=== PATIENT | male | born 1945 | race Caucasian/White ===

== ENCOUNTER 2017-03-08 07:30 | Emergency (ER) | payer BC ==
[~2017-03-08] VITALS: Ht 177.8 cm; Wt 111.1 kg
[~2017-03-08 07:30] MED LIST: ASPIR 8181 MG PO; BALMEX100 GM TOP; CIPRO500 MG PO; CITRUCEL479 GM PO; GLUCOPHAGE500 MG PO; GLYBURIDE2.5 MG PO; HYDROCHLOROTHIA25 MG PO; HYDROCODON-ACE1 EA10 PO; LANTUS100 UNITS/ SUB-Q; NORCO 10-325 T1 EACH PO; NORCO 5-325 TA1 EACH PO; PERCOCET 5-3251 EACH PO; PERCOCET 7.5-31 EACH PO; PYRIDIUM200 MG PO; RECTICARE30 GM TOP; SIMVASTATIN80 MG PO; TERAZOSIN HCL2 MG PO; ZITHROMAX250 MG PO
[2017-03-08] MEDS ORDERED: NORCO 5-325 TA1 EACH PO (08:05)
== END 2017-03-08 08:15 | disposition home or self-care (01) ==
LOC: ED 07:30
PROC: 0W3Q7ZZ Control Bleeding in Respiratory Tract, Via Natural or Artificial Opening (ICD-10-PCS; principal; 2017-03-08)
DX: R04.0 Epistaxis (principal); E11.9 Type 2 diabetes mellitus without complications; Z87.891 Personal history of nicotine dependence; Z79.899 Other long term (current) drug therapy; Z79.84 Long term (current) use of oral hypoglycemic drugs; Z79.82 Long term (current) use of aspirin; Z79.4 Long term (current) use of insulin
CPT/HCPCS: 30903; 99283

== ENCOUNTER 2017-03-09 13:59 | Emergency (ER) | payer BC ==
[~2017-03-09] VITALS: Ht 177.8 cm; Wt 111.1 kg
--- OUTSIDE RECORDS SUMMARY | 2017-03-09 14:28 | XMS | Clinical Summary ---
Demographics + + + | Address | [address] | | | [place] [address] | + + + | Home Phone | | + + + | Preferred Language | Unknown | + + + | Marital Status | | + + + | Latter-Day Affiliation | Unknown | + + + | Race | White | + + + | Ethnic Group | Not or | + + + Author + + + | Author | NON REVENUE LOCATIONS | + + + | Organization | NON REVENUE LOCATIONS | + + + | Address | Unknown | + + + | Phone | Unavailable | + + + Support +------+ +---------+ + | Name | Relationship | Address | Phone | +------+ +---------+ + ECON | Unknown | | +------+ +---------+ + Care Team Providers + +------+ + | Care Clamp Operator Name | Role | Phone | + +------+ + | No Pcp Per Patient | PP | Unavailable | + +------+ + Source Comments [facility] is fully live on both [facility] and [facility] InPatient.[facility] Allergies No Known Allergies Current Medications + + +-------+---------+------+------+-------+ | Prescription | Sig. | Disp. | Refills | Star | End | Statu | | | | | | t | Date | s | | | | | | Date | | | + + +-------+---------+------+------+-------+ | metFORMIN 500 mg | Take 500 mg by mouth | | | | | Activ | | oral tablet | two times daily. | | | | | e | + + +-------+---------+------+------+-------+ | | Take 25 mg by mouth | | | | | Activ | | hydrochlorothiazide | once daily. | | | | | e | | 25 mg oral tablet | | | | | | | + + +-------+---------+------+------+-------+ | simvastatin 40 mg | Take 40 mg by mouth | | | | | Activ | | oral tablet | once daily in the | | | | | e | | | evening. | | | | | | + + +-------+---------+------+------+-------+ Active Problems No known active problems Family History + + +------+ + | Medical History | Relation | Name | Comments | + + +------+ + | Cancer | Father | | skin | + + +------+ + + +------+--------+ + | Relation | Name | Status | Comments | + +------+--------+ + | Father | | | | + +------+--------+ + Social History + +-------+ +--------+ + | Tobacco Use | Types | Packs/Day | Years | Date | | | | | Used | | + +-------+ +--------+ + | Former Smoker | | 0.5 | 20 | Quit: 04/09/1997 | + +-------+ +--------+ + + + +---------+ + | Alcohol Use | Drinks/We | oz/Week | Comments | | | ek | | | + + +---------+ + | No | 0 | 0.0 | | | | Standard | | | | | drinks or | | | | | | | | | | equivalen | | | | | t | | | + + +---------+ + + + + | Sex Assigned at | Date Recorded | | | | + + + | Not on file | | + + + Last Filed Vital Signs + + + + | Vital Sign | Reading | Time Taken | + + + + | Blood Pressure | 144/69 | 12/01/2014 9:33 AM PDT | + + + + | Pulse | 67 | 12/01/2014 9:33 AM PDT | + + + + | Temperature | - | - | + + + + | Respiratory Rate | - | - | + + + + | Oxygen Saturation | - | - | + + + + | Inhaled Oxygen | - | - | | Concentration | | | + + + + | Weight | 114.8 kg (253 lb) | 12/01/2014 9:33 AM PDT | + + + + | Height | 177.8 cm (5' 10") | 12/01/2014 9:33 AM PDT | + + + + | Body Mass Index | 36.3 | 12/01/2014 9:33 AM PDT | + + + + Plan of Treatment + + + + + | Health Maintenance | Due Date | Last Done | Comments | + + + + + | INFLUENZA VACCINE | | | | | (FLU SHOT) | 7 | | | + + + + + Results Not on filefrom Last 3 Months
--- NOTE | 2017-03-09 20:39 | EKG ---
[facility] [address] [place] [address] Signed Sinus tachycardia with occasional premature ventricular complexes Otherwise normal ECG No previous ECGs available Confirmed by MELLY CHAPARRO MD ([id number]) on 03/09/2017 8:38:52 PM Electronically Signed By: MELLY CHAPARRO MD 03/09/17 2039 PATIENT NAME: KATARZYNA GANDHI Electrocardiogram DATE OF : 49 PHYSICIAN: MELLY CHAPARRO MD REPORT #: [id number] REPORT IS CONFIDENTIAL AND NOT TO BE RELEASED WITHOUT AUTHORIZATION
== END 2017-03-09 15:32 | disposition home or self-care (01) ==
LOC: ED 13:59
DX: R53.1 Weakness (principal); Z87.442 Personal history of urinary calculi; Z90.49 Acquired absence of other specified parts of digestive tract; Z98.890 Other specified postprocedural states; Z79.4 Long term (current) use of insulin; Z79.899 Other long term (current) drug therapy; Z79.82 Long term (current) use of aspirin
CPT/HCPCS: 80048; 84484; 85025; 93005; 93010; 96360; 99283; J7030

== ENCOUNTER 2017-08-27 13:50 | Emergency (ER) | payer BC, OTHER ==
[~2017-08-27] VITALS: Ht 177.8 cm; Wt 111.1 kg
[~2017-08-27 13:50] MED LIST changes: +DETROL LA4 MG PO; +LASIX20 MG PO; +METOPROLOL TART25 MG PO; +POTASSIUM CHLO10 MEQ PO; +QUINIDINE GLUC324 MG PO; +WARFARIN SODIUM3 MG PO
[2017-09-04] MEDS ORDERED: METOPROLOL TART50 MG PO (08:58)
== END 2017-08-27 14:10 | disposition home or self-care (01) ==
LOC: ED 13:50
DX: S61.219A Laceration without foreign body of unspecified finger without damage to nail, initial encounter (principal); W26.0XXA Contact with knife, initial encounter

== ENCOUNTER 2017-11-25 12:57 | Emergency (ER) | payer BC, OTHER ==
[~2017-11-25] VITALS: Ht 177.8 cm; Wt 111.1 kg
--- OUTSIDE RECORDS SUMMARY | ~2017-11-25 | XMS | Encounter Summary ---
Demographics + + + | Address | [address] | | | [place] [address] | + + + | Home Phone | | + + + | Preferred Language | Unknown | + + + | Marital Status | | + + + | Muslim Affiliation | 1041 | + + + | Race | Unknown | + + + | Ethnic Group | Unknown | + + + Author + + + | Author | [facility] [employer] | + + + | Organization | [facility] [facility] | + + + | Address | Unknown | + + + | Phone | Unavailable | + + + Support + + +---------+ + | Name | Relationship | Address | Phone | + + +---------+ + | Carina Madison | ECON | Unknown | | + + +---------+ + Care Team Providers + +------+ + | Care Stove Carriage Operator Name | Role | Phone | + +------+ + | Slick Hernandez MD | PCP | | + +------+ + Reason for Visit + + + | Reason | Comments | + + + | Follow-up | 6 mon f/u VV; wearing compression | + + + Encounter Details +--------+---------+ + + + | Date | Type | Department | Care Team | Description | +--------+---------+ + + + | 10/18/ | Office | [facility] | Moise Tang MD | Chronic venous | | 2018 | Visit | Vascular Surgery | [address] | insufficiency | | | | [address] | [place] [address] | (Primary Dx) | | | | [place], [place] | [phone] | | | | | [address] | | | | | | [phone] | | | +--------+---------+ + + + Social History + +-------+ +--------+ + | Tobacco Use | Types | Packs/Day | Years | Date | | | | | Used | | + +-------+ +--------+ + | Former Smoker | | 0.25 | 20 | Quit: 02/06/1997 | + +-------+ +--------+ + + +---+---+--------+ | Smokeless Tobacco: | | | Quit: | | Former User | | | 2001 | + +---+---+--------+ + + | Comments: used chew | + + + + +---------+ + | Alcohol Use | Drinks/We | oz/Week | Comments | | | ek | | | + + +---------+ + | No | 2-3 | 1.2 - | occ | | | Shots of | 1.8 | | | | liquor | | | + + +---------+ + + + + | Sex Assigned at | Date Recorded | | | | + + + | Not on file | | + + + as of this encounter Last Filed Vital Signs + +---------+ + | Vital Sign | Reading | Time Taken | + +---------+ + | Blood Pressure | 126/76 | 10/18/2017 9:17 AM PDT | + +---------+ + | Pulse | 78 | 10/18/2017 9:17 AM PDT | + +---------+ + | Temperature | - | - | + +---------+ + | Respiratory Rate | - | - | + +---------+ + | Oxygen Saturation | 94% | 10/18/2017 9:17 AM PDT | + +---------+ + | Inhaled Oxygen | - | - | | Concentration | | | + +---------+ + | Weight | - | - | + +---------+ + | Height | - | - | + +---------+ + | Body Mass Index | - | - | + +---------+ + in this encounter Progress Notes Moise Tang MD - 10/18/2017 9:00 AM PDTFormatting of this note may be different from the o riginal. Mr. Madison is a pleasant 72 y.o. male with PMH significant for type 2 diabetes, skin cancer, hypertension, hyperlipidemia, BPH, atrial fibrillation, and arthritis, who presents for fol low up of varicose veins. Patient reports he has been wearing his compression but did not w ear them today, as they are difficult to get on and off in the office. Patient states he is not having any symptoms at this time, and he does not have any wounds. The patient had his a ortic valve replacement in April 2017, with Dr. Choi. Past Medical History Diagnosis Date Arthralgia all joints Arthritis Atrial fibrillation (HCC) Bioprosthetic aortic valve replacement during current hospitalization BPH (benign prostatic hyperplasia) Colon polyps Horseshoe kidney Hyperlipidemia Hypertension Kidney stones Pain in both feet PONV (postoperative nausea and vomiting) Severe calcific aortic stenosis Rapidly progressive Skin cancer basal cell Type 2 diabetes mellitus (HCC) 2004 Insulin requiring Varicose vein of leg Visual disturbance Past Surgical History Procedure Laterality Date AORTIC VALVE REPLACEMENT N/A 04/26/2017 Procedure: AORTIC VALVE REPLACEMENT; Surgeon: Lopez Choi MD; Location: [facility] MAIN OR ; Service: Cardiac; Laterality: N/A; Sternotomy, left atrial appendage ligation, pulmonar y vein isolation. CARDIAC CATHETERIZATION 03/2017 Left and Right CHOLECYSTECTOMY COLONOSCOPY CYSTOSCOPY 04/26/2017 Procedure: CYSTOSCOPY; Surgeon: Karan Mercado MD; Location: [facility] MA[facility] OR; Service: Ur ology;; Cysto for difficult juan placement. HARDWARE PRESENT Right knee replacement NASAL SEPTUM SURGERY RECTAL SURGERY tear repaired REPLACEMENT TOTAL KNEE Right 2009 SINUS SURGERY 2004 nasoplasty SKIN CANCER EXCISION basal cell TONSILLECTOMY TRANSURETHRAL RESECTION OF PROSTATE 2013 UNLISTED PROCEDURE ARTHROSCOPY Social History Substance Use Topics Smoking status: Former Smoker Packs/day: 0.25 Years: 20.00 Quit date: 02/06/1997 Smokeless tobacco: Former User Quit date: 2000 Comment: used chew Alcohol use No Comment: occ Family History Problem Relation Age of Onset Heart failure Mother Dementia Mother Stroke Father Coronary art dis Father 72 Hypertension Father Diabetes type II Sister Genna benitez Neg Hx Current Outpatient Prescriptions on File Prior to Visit Medication Sig Dispense Refill ACCU-CHEK PATRICIO PLUS test strip aspirin 81 MG tablet Take 81 mg by mouth daily. docusate sodium (COLACE) 100 MG capsule Take 100 mg by mouth nightly. furosemide (LASIX) 20 MG tablet Take 1 tablet by mouth 4 (four) times a week. 48 tablet 3 Insulin NPH Isophane & Regular (HUMULIN 70/30 KWIKPEN SC) Inject 48 Units into the skin 2 (two) times daily. 48 units in am and 30 in pm tolterodine (DETROL LA) 4 MG 24 hr capsule Take 4 mg by mouth daily. metFORMIN (GLUCOPHAGE) 500 MG tablet Take 1 tablet by mouth 2 (two) times daily with me als for 30 days. 60 tablet 11 metoprolol (LOPRESSOR) 25 MG tablet Take 1 tablet by mouth 2 (two) times daily for 30 d ays. 180 tablet 3 quiNIDine gluconate 324 MG CR tablet Take 1 tablet by mouth daily as needed for up to 3 0 days. 30 tablet 11 simvastatin (ZOCOR) 80 MG tablet Take 0.5 tablets by mouth nightly for 30 days. 15 tabl et 11 warfarin (COUMADIN) 3 MG tablet Take 1 tablet by mouth Once daily-Coumadin for 90 days. INR goal 2.0 - 3.0 for persistent A.fib sp PVI/ LAAL and sp AVR (tissue valve). (Patient sidney capone differently: Take 6 mg by mouth Once daily-Coumadin. Monitored By [facility] for target INR 2-3) 30 tablet 2 [DISCONTINUED] potassium chloride (MICRO-K) 10 MEQ CR capsule Take 2 capsules by mouth daily. 60 capsule 11 No current facility-administered medications on file prior to visit. Allergies Allergen Reactions Hydrocodone Hallucinations Oxycodone Hallucinations Comprehensive ROS performed and pertinent items described in the HPI. Vitals:reviewed CONSTITUTIONAL: Conversant, well developed, NAD EYES: Anicteric sclerae, no lid drag, no proptosis RESP: Normal effort, regular, even, unlabored rate CV: No peripheral edema, rate regular SKIN: [place], warm, dry without rash/lesion MS: ROM not limited, no digital cyanosis, normal gait NEURO: Cranial nerves II-XII grossly intact, A&O times 3 PSYCH: appropriate affect, speech and tone, judgement and insight intact Vascular: Chronic skin changes consistent with chronic venous insufficiency Discussed with the patient that since he is asymptomatic and has no open wounds, he should continue with compression. Surgery is not indicated at this time. Advised the patient to rep lace his compression every 6 months as the stockings will lose their elasticity. All questio ns and concerns addressed. Patient will follow up as needed. Patient understands and is agre eable. Attending Note: Documentation assistance provided by Giovany Acveedo (Regi). Information r ecorded by the scribe has been reviewed and validated by me. I agree with its contents. Signed by: Regi Craven 10/18/17, 9:12 AM Moise Tang MD in this encounter Plan of Treatment +--------+---------+ + + + | Date | Type | Specialty | Care Team | Description | +--------+---------+ + + + | 12/17/ | Office | Cardiology | Elmer Mcdaniel, | | | 2018 | Visit | | MD [address] | | | | | | [place], | | | | | | [place] [address] | | | | | | [phone] | | | | | | | | +--------+---------+ + + + as of this encounter Visit Diagnoses + + | Diagnosis | + + | Chronic venous insufficiency - Primary | + + | Unspecified venous (peripheral) insufficiency | + +"
--- OUTSIDE RECORDS SUMMARY | ~2017-11-25 | XMS | Encounter Summary ---
Demographics + + + | Address | [address] | | | [place] [address] | + + + | Home Phone | | + + + | Preferred Language | Unknown | + + + | Marital Status | | + + + | Gnosticist Affiliation | 1041 | + + + | Race | Unknown | + + + | Ethnic Group | Unknown | + + + Author + + + | Author | [facility] | + + + | Organization | [facility] [facility] | + + + | Address | Unknown | + + + | Phone | Unavailable | + + + Support + + +---------+ + | Name | Relationship | Address | Phone | + + +---------+ + | Carina Madison | ECON | Unknown | | + + +---------+ + Care Team Providers + +------+ + | Care Insurance Service Representative Name | Role | Phone | + +------+ + | Slick Hernandez MD | PCP | | + +------+ + Reason for Visit + + + | Reason | Comments | + + + | Medication Refill | | + + + Encounter Details +--------+--------+ + + + | Date | Type | Department | Care Team | Description | +--------+--------+ + + + | 09/17/ | Refill | [facility] [place] | Mercedes Castellanos, | Medication Refill | | 2018 | | Cardiology [place] | [place] | | | | | [address] | | | | | | [facility] [address] | | | | | | [place] [address] | | | | | | [phone] | | | +--------+--------+ + + + Social History + +-------+ [...] | | Former User | | | 2000 | + +---+---+--------+ + + | Comments: [...] + + + as of this encounter Plan of Treatment +--------+---------+ + + + | Date | Type | Specialty | Care Team | Description | +--------+---------+ + + + | 12/17/ | Office | Cardiology | Elmer Mcdaniel, | | | 2018 | Visit | | MD [address] | | | | | | [place], | | | | | | [place] [address] | | | | | | [phone] | | | | | | | | +--------+---------+ + + + as of this encounter Visit Diagnoses Not on filein this encounter"
--- OUTSIDE RECORDS SUMMARY | ~2017-11-25 | XMS | Encounter Summary ---
Demographics + + + | Address | [address] | | | [place] [address] | + + + | Home Phone | | + + + | Preferred Language | Unknown | + + + | Marital Status | | + + + | Yazidi Affiliation | 1041 | + + + | Race | Unknown | + + + | Ethnic Group | Unknown | + + + Author + + + | Author | [employer] [employer] | + + + | Organization | [facility] | + + + | Address | Unknown | + + + | Phone | Unavailable | + + + Support + + +---------+ + | Name | Relationship | Address | Phone | + + +---------+ + | Carina Madison | ECON | Unknown | | + + +---------+ + Care Team Providers + +------+ + | Care Dental Office Receptionist Name | Role | Phone | + +------+ + | Slick Hernandez MD | PCP | | + +------+ + Reason for Visit +--------+ + | Reason | Comments | +--------+ + | Other | [facility] Report (signed) | +--------+ + Encounter Details +--------+ + + + + | Date | Type | Department | Care Team | Description | +--------+ + + + + | 10/09/ | Documentati | [facility] | CastellanosMercedes Anson, | Other (Rocael Navarro | | 2018 | on Only | [facility] [place] | [place] | Cardiac Rehab | | | | [address] | | Report (signed)) | | | | [address] | | | | | | [place] [address] | | | | | | [phone] | | | +--------+ + + + [...] Cardiology | Elmer Mcdaniel, | | | 2017 | Visit | | MD [address] | | | | | | [place], | | | | | | [place] [address] | | | | | | [phone] | | | | | | | | +--------+---------+ + + + as of this encounter Visit Diagnoses Not on filein this encounter"
--- OUTSIDE RECORDS SUMMARY | ~2017-11-25 | XMS | Clinical Summary ---
Demographics + + + | Address | [address] | | | [place] [address] | + + + | Home Phone | | + + + | Preferred Language | Unknown | + + + | Marital Status | | + + + | Episcopalian Affiliation | 1041 | + + + | Race | Unknown | + + + | Ethnic Group | Unknown | + + + Author + + + | Author | Kylie Renovar | + + + | Organization | [facility] | + + + | Address | Unknown | + + + | Phone | Unavailable | + + + Support + + +---------+ + | Name | Relationship | Address | Phone | + + +---------+ + | Carina Madison | ECON | Unknown | | + + +---------+ + Care Team Providers + +------+ + | Care Metal Tile Setter Name | Role | Phone | + +------+ + | Slick Hernandez MD | PP | | + +------+ + Allergies + + + + + + | Active Allergy | Reactions | Severity | Noted | Comments | | | | | Date | | + + + + + + | Hydrocodone | Hallucinations | Medium | 05/04/19 | | | | | | 18 | | + + + + + + | Oxycodone | Hallucinations | Medium | 05/04/19 | | | | | | 18 | | + + + + + + Current Medications + + +---------+---------+------+------+-------+ | Prescription | Sig. | Disp. | Refills | Star | End | Statu | | | | | | t | Date | s | | | | | | Date | | | + + +---------+---------+------+------+-------+ | docusate sodium | Take 100 mg by mouth | | | | | Activ | | (COLACE) 100 MG | nightly. | | | | | e | | capsule | | | | | | | + + +---------+---------+------+------+-------+ | ACCU-CHEK PATRICIO | | | | 10/3 | | Activ | | PLUS test strip | | | | 0/20 | | e | | | | | | 17 | | | + + +---------+---------+------+------+-------+ | Insulin NPH | Inject 48 Units into | | | | | Activ | | Isophane & Regular | the skin 2 (two) | | | | | e | | (HUMULIN 70/30 | times daily. 48 | | | | | | | KWIKPEN | units in am and 30 | | | | | | | SC)Indications: 48 | in pm | | | | | | | units mornings, 38 | | | | | | | | units at night | | | | | | | + + +---------+---------+------+------+-------+ | warfarin | Take 1 tablet by | 30 | 2 | 01/2 | | Activ | | (COUMADIN) 3 MG | mouth Once | tablet | | 2/20 | | e | | tablet | daily-Coumadin for | | | 18 | | | | | 90 days. INR goal | | | | | | | | 2.0 - 3.0 for | | | | | | | | persistent A.fib sp | | | | | | | | PVI/ LAAL and sp AVR | | | | | | | | (tissue valve). | | | | | | + + +---------+---------+------+------+-------+ | metFORMIN | Take 1 tablet by | 60 | 11 | 01/2 | | Activ | | (GLUCOPHAGE) 500 MG | mouth 2 (two) times | tablet | | 2/20 | | e | | tablet | daily with meals for | | | 18 | | | | | 30 days. | | | | | | + + +---------+---------+------+------+-------+ | quiNIDine | Take 1 tablet by | 30 | 11 | 01/2 | | Activ | | gluconate 324 MG CR | mouth daily as | tablet | | 2/20 | | e | | tablet | needed for up to 30 | | | 18 | | | | | days. | | | | | | + + +---------+---------+------+------+-------+ | simvastatin | Take 0.5 tablets by | 15 | 11 | 01/2 | | Activ | | (ZOCOR) 80 MG tablet | mouth nightly for 30 | tablet | | 2/20 | | e | | | days. | | | 18 | | | + + +---------+---------+------+------+-------+ | aspirin 81 MG | Take 81 mg by mouth | | | | | Activ | | tablet | daily. | | | | | e | + + +---------+---------+------+------+-------+ | tolterodine | Take 4 mg by mouth | | | | | Activ | | (DETROL LA) 4 MG 24 | daily. | | | | | e | | hr capsule | | | | | | | + + +---------+---------+------+------+-------+ | metoprolol | Take 1 tablet by | 180 | 3 | 03/0 | | Activ | | (LOPRESSOR) 25 MG | mouth 2 (two) times | tablet | | 1/20 | | e | | tablet | daily for 30 days. | | | 18 | | | + + +---------+---------+------+------+-------+ | furosemide (LASIX) | Take 1 tablet by | 48 | 3 | 06/1 | | Activ | | 20 MG tablet | mouth 4 (four) times | tablet | | 4/20 | | e | | | a week. | | | 18 | | | + + +---------+---------+------+------+-------+ | potassium chloride | Take 2 capsules by | 60 | 11 | 01/2 | 03/0 | Disco | | (MICRO-K) 10 MEQ CR | mouth daily. | capsule | | 5/20 | 1/20 | ntinu | | capsule | | | | 18 | 18 | ed | + + +---------+---------+------+------+-------+ Active Problems + + + | Problem | Noted Date | + + + | Anticoagulated on Coumadin | 05/04/2017 | + + + | Paroxysmal A-fib (HCC) | 04/28/2017 | + + + | Status post cystoscopy | 04/27/2017 | + + + | Status post aortic valve replacement with bioprosthetic valve | 04/26/2017 | + + + | Severe calcific aortic stenosis | | + + + | Hypertension | | + + + | Hyperlipidemia | | + + + | Horseshoe kidney | | + + + | BPH (benign prostatic hyperplasia) | | + + + | Bioprosthetic aortic valve replacement during current | | | hospitalization | | + + + Encounters +--------+ + + + + | Date | Type | Specialty | Care Team | Description | +--------+ + + + + | 10/18/ | Office | | Moise Tang MD | Chronic venous | | 2018 | Visit | | | insufficiency | | | | | | (Primary Dx) | +--------+ + + + + | 10/09/ | Documentati | | Mercedes Castellanos, | Other (Rocael Navarro | | 2018 | on Only | | [place] | Cardiac Rehab | | | | | | Report (signed)) | +--------+ + + + + | 09/17/ | Refill | | Mercedes Castellanos, | Medication Refill | | 2017 | | | [place] | | +--------+ + + + + | 09/11/ | Refill | | Mercedes Castellanos, | Medication Refill | | 2017 | | | [place] | | +--------+ + + + + | 09/10/ | Refill | | Ariane Gonzalez | Medication Refill | | 2017 | | | CAR[facility] Jerez | | +--------+ + + + + | 09/06/ | Refill | | Ariane Gonzalez | Medication Refill | | 2018 | | | CARMEN Jerez | | +--------+ + + + + | 08/30/ | Documentati | | Mercedes Castellanos, | Other (Rocael Navarro | | 2018 | on Only | | [place] | Cardiac Rehab | | | | | | Report (Signed)) | +--------+ + + + + from Last 3 Months Family History + + +------+ + | Medical History | Relation | Name | Comments | + + +------+ + | Coronary art dis | Father | | | + + +------+ + | Hypertension | Father | | | + + +------+ + | Stroke | Father | | | + + +------+ + | Dementia | Mother | | | + + +------+ + | Heart failure | Mother | | | + + +------+ + | Diabetes type II | Sister | | | + + +------+ + | Malig hypertherm | Neg Hx | | | + + +------+ + + +------+ + + | Relation | Name | Status | Comments | + +------+ + + | Brother | | Alive | | + +------+ + + | Daughter | | Alive | | + +------+ + + | Father | | | CVA | | | | (Age | | | | | 92) | | + +------+ + + | Mother | | Alive | | + +------+ + + | Sister | | Alive | | + +------+ + + | Son | | Alive | | + +------+ + + Social History + +-------+ +--------+ [...] 2000 | + +---+---+--------+ + + | Tobacco Cessation: Counseling Given: No | | Comments: used chew | + + [...] + + + | Blood Pressure | 126/76 | 10/18/2017 9:17 AM PDT | + + + + | Pulse | 78 | 10/18/2017 9:17 AM PDT | + + + + | Temperature | 36.2 C (97.2 F) | 05/09/2017 11:12 AM PST | + + + + | Respiratory Rate | 18 | 06/07/2017 1:42 PM PST | + + + + | Oxygen Saturation | 94% | 10/18/2017 9:17 AM PDT | + + + + | Inhaled Oxygen | - | - | | Concentration | | | + + + + | Weight | 110.8 kg (244 lb 3.2 | 07/26/2017 11:41 AM PDT | | | oz) | | + + + + | Height | 177.8 cm (5' 10") | 07/26/2017 11:41 AM PDT | + + + + | Body Mass Index | 35.04 | 07/26/2017 11:41 AM PDT | + + + + Plan of Treatment +--------+---------+ + + + | Date | Type | Specialty | Care Team | Description | +--------+---------+ + + + | 12/17/ | Office | | Elmer Mcdaniel, | | | 2018 | Visit | | MD [address] | | | | | | [place], | | | | | | [place] [address] | | | | | | [phone] | | | | | | | | +--------+---------+ + + + + + + + + | Health Maintenance | Due Date | Last Done | Comments | + + + + + | Vaccine: | | | | | Dtap/Tdap/Td (1 - | 6 | | | | Tdap) | | | | + + + + + | Colon Cancer | | | | | Screening | 7 | | | | (Colonoscopy) | | | | + + + + + | Vaccine: | | | | | Pneumococcal 65+ | 2 | | | | Low/Medium Risk (1 | | | | | of 2 - PCV13) | | | | + + + + + | Vaccine: Influenza | | | | | (#1) | 8 | | | + + + + + Implants + +------+-------+ +--------+--------+--------+ | Implanted | Type | Area | Manufacture | Device | Expira | Model | | | | | r | | tion | / | | | | | | Identi | Date | Serial | | | | | | fier | | / Lot | + +------+-------+ +--------+--------+--------+ | Valve Aort Pericard Mgnaes 25 | | Heart | ROYAL | | 11/29/ | [id number] | | - [id number]: Qty: 1 | | | LIFESCIENCE | | 2021 | [id number] | | on 04/26/2017 by Jimbo | | | Verenice ARCE - | | | / | | MD Lopez | | | EDLS | | | /[id number] | | | | | | | | 06 | + +------+-------+ +--------+--------+--------+ Results Not on filefrom Last 3 Months Insurance + +--------+ +------+-------+ + | Payer | Benefi | Subscriber | Type | Phone | Address | | | t Plan | ID | | | | | | / | | | | | | | Group | | | | | + +--------+ +------+-------+ + | PREMERA | PREMER | [id number] | | | [address] [address] | | | A BLUE | | | | [place] | | | [place] | | | | [phone] | | | FED | | | | | | | PPO | | | | | + +--------+ +------+-------+ + | MEDICARE | MEDICA | [id number] | | | [address] | | | [place] | | | | [place] [phone] | | | PART A | | | | | | | ONLY | | | | | + +--------+ +------+-------+ + | CARLOS - LITTLE - | TRICMIKE | [id number] | | | [address] [address] | | | E FOR | | | | [place] | | | LIFE | | | | [phone] | + +--------+ +------+-------+ + + +--------+ +--------+ + + | Guarantor Name | Accoun | Relation to | Date | Phone | Billing Address | | | t Type | Patient | of | | | | | | | | | | + +--------+ +--------+ + + | KATARZYNA MADISON | Person | Self [birth year] Home: | [address] | | | al/Fam | | 1945 | [phone] | [place] | | | an[place] | | | [phone] | [phone] | + +--------+ +--------+ + +
--- OUTSIDE RECORDS SUMMARY | ~2017-11-25 | XMS | Encounter Summary ---
Demographics + + + | Address | [address] | | | [place] [address] | + + + | Home Phone | | + + + | Preferred Language | Unknown | + + + | Marital Status | | + + + | Temple Affiliation | 1041 | + + + | Race | Unknown | + + + | Ethnic Group | Unknown | + + + Author + + + | Author | Kylie CareXtend | + + + | Organization | [facility] | + + + | Address | Unknown | + + + | Phone | Unavailable | + + + Support + + +---------+ + | Name | Relationship | Address | Phone | + + +---------+ + | Carina Madison | ECON | Unknown | | + + +---------+ + Care Team Providers + +------+ + | Care Executive Secretary Name | Role | Phone | + [...] Description | +--------+--------+ + + + | 09/06/ | Refill | [facility] | Ariane Gonzalez | Medication Refill | | 2017 | | Cardiology Tara | [address] | | | | | [address] | [address] | | | | | [address] | [place] [address] | | | | | [place] [address] | [phone] | | | | | [phone] | | | +--------+--------+ + + + [...] | | | | | | [place] [address] | | | | | | [phone] | | | | | | | | +--------+---------+ + + + as of this encounter Visit Diagnoses Not on filein this encounter"
--- OUTSIDE RECORDS SUMMARY | ~2017-11-25 | XMS | Clinical Summary ---
Demographics + + + | Address | [address] | | | [place] [address] | + + + | Home Phone | | + + + | Preferred Language | Unknown | + + + | Marital Status | | + + + | Yazidi Affiliation | Unknown | + + + [...] Team Providers + +------+ + | Care Acetylene Cutter Name | Role | Phone | + +------+ + | No Pcp Per Patient | PP | Unavailable | + +------+ + Source Comments LIANG is fully live on both [facility] Ambulatory and [facility] InPatient.[facility] Allergies No Known Allergies Current [...] | | | | (FLU SHOT) | 8 | | | + + [...] | BLUE | [phone] | PPO | [phone] [address] [address] [place] | | | CROSS | | | [phone] | [place] [address] | | | FEDERA | | | [...] | Self | | Home: | [address] | | [place] | shilo/Karthikeyan | | | [phone] | [place] | | | [place] | | | [phone] | + +--------+ +-------+ + +
--- OUTSIDE RECORDS SUMMARY | ~2017-11-25 | XMS | Encounter Summary ---
Demographics + + + | Address | [address] | | | [place] [address] | + + + | Home Phone | | + + + | Preferred Language | Unknown | + + + | Marital Status | | + + + | Zoroastrianism Affiliation | 1041 | + + + | Race | Unknown | + + + | Ethnic Group | Unknown | + + + Author + + + | Author | Kylie Neovasc | + + + | Organization | [facility] | + + + | Address | Unknown | + + + | Phone | Unavailable | + + + Support + + +---------+ + | Name | Relationship | Address | Phone | + + +---------+ + | Carina Madison | ECON | Unknown | | + + +---------+ + Care Team Providers + +------+ + | Care Conference Reservationist Name | Role | Phone | + [...] Description | +--------+--------+ + + + | 09/10/ | Refill | [facility] | Ariane Gonzalez | Medication Refill | | 2018 | | Cardiology Tara | [address] | | | | | [address] | [address] | | | | | [address] | [place] [address] | | | | | [place] [address] | [phone] | | | | | [phone] | | | +--------+--------+ + + + [...] | | | | | | [place] [address] | | | | | | [phone] | | | | | | | | +--------+---------+ + + + as of this encounter Visit Diagnoses Not on filein this encounter"
--- OUTSIDE RECORDS SUMMARY | ~2017-11-25 | XMS | Encounter Summary ---
Demographics + + + | Address | [address] | | | [place] [address] | + + + | Home Phone | | + + + | Preferred Language | Unknown | + + + | Marital Status | | + + + | Denominational Affiliation | 1041 | + + + | Race | Unknown | + + + | Ethnic Group | Unknown | + + + Author + + + | Author | Kylie Innovega | + + + | Organization | [facility] | + + + | Address | Unknown | + + + | Phone | Unavailable | + + + Support + + +---------+ + | Name | Relationship | Address | Phone | + + +---------+ + | Carina Madison | ECON | Unknown | | + + +---------+ + Care Team Providers + +------+ + | Care Defense Attorney Name | Role | Phone | + [...] | | | [address] | [place] [address] | | | | | [place] [address] | [phone] | | | | | [phone] | | | +--------+--------+ + + + [...] | | | | | | [place] [address] | | | | | | [phone] | | | | | | | | +--------+---------+ + + + as of this encounter Visit Diagnoses Not on filein this encounter"
--- OUTSIDE RECORDS SUMMARY | ~2017-11-25 | XMS | Encounter Summary ---
Demographics + + + | Address | [address] | | | [place] [address] | + + + | Home Phone | | + + + | Preferred Language | Unknown | + + + | Marital Status | | + + + | Yazidism Affiliation | 1041 | + + + | Race | Unknown | + + + | Ethnic Group | Unknown | + + + Author + + + | Author | Kylie Halt Medical | + + + | Organization | [facility] [facility] | + + + | Address | Unknown | + + + | Phone | Unavailable | + + + Support + + +---------+ + | Name | Relationship | Address | Phone | + + +---------+ + | Carina Madison | ECON | Unknown | | + + +---------+ + Care Team Providers + +------+ + | Care Barrel Lathe Operator Name | Role | Phone | [...] | | | [address] | [place] [address] | | | | | [place] [address] | [phone] | | | | | [phone] | | | +--------+--------+ + + + [...] | | | | | | [place] [address] | | | | | | [phone] | | | | | | | | +--------+---------+ + + + as of this encounter Visit Diagnoses Not on filein this encounter"
--- OUTSIDE RECORDS SUMMARY | ~2017-11-25 | XMS | Encounter Summary ---
Demographics + + + | Address | [address] | | | [place] [address] | + + + | Home Phone | | + + + | Preferred Language | Unknown | + + + | Marital Status | | + + + | Oriental Orthodox Affiliation | 1041 | + + + | Race | Unknown | + + + | Ethnic Group | Unknown | + + + Author + + + | Author | Kylie Scoutzie | + + + | Organization | [facility] [facility] | + + + | Address | Unknown | + + + | Phone | Unavailable | + + + Support + + +---------+ + | Name | Relationship | Address | Phone | + + +---------+ + | Carina Madison | ECON | Unknown | | + + +---------+ + Care Team Providers + +------+ + | Care Curing Bin Operator Name | Role | Phone | [...] + + | 10/18/ | Office | [facility] | Moise Tang MD | Chronic venous | | 2018 | Visit | Vascular Surgery | [address] | insufficiency | | | | [address] | [place] [address] | (Primary Dx) | | | | E [place], [place] | [phone] | | | | | [address] | | | | | | [phone] | | | +--------+---------+ + + + [...] VALVE REPLACEMENT; Surgeon: Lopez Choi MD; Location: [facility] MAIN OR ; Service: Cardiac; Laterality: N/A; Sternotomy, left atrial appendage ligation, pulmonar y vein isolation. CARDIAC CATHETERIZATION 03/2017 Left and Right CHOLECYSTECTOMY COLONOSCOPY CYSTOSCOPY 04/26/2017 Procedure: CYSTOSCOPY; Surgeon: Karan Mercado MD; Location: [facility] MA[facility] OR; Service: Ur ology;; Cysto for [...] mg by mouth Once daily-Coumadin. Monitored By [facility] for target INR 2-3) 30 tablet 2 [...] CV: No peripheral edema, rate regular SKIN: Lobeco, warm, dry without rash/lesion MS: ROM not [...] Attending Note: Documentation assistance provided by Giovany Acevedo (Regi). Information r ecorded by the scribe [...] | | | | | | [place] [address] | | | | | | [phone] | | | | | | | | +--------+---------+ + + + as of this encounter Visit Diagnoses + + | Diagnosis | + + | Chronic venous insufficiency - Primary | + + | Unspecified venous (peripheral) insufficiency | + +"
--- OUTSIDE RECORDS SUMMARY | ~2017-11-25 | XMS | Encounter Summary ---
Demographics + + + | Address | [address] | | | [place] [address] | + + + | Home Phone | | + + + | Preferred Language | Unknown | + + + | Marital Status | | + + + | Taoism Affiliation | 1041 | + + + | Race | Unknown | + + + | Ethnic Group | Unknown | + + + Author + + + | Author | Kylie The Fab Shoes | + + + | Organization | [facility] | + + + | Address | Unknown | + + + | Phone | Unavailable | + + + Support + + +---------+ + | Name | Relationship | Address | Phone | + + +---------+ + | Carina Madison | ECON | Unknown | | + + +---------+ + Care Team Providers + +------+ + | Care Pepper Picker Name | Role | Phone | + +------+ + | Slick Hernandez MD | PCP | | + +------+ + Reason for Visit +--------+ + | Reason | Comments | +--------+ + | Other | [facility] Cardiac Rehab Report (Signed) | +--------+ + Encounter Details +--------+ + + + + | Date | Type | Department | Care Team | Description | +--------+ + + + + | 08/30/ | Documentati | [facility] | Mercedes Castellanos Anson, | Other (Rocael Navarro | | 2018 | on Only | Cardiology [place] | [place] | Cardiac Rehab | | | | [address] | | Report (Signed)) | | | | [address] | | | | | | [place] [address] | | | | | | [phone] | | | +--------+ + + + [...] | | | | | | [place] [address] | | | | | | [phone] | | | | | | | | +--------+---------+ + + + as of this encounter Visit Diagnoses Not on filein this encounter"
--- OUTSIDE RECORDS SUMMARY | ~2017-11-25 | XMS | Encounter Summary ---
Demographics + + + | Address | [address] | | | [place] [address] | + + + | Home Phone | | + + + | Preferred Language | Unknown | + + + | Marital Status | | + + + | Judaism Affiliation | 1041 | + + + | Race | Unknown | + + + | Ethnic Group | Unknown | + + + Author + + + | Author | Kylie Thomas-Krenn | + + + | Organization | [facility] [employer] | + + + | Address | Unknown | + + + | Phone | Unavailable | + + + Support + + +---------+ + | Name | Relationship | Address | Phone | + + +---------+ + | Carina Madison | ECON | Unknown | | + + +---------+ + Care Team Providers + +------+ + | Care Advertising Teacher Name | Role | Phone | + [...] Description | +--------+--------+ + + + | 09/11/ | Refill | [facility] | Mercedes Castellanos, | Medication Refill | | 2018 | | Cardiology [place] | [place] | | | | | [address] [facility] [facility] [address] | | | | | | [facility] [address] | | | | | | [place] [address] | | | | | | [phone] | | | +--------+--------+ + + + [...] | | | | | | [place] [address] | | | | | | [phone] | | | | | | | | +--------+---------+ + + + as of this encounter Visit Diagnoses Not on filein this encounter"
--- OUTSIDE RECORDS SUMMARY | ~2017-11-25 | XMS | Encounter Summary ---
Demographics + + + | Address | [address] [facility] [address] [facility] | | | [place] [address] | + + + | Home Phone | | + + + | Preferred Language | Unknown | + + + | Marital Status | | + + + | Zoroastrian Affiliation | 1041 | + + + | Race | Unknown | + + + | Ethnic Group | Unknown | + + + Author + + + | Author | Kylie SmartBIM | + + + | Organization | [facility] | + + + | Address | Unknown | + + + | Phone | Unavailable | + + + Support + + +---------+ + | Name | Relationship | Address | Phone | + + +---------+ + | Carina Madison | ECON | Unknown | | + + +---------+ + Care Team Providers + +------+ + | Care Rn Critical Care Name | Role | Phone | + [...] + | 09/11/ | Refill | [facility] | Mercedes Castellanos, | Medication Refill | | 2018 | | Cardiology [place] | [place] | | | | | [address] [facility] [address] | | | | | | [facility] [address] | | | | | | [place] [address] | | | | | | [phone] | | | +--------+--------+ + + + [...] | | | | | | [place] [address] | | | | | | [phone] | | | | | | | | +--------+---------+ + + + as of this encounter Visit Diagnoses Not on filein this encounter"
--- OUTSIDE RECORDS SUMMARY | ~2017-11-25 | XMS | Encounter Summary ---
Demographics + + + | Address | [address] [facility] [address] | | | [place] [address] | + + + | Home Phone | | + + + | Preferred Language | Unknown | + + + | Marital Status | | + + + | Samaritan Affiliation | 1041 | + + + | Race | Unknown | + + + | Ethnic Group | Unknown | + + + Author + + + | Author | Kylie MailPix | + + + | Organization | [facility] | + + + | Address | Unknown | + + + | Phone | Unavailable | + + + Support + + +---------+ + | Name | Relationship | Address | Phone | + + +---------+ + | Carina Madison | ECON | Unknown | | + + +---------+ + Care Team Providers + +------+ + | Care Film Reproducer Name | Role | Phone | + [...] + | 09/17/ | Refill | [facility] Campo | Mercedes Castellanos, | Medication Refill | | 2018 | | Cardiology Tara | [place] | | | | | [address] | | | | | | [facility] [address] | | | | | | [place] [address] | | | | | | [phone] | | | +--------+--------+ + + + [...] [place], | | | | | | [place] [address] | | | | | | [phone] | | | | | | | | +--------+---------+ + + + as of this encounter Visit Diagnoses Not on filein this encounter"
--- OUTSIDE RECORDS SUMMARY | ~2017-11-25 | XMS | Encounter Summary ---
Demographics + + + | Address | [address] [facility] [address] | | | [place] [address] | + + + | Home Phone | | + + + | Preferred Language | Unknown | + + + | Marital Status | | + + + | Presybeterian Affiliation | 1041 | + + + | Race | Unknown | + + + | Ethnic Group | Unknown | + + + Author + + + | Author | [facility]ylie [employer] | + + + | Organization | [facility] [employer] [facility] | + + + | Address | Unknown | + + + | Phone | Unavailable | + + + Support + + +---------+ + | Name | Relationship | Address | Phone | + + +---------+ + | Carina Madison | ECON | Unknown | | + + +---------+ + Care Team Providers + +------+ + | Care Documentation Liaison Name | Role | Phone | + [...] | 2018 | on Only | [facility] [place] | [place] | Cardiac Rehab | | | | [address] [facility] [address] | | Report (signed)) | | | | [address] | | | | | | [place] [address] | | | | | | [phone] | | | +--------+ + + + [...] | | | | | | [place] [address] | | | | | | [phone] | | | | | | | | +--------+---------+ + + + as of this encounter Visit Diagnoses Not on filein this encounter"
--- OUTSIDE RECORDS SUMMARY | ~2017-11-25 | XMS | Clinical Summary ---
Demographics + + + | Address | [address] [facility] [address] | | | [place] [address] | + + + | Home Phone | | + + + | Preferred Language | Unknown | + + + | Marital Status | | + + + | Advent Affiliation | 1041 | + + + | Race | Unknown | + + + | Ethnic Group | Unknown | + + + Author + + + | Author | Kylie MirDeneg | + + + | Organization | [facility] [employer] [facility] | + + + | Address | Unknown | + + + | Phone | Unavailable | + + + Support + + +---------+ + | Name | Relationship | Address | Phone | + + +---------+ + | Carina Madison | ECON | Unknown | | + + +---------+ + Care Team Providers + +------+ + | Care Steam Conditioning Operator Name | Role | Phone | [...] + | 10/18/ | Office | | Mosie Tang MD | Chronic venous | | [...] | | | | | | [place] [address] | | | | | | [phone] | | | | | | | [...] | 11/29/ | [id number] | | - [id number]: Qty: 1 | | | LIFESCIENCE | | 2021 | [id number] | | on 04/26/2017 by Jimbo | | | Verenice ARCE - | | | / | | MD [place] | | | EDLS | | | /[id number] | | | | | | | [...] +------+-------+ + | PREMERA | PREMER | [id number] | | | [address] [address] | | | A BLUE | | | | [place] | | | [place] | | | | [phone] | | | FED | | | | | | | PPO | | | | | + +--------+ +------+-------+ + | MEDICARE | MEDICA | [id number] | | | [address] | | | [place] | | | | [place] [phone] | | | PART A | | | | | | | ONLY | | | | | + +--------+ +------+-------+ + | CARLOS - LITTLE - | TRICMIKE | [id number] | | | [address] [address] | | | [place] | | | | [place] | | | LIFE | | | | [phone] | + +--------+ +------+-------+ + + +--------+ +--------+ + + | Guarantor Name | Accoun | Relation to | Date | Phone | Billing Address | | | t Type | Patient | of | | | | | | | | | | + +--------+ +--------+ + + | KATARZYNA MADISON | Person | Self | [birth year] | Home: | [address] [facility] [address] | | | al/Fam | | 1945 | [phone] | [place] | | | [place] | | | [phone] | [phone] | + +--------+ +--------+ + +
--- OUTSIDE RECORDS SUMMARY | ~2017-11-25 | XMS | Encounter Summary ---
Demographics + + + | Address | [address] [facility] [address] | | | [place] [address] | + + + | Home Phone | | + + + | Preferred Language | Unknown | + + + | Marital Status | | + + + | Latter Day Affiliation | 1041 | + + + | Race | Unknown | + + + | Ethnic Group | Unknown | + + + Author + + + | Author | [facility] | + + + | Organization | [facility] [employer] [facility] | + + + | Address | Unknown | + + + | Phone | Unavailable | + + + Support + + +---------+ + | Name | Relationship | Address | Phone | + + +---------+ + | Carina Madison | ECON | Unknown | | + + +---------+ + Care Team Providers + +------+ + | Care Assistant Store Manager Trainee Name | Role | Phone | + [...] | 2018 | on Only | [facility] [place] | [place] | Cardiac Rehab | | | | [address] | | Report (Signed)) | | | | [address] | | | | | | [place] [address] | | | | | | [phone] | | | +--------+ + + + [...] | | | | | | [place] [address] | | | | | | [phone] | | | | | | | | +--------+---------+ + + + as of this encounter Visit Diagnoses Not on filein this encounter"
--- OUTSIDE RECORDS SUMMARY | ~2017-11-25 | XMS | Clinical Summary ---
Demographics + + + | Address | [address] [facility] [address] | | | [place] [address] | + + + | Home Phone | | + + + | Preferred Language | Unknown | + + + | Marital Status | | + + + | Tenriism Affiliation | Unknown | + + + [...] Team Providers + +------+ + | Care Knockdown Man Name | Role | Phone | + +------+ + | No Pcp Per Patient | PP | Unavailable | + +------+ + Source Comments LIANG is fully live on both [facility] Ambulatory and [facility] InPatient.[facility] Allergies No Known Allergies Current Medications + [...] | PPO | [phone] [address] [address] [place] | | | CROSS | | | [address] | [place] [address] | | | FEDERA | | | [...] | Self | | Home: | [address] | | [place] | shilo/Karthikeyan | | | [phone] | [place] | | | [place] | | | [phone] | + +--------+ +-------+ + +
[~2017-11-25 12:57] MED LIST changes: +METOPROLOL TART50 MG PO
== END 2017-11-25 15:51 | disposition home or self-care (01) ==
LOC: ED 12:57
PROC: 2Y41X5Z Packing of Nasal Region using Packing Material (ICD-10-PCS; principal; 2017-11-25)
DX: R04.0 Epistaxis (principal); Z87.891 Personal history of nicotine dependence; Z88.5 Allergy status to narcotic agent; Z79.84 Long term (current) use of oral hypoglycemic drugs; Z79.899 Other long term (current) drug therapy; Z79.82 Long term (current) use of aspirin
CPT/HCPCS: 30901; 99283

== ENCOUNTER 2018-06-11 10:55 | Inpatient (IN) | payer MEDICARE, BC, OTHER ==
[~2018-06-11] VITALS: Ht 177.8 cm; Wt 111.1 kg
--- OUTSIDE RECORDS SUMMARY | ~2018-06-11 | XMS | Clinical Summary ---
Demographics + + + | Address | [address] [facility] [address] | | | [place] [address] | + + + | Home Phone | | + + + | Preferred Language | Unknown | + + + | Marital Status | | + + + | Scientology Affiliation | 1041 | + + + | Race | Unknown | + + + | Ethnic Group | Unknown | + + + Author + + + | Author | [employer] [employer] | + + + | Organization | [facility] | + + + | Address | Unknown | + + + | Phone | Unavailable | + + + Support + + +---------+ + | Name | Relationship | Address | Phone | + + +---------+ + | Carina Madison | ECON | Unknown | | + + +---------+ + Care Team Providers + +------+ + | Care Excelsior Machine Feeder Name | Role | Phone | + [...] tablet by | 30 | 2 | / | | Activ | | (COUMADIN) 3 [...] tablet by | 60 | 11 | /2 | 03/ | Activ | | (GLUCOPHAGE) 500 MG | mouth 2 (two) times | tablet | | 2/20 | 1/20 | e | | tablet | daily with meals for | | | 18 | 28 | | | | 30 days. | | | | | | + + +---------+---------+------+------+-------+ | quiNIDine | Take 1 tablet by | 30 | 11 | / | 06/07 | Activ | | gluconate 324 MG CR | mouth daily as | tablet | | 2/20 | 20 | e | | tablet | needed for up to 30 | | | 18 | 28 | | | | days. | | | | | | + + +---------+---------+------+------+-------+ | simvastatin | Take 0.5 tablets by | 15 | 11 | / | 06/07 | Activ | | (ZOCOR) 80 MG tablet | mouth nightly for 30 | tablet | | 2/20 | 20 | e | | | days. | | | 18 | 28 | | + + +---------+---------+------+------+-------+ | aspirin [...] | 180 | 3 | 03/0 | 03/1 | Activ | | (LOPRESSOR) 25 MG | mouth 2 (two) times | tablet | | 1/20 | 1/20 | e | | tablet | daily for 30 days. | | | 18 | 28 | | + + +---------+---------+------+------+-------+ | furosemide (LASIX) | Take 1 tablet by | 48 | 3 | 06/1 | | Activ | | 20 MG tablet | mouth 4 (four) times | tablet | | 4/20 | | e | | | a week. | | | 18 | | | + + +---------+---------+------+------+-------+ | UNABLE TO FIND | Take 1 tablet by | | | | | Activ | | | mouth 3 (three) | | | | | e | | | times daily. Med | | | | | | | | Name: aclyclovir | | | | | | + + +---------+---------+------+------+-------+ | potassium chloride | Take 2 capsules by | 60 | 11 | 04/10 | / | Disco | | (MICRO-K) 10 MEQ CR | mouth daily. | capsule | | 08/26 | 04/28 | ntinu | | capsule | | | | 18 | 18 | ed | + + +---------+---------+------+------+-------+ Active Problems + + + | Problem | Noted Date | + + + | Type 2 diabetes mellitus, with long-term current use of insulin | 04/10/2018 | | (HCC) | | + + + | Overactive bladder | 04/10/2018 | + + + | Anticoagulated on [...] hyperplasia) | | + + + | Epistaxis | | + + + Resolved Problems + +--------+ + | Problem | Noted | Resolved | | | Date | Date | + +--------+ + | Bioprosthetic aortic valve replacement during current | | | | hospitalization | | 9 | + +--------+ + Encounters +--------+---------+ + + + | Date | Type | Specialty | Care Team | Description | +--------+---------+ + + + | 06/17/ | Office | | Elmer Mcdaniel, | Essential | | 2019 | Visit | | MD | hypertension | | | | | | (Primary Dx); Status | | | | | | post aortic valve | | | | | | replacement with | | | | | | bioprosthetic valve; | | | | | | Severe calcific | | | | | | aortic stenosis; | | | | | | Paroxysmal A-fib | | | | | | ([facility]); | | | | | | Hyperlipidemia, | | | | | | unspecified | | | | | | hyperlipidemia type; | | | | | | Epistaxis | +--------+---------+ + + + from Last 3 Months [...] + + + | Blood Pressure | 110/62 | 06/17/2018 4:13 PM PDT | + + + + | Pulse | 110 | 06/17/2018 4:13 PM PDT | + + + + | Temperature | 36.2 C (97.2 F) | 05/09/2017 11:12 AM PST | + + + + | Respiratory Rate | 18 | 06/07/2017 1:42 PM PST | + + + + | Oxygen Saturation | 92% | 06/17/2018 4:13 PM PDT | + + + + | Inhaled Oxygen | - | - | | Concentration | | | + + + + | Weight | 114.1 kg (251 lb 9.6 | 06/17/2018 4:13 PM PDT | | | oz) | | + + + + | Height | 177.8 cm (5' 10") | 06/17/2018 4:13 PM PDT | + + + + | Body Mass Index | 36.1 | 06/17/2018 4:13 PM PDT | + + + + Plan of Treatment +--------+---------+ + + + | Date | Type | Specialty | Care Team | Description | +--------+---------+ + + + | 09/16/ | Office | | Elmer Mcdaniel, | | | 2018 | Visit | | MD [address] | | | | | | [place] | | | | | | [place] [address] | | | | | | [phone] | | | | | | | | +--------+---------+ + + + + + + + + | Health Maintenance | Due Date | Last Done | Comments | + + + + + | Diabetic Eye Exam | | | | | | 7 | | | + + + + + | Diabetic Foot Exam | | | | | | 7 | | | + + + + + | Microalbumin | | | | | Screening | 7 | | | + + + + + | Vaccine: | | | | | Dtap/Tdap/Td (1 - | 6 | | | | Tdap) | | | | + + + + + | Colon Cancer | | | | | Screening | 7 | | | | (Colonoscopy) | | | | + + + + + | Vaccine: Zoster (1 | | | | | of 2) | 7 | | | + + + + + | Hemoglobin A1c | | 04/27/2017, 04/23/2012, | | | | 8 | 01/15/2012, Additional history | | | | | exists | | + + + + + | Vaccine: Influenza | | | | | (#1) | 8 | | | + + + + + | Vaccine: | Completed | 01/12/2016, 12/07/2014 | | | Pneumococcal 65+ | | | | | Low/Medium Risk | | | | + + + [...] | 11/29/ | [id number] | | - [id number]: Qty: 1 | | | LIFESCIENCE | | 2021 | [id number] | | on 04/26/2017 by Jimbo | | | Verenice Bland | | | / | | MD [place] | | | EDLS | | | /[id number] | | | | | | | | 06 | + +------+-------+ +--------+--------+--------+ Procedures + +--------+ + + + | Procedure Name | Priori | Date/Time | Associated Diagnosis | Comments | | | ty | | | | + +--------+ + + + | EKG STANDARD 12 LEAD | Routin | 06/16/2018 | Essential | Results for this | | | e | 4:19 PM | hypertension | procedure are in the | | | | PDT | | results section. | + +--------+ + + + from Last 3 Months Results EKG STANDARD 12 LEAD (06/16/2018 4:19 PM) + + + + + | Component | Value | Ref Range | Performed At | + + + + + | Ventricular Rate | 110 | BPM | [facility] | + + + + + | Atrial Rate | 110 | BPM | [facility] | + + + + + | P-R Interval | 198 | ms | [facility] | + + + + + | QRS Duration | 78 | ms | [facility] | + + + + + | Q-T Interval | 324 | ms | [facility] | + + + + + | QTC Calculation | 438 | ms | [facility] | | (Bezet) | | | | + + + + + | Calculated P [place] | 31 | degrees | [facility] | + + + + + | Calculated R [place] | 8 | degrees | [facility] | + + + + + | Calculated T [place] | 54 | degrees | [facility] | + + + + + | Diagnosis | Sinus | | [facility] | | | tachycardiaOtherwise | | | | | normal ECGWhen compared | | | | | with ECG of 07-JUN-2017 | | | | | 13:35,Previous ECG has | | | | | undetermined rhythm, | | | | | needs reviewPlease refer | | | | | to Providers office | | | | | visit note for Providers | | | | | | | | | | Interpretation.Confirmed | | | | | by [facility] Irene Read Only, | | | | | [facility] Darrell ([id number]), | | | | | newspaper or periodical editor Malcolm Escalante | | | | | ([id number]) on 06/17/2018 | | | | | 4:30:30 PM | | | + + + + + + + + + + | Performing | Address | City/State/Zipcode | Phone Number | | Organization | | | | + + + + + | [facility] | [address] | [place] [address] | | + + + + + from Last 3 Months Insurance + +--------+ +------+-------+ + | Payer | Benefi | Subscriber | Type | Phone | Address | | | t Plan | ID | | | | | | / | | | | | | | Group | | | | | + +--------+ +------+-------+ + | PREMERA | PREMER | [id number] | | | [address] [address] | | | A BLUE | | | | [place], [place] | | | [place] | | | | [phone] | | | FED | | | | | | | PPO | | | | | + +--------+ +------+-------+ + | MEDICARE | MEDICA | [id number] | | | [address] | | | [place] | | | | [place] [id number] | | | PART A | | | | | | | ONLY | | | | | + +--------+ +------+-------+ + | CARLOS - WPS - | TRICAR | [id number] | | | [address] [address] | | [place] | [place] | | | | [place] | | | LIFE | | | | [phone] | + +--------+ +------+-------+ + + +--------+ +--------+ + + | Guarantor Name | Accoun | Relation to | Date | Phone | Billing Address | | | t Type | Patient | of | | | | | | | | | | + +--------+ +--------+ + + | KATARZYNA MADISON | Person | Self [birth year] | Home: | [address] [facility] [facility] | | [place] | [address] | | 1945 | [phone] | [place] | | | [place] | | | [phone] | [phone] | + +--------+ +--------+ + + | KATARZYNA MADISON | Person | Self [birth year] | Home: | [address] [facility] | | | al/Fam | | 1945 | [phone] | [place] | | | [place] | | | [phone] | [phone] | + +--------+ +--------+ + +
--- OUTSIDE RECORDS SUMMARY | ~2018-06-11 | XMS | Clinical Summary ---
Demographics + + + | Address | [address] [facility] [address] | | | [place] [address] | + + + | Home Phone | | + + + | Preferred Language | Unknown | + + + | Marital Status | | + + + | Episcopal Affiliation | Unknown | + + + [...] Team Providers + +------+ + | Care Moisture Meter Operator Name | Role | Phone | + +------+ + | No Pcp Per Patient | PP | Unavailable | + +------+ + Source Comments LIANG is fully live on both [facility] Ambulatory and [facility] InPatient.[facility] Allergies [...] | skin | + + +------+ + | Movement Disorder | Neg Hx | | | + + +------+ + | Thyroid | Neg Hx | | | + + +------+ + | Tremor | Neg Hx | | | + + +------+ + + +------+--------+ [...] | + + + + + | Pneumococcal (Adult) | | | | | (1 of 2 - PCV13) | 2 | | | + + + + + | Influenza (Flu) | | | | | vaccination (#1) | 8 | | | + + + + + Results Not on filefrom Last 3 Months Insurance + +--------+ +------+ + + | Payer | Benefi | Subscriber | Type | Phone | Address | | | t Plan | ID | | | | | | / | | | | | | | Group | | | | | + +--------+ +------+ + + | [place] | BLUE | [phone] | PPO | [phone] [address] [address] [place] | | | CROSS | | | [address] | [place] [address] | | | FEDERA | | | | | | | L | | | | | + +--------+ +------+ + + + +--------+ +-------+ + + | Guarantor Name | Accoun | Relation to | Date | Phone | Billing Address | | | t Type | Patient | of | | | | | | | | | | + +--------+ +-------+ + + | DONTRELL MADISON | Person | Self | | Home: | [address] | | [place] | [place]ilo/[place]key[address] | | | [phone] | [place] | | | [place] | | | [phone] | [phone] | + +--------+ +-------+ + +
--- OUTSIDE RECORDS SUMMARY | ~2018-06-11 | XMS | Encounter Summary ---
Demographics + + + | Address | [address] | | | [place] [address] | + + + | Home Phone | | + + + | Preferred Language | Unknown | + + + | Marital Status | | + + + | Moravian Affiliation | 1041 | + + + | Race | Unknown | + + + | Ethnic Group | Unknown | + + + Author + + + | Author | [employer] | + + + | Organization | [facility] | + + + | Address | Unknown | + + + | Phone | Unavailable | + + + Support + + +---------+ + | Name | Relationship | Address | Phone | + + +---------+ + | Carina Madison | ECON | Unknown | | + + +---------+ + Care Team Providers + +------+ + | Care Echocardiograph Tech Name | Role | Phone | + [...] + + | 06/17/ | Office | [facility] | Elmer Mcdaniel, | Essential | | 2019 | Visit | [facility] | [address] | hypertension | | | | [address] | [place], | (Primary Dx); Status | | | | [place], [place] | [place] [address] | post aortic valve | | | | [id number] | [phone] | replacement with | | | | [phone] | | bioprosthetic valve; | | | | | | Severe calcific | | | | | | aortic stenosis; | | | | | | Paroxysmal A-fib | | | | | | (HCC); | | | | | | Hyperlipidemia, | | | | | | unspecified | | | | | | hyperlipidemia type; | | | | | | Epistaxis | +--------+---------+ + + + Social History [...] PM PDT | + + + + in this encounter Progress Notes Elmer Mcdaniel MD - 06/17/2018 3:15 PM PDTFormatting of this note may be different from the original. Subjective: Patient ID: Dontrell Madison is a 73 y.o. male. HPI The following portions of the patient's history were reviewed and updated as appropriate an d is available elsewhere in the record: allergies, current medications, past family history, past medical history, past social history, past surgical history and problem list. Mr. Madison came to the office today for a follow up visit for his history of previous severe calcific . He had a bioprosthetic 25 Magna Ease AVR / Pulmonary vein isolation/ isolatio n of SHIVA for persistent A.fib by Dr. Choi, and an intra-op cystoscopy by Urologist, Dr. Cal spears on 04/26/17. He did well during his hospitalization, but had a single episode of tus sive syncope the first night he was back home. This has not recurred. His epistaxis has fu lly resolved after his second cauterization. He is now back on aspirin. He appears to be q uite stable from a cardiac standpoint. We discussed having him come off his metoprolol, as it no longer appears to be necessary, and he actually ran out this weekend, and [facility]. However, I would not recommend that he stop it now, since he is going to have his left knee replaced next week at [facility] by Dr. Franco. I will th erefore see him back in a few months, once he has recovered from the surgery, to discuss thi s further.he is still on furosemide, but will need it following surgery as well, as even now , he still has mild pedal edema even though he has been taking it. Review of Systems CONSTITUTIONAL: No recent significant weight change, denies [...] glaucom a ENT: Mild hearing loss, tinnitus, recurrent Epistaxis, dysphagia, tongue leukoplakia (ENT evaluation by Dr. Spears, [place]) ENDOCRINE: He has a history of Insulin-Requiring [...] history of CAD. No history of heart failure.He has a history of Atrial Fibrillation, in NSR since his surgical pulmonar y vein isolation. He had Palpitations in 2004, had a Holter and stress test that were normal . He has a history of a heart Murmur, with severe calcific Aortic Stenosis, with rapid prog ression, underwent bioprosthetic 25 Magna Ease valve / Pulmonary vein isolation/ isolation of left atrial appendage on 04/26/17. No h/o rheumatic fever. He has a history of Essential Hypertension, Hyperlipidemia. He has left-sided Pedal Edema with Varicose Veins, no claudic ation symptoms. No h/o an AAA. -- AVR (04/26/17): bioprosthetic # 25 Magna Ease valve / Pulmonary vein isolation/ isolation of left atrial appendage -- Echo (08/08/17 - [facility]): EF 60-65%, normal RV size, function. Mild LAE. Normal #25 Magna Ea se AVR (SEAN 1.8 cm, peak/mean gradient 17.9/10.3 mmHg, peak velocity 2.1 m/s), mild MR, tr jennifer PI -- L/R Cardiac Cath (03/16/17): CVP-8, [...] psychiatric problems. Past Medical History Diagnosis Date Arthralgia all [...] VALVE REPLACEMENT; Surgeon: Lopez Choi MD; Location: [facility] MAIN OR ; Service: Cardiac; Laterality: N/A; Sternotomy, left atrial appendage ligation, pulmonar y vein isolation. CARDIAC CATHETERIZATION 03/2017 Left and Right CHOLECYSTECTOMY COLONOSCOPY CYSTOSCOPY 04/26/2017 Procedure: CYSTOSCOPY; Surgeon: Karan Mercado MD; Location: [facility] MAIN OR; Service: Ur ology;; Cysto for difficult juan placement. HARDWARE PRESENT Right knee replacement NASAL SEPTUM SURGERY RECTAL SURGERY tear repaired REPLACEMENT TOTAL KNEE Right 2009 SINUS SURGERY 2004 nasoplasty SKIN CANCER EXCISION basal cell TONSILLECTOMY TRANSURETHRAL RESECTION OF PROSTATE 2013 UNLISTED PROCEDURE ARTHROSCOPY Family History Problem Relation Age of Onset Heart failure Mother Dementia Mother Stroke Father Coronary art dis Father 72 Hypertension Father Diabetes type II Sister Genna benitez Neg Hx Social History Substance Use Topics Smoking status: Former Smoker Packs/day: 0.25 Years: 20.00 Quit date: 02/06/1997 Smokeless tobacco: Former User Quit date: 2000 Comment: used chew Alcohol use No Comment: occ Allergies Allergen Reactions Hydrocodone Hallucinations Oxycodone Hallucinations Current Outpatient Prescriptions: ACCU-CHEK PATRICIO PLUS test strip, , Disp: , Rfl: aspirin 81 MG tablet, Take 81 mg by mouth daily., Disp: , Rfl: docusate sodium (COLACE) 100 MG capsule, Take 100 mg by mouth nightly., Disp: , Rfl: furosemide (LASIX) 20 MG tablet, Take 1 tablet by mouth 4 (four) times a week., Disp: 48 tablet, Rfl: 3 Insulin NPH Isophane & Regular (HUMULIN 70/30 KWIKPEN SC), Inject 48 Units into the sk in 2 (two) times daily. 48 units in am and 30 in pm, Disp: , Rfl: metFORMIN (GLUCOPHAGE) 500 MG tablet, Take 1 tablet by mouth 2 (two) times daily with meals for 30 days., Disp: 60 tablet, Rfl: 11 metoprolol (LOPRESSOR) 25 MG tablet, Take 1 tablet by mouth 2 (two) times daily for 30 days., Disp: 180 tablet, Rfl: 3 quiNIDine gluconate 324 MG CR tablet, Take 1 tablet by mouth daily as needed for up to 30 days., Disp: 30 tablet, Rfl: 11 simvastatin (ZOCOR) 80 MG tablet, Take 0.5 tablets by mouth nightly for 30 days., Disp : 15 tablet, Rfl: 11 tolterodine (DETROL LA) 4 MG 24 hr capsule, Take 4 mg by mouth daily., Disp: , Rfl: UNABLE TO FIND, Take 1 tablet by mouth 3 (three) times daily. Med Name: aclyclovir, Di sp: , Rfl: warfarin (COUMADIN) 3 MG tablet, Take 1 tablet by mouth Once daily-Coumadin for 90 day s. INR goal 2.0 - 3.0 for persistent A.fib sp PVI/ LAAL and sp AVR (tissue valve). (Patient not taking: Reported on 12/17/2017), Disp: 30 tablet, Rfl: 2 Objective: Physical Exam BP 110/62 (BP Location: Right upper arm, Patient Position: Sitting) | Pulse 110 | Ht 1.77 8 m (5' 10") | Wt 114.1 kg (251 lb 9.6 oz) | SpO2 92% | BMI 36.10 kg/m GENERAL: Well developed well nourished, in no distress. Appears approximately stated age. HEENT: Normocephalic, atraumatic. EYES: PERRL, sclerae anicteric, no xanthelsasmas MOUTH: Oral mucosae moist, dentition adequate, no lesions noted NECK: No JVD, lymphadenopathy, thyromegaly, with bilateral bruits indices could be trans mitted murmurs). Carotid pulses are decreased bilaterally LUNGS: Clear bilaterally, with no rales, rhonchi or wheezing noted, respirations unlabored HEART: Sternotomy incision is well-healed. Nondisplaced PMI, regular rate and rhythm, S1, S2 normal, 1-2/6 systolic crescendo decrescendo murmur at the base without radiation. No rubs or gallops noted. ABDOMEN: Soft, nontender, no organomegaly, masses or bruits. Bowel sounds are normal in a ll 4 quadrants. The abdominal aortic pulsation is not palpable. EXTREMITIES: No edema. Radial pulses 2+ bilaterally. Femoral pulses are 2+ bilaterally wi thout bruits. DP and PT pulses are 2+ bilaterally. SKIN: Warm and dry, capillary refill is normal, no lesions. NEUROLOGIC: Awake, alert and oriented x 3. No focal motor deficits. PSYCHIATRIC: Appropriate, affect appears normal EKG: Sinus tachycardia, rate 110 bpm,Otherwise normal EKG Assessment and Plan: Dontrell was seen today for follow-up. Essential hypertension - Electrocardiogram, 12-lead Status post aortic valve replacement with bioprosthetic valve Severe calcific aortic stenosis Paroxysmal A-fib (HCC) Hyperlipidemia, unspecified hyperlipidemia type Epistaxis in this encounter Plan of Treatment +--------+---------+ + + + | Date | Type | Specialty | Care Team | Description | +--------+---------+ + + + | 09/16/ | Office | Cardiology | Elmer Mcdaniel, | | | 2019 | Visit | | MD [address] | | | | | | [place], | | | | | | [place] [address] | | | | | | [phone] | | | | | | | | +--------+---------+ + + + as of this encounter Procedures + +--------+ [...] section. | + +--------+ + + + in this encounter Results EK STANDARD 12 LEAD (06/16/2018 4:19 PM) + + + + + | Component | Value | Ref Range | Performed At | + + + + + | Ventricular Rate | 110 | BPM | [facility] | + + + + + [...] + + + + | Calculated P [place] | 31 | degrees | [facility] | + + + + + | Calculated R [place] | 8 | degrees | [facility] | + + + + + | Calculated T [place] | 54 | degrees | [facility] | + + + + + | Diagnosis | Sinus | | [facility] | | | tachycardiaOtherwise | | [...] | | | | | by [facility] Read Only, | | | | | [facility] ([id number]), | | | | | editorial writer Malcolm Escalante | | | | | ([phone]) on 06/17/2018 | | | | | 4:30:30 PM | | | + + + + + + + + + + | Performing | Address | City/State/Zipcode | Phone Number | | Organization | | | | + + + + + | [facility] | [address] | [place] [address] | | + + + + + in this encounter Visit Diagnoses + + | Diagnosis | + + | Essential hypertension - Primary | + + | Unspecified essential hypertension | + + | Status post aortic valve replacement with bioprosthetic valve | + + | Heart valve replaced by other means | + + | Severe calcific aortic stenosis | + + | Aortic valve disorders | + + | Paroxysmal A-fib (HCC) | + + | Atrial fibrillation | + + | Hyperlipidemia, unspecified hyperlipidemia type | + + | Epistaxis | + +
[2018-06-12] MEDS ORDERED: HUMULIN 70100 UNIT/1 SUB-Q (08:32)
[2018-06-12] MEDS ORDERED: DETROL LA4 MG PO (08:35)
[2018-06-12] MEDS ORDERED: METOPROLOL TART50 MG PO (08:35)
[2018-06-12] MEDS ORDERED: MULTIVITAMINS1 EAC8 PO (08:37)
--- NOTE | 2018-06-12 09:03 | NUR ---
PATIENT HERE TODAY FOR PREADMISSION APPOINTMENT ALONG WITH HIS [facility]. HE IS SCHEDULED FOR A LEFT TOTAL KNEE REPLACEMENT ON 06/24/18. THEY HAVE 2 STEPS INTO THE HOME WITH NO STEPS ONCE INSIDE THE HOME. THEY HAVE A WALK IN SHOWER WITH HAND HELD SHOWER HEAD AND BUILT IN SEATING IN THE SHOWER. THEY ALSO NOTE THEY HAVE A TALL TOILET. HE HAS BEEN TO THE JOINT [facility] C[facility] AT [facility] AND WILL HAVE PHYSICAL THERAPY SET UP WITH THEM. HIS WILL BE HERE TO TRANSPORT HIM HOME AND TO APPOINTMENTS. 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 THIS INFORAMTION WILL BE SENT TO DR WARD OFFICE AND CASE MANAGEMENT FOR FURTHER FOLLOW UP.
--- NOTE | 2018-06-24 12:09 | NUR ---
PT ALERT, ORIENTED AND SUPPORTED BY HIS PAT. PT FHAS HAD OTHER KNEE REPLACED, AND SEEMS INFORMED WELL PAT. IS RATHER ANXIOUS FOR SURGERY BECAUSE OF RECENT HEART SURGERY.THEY BOTH REQUESTED PRAYER, WILL FOLLOW NEEDED
--- NOTE | 2018-06-24 14:47 | NUR ---
06/24/18 1447 Lina Waterman 1418 PT ARRIVED IN PACU SLEEPY WITH ORAL AIRWAY IN PLACE. 1421 PT REACTIVE. ORAL AIRWAY REMOVED. 1423 BLOOD SUGAR 120. NO C/O'S. CRYO CUFF PLACED ON L KNEE. 1435 OXGYEN REMOVED. SATS 95% ON RA.
--- NOTE | 2018-06-24 14:59 | OR ---
[facility] [address], [place] [address] Signed DATE OF OPERATION: 06/24/2018 SURGEON: Allie Adler MD POSTOPERATIVE DIAGNOSIS: Degenerative joint disease, left knee. POSTOPERATIVE DIAGNOSIS: Degenerative joint disease, left knee. PROCEDURE PERFORMED: Left total knee arthroplasty with computer navigation. WHEEL LACER AND TRUER: MACHO Saenz. Tamiko was present and critical for all portions including exposure, wound closure, retraction, and application of dressing. ANESTHESIA: Spinal. BLOOD LOSS: 150 mL. IMPLANTS: [place] Triathlon, size 7 femur, 6 tibia, 11 mm insert, 38 mm patella. BRIEF HISTORY: Dontrell is a 73-year-old gentleman with progressive worsening of his osteoarthritis. He had undergone successful right total knee and wished to proceed with left. Risks and benefits of operative treatment were discussed with him and he elected to proceed. Once consent was obtained, he was taken to the operating room. After adequate anesthesia, he was placed on operating table and all downside pressure points well padded. The left leg was put on a hip bump and prepped and draped in a standard sterile fashion. The knee was approached through a longitudinal straight incision, carried through skin and subcutaneous tissue. Median parapatellar arthrotomy was performed. The infrapatellar fat pad was excised and the MCL was elevated as a subperiosteal sheath around the posterior medial corner. The bleeders were cauterized as we went. The anterior horns of menisci were transected and the ACL was transected. The knee was then flexed. The navigation guide was pinned to the end of the femur and the femur was registered with the computer. The distal cutting block was then pinned to neutral alignment and distal Electronically Signed By: ALLIE ADLER MD 06/24/18 1459 PATIENT NAME: DONTRELL GANDHI OPERATIVE REPORT DATE OF : 49 REPORT #: [id number] PHYSICIAN: ALLIE ADLER MD PCP: KI NOEL MD REPORT IS CONFIDENTIAL AND NOT TO BE RELEASED WITHOUT AUTHORIZATION [facility] [address], [place] [address] Signed femoral cut was made. The distal femur was sized to 7 and the 7 AP cutting block was pinned in line with epicondylar axis. The anterior, posterior, and chamfer cuts were made and all osteophytes were removed. The attention was turned to proximal tibia. The menisci were removed to allow visualization. The navigation guide was then pinned with proximal tibia and the tibia was registered with the computer. The cutting block was then pinned to neutral alignment and set to take 3 mm off the most involved medial side. The cut was made with care taken to protect the patellar tendon and MCL. The bone was excised, as were any meniscal remnants. Posterior osteophytes removed off the femur and posterior release performed. The flexion and extension gaps were sized, found to be symmetric at 11 mm. The trials were then positioned. Knee was taken through range of motion and found to be stable. The patella was cut sized and drilled for a 38 mm patella. It was quite hard bone. The distal femoral drill hole was made and the tibia was finished using the keel punch. The bone was pulse lavaged and packed with a hydrogen peroxide soaked Ray-Nichole. The cement was mixed and reached proper consistency, was placed on all implants all bone surfaces. Tibia was impacted in position first. All overflow was removed. The polyethylene was snapped into position. The femur was impacted in position. Again, all excess cement was removed. The knee was extended and nicely loaded and the patella was clamped. The remaining overflow was removed. Once the cement had hardened, the knee was flexed and the remaining overflow was removed using osteotomes. The knee was pulse lavaged at intervals with a total of 3 liters antibiotic irrigation under pulse lavage. There was also 0.5 liter of Irrisept. The On-Q pain pump was placed into the adductor canal from the suprapatellar pouch and the arthrotomy was closed using number #2 Stratafix, #0 Stratafix for subcu, and Dermabond mesh for the skin. The wound was dressed with a OZZY wound dressing, wound VAC dressing, and Akshat wrap. He was taken to the recovery room in satisfactory condition. All sponge, needle, and instrument counts were correct. Allie Adler MD BA/MODL /[id number] Copies: Electronically Signed By: ALLIE ADLER MD 06/24/18 1459 PATIENT NAME: DONTRELL GANDHI OPERATIVE REPORT DATE OF : 49 REPORT #: [id number] PHYSICIAN: ALLIE ADLER MD PCP: KI NOEL MD REPORT IS CONFIDENTIAL AND NOT TO BE RELEASED WITHOUT AUTHORIZATION [address] [address] Signed ~ Electronically Signed By: ALLIE ADLER MD 06/24/18 1459 PATIENT NAME: DONTRELL GANDHI OPERATIVE REPORT DATE OF : 49 REPORT #: [id number] PHYSICIAN: ALLIE ADLER MD PCP: KI NOEL MD REPORT IS CONFIDENTIAL AND NOT TO BE RELEASED WITHOUT AUTHORIZATION
--- NOTE | 2018-06-24 16:08 | NUR ---
PT ARRIVED TO THE FLOOR WITH CHAYA AARON. PT REPORTS NUMBNESS FROM THIGHS DOWN, UNABLE TO WIGGLE TOES. SLIGHT TOUCH AT MID-THIGH. PT TOLERATING JELLO AND WATER. DR MCCARTNEY IN TO CONSULT ON PT. WILL ADVANCE DIET TOLERATED. ON Q AT 8ML/HR. OZZY DRESSING C/D/I. NO PAIN, NO NAUSEA, NO ITCHING.
--- NOTE | 2018-06-24 18:07 | NUR ---
PT IS DUE TO VOID. HE IS EATING DINNER AT THIS TIME. REMINDED HIM THAT HE NEEDED TO VOID, HE WILL ATTEMPT AFTER HE FINISHES DINNER. PT HAS FEELING AND MOVEMENT RETURNING TO HIS FEET.
--- NOTE | 2018-06-24 18:36 | NUR ---
PT S/P LEFT TOTAL KNEE REPLACEMENT. PT CMS RETURNED LATER IN AFTERNOON, BUT HAS NOW RETURNED. PT ABLE TO WIGGLE TOES AND HAS SENSATION IN FEET. PT TOLERATING FULL LIQUIDS WELL, WILL ADVANCE TO 60G CARB. PT DID NOT WORK WITH PHYSICAL THERAPY HE HAD NO SENSATION AT THE TIME SHE WAS HERE TO WORK WITH HIM. HE WAS GIVEN BED EXERCISES. NO DRAINAGE NOTED ON OZZY DRESSING. ON-Q, OZZY, CYRO CUFF, KEVIN HOSE, AND SCD IN PLACE. PT REPORTS NO PAIN NO ITCHING, NO NAUSEA. PT DUE TO VOID AFTER HE FINISHES DINNER.
--- NOTE | 2018-06-24 19:03 | NUR ---
RECIEVED BEDSIDE REPORT FROM SURJIT LARKIN. PATIENT RESTING ON AND OFF THROUGHOUT REPORT. FAMILY AT BEDSIDE. NO DRAINAGE NOTED ON OZZY DRESSING. OZZY FLASHING YELLOW LIGHT. ON-Q SET TO 8ML/HR PER ORDER. KEVIN HOSE AND SCDS IN PLACE. CRYOCUFF IN PLACE. CALL LIGHT WITHIN REACH. WHITE BOARD UPDATED. SALLY, WENDIL.
--- NOTE | 2018-06-24 21:00 | NUR ---
ROUNDED ON PATIENT FOR MEDICATION ADMINISTRATION PER MAR ORDER. PATIENT DENIES HAVING NUMBNESS AND TINGLING IN EXTREMITIES. KEVIN HOSE AND SCDs IN PLACE. OZZY DRESSING IS CDI, FLASHING GREEN LIGHT. ON-Q SET TO 8 PER ORDER. STRONG PULSES IN BLE. PATIENT REPORTS PAIN IS A "7/10" IN LEFT KNEE, PATIENT STATES PATIENT PAIN GOAL IS A "7-8/10", AND STATES "I COULD USE A LITTLE BIT OF SOMETHING". THIS RN EDUCATED PATIENT ABOUT PROPER PAIN MANAGMENT, DISCUSSED PAIN MANAGEMENT OPTIONS WITH PATIENT, PATIENT AGREEABLE TO PLAN OF CARE. PATIENT DENIES DEFICITS IN SENSATION IN EXTREMITIES AND AROUND OPERATIVE SITE. CRYOCUFF IN PLACE. CAPILLARY REFILL IS LESS THAN 2 SECONDS IN BLE. FAMILY AT BEDSIDE. PATIENT RESTING ON AND OFF THROUGHOUT ASSESSMENT. PATINET REPORTS HAVING "DOUBLE VISION" WHILE WATCHING TV, GLASSES PROVIDED, PATIENT REPORTS DOUBLE NO LONGER PRESENT. CALL LIGHT WITHIN REACH. NO MORE NEEDS AT THIS TIME.
--- NOTE | 2018-06-24 23:05 | NUR ---
rounded on patient for medication administration per jun order. patient reports "5/10" pain in left knee. patient o2 sats dropped to 88% on room air, 2l via nc applied, o2 sats wnl. call light within reach. no more needs at this time.
--- NOTE | 2018-06-24 23:11 | NUR ---
V/S AND I&O DONE AND RECORDED. CRYO CUFF AND ICE WATER REFILLED.
--- NOTE | 2018-06-24 23:30 | NUR ---
ROUNDED ON PATIENT LAYING IN BED TO EMPTY URINAL. ANDREW HAD X1 SMALL INCONTINECE EPISODE IN BED. NEW BLANKET PROVIDED. CALL LIGHT WITHIN REACH. NO MORE NEEDS AT THIS TIME. THIS RN INFORMED VIDEO GAME REPAIR TECHNICIAN TO BLADDER SCAN PATIENT.
--- NOTE | 2018-06-24 23:55 | NUR ---
PT USED URINAL, VOIDED 175. PLAN TO GET UP ON BSC SEE IF HE CAN VOID MORE. BLADDER SCAN DONE, WITH AT LEAST 505 CC. , BUT PT THOUGHT HE COULD VOID MORE BEFORE CONSIDERING A PEÑA.
--- NOTE | 2018-06-25 00:13 | NUR ---
WITH ASSIST OF UROLOGIC SURGEON, GAIT BELT, FWW AND BSC. PT REQUIRED HELP SITTING UP, ONCE UP HE WAS ABLE TO ADJUST SELF TO SITTING, THEN STAFF ASSISTED PT TO STAND. DENIES DIZZINESS, NAUSEA, DID SAY HE FELT PAIN WHEN HE FIRST STOOD. ONCE STAFF ASSESSES SAFENESS, WITH CUEING, PT WAS ABLE TO TAKE STEPS TO GET ON COMMODE. ONCE ON COMMODE, PT INDENDENTLY ADJUSTED SELF. LEFT ROOM WITH CALL LIGHT WITHIN REACH.
--- NOTE | 2018-06-25 00:54 | NUR ---
ROUNDED ON PATIENT FOR SCHEDULED MEDICATION ADMINISTRATION. PATIENT RESTING IN BED WITH EYES CLOSED, RESPIRATORY RATE IS EVEN AND UNLABORED. PATIENT AWOKE TO VERBAL STIMULI AND DENIES PAIN AT THIS TIME. CPOX, WNL. 1.5 L VIA NC. NO SIGNS OF DISTRESS. CALL LIGHT WITHIN REACH.
--- NOTE | 2018-06-25 02:30 | NUR ---
ASSESSMENT COMPLETE. ROUNDED ON PATIENT LAYING IN BED WITH EYES CLOSED, RESPIRATORY RATE IS EVEN AND UNLABORED. IT WAS NOTED THAT PATIENT HAD X1 INCONTINENCE EPISODE IN BED, PATIENT SOILED TOP AND BOTTOM SHEET AND PART OF COMFORTOR, NEW LINENS PLACED. BLADDER SCANNED PATIENT TO HAVE 354 ML OF URINE IN BLADDER, PATIENT DENIES FEELING OR KNOWING THAT PATIENT HAD AN INCONTIENT EPISODE. PATIENT DENIES DEFICITS IN SENSATION IN EXTREMITIES. STRONG PERIPHERAL PULSES. BLE WARM TO TOUCH. PATIENT REPORTS "3/10" "DULL" PAIN, DENIES WANTING IN PRN PAIN MEDICATION. OZZY DRESSSING IS CDI, NO NEW DRAINAGE NOTED, OZZY FLASHING GREEN LIGHT. ON-Q STILL SET AT 8 PER ORDER. PATIENT DROWSY DURING ASSESSMENT, BUT ALERT TO QUESTIONS. CALL LIGHT WITHIN REACH. NO MORE NEEDS AT THIS TIME. URINAL AT BESIDE.
--- NOTE | 2018-06-25 04:30 | NUR ---
ROUNDED ON PATIENT RESTING IN BED. THIS PATIENT AWOKE TO THIS RN WALKING INTO ROOM. PATIENT REPORTS PAIN IS A "4/10" AND STATES "ITS NOT TOO BAD", REPOSITIONED PATIENT, PATIENT STATES THAT THESE INTERVENTIONS HELPED "A LITTLE BIT". PATIENT DROWSY AND FELL ASLEEP WHILE TALKING TO THIS RN. URINAL PROVIDED TO PATIENT. CALL LIGHT WITHIN REACH. NO MORE NEEDS AT THIS TIME. PATIENT ABLE TO VOID IN URINAL.
--- NOTE | 2018-06-25 06:54 | NUR ---
rounded on patient resting awake in bed. patient reports "5/10" pain in left knee. scheduled medications administered per mar order. family at bedside. call light within reach. no more needs at this time.
--- NOTE | 2018-06-25 07:26 | NUR ---
PT ALERT SPOUSE AT BEDSIDE. PT HAS NO REQUESTS AT THIS TIME. VOIDING PER URINAL. NO COMPLAINTS OR REQUESTS AT THIS TIME.
--- NOTE | 2018-06-25 07:45 | NUR ---
PATIENT SITTING UP IN CHAIR. IN ROOM. PATIENT'S BREAKFAST ORDERED. WARM BLANKET PROVIDED. CALL LIGHT WITHIN REACH. NO OTHER NEEDS AT THIS TIME
[2018-06-25] MEDS ORDERED: HYDROMORPHONE HC4 MG PO (08:03)
[2018-06-25] MEDS ORDERED: CELECOXIB200 MG PO (08:03)
[2018-06-25] MEDS ORDERED: GABAPENTIN300 MG PO (08:03)
[2018-06-25] MEDS ORDERED: TYLENOL EXTRA500 MG PO (08:03)
[2018-06-25] MEDS ORDERED: SENNA LAX8.6 MG PO (08:04)
[2018-06-25] MEDS ORDERED: ASPIRIN EC325 MG PO (08:04)
--- NOTE | 2018-06-25 08:33 | NUR ---
PT SITTING UP IN RECLINER EATING BREAKFAST AT THIS TIME. REPORTS PAIN 4/10 AT THIS TIME. DILAUDID PO 4MG ADMINISTERED AT THIS TIME
--- NOTE | 2018-06-25 09:56 | NUR ---
PATIENT SITTING UP IN CHAIR. VITAL SIGNS AND I&O DONE. CALL LIGHT WITHIN REACH. NO OTHER NEEDS AT THIS TIME
--- NOTE | 2018-06-25 10:17 | NUR ---
PT SITTING UP IN RECLINER REPORTS PAIN 2/10 THAT IS COMFORTABLE FOR HIM. ASKED PT IF HE MIGHT NEED TO VOID, HE REPORTS NO URGE AT THIS TIME, HE HAD 150ML OUT THIS AM. WILL MONITOR PT AGREED TO GET UP AND AMBULATE IN THE NEXT 1-2 HOURS TO ATTEMPT VOID.
--- NOTE | 2018-06-25 10:27 | NUR ---
MED REC COMPLETE
--- NOTE | 2018-06-25 12:24 | NUR ---
PT REPORTS PAIN IN 3/10 AND COMFORTABLE AT THIS TIME. HE WAS ADMINISTERED 4MG PO DILAUDID TO PREPARE FOR PHYSICAL THERAPY THIS AFTERNOON. SPOUSE IN PT ROOM TO VISIT. PT CONSUMED 100% OF LUNCH NO NAUSEA.
--- NOTE | 2018-06-25 13:34 | NUR ---
PATIENT SITTING UP IN CHAIR. VITAL SIGNS AND I&O DONE. CALL LIGHT WITHIN REACH. NO OTHER NEEDS AT THIS TIME
--- NOTE | 2018-06-25 13:59 | NUR ---
PT SITTING UP IN CHAIR, FEELING REALLY GOOD. SLEPT WELL, EXCEPT WHEN HE SAID THE RN'S CAME IN EVERY 2 HRS AND WOKE HIM. PT PLANS ON DC TODAY, P.T. TO BE BACK IN PM BEFORE DC. EXTENDED A BLESSING, WILL FOLLOW NEEDED
--- NOTE | 2018-06-25 14:16 | NUR ---
PT COMPLETED PHYSICAL THERAPY THIS AFTERNOON. THAIS WITH [place].Ben REPORTS HE IS OK TO DISCHARGE. PT VERBALIZES HIS WANT TO DISCHARGE TODAY.
--- NOTE | 2018-06-25 15:09 | NUR ---
PATIENT SITTING UP IN CHAIR. FINAL VITAL SIGNS WERE OBTAIEND BEFORE TO DISCHARGE FROM THE UNIT.
--- NOTE | 2018-06-25 15:50 | NUR ---
PT IS READY TO GO HOME BUT IS HAVING TO WAIT FOR HIS TO GET HERE. PT STATES UNDERSTANDING OF HIS DX AND HOW TO CARE FOR HIMSELF AND HOW AND WHY HE IS TAKING HIS MEDS, INCLUDING THE NEW ONES. PT STATES PREFERENCES WERE TAKEN INTO ACCOUNT.
--- NOTE | 2018-06-25 16:14 | NUR ---
PT ASKED TO NOT HAVE HIS BLOOD SUGAR CHAECKED HE IS DISCHARGING AND PLANS TO EAT DINNER WITH HIS . ALSO DISCUSSED 70/30 INSULIN VIAL WITH JORGE L IN PHARMACY AND HE FELT WE COULD SEND HOME WITH PATIENT. VIAL PLACED IN PLASTIC BAG AND GIVEN TO PT AT THIS TIME.
--- NOTE | 2018-06-25 18:00 | NUR ---
PT EDUCATION PROVIDED ON MEDICATIONS LAST DOSE, NEXT DOSE OF ALL MEDICATIONS. EDUCATION GIVEN ON SIGNS AND SYMPTOMS TO SEEK MEDICAL ATTENTION. RESTRICTIONS AND EXERCISES TO DO AT HOME. DISCUSSED CRYO CUFF USE AT HOME AND TO RETURN TO OFFICE ON SUNDAY FOR DRESSING CHANGE. IV SITE REMOVED WNL TIP INTACT. PT HAD NO OTHER CONCERNS OR QUESTIONS ABLE TO VERBALIZE BACK TEACHING. DRESSING CDI. PAIN WELL MANAGED PT REPORTS 06/16. VOIDING QUANTITY SUFFICIENT.
== END 2018-06-25 17:52 | disposition home or self-care (01) | DRG 470 ==
LOC: DSVR 06-24 10:00 → MS 06-24 10:00
PROVIDERS: ADMIT Specialist
PROC: 8E0YXBZ Computer Assisted Procedure of Lower Extremity (ICD-10-PCS; 2018-06-24)
PROC: 0SRD0J9 Replacement of Left Knee Joint with Synthetic Substitute, Cemented, Open Approach (ICD-10-PCS; principal; 2018-06-24 12:30)
DX: M17.12 Unilateral primary osteoarthritis, left knee (principal); I10 Essential (primary) hypertension; E11.9 Type 2 diabetes mellitus without complications; E78.5 Hyperlipidemia, unspecified; R25.2 Cramp and spasm; E66.01 Morbid (severe) obesity due to excess calories; Z88.5 Allergy status to narcotic agent; Z79.82 Long term (current) use of aspirin; Z79.4 Long term (current) use of insulin; Z79.899 Other long term (current) drug therapy; Z96.651 Presence of right artificial knee joint; Z87.891 Personal history of nicotine dependence; Z68.35 Body mass index [BMI] 35.0-35.9, adult
CPT/HCPCS: 01402; 36415; 64447; 76942; 80048; 85025; 94762; 97110; 97116; 97162; 97530; C1713; C1776; J0131; J0690; J0735; J1100; J1815; J1885; J2250; J2405; J2704; J2765; J2795; J3010; J7120

== ENCOUNTER 2019-11-08 16:59 | Emergency (ER) | payer BC ==
[~2019-11-08] VITALS: Ht 177.8 cm; Wt 111.1 kg
--- OUTSIDE RECORDS SUMMARY | ~2019-11-08 | XMS | Encounter Summary ---
Demographics + + + | Address | [address] | | | [place] [address] | + + + | Home Phone | | + + + | Preferred Language | Unknown | + + + | Marital Status | | + + + | Spiritism Affiliation | 1041 | + + + | Race | Unknown | + + + | Ethnic Group | Unknown | + + + Author + + + | Author | [facility] | | | and [place] | + + + | Organization | [facility] | | | and [place] | + + + | Address | Unknown | + + + | Phone | Unavailable | + + + Support + + +---------+ + | Name | Relationship | Address | Phone | + + +---------+ + | Carinadarrius Madison | ECON | Unknown | | + + +---------+ + Care Team Providers + +------+ + | Care Wash Operator Name | Role | Phone | + +------+ + | Slick Hernandez MD | PCP | | + +------+ + Encounter Details +--------+ + + + + | Date | Type | Department | Care Team | Description | +--------+ + + + + | 04/12/ | Orders Only | [facility] | Conversion | | | 2018 | | CONVERSION [address] | Transaction, | | | | | [address] | Provider Unknown | | | | | [place], [place] | [phone] | | | | | [address] | | | | | | [phone] | | | +--------+ + + + + Social History + +-------+ +--------+------+ | Tobacco Use | Types | Packs/Day | Years | Date | | | | | Used | | + +-------+ +--------+------+ | Never Assessed | | | | | + +-------+ +--------+------+ + + + | Sex Assigned at | Date Recorded | | | | + + + | Not on file | | + + + documented as of this encounter Plan of Treatment Not on filedocumented as of this encounter Visit Diagnoses Not on filedocumented in this encounter"
--- OUTSIDE RECORDS SUMMARY | ~2019-11-08 | XMS | Encounter Summary ---
Demographics + + + | Address | [address] | | | [place] [address] | + + + | Home Phone | | + + + | Preferred Language | Unknown | + + + | Marital Status | | + + + | Taoism Affiliation | 1041 | + + + | Race | Unknown | + + + | Ethnic Group | Unknown | + + + Author + + + | Author | [facility] | | | and [place] | + + + | Organization | [facility] | | | and [place] | + + + | Address | Unknown | + + + | Phone | Unavailable | + + + Support + + +---------+ + | Name | Relationship | Address | Phone | + + +---------+ + | Carina Gricelda | ECON | Unknown | | + + +---------+ + Care Team Providers + +------+ + | Care Temporary Staff Accountant Name | Role | Phone | + +------+ + | Slick Hernandez MD | PCP | | + +------+ + Encounter Details +--------+ + + + + | Date | Type | Department | Care Team | Description | +--------+ + + + + | 02/20/ | Orders Only | [facility] | Elmer Mcdaniel, | | | 2017 | | [address] | [address] | | | | | [place], [place] | [address] [place], | | | | | [address] | [place] [address] | | | | | [phone] | [phone] | | | | | | | | +--------+ + + + [...] Not on filedocumented as of this encounter Procedures + +--------+ + + + | Procedure Name | Priori | Date/Time | Associated Diagnosis | Comments | | | ty | | | | + +--------+ + + + | EXTERNAL LAB: CBC | Routin | 02/20/2017 | | Results for this | | | e | 3:59 PM | | procedure are in the | | | | PST | | results section. | + +--------+ + + + | PROTIME INR | Routin | 02/20/2017 | | Results for this | | | e | 3:59 PM | | procedure are in the | | | | PST | | results section. | + +--------+ + + + | BASIC METABOLIC | Routin | 02/20/2017 | | Results for this | | PANEL | e | 3:59 PM | | procedure are in the | | | | PST | | results section. | + +--------+ + + + documented in this encounter Results Protime INR (02/20/2017 3:59 PM PST) + + + + + + | Component | Value | Ref Range | Performed | Pathologist | | | | | At | Signature | + + + + + + | INR | 1.0Comment: REFERENCE | | EXTERNAL | | | | RANGE: 0.9 - 1.2 | | LAB | | | | NON-ANTICOAGULATED 2.0 - | | | | | | 3.0 ALL OTHER | | | | | | THERAPEUTIC INDICATIONS | | | | | | 2.5 - 3.5 MECHANICAL | | | | | | HEART VALVES, RECURRENT | | | | | | OR SYSTEMIC EMBOLISM | | | | + + + + + + + + | Specimen | + + | | + + + +---------+ + + | Performing | Address | City/State/Zipcode | Phone Number | | Organization | | | | + +---------+ + + | EXTERNAL LAB | | | | + +---------+ + + External Lab: CBC (02/20/2017 3:59 PM PST) + + + + + + | Component | Value | Ref Range | Performed | Pathologist | | | | | At | Signature | + + + + + + | WBC | 6.17 | 3.80 - 11.00 | EXTERNAL | | | | | 10*3/uL | LAB | | + + + + + + | Non- | 4.80 | 4.20 - 5.70 | EXTERNAL | | | Red Blood | | 10*6/uL | LAB | | | Cells | | | | | | Counted | | | | | + + + + + + | Hemoglobin | 14.8 | 13.2 - 17.0 | EXTERNAL | | | | | g/dL | LAB | | + + + + + + | Hematocrit, | 44.0 | 39.0 - 50.0 % | EXTERNAL | | | POC | | | LAB | | + + + + + + | MCV | 91.5 | 80.0 - 100.0 fL | EXTERNAL | | | | | | LAB | | + + + + + + | MCH | 30.8 | 27.0 - 34.0 pg | EXTERNAL | | | | | | LAB | | + + + + + + | MCHC | 33.7 | 32.0 - 35.5 | EXTERNAL | | | | | g/dL | LAB | | + + + + + + | RDW-CV | 46.4 | 37 - 53 fL | EXTERNAL | | | | | | LAB | | + + + + + + | Platelet | 169 | 150 - 400 | EXTERNAL | | | Count | | 10*3/uL | LAB | | | Plasma | | | | | + + + + + + | MPV | 9.6 | fL | EXTERNAL | | | | | | LAB | | + + + + + + | Differentia | AUTOMATED | | EXTERNAL | | | l Type | | | LAB | | + + + + + + | % Segmented | 64.97 | % | EXTERNAL | | | | | | LAB | | | Neutrophils | | | | | + + + + + + | % | 25.89 | % | EXTERNAL | | | Lymphocytes | | | LAB | | + + + + + + | % Monocytes | 6.60 | % | EXTERNAL | | | | | | LAB | | + + + + + + | % | 1.74 | % | EXTERNAL | | | Eosinophils | | | LAB | | + + + + + + | % Basophils | 0.80 | % | EXTERNAL | | | | | | LAB | | + + + + + + | Absolute | 4.01 | 1.90 - 7.40 | EXTERNAL | | | Segmented | | 10*3/uL | LAB | | | Neutrophils | | | | | + + + + + + | Absolute | 1.60 | 1.00 - 3.90 | EXTERNAL | | | Lymphocytes | | 10*3/uL | LAB | | + + + + + + | Absolute | 0.41 | 0.00 - 0.80 | EXTERNAL | | | Monocytes | | 10*3/uL | LAB | | + + + + + + | Absolute | 0.11 | 0.00 - 0.50 | EXTERNAL | | | Eosinophils | | 10*3/uL | LAB | | + + + + + + | Absolute | 0.05 | 0.00 - 0.10 | EXTERNAL | | | Basophils | | 10*3/uL | LAB | | + + + + + + + + | Specimen | + + | | + + + +---------+ + + | Performing | Address | City/State/Zipcode | Phone Number | | Organization | | | | + +---------+ + + | EXTERNAL LAB | | | | + +---------+ + + Basic Metabolic Panel (02/20/2017 3:59 PM PST) + + + + + + | Component | Value | Ref Range | Performed | Pathologist | | | | | At | Signature | + + + + + + | Na | 138 | 135 - 145 | EXTERNAL | | | | | mmol/L | LAB | | + + + + + + | K | 3.9 | 3.5 - 4.9 | EXTERNAL | | | | | mmol/L | LAB | | + + + + + + | Cl | 100 | 99 - 109 mmol/L | EXTERNAL | | | | | | LAB | | + + + + + + | CO2 | 30 | 23 - 32 mmol/L | EXTERNAL | | | | | | LAB | | + + + + + + | Anion Gap | 12 | 5 - 20 mmol/L | EXTERNAL | | | | | | LAB | | + + + + + + | Glucose, | 281 (H) | 65 - 99 mg/dL | EXTERNAL | | | Fasting | | | LAB | | + + + + + + | BUN | 20 | 8 - 25 mg/dL | EXTERNAL | | | | | | LAB | | + + + + + + | Creatinine | 1.2 | 0.70 - 1.30 | EXTERNAL | | | | | mg/dL | LAB | | + + + + + + | BUN/Creatin | 17 | | EXTERNAL | | | ine Ratio | | | LAB | | + + + + + + | Calcium | 9.0 | 8.5 - 10.5 | EXTERNAL | | | | | mg/dL | LAB | | + + + + + + | Estimated | >60Comment: GFR <60: | mL/min/1.73_m2 | EXTERNAL | | | GFR | CHRONIC KIDNEY DISEASE, | | LAB | | | | IF FOUND OVER A 3 MONTH | | | | | | PERIOD. GFR <15: KIDNEY | | | | | | FAILURE. FOR | | | | | | AMERICANS, MULTIPLY THE | | | | | | CALCULATED GFR BY 1.210. | | | | + + + + + + + + | Specimen | + + | | + + + +---------+ + + | Performing | Address | City/State/Zipcode | Phone Number | | Organization | | | | + +---------+ + + | EXTERNAL LAB | | | | + +---------+ + + documented in this encounter Visit Diagnoses Not on filedocumented in this encounter"
--- OUTSIDE RECORDS SUMMARY | ~2019-11-08 | XMS | Encounter Summary ---
Demographics + + + | Address | [address] | | | [place] [address] | + + + | Home Phone | | + + + | Preferred Language | Unknown | + + + | Marital Status | | + + + | Jew Affiliation | 1041 | + + + | Race | Unknown | + + + | Ethnic Group | Unknown | + + + Author + + + | Author | [facility] | | | and [place] | + + + | Organization | [facility] | | | [...] Team Providers + +------+ + | Care Casing Tier Name | Role | Phone | + +------+ + | Slick Hernandez MD | PCP | | + +------+ + Encounter Details +--------+ + + + + | Date | Type | Department | Care Team | Description | +--------+ + + + + | 08/20/ | Orders Only | [facility] | Conversion | | | 2019 | | CONVERSION [address] | Transaction, | | | | | [address] | Provider Unknown | | | | | [place], [place] | [phone] | | | | | [address] | | | | | | [phone] | | | +--------+ + + + [...]
--- OUTSIDE RECORDS SUMMARY | ~2019-11-08 | XMS | Encounter Summary ---
Demographics + + + | Address | [address] | | | [place] [address] | + + + | Home Phone | | + + + | Preferred Language | Unknown | + + + | Marital Status | | + + + | Anabaptist Affiliation | 1041 | + + + | Race | Unknown | + + + | Ethnic Group | Unknown | + + + Author + + + | Author | [facility] | | | and [place] | + + + | Organization | [facility] | | | and [...] Team Providers + +------+ + | Care Data Specialist Name | Role | Phone | + +------+ + | Slick Hernandez MD | PCP | | + +------+ + Encounter Details +--------+ + + + + | Date | Type | Department | Care Team | Description | +--------+ + + + + | 07/26/ | Orders Only | [facility] | Slick Hernandez | | | 2016 | | [address] | MD [address] | | | | | [address] | [address] | | | | | [place], [place] | [place] [address] | | | | | [address] | [phone] | | | | | [phone] | | | +--------+ + + + [...] | + +--------+ + + + | ECHO INTERPRETATION | Routin | 07/27/2015 | | Results for this | | OF OUTSIDE FILMS | e | 10:26 AM | | procedure are in the | | | | PDT | | results section. | + +--------+ + + + documented in this encounter Results ECHO Interpretation of Outside Films (07/27/2015 10:26 AM PDT) + + | Specimen | + + | | + + + + + | Impressions | Performed At | + + + | 1. See Dictation 2. Degenerative Valvular Heart Disease. Moderate | | | calcific /trace AI (calc SEAN 1.0cm2, peak/mean gradients | | | 37/20mmHg). Mitral and Tricuspid valves grossly NML, Pulmonic valve | | | not seen well. Trace MR, trace TR, trace PI. 3. Mild concentirc LVH, | | | systolic function NML, Grade 1 diastolic abnormality, LVEF >70%. | | | Mild RVE with preserved systolic function. LA/RA NML. 4. No | | | Pericardial effusion. 5. IVC appears NML, est systolic PAP 19-24mmHg. | | + + + + + + | Narrative | Performed At | + + + | Patient Name: Dontrell Madison Date of : 1945 | | | Performing Physician: Mayito Olson DO | | | | | | INDICATIONS CONCLUSIONS 1. See | | | Dictation 2. Degenerative Valvular Heart Disease. Moderate calcific | | | /trace AI (calc SEAN 1.0cm2, peak/mean gradients 37/20mmHg). | | | Mitral and Tricuspid valves grossly NML, Pulmonic valve not seen | | | well. Trace MR, trace TR, trace PI. 3. Mild concentirc LVH, | | | systolic function NML, Grade 1 diastolic abnormality, LVEF >70%. | | | Mild RVE with preserved systolic function. LA/RA NML. 4. No | | | Pericardial effusion. 5. IVC appears NML, est systolic PAP 19-24mmHg. | | | FINDINGS -------- ECG rhythm: Sinus rhythm. Study: This was a | | | technically adequate study. Left Ventricle: Left ventricular systolic | | | function is hyperdynamic with an estimated EF of >70%. Left | | | Ventricle: The left ventricle cavity size is normal. Left Ventricle: | | | There is mild concentric left ventricular hypertrophy. Left | | | Ventricle: The diastolic filling pattern indicates impaired relaxation | | | consistent with mild dysfunction (Grade I). Right Ventricle: The | | | right ventricle is mildly enlarged measuring between 3.4 - 3.7 cm. | | | Right Ventricle: The right ventricular systolic function is normal. | | | Left Atrium: The left atrium is normal in size. Right Atrium: The | | | right atrium is normal in size. Aortic Valve: The aortic valve is | | | moderately calcified. Aortic Valve: Trace amount of aortic | | | regurgitation. Aortic Valve: Moderate to severe aortic stenosis with | | | peak/mean pressure gradient of 37/20mmHg, the aortic valve area by | | | continuity equation is 1.0cm2. Mitral Valve: The mitral valve is | | | normal. Mitral Valve: There is trace mitral regurgitation. Tricuspid | | | Valve: The tricuspid valve appears structurally normal. Tricuspid | | | Valve: Trace tricuspid regurgitation present. Pulmonic Valve: The | | | pulmonic valve was not well visualized. Pulmonic Valve: Trace | | | pulmonic regurgitation. Pericardium: There is no pericardial | | | effusion. IVC/Hepatic Veins: The IVC is normal size (1.5-2.5cm) and | | | collapses >50% with sniff, consistent with central venous pressures of | | | 5-10mmHg. MEASUREMENTS Print Designer: MIKE | | | Authenticated by: Mayito Olson DO Report Date/Time: 07-30-2015 | | | 14:19:13 | | + + + + + | Procedure Note | + + | Jameson Pop Conversion - 11/28/2018 8:32 PM PDT Patient Name: Imelda Madison of | | : 1945 Performing Physician: Mayito Olson | | DO INDICATIONS A | | S CONCLUSIONS 1. See Dictation2. Degenerative Valvular Heart Disease. | | Moderate calcific /trace AI (calc SEAN 1.0cm2, peak/mean gradients 37/20mmHg). Mitral | | and Tricuspid valves grossly NML, Pulmonic valve not seen well. Trace MR, trace TR, | | trace PI. 3. Mild concentirc LVH, systolic function NML, Grade 1 diastolic abnormality, | | LVEF >70%. Mild RVE with preserved systolic function. LA/RA NML. 4. No Pericardial | | effusion. 5. IVC appears NML, est systolic PAP 19-24mmHg. FINDINGS--------ECG rhythm: | | Sinus rhythm.Study: This was a technically adequate study.Left Ventricle: Left | | ventricular systolic function is hyperdynamic with an estimated EF of >70%.Left | | Ventricle: The left ventricle cavity size is normal.Left Ventricle: There is mild | | concentric left ventricular hypertrophy.Left Ventricle: The diastolic filling pattern | | indicates impaired relaxation consistent with mild dysfunction (Grade I).Right | | Ventricle: The right ventricle is mildly enlarged measuring between 3.4 - 3.7 cm.Right | | Ventricle: The right ventricular systolic function is normal.Left Atrium: The left | | atrium is normal in size.Right Atrium: The right atrium is normal in size.Aortic Valve: | | The aortic valve is moderately calcified.Aortic Valve: Trace amount of aortic | | regurgitation.Aortic Valve: Moderate to severe aortic stenosis with peak/mean pressure | | gradient of 37/20mmHg, the aortic valve area by continuity equation is 1.0cm2.Mitral | | Valve: The mitral valve is normal.Mitral Valve: There is trace mitral | | regurgitation.Tricuspid Valve: The tricuspid valve appears structurally normal.Tricuspid | | Valve: Trace tricuspid regurgitation present.Pulmonic Valve: The pulmonic valve was not | | well visualized.Pulmonic Valve: Trace pulmonic regurgitation.Pericardium: There is no | | pericardial effusion.IVC/Hepatic Veins: The IVC is normal size (1.5-2.5cm) and collapses | | >50% with sniff, consistent with central venous pressures of 5-10mmHg. | | MEASUREMENTS Print Designer: Sanjuanaticated by: Mayito Burnette | | Date/Time: 07-30-2015 14:19:13 IMPRESSION: 1. See Dictation2. Degenerative Valvular | | Heart Disease. Moderate calcific /trace AI (calc SEAN 1.0cm2, peak/mean gradients | | 37/20mmHg). Mitral and Tricuspid valves grossly NML, Pulmonic valve not seen well. | | Trace MR, trace TR, trace PI. 3. Mild concentirc LVH, systolic function NML, Grade 1 | | diastolic abnormality, LVEF >70%. Mild RVE with preserved systolic function. LA/RA NML. | | 4. No Pericardial effusion. 5. IVC appears NML, est systolic PAP 19-24mmHg. | |Mitral Valve: The mitral valve is normal. | |Mitral Valve: There is trace mitral regurgitation. | |Tricuspid Valve: The tricuspid valve appears structurally normal. | |Tricuspid Valve: Trace tricuspid regurgitation present. | |Pulmonic Valve: The pulmonic valve was not well visualized. | |Pulmonic Valve: Trace pulmonic regurgitation. | |Pericardium: There is no pericardial effusion. | |IVC/Hepatic Veins: The IVC is normal size (1.5-2.5cm) and collapses >50% with sniff, consis tent with central venous pressures of 5-10mmHg. | | | |MEASUREMENTS | | | | | |Print Designer: | |Authenticated by: Mayito Olson DO | |Report Date/Time: 07-30-2015 14:19:13 | | | |IMPRESSION: | |1. See Dictation | |2. Degenerative Valvular Heart Disease. Moderate calcific /trace AI (calc SEAN 1.0cm2, pe ak/mean gradients 37/20mmHg). Mitral and Tricuspid valves grossly NML, Pulmonic valve not s een well. Trace MR, trace TR, trace PI. 3. Mild concentirc LVH, | |systolic function NML, Grade 1 diastolic abnormality, LVEF >70%. Mild RVE with preserved s ystolic function. LA/RA NML. 4. No Pericardial effusion. 5. IVC appears NML, est systolic PA P 19-24mmHg. | + + documented in this encounter Visit Diagnoses Not on filedocumented in this encounter"
--- OUTSIDE RECORDS SUMMARY | ~2019-11-08 | XMS | Encounter Summary ---
Demographics + + + | Address | [address] | | | [place] [address] | + + + | Home Phone | | + + + | Preferred Language | Unknown | + + + | Marital Status | | + + + | Confucianist Affiliation | 1041 | + + + | Race | Unknown | + + + | Ethnic Group | Unknown | + + + Author + + + | Author | [facility] | | | and [place] | + + + | Organization | [facility] | | | [...] Team Providers + +------+ + | Care Respiratory Supervisor Name | Role | Phone | + +------+ + PCP | Unavailable | + +------+ + Encounter Details +--------+ + + + + | Date | Type | Department | Care Team | Description | +--------+ + + + + | 04/18/ | Hospital | [facility] | Conversion | | | 2018 | Encounter | [facility] | Transaction, | | | | | CLIN[facility] [address] | Provider Unknown | | | | | [place], [place] | | | | | | [address] | (Fax) | | | | | [phone] | | | +--------+ + + + [...] + + documented as of this encounter Last Filed Vital Signs + + + + + | Vital Sign | Reading | Time Taken | Comments | + + + + + | Blood Pressure | 115/55 | 04/18/2017 1:52 PM | | | | | PST | | + + + + + | Pulse | - | - | | + + + + + | Temperature | - | - | | + + + + + | Respiratory Rate | - | - | | + + + + + | Oxygen Saturation | - | - | | + + + + + | Inhaled Oxygen | - | - | | | Concentration | | | | + + + + + | Weight | 112 kg (246 lb 14.7 | 04/18/2017 1:52 PM | | | | oz) | PST | | + + + + + | Height | 177.8 cm (5' 10") | 04/18/2017 1:52 PM | | | | | PST | | + + + + + | Body Mass Index | 35.43 | 04/18/2017 1:52 PM | | | | | PST | | + + + + + documented in this encounter Medications at Time of Discharge + + + +---------+ + + | Medication | Sig | Dispensed | Refills | Start | End Date | | | | | | Date | | + + + +---------+ + + | ACCU-CHEK PATRICIO | | | 0 | 02/06/20 | | | PLUS strip | | | | 17 | | + + + +---------+ + + | Insulin NPH | Inject 48 Units into | | 0 | 04/18/19 | | | Isophane & Regular | the skin 2 (two) | | | 18 | | | (HUMULIN 70/30 | times daily. 48 | | | | | | [place]) | units in am and 30 | | | | | | | in pm | | | | | + + + +---------+ + + documented as of this encounter Procedure Notes Conversion Transaction, Provider Unknown - 04/18/2017 2:11 PM PSTFormatting of this note m ight be different from the original. Pre-Procedure Instructions by Bri López RN at 04/18/17 1411 Author: Bri López RN Service: Anesthesiology Author Type: Registered Nurse Filed: 04/18/17 1445 Date of Service: 04/18/171410 Status: Addendum Data [employer] Chief Scientist: Bri López RN (Registered Nurse) Related Notes: Original Note by Bri López RN (Registered Nurse) filed at 04/18/17 14 44 >4 mets. Able to climb flight of stairs without stopping, able to walk city block at slow pace due to knee pain. Denies C/P, occ exertional SOB. See Dr. Mcdaniel for cardiac care last visit 2017. Dr. Choi Epic notes of 04/18/2017. Cartid doppler study done 04/16/2016. Incision care instructions initiated. Recent URI, docume nted in this encounter Plan of Treatment Not on filedocumented as of this encounter Procedures + +--------+ + + + | Procedure Name | Priori | Date/Time | Associated Diagnosis | Comments | | | ty | | | | + +--------+ + + + | XR CHEST 2 VIEWS | Routin | 04/18/2017 | | Results for this | | | e | 2:54 PM | | procedure are in the | | | | PST | | results section. | + +--------+ + + + | EXTERNAL LAB: CBC | Routin | 04/18/2017 | | Results for this | | | e | 2:04 PM | | procedure are in the | | | | PST | | results section. | + +--------+ + + + | MRSA NAAT | Timed | 04/18/2017 | | Results for this | | | | 2:04 PM | | procedure are in the | | | | PST | | results section. | + +--------+ + + + | PROTIME INR | Routin | 04/18/2017 | | Results for this | | | e | 2:04 PM | | procedure are in the | | | | PST | | results section. | + +--------+ + + + | TYPE AND SCREEN | Routin | 04/18/2017 | | Results for this | | | e | 2:04 PM | | procedure are in the | | | | PST | | results section. | + +--------+ + + + | BASIC METABOLIC | Routin | 04/18/2017 | | Results for this | | PANEL | e | 2:04 PM | | procedure are in the | | | | PST | | results section. | + +--------+ + + + documented in this encounter Results XR Chest 2 Vws (04/18/2017 2:54 PM PST) + + | Specimen | + + | | + + + + + | Impressions | Performed At | + + + | 1. No acute cardiopulmonary process noted. Electronically | | | signed by Colt Gaitan MD on 04/18/2017 3:11 PM | | + + + + + + | Narrative | Performed At | + + + | [facility] 1945 72 years XR CHEST 2 VIEW FRONTAL AND | | | LATERAL 04/18/2017 2:54 PM INDICATION: Preoperative assessment. | | | COMPARISON study: None. TECHNIQUE: 2 views FINDINGS: Lungs | | | appear clear. Cardiomediastinal silhouette appears unremarkable. | | | Osseous structures appear unremarkable. No pleural effusion seen. | | + + + + + | Procedure Note | + + | Donn, Rad Conversion - 11/20/2018 3:41 AM PDT [id number] [facility] | | CHEST 2 VIEW FRONTAL AND LATERAL04/18/2017 2:54 PM INDICATION: Preoperative assessment. | | COMPARISON study: None. TECHNIQUE: 2 views FINDINGS: Lungs appear clear. | | Cardiomediastinal silhouette appears unremarkable. Osseous structures appear | | unremarkable. No pleural effusion seen. IMPRESSION: 1. No acute cardiopulmonary process | | noted. | |INDICATION: Preoperative assessment. | | | |COMPARISON study: None. | | | |TECHNIQUE: 2 views | | | |FINDINGS: Lungs appear clear. Cardiomediastinal silhouette appears unremarkable. Osseous s tructures appear unremarkable. No pleural effusion seen. | | | |IMPRESSION: | |1. No acute cardiopulmonary process noted. | | | | | + + Type and Screen (04/18/2017 2:04 PM PST) + + + + + + | Component | Value | Ref Range | Performed | Pathologist | | | | | At | Signature | + + + + + + | ABO Rh | O POSITIVE | | EXTERNAL | | | | | | LAB | | + + + + + + | Antibody | NEGATIVETesting | | EXTERNAL | | | Screen | performed at [facility];[address] | [address] | | | [address];[place], [place] | | | | | | [address] | | | | + + + + + + + + | Specimen | + + | Blood specimen | | (specimen) | + + + +---------+ + + | Performing | Address | City/State/Zipcode | Phone Number | | Organization | | | | + +---------+ + + | EXTERNAL LAB | | | | + +---------+ + + MRSA NAAT (04/18/2017 2:04 PM PST) + + | Specimen | + + | | + + + + + | Narrative | Performed At | + + + | SOURCE NARES(NOSE) MRSA | EXTERNAL LAB | | PCR NEGATIVE Testing | | | performed at [facility];[address];[place] [address] | | + + + + +---------+ + + | Performing | Address | City/State/Zipcode | Phone Number | | Organization | | | | + +---------+ + + | EXTERNAL LAB | | | | + +---------+ + + Noemí MENDIOLA (04/18/2017 2:04 PM PST) + + + + + + | Component | Value | Ref Range | Performed | Pathologist | | | | | At | Signature | + + + + + + | INR | 1.0Comment: REFERENCE | | EXTERNAL | | | | RANGE:0.9 - 1.2 | | LAB | | | | NON-ANTICOAGULATED2.0 | | | | | | - 3.0 ALL OTHER | | | | | | THERAPEUTIC | | | | | | INDICATIONS2.5 - 3.5 | | | | | | MECHANICAL HEART VALVES, | | | | | | RECURRENT OR SYSTEMIC | | | | | | EMBOLISMTesting | | | | | | performed at [facility] | | | | | | [address] [facility];[place], [place] | | | | | | [address] | | | | + + + + + + + + | Specimen | + + | Blood specimen | | (specimen) | + + + +---------+ + + | Performing | Address | City/State/Zipcode | Phone Number | | Organization | | | | + +---------+ + + | EXTERNAL LAB | | | | + +---------+ + + External Lab: CBC (04/18/2017 2:04 PM PST) + + + + + + | Component | Value | Ref Range | Performed | Pathologist | | | | | At | Signature | + + + + + + | WBC | 6.23 | 3.80 - 11.00 | EXTERNAL | | | | | K/uL | LAB | | + + + + + + | Non- | 4.67 | 4.20 - 5.70 | EXTERNAL | | | Red Blood | | M/uL | LAB | | | Cells | | | | | | Counted | | | | | + + + + + + | Hemoglobin | 14.8 | 13.2 - 17.0 | EXTERNAL | | | | | g/dL | LAB | | + + + + + + | Hematocrit, | 41.8 | 39.0 - 50.0 % | EXTERNAL | | | POC | | | LAB | | + + + + + + | MCV | 89.6 | 80.0 - 100.0 fl | EXTERNAL | | | | | | LAB | | + + + + + + | MCH | 31.7 | 27.0 - 34.0 pg | EXTERNAL | | | | | | LAB | | + + + + + + | MCHC | 35.4 | 32.0 - 35.5 | EXTERNAL | | | | | g/dL | LAB | | + + + + + + | RDW-CV | 45.9 | 37 - 53 fl | EXTERNAL | | | | | | LAB | | + + + + + + | Platelet | 173 | 150 - 400 K/uL | EXTERNAL | | | Count | | | LAB | | | Plasma | | | | | + + + + + + | MPV | 9.7 | fl | EXTERNAL | | | | | | LAB | | + + + + + + | Differentia | AUTOMATED | | EXTERNAL | | | l Type | | | LAB | | + + + + + + | % Segmented | 62.56 | % | EXTERNAL | | | | | | LAB | | | Neutrophils | | | | | + + + + + + | % | 27.29 | % | EXTERNAL | | | Lymphocytes | | | LAB | | + + + + + + | % Monocytes | 7.52 | % | EXTERNAL | | | | | | LAB | | + + + + + + | % | 1.68 | % | EXTERNAL | | | Eosinophils | | | LAB | | + + + + + + | % Basophils | 0.95 | % | EXTERNAL | | | | | | LAB | | + + + + + + | Absolute | 3.90 | 1.90 - 7.40 | EXTERNAL | | | Segmented | | K/uL | LAB | | | Neutrophils | | | | | + + + + + + | Absolute | 1.70 | 1.00 - 3.90 | EXTERNAL | | | Lymphocytes | | K/uL | LAB | | + + + + + + | Absolute | 0.47 | 0.00 - 0.80 | EXTERNAL | | | Monocytes | | K/uL | LAB | | + + + + + + | Absolute | 0.10 | 0.00 - 0.50 | EXTERNAL | | | Eosinophils | | K/uL | LAB | | + + + + + + | Absolute | 0.06Comment: Testing | 0.00 - 0.10 | EXTERNAL | | | Basophils | performed at [facility], [address] | LAB | | | | [address], | | | | | | [place] [address] | | | | + + + + + + + + | Specimen | + + | Blood specimen | | (specimen) | + + + +---------+ + + | Performing | Address | City/State/Zipcode | Phone Number | | Organization | | | | + +---------+ + + | EXTERNAL LAB | | | | + +---------+ + + Basic Metabolic Panel (04/18/2017 2:04 PM PST) + + + + + + | Component | Value | Ref Range | Performed | Pathologist | | | | | At | Signature | + + + + + + | Na | 139 | 135 - 145 | EXTERNAL | | | | | mmol/L | LAB | | + + + + + + | K | 3.7 | 3.5 - 4.9 | EXTERNAL | | | | | mmol/L | LAB | | + + + + + + | Cl | 101 | 99 - 109 mmol/L | EXTERNAL | | | | | | LAB | | + + + + + + | CO2 | 29 | 23 - 32 mmol/L | EXTERNAL | | | | | | LAB | | + + + + + + | Anion Gap | 13 | 5 - 20 mmol/L | EXTERNAL | | | | | | LAB | | + + + + + + | Glucose, | 158 (H) | 65 - 99 mg/dL | EXTERNAL | | | Fasting | | | LAB | | + + + + + + | BUN | 18 | 8 - 25 mg/dL | EXTERNAL | | | | | | LAB | | + + + + + + | Creatinine | 1.1 | 0.70 - 1.30 | EXTERNAL | | | | | mg/dL | LAB | | + + + + + + | BUN/Creatin | 16 | | EXTERNAL | | | ine Ratio | | | LAB | | + + + + + + | Calcium | 8.7 | 8.5 - 10.5 | EXTERNAL | | | | | mg/dL | LAB | | + + + + + + | Estimated | >60Comment: GFR <60: | mL/min/1.73m2 | EXTERNAL | | | GFR | CHRONIC KIDNEY DISEASE, | | LAB | | | | IF FOUND OVER A 3 MONTH | | | | | | PERIOD.GFR <15: KIDNEY | | | | | | FAILURE.FOR | | | | | | AMERICANS, MULTIPLY THE | | | | | | CALCULATED GFR BY | | | | | | 1.210.Testing performed | | | | | | at [facility], [address] | | | | | [address], | | | | | | [place] [address] | | | | + + + + + + + + | Specimen | + + | Blood specimen | | (specimen) | + + + +---------+ + + | Performing | Address | City/State/Zipcode | Phone Number | | Organization | | | | + +---------+ + + | EXTERNAL LAB | | | | + +---------+ + + documented in this encounter Visit Diagnoses Not on filedocumented in this encounter
--- OUTSIDE RECORDS SUMMARY | ~2019-11-08 | XMS | Encounter Summary ---
Demographics + + + | Address | [address] | | | [place] [address] | + + + | Home Phone | | + + + | Preferred Language | Unknown | + + + | Marital Status | | + + + | [employer] Affiliation | 1041 | + + + | Race | Unknown | + + + | Ethnic Group | Unknown | + + + Author + + + | Author | [facility] | | | and [place] | + + + | Organization | [facility] | | [...] Team Providers + +------+ + | Care Adult Literacy Instructor Name | Role | Phone | + +------+ + | Slick Hernandez MD | PCP | | + +------+ + Encounter Details +--------+ + + + + | Date | Type | Department | Care Team | Description | +--------+ + + + + | 04/30/ | Orders Only | [facility] | [facility] | | | 2018 | | [facility] | [address] | | | | | [facility] [address] [place], | | | | | [address] | [place] [address] | | | | | [place] | [phone] | | | | | [address] | | | | | | [phone] | | | +--------+ + + + [...]
--- OUTSIDE RECORDS SUMMARY | ~2019-11-08 | XMS | Encounter Summary ---
Demographics + + + | Address | [address] | | | [place] [address] | + + + | Home Phone | | + + + | Preferred Language | Unknown | + + + | Marital Status | | + + + | Orthodoxy Affiliation | 1041 | + + + | Race | Unknown | + + + | Ethnic Group | Unknown | + + + Author + + + | Author | [facility] | | | and [place] | + + + | Organization | [facility] | | | [...] Team Providers + +------+ + | Care Computer Technician Name | Role | Phone | + +------+ + | Slick Hernandez MD | PCP | | + +------+ + Encounter Details +--------+ + + + + | Date | Type | Department | Care Team | Description | +--------+ + + + + | 08/08/ | Orders Only | [facility] | Kelby Mcdaniel, | | | 2018 | | CONVERSION 888 | [address] | | | | | [address] | [address] | | | | | [place] | [place] [address] | | | | | [address] | [phone] | | | | | [phone] | | | +--------+ + + + [...] + | ECHO INTERPRETATION | Routin | 08/08/2017 | | Results for this | | OF OUTSIDE FILMS | e | 5:14 PM | | procedure are in the | | | | PDT | | results section. | + +--------+ + + + documented in this encounter Results ECHO Interpretation of Outside Films (08/08/2017 5:14 PM PDT) + + | Specimen | + + | | + + + + + | Impressions | Performed At | + + + | 1. Overall left ventricular systolic function is normal with, an EF | | | between 60 - 65 %. 2. The right ventricle is normal in size and | | | function. 3. The left atrium is mildly enlarged. 4. Normally | | | functioning biologic (#25 Magna Ease) prosthetic aortic valve. | | + + + + + + | Narrative | Performed At | + + + | Patient Name: Dontrell Madison Date of : 1945 | | | Performing Physician: KELBY MCDANIEL MD | | | | | | INDICATIONS S/P AV REPLACEMENT WITH BIOPROSTHESIS | | | CONCLUSIONS 1. Overall left ventricular systolic | | | function is normal with, an EF between 60 - 65 %. 2. The right | | | ventricle is normal in size and function. 3. The left atrium is | | | mildly enlarged. 4. Normally functioning biologic (#25 Magna Ease) | | | prosthetic aortic valve. FINDINGS -------- ECG rhythm: Sinus | | | rhythm. Study: A 2-dimensional transthoracic echocardiogram with | | | m-mode, spectral and color flow Doppler was perfomed. Study: This was | | | a technically adequate study. Left Ventricle: Overall left | | | ventricular systolic function is normal with, an EF between 60 - 65 %. | | | Left Ventricle: The left ventricle cavity size is normal. Left | | | Ventricle: Left ventricular wall thickness is normal. Left Ventricle: | | | No regional wall motion abnormalities. Evaluation of t Left | | | Ventricle: he diastolic filling pattern is indeterminate. Right | | | Ventricle: The right ventricle is normal in size and function. Left | | | Atrium: The left atrium is mildly enlarged. Right Atrium: The right | | | atrium is normal in size. Aortic Valve: The aortic valve was not well | | | visualized. Aortic Valve: There is no evidence of aortic | | | regurgitation. Aortic Valve: There is no evidence of aortic stenosis. | | | Aortic Valve: The aortic valve area by continuity equation is | | | 1.8cm Aortic Valve: The maximum velocity across the aortic | | | valve is 2.11m/s Aortic Valve: Peak/mean gradient across the valve is | | | 17.88mmHg/10.32mmHg. Aortic Valve: Normally functioning biologic | | | (#25 Magna Ease) prosthetic valve. Mitral Valve: Normal appearing | | | mitral valve. Mitral Valve: Mild mitral regurgitation is present. | | | Mitral Valve: No evidence of MVP. Tricuspid Valve: The tricuspid | | | valve appears structurally normal. Tricuspid Valve: No regurgitation | | | noted. Tricuspid Valve: Pulmonary artery systolic pressure could not | | | be assessed due to the absence of adequate TR jet. Pulmonic Valve: | | | The pulmonic valve was not well visualized. Pulmonic Valve: Trace | | | pulmonic regurgitation. Pericardium: There is no pericardial | | | effusion. IVC/Hepatic Veins: The inferior vena cava is normal in size | | | and collapses > 50 % with sniff, indicating normal central venous | | | pressures. Aorta: The aortic root, ascending aorta and aortic arch | | | are normal. Mass: No mass visualized Thrombus: No clot visualized | | | Thrombus: No vegetation visualized. Septum: No ASD observed. Septum: | | | No VSD observed. MEASUREMENTS Ao sinus: 3.42 | | | cm Ao st junct: 3.12 cm LA Diam: 3.75 cm EDV(Teich): | | | 136.22 ml IVSd: 1.08 cm LVIDd: 5.31 cm LVPWd: 0.80 cm | | | LVOT Area: 3.65 cm2 LVOT Diam: 2.15 cm %FS: 30.86 % | | | EF(Teich): 58.02 % ESV(Teich): 57.17 ml LVIDs: 3.67 cm | | | SV(Teich): 79.04 ml RVIDd: 3.39 cm LVEF MOD A2C: 50.88 % | | | SV MOD A2C: 40.96 ml LVEF MOD A4C: 64.99 % SV MOD A4C: | | | 79.45 ml EF Biplane: 60.01 % LVEDV MOD BP: 102.24 ml LVESV | | | MOD BP: 40.88 ml LVEDV MOD A2C: 80.50 ml LVLd A2C: 8.05 cm | | | LVEDV MOD A4C: 122.25 ml LVLd A4C: 8.62 cm LVESV MOD A2C: | | | 39.53 ml LVLs A2C: 7.16 cm LVESV MOD A4C: 42.79 ml LVLs A4C: | | | 7.03 cm LAESV(A-L): 65.30 ml LAESV Index (A-L): 28.89 ml/m2 | | | LAAs A2C: 15.54 cm2 LAESV A-L A2C: 45.68 ml LALs A2C: | | | 4.48 cm LAAs A4C: 22.21 cm2 LAESV A-L A4C: 82.82 ml LALs A4C: | | | 5.05 cm RAAs: 15.53 cm2 RAESV A-L: 43.22 ml RAESV MOD: | | | 41.13 ml RALs: 4.73 cm TAPSE: 1.47 cm AV maxP.87 | | | mmHg AV meanP.31 mmHg AV Vmax: 2.11 m/s AV Vmean: | | | 1.51 m/s AV VTI: 42.07 cm SEAN Vmax: 1.53 cm2 SEAN (VTI): | | | 1.80 cm2 AVAI (Vmax): 0.00 cm2/m2 AVAI (VTI): 0.00 cm2/m2 | | | LVOT maxP.14 mmHg LVOT meanP.07 mmHg LVSI Dopp: | | | 33.65 ml/m2 LVSV Dopp: 76.05 ml LVOT Vmax: 0.88 m/s LVOT | | | Vmean: 0.69 m/s LVOT VTI: 20.81 cm MV A Tommy: 0.61 m/s MV | | | Dec [place]: 5.41 m/s2 MV DecT: 169.70 ms MV E Tommy: 0.91 m/s | | | MV E/A Ratio: 1.50 MV PHT: 49.21 ms MVA By PHT: 4.47 cm2 | | | Septal e': 0.04 m/s Septal E/e': 19.28 Lateral e': 0.07 m/s | | | Lateral E/e': 12.67 RAP: 5 mmHg Internal Corrosion Specialist: DBS | | | Authenticated by: KELBY MCDANIEL MD Report Date/Time: 08-09-2017 | | | 18:18:23 | | + + + + + | Procedure Note | + + | Donn, Rad Conversion - 11/28/2018 3:06 PM PDT Patient Name: Imelda Madison of | | : 1945 Performing Physician: KELBY MCDANIEL, | | MD INDICATIONS S | | /P AV REPLACEMENT WITH BIOPROSTHESIS CONCLUSIONS 1. Overall left ventricular | | systolic function is normal with, an EF between 60 - 65 %.2. The right ventricle is | | normal in size and function.3. The left atrium is mildly enlarged.4. Normally | | functioning biologic (#25 Magna Ease) prosthetic aortic valve. FINDINGS--------ECG | | rhythm: Sinus rhythm.Study: A 2-dimensional transthoracic echocardiogram with m-mode, | | spectral and color flow Doppler was perfomed.Study: This was a technically adequate | | study.Left Ventricle: Overall left ventricular systolic function is normal with, an EF | | between 60 - 65 %.Left Ventricle: The left ventricle cavity size is normal.Left | | Ventricle: Left ventricular wall thickness is normal.Left Ventricle: No regional wall | | motion abnormalities. Evaluation of tLeft Ventricle: he diastolic filling pattern is | | indeterminate.Right Ventricle: The right ventricle is normal in size and function.Left | | Atrium: The left atrium is mildly enlarged.Right Atrium: The right atrium is normal in | | size.Aortic Valve: The aortic valve was not well visualized.Aortic Valve: There is no | | evidence of aortic regurgitation.Aortic Valve: There is no evidence of aortic | | stenosis.Aortic Valve: The aortic valve area by continuity equation is 1.8cm Aortic | | Valve: The maximum velocity across the aortic valve is 2.11m/sAortic Valve: Peak/mean | | gradient across the valve is 17.88mmHg/10.32mmHg.Aortic Valve: Normally functioning | | biologic (#25 Magna Ease) prosthetic valve.Mitral Valve: Normal appearing mitral | | valve.Mitral Valve: Mild mitral regurgitation is present.Mitral Valve: No evidence of | | MVP.Tricuspid Valve: The tricuspid valve appears structurally normal.Tricuspid Valve: No | | regurgitation noted.Tricuspid Valve: Pulmonary artery systolic pressure could not be | | assessed due to the absence of adequate TR jet.Pulmonic Valve: The pulmonic valve was | | not well visualized.Pulmonic Valve: Trace pulmonic regurgitation.Pericardium: There is | | no pericardial effusion.IVC/Hepatic Veins: The inferior vena cava is normal in size and | | collapses > 50 % with sniff, indicating normal central venous pressures.Aorta: The | | aortic root, ascending aorta and aortic arch are normal.Mass: No mass | | visualizedThrombus: No clot visualizedThrombus: No vegetation visualized.Septum: No ASD | | observed.Septum: No VSD observed. MEASUREMENTS Ao sinus: 3.[address] | | junct: 3.12 cmLA Diam: 3.75 cmEDV(Teich): 136.22 mlIVSd: 1.08 cmLVIDd: 5.31 | | cmLVPWd: 0.80 cmLVOT Area: 3.65 af1AJBI Diam: 2.15 cm%FS: 30.86 %EF(Teich): | | 58.02 %ESV(Teich): 57.17 mlLVIDs: 3.67 cmSV(Teich): 79.04 mlRVIDd: 3.39 cmLVEF | | MOD A2C: 50.88 %SV MOD A2C: 40.96 mlLVEF MOD A4C: 64.99 %SV MOD A4C: 79.45 mlEF | | Biplane: 60.01 %LVEDV MOD BP: 102.24 mlLVESV MOD BP: 40.88 mlLVEDV MOD A2C: | | 80.50 mlLVLd A2C: 8.05 cmLVEDV MOD A4C: 122.25 mlLVLd A4C: 8.62 cmLVESV MOD A2C: | | 39.53 mlLVLs A2C: 7.16 cmLVESV MOD A4C: 42.79 mlLVLs A4C: 7.03 cmLAESV(A-L): | | 65.30 mlLAESV Index (A-L): 28.89 ml/m2LAAs A2C: 15.54 cy6PZPLT A-L A2C: 45.68 | | mlLALs A2C: 4.48 cmLAAs A4C: 22.21 up2FRLJD A-L A4C: 82.82 mlLALs A4C: 5.05 | | cmRAAs: 15.53 gc0GZCRA A-L: 43.22 mlRAESV MOD: 41.13 mlRALs: 4.73 cmTAPSE: | | 1.47 cmAV maxP.87 mmHgAV meanP.31 mmHgAV Vmax: 2.11 m/Malachi Vmean: 1.51 | | m/Malachi VTI: 42.07 cmAVA Vmax: 1.53 cm2AVA (VTI): 1.80 yf9VGEO (Vmax): 0.00 | | cm2/m2AVAI (VTI): 0.00 cm2/m2LVOT maxP.14 mmHgLVOT meanP.07 mmHgLVSI Dopp: | | 33.65 ml/m2LVSV Dopp: 76.05 mlLVOT Vmax: 0.88 m/sLVOT Vmean: 0.69 m/sLVOT VTI: | | 20.81 cmMV A Tommy: 0.61 m/sMV Dec [place]: 5.41 m/s2MV DecT: 169.70 msMV E Tommy: | | 0.91 m/sMV E/A Ratio: 1.50MV PHT: 49.21 msMVA By PHT: 4.47 aq8Ktawkg e': 0.04 | | m/sSeptal E/e': 19.28Lateral e': 0.07 m/sLateral E/e': 12.67RAP: 5 mmHg | | Internal Corrosion Specialist: DBSAuthenticated by: Otis WHIPPLE Date/Time: 08-09-2017 18:18:23 | | IMPRESSION: 1. Overall left ventricular systolic function is normal with, an EF between | | 60 - 65 %.2. The right ventricle is normal in size and function.3. The left atrium is | | mildly enlarged.4. Normally functioning biologic (#25 Magna Ease) prosthetic aortic | | valve. | |Septum: No ASD observed. | |Septum: No VSD observed. | | | |MEASUREMENTS | | | |Ao sinus: 3.42 cm | |Ao st junct: 3.12 cm | |LA Diam: 3.75 cm | |EDV(Teich): 136.22 ml | |IVSd: 1.08 cm | |LVIDd: 5.31 cm | |LVPWd: 0.80 cm | |LVOT Area: 3.65 cm2 | |LVOT Diam: 2.15 cm | |%FS: 30.86 % | |EF(Teich): 58.02 % | |ESV(Teich): 57.17 ml | |LVIDs: 3.67 cm | |SV(Teich): 79.04 ml | |RVIDd: 3.39 cm | |LVEF MOD A2C: 50.88 % | |SV MOD A2C: 40.96 ml | |LVEF MOD A4C: 64.99 % | |SV MOD A4C: 79.45 ml | |EF Biplane: 60.01 % | |LVEDV MOD BP: 102.24 ml | |LVESV MOD BP: 40.88 ml | |LVEDV MOD A2C: 80.50 ml | |LVLd A2C: 8.05 cm | |LVEDV MOD A4C: 122.25 ml | |LVLd A4C: 8.62 cm | |LVESV MOD A2C: 39.53 ml | |LVLs A2C: 7.16 cm | |LVESV MOD A4C: 42.79 ml | |LVLs A4C: 7.03 cm | |LAESV(A-L): 65.30 ml | |LAESV Index (A-L): 28.89 ml/m2 | |LAAs A2C: 15.54 cm2 | |LAESV A-L A2C: 45.68 ml | |LALs A2C: 4.48 cm | |LAAs A4C: 22.21 cm2 | |LAESV A-L A4C: 82.82 ml | |LALs A4C: 5.05 cm | |RAAs: 15.53 cm2 | |RAESV A-L: 43.22 ml | |RAESV MOD: 41.13 ml | |RALs: 4.73 cm | |TAPSE: 1.47 cm | |AV maxP.87 mmHg | |AV meanP.31 mmHg | |AV Vmax: 2.11 m/s | |AV Vmean: 1.51 m/s | |AV VTI: 42.07 cm | |SEAN Vmax: 1.53 cm2 | |SEAN (VTI): 1.80 cm2 | |AVAI (Vmax): 0.00 cm2/m2 | |AVAI (VTI): 0.00 cm2/m2 | |LVOT maxP.14 mmHg | |LVOT meanP.07 mmHg | |LVSI Dopp: 33.65 ml/m2 | |LVSV Dopp: 76.05 ml | |LVOT Vmax: 0.88 m/s | |LVOT Vmean: 0.69 m/s | |LVOT VTI: 20.81 cm | |MV A Tommy: 0.61 m/s | |MV Dec [place]: 5.41 m/s2 | |MV DecT: 169.70 ms | |MV E Tommy: 0.91 m/s | |MV E/A Ratio: 1.50 | |MV PHT: 49.21 ms | |MVA By PHT: 4.47 cm2 | |Septal e': 0.04 m/s | |Septal E/e': 19.28 | |Lateral e': 0.07 m/s | |Lateral E/e': 12.67 | |RAP: 5 mmHg | | | |Internal Corrosion Specialist: DBS | |Authenticated by: KELBY MCDANIEL MD | |Report Date/Time: 08-09-2017 18:18:23 | | | |IMPRESSION: | |1. Overall left ventricular systolic function is normal with, an EF between 60 - 65 %. | |2. The right ventricle is normal in size and function. | |3. The left atrium is mildly enlarged. | |4. Normally functioning biologic (#25 Magna Ease) prosthetic aortic valve. | + + documented in this encounter Visit Diagnoses Not on filedocumented in this encounter"
--- OUTSIDE RECORDS SUMMARY | ~2019-11-08 | XMS | Encounter Summary ---
Demographics + + + | Address | [address] | | | [place] [address] | + + + | Home Phone | | + + + | Preferred Language | Unknown | + + + | Marital Status | | + + + | [employer] Affiliation | Unknown | + + + | Race | White | + + + | Ethnic Group | Not or | + + + Author + + + | Author | [facility] | + + + | Organization | [facility] | + + + | Address | Unknown | + + + | Phone | Unavailable | + + + Support + + +---------+ + | Name | Relationship | Address | Phone | + + +---------+ + | Carina Rucker | ECON | Unknown | | + + +---------+ + Care Team Providers + +------+ + | Care Chief Estimator Name | Role | Phone | + +------+ + | No Pcp Per Patient | PCP | Unavailable | + +------+ + Reason for Referral Diagnostic Testing (Routine) +--------+--------+ + + + + | Status | Reason | Specialty | Diagnoses / | Referred By | Referred To | | | | | Procedures | Contact | Contact | +--------+--------+ + + + + | Closed | | Radiology | Diagnoses | Hemant, | Rad Ct Scan | | | | | Swelling, | Marcel Caldera, | [facility] [address] | | | | | mass, or | MD [address] | [address] | | | | | lump in head | Reece You | [facility] | | | | | and neck | [facility] | Hospital, | | | | | Procedures | [place], [place] | [facility] Floor | | | | | CT NECK | [address] | [place], [place] | | | | | LARYNX FOR | Phone: | [phone] | | | | | TUMOR W | [phone] | Phone: | | | | | CONTRAST AR | Fax: | [phone] | | | | | CT NECK | [phone] | Fax: | | | | | TISSUE | | [phone] | | | | | CONTRAST | | | +--------+--------+ + + + + Reason for Visit Diagnostic Testing (Routine) +--------+--------+ + + + + | Status | Reason | Specialty | Diagnoses / | Referred By | Referred To | | | | | Procedures | Contact | Contact | +--------+--------+ + + + + | Closed | | Radiology | Diagnoses | Hemant, | Rad Ct Scan | | | | | Swelling, | Marcel S, | [facility] [address] | | | | | mass, or | MD [address] | [address] | | | | | lump in head | Reece You | [facility] | | | | | and neck | [facility], | | | | | Procedures | [place], [place] | 10th Floor | | | | | CT NECK | [address] | [place], [place] | | | | | LARYNX FOR | Phone: | [phone] | | | | | TUMOR W | [phone] | Phone: | | | | | CONTRAST AR | Fax: | [phone] | | | | | CT NECK | [phone] | Fax: | | | | | TISSUE | | [phone] | | | | | CONTRAST | | | +--------+--------+ + + + + Encounter Details +--------+ + + + + | Date | Type | Department | Care Team | Description | +--------+ + + + + | 11/30/ | Hospital | Diagnostic Imaging | | | | 2014 | Encounter | Services at [facility] | | | | | | [address] | | | | | | [facility] | | | | | | [address] | | | | | | [place], [place] | | | | | | [address] | | | | | | [phone] | | | +--------+ + + + [...] on file | | + + + + + + + | Job Start Date | Occupation | Industry | + + + + | Not on file | Not on file | Not on file | + + + + + + + + | Travel History | Travel Start | Travel End | + + + + + + | No recent travel history available. | + + documented as of this encounter Plan of Treatment Not on filedocumented as of this encounter Procedures + +--------+ + + + | Procedure Name | Priori | Date/Time | Associated Diagnosis | Comments | | | ty | | | | + +--------+ + + + | PROCEDURE NOTE | Routin | 05/13/2015 | | Results for this | | | e | 12:39 PM | | procedure are in the | | | | PST | | results section. | + +--------+ + + + | CT NECK LARYNX FOR | Routin | 11/30/2014 | Swelling, mass, or | Results for this | | TUMOR W CONTRAST | e | 10:09 AM | lump in head and | procedure are in the | | | | PDT | neck | results section. | + +--------+ + + + | CREATININE, POC | Routin | 11/30/2014 | Swelling, mass, or | Results for this | | | e | 9:52 AM | lump in head and | procedure are in the | | | | PDT | neck | results section. | + +--------+ + + + documented in this encounter Results PROCEDURE NOTE (05/13/2015 12:39 PM PST)CT NECK LARYNX FOR TUMOR W CONTRAST (11/30/2014 10: 09 AM PDT) + + + + + + | Component | Value | Ref Range | Performed | Pathologist | | | | | At | Signature | + + + + + + | CT NECK | EXAM: CT NECK WITH | | | | | LARYNX FOR | CONTRAST HISTORY: | | | | | TUMOR W C | Evaluate for mass. | | | | | | COMPARISON: None | | | | | | TECHNIQUE: CT of the | | | | | | neck using iodine based | | | | | | intravenous contrast, | | | | | | withsagittal and coronal | | | | | | reformations. Thin | | | | | | slice reformatted images | | | | | | through thelarynx were | | | | | | obtained. FINDINGS: Neck | | | | | | soft tissues: No mass | | | | | | or lymphadenopathy. | | | | | | Specific attention is | | | | | | given tothe larynx, | | | | | | which appears normal. | | | | | | Skull/Skull base: No | | | | | | fractures or destructive | | | | | | lesions. Visualized | | | | | | mastoids andmiddle ears | | | | | | are unremarkable. | | | | | | Paranasal sinuses: | | | | | | Visualized portions are | | | | | | unremarkable. Posterior | | | | | | fossa: Visualized | | | | | | portions are | | | | | | unremarkable. Spine: | | | | | | Unremarkable. Lung | | | | | | apices: Unremarkable. | | | | | | IMPRESSION: 1. No | | | | | | evidence of mass or | | | | | | pathologic adenopathy. | | | | | | Attending Radiologists: | | | | | | ROBERTH SIMPSON, | | | | | | MDAuthor: ELIUD CANTU, | | | | | | MD I have personally | | | | | | viewed this | | | | | | procedure/exam, reviewed | | | | | | this report, and | | | | | | madechanges to it where | | | | | | appropriate. | | | | | | Final/Electronically | | | | | | signed / ROBERTH | | | | | | TATIANA 11/30/2014 | | | | | | 14:43 PM Pending final | | | | | | approval / ELIUD | | | | | | ALONDRA 11/30/2014 14:40 | | | | | | PM Result modified / | | | | | | ELIUD CANTU | | | | | | 11/30/2014 14:40 PM | | | | | | Pending final approval | | | | | | / ELIUD CANTU | | | | | | 11/30/2014 14:39 PM | | | | | | Lloyd / ELIUD | | | | | | ALONDRA 11/30/2014 | | | | | | 12:48 PM | | | | + + + + + + + + | Specimen | + + | | + + + +---------+ + + | Performing | Address | City/State/Zipcode | Phone Number | | Organization | | | | + +---------+ + + | [facility] DEPARTMENT OF | | | | | RADIOLOGY | | | | + +---------+ + + ROUTINE CHEMISTRY TESTS (RADIOLOGY), POC (11/30/2014 9:52 AM PDT) + +-------+ + + + | Component | Value | Ref Range | Performed | Pathologist | | | | | At | Signature | + +-------+ + + + | CREATININE, | 1.0 | 0.7 - 1.3 mg/dL | [facility] - | | | POC | | | [place] | | | | | | [facility] | | | | | | [facility] CARE | | | | | | TESTS | | + +-------+ + + + + + | Specimen | + + | | + + + + + + + | Performing | Address | City/State/Zipcode | Phone Number | | Organization | | | | + + + + + | [facility] [place] | [address] | [place], [place] | | | [facility] | [address] | [address] | | | TESTS | | | | + + + + + documented in this encounter Visit Diagnoses + + | Diagnosis | + + | Swelling, mass, or lump in head and neck | + + documented in this encounter"
--- OUTSIDE RECORDS SUMMARY | ~2019-11-08 | XMS | Encounter Summary ---
Demographics + + + | Address | [address] | | | [place] [address] | + + + | Home Phone | | + + + | Preferred Language | Unknown | + + + | Marital Status | | + + + | Religion Affiliation | 1041 | + + + | Race | Unknown | + + + | Ethnic Group | Unknown | + + + Author + + + | Author | [facility] | | | and [place] | + + + | Organization | [facility] | | | and [...] Team Providers + +------+ + | Care Contact Lens Assistant Name | Role | Phone | + +------+ + | Slick Hernandez MD | PCP | | + +------+ + Reason for Visit + + + | Reason | Comments | + + + | Follow-up, Office | Echo done, f/u stopping metoprolol | | Visit | | + + + Encounter Details +--------+---------+ + + + | Date | Type | Department | Care Team | Description | +--------+---------+ + + + | 01/09/ | Office | [facility] | EmmanataliaAriane dos santos | History of atrial | | 2019 | Visit | [facility]IOLOG[facility] [place] | [address] | fibrillation without | | | | [address] | [address] | current medication; | | | | [address] | [place] [address] | Paroxysmal A-fib | | | | [place] | [phone] | ([facility]); Status post | | | | [id number] | | aortic valve | | | | [phone] | | replacement with | | | | | | bioprosthetic valve; | | | | | | Severe calcific | | | | | | aortic stenosis; | | | | | | Beta-blockers | | | | | | contraindicated due | | | | | | to bradycardia; | | | | | | Essential | | | | | | hypertension; Mixed | | | | | | hyperlipidemia; | | | | | | Status post ligation | | | | | | of left atrial | | | | | | appendage; Pedal | | | | | | edema; Type 2 | | | | | | diabetes mellitus | | | | | | with complication, | | | | | | with long-term | | | | | | current use of | | | | | | insulin ([facility]); Risk | | | | | | factors for | | | | | | obstructive sleep | | | | | | apnea; Encounter for | | | | | | monitoring diuretic | | | | | | therapy | +--------+---------+ + + + Social History + +-------+ +--------+------+ | Tobacco Use | Types | Packs/Day | Years | Date | | | | | Used | | + +-------+ +--------+------+ | Former Smoker | | 0.25 | | | + +-------+ +--------+------+ + +---+---+---+ | Smokeless Tobacco: | | | | | Never Used | | | | + +---+---+---+ + + | Comments: used chew | + + + + + | Sex Assigned at | Date Recorded | | | | + + + | Not on file | | + + + documented as of this encounter Last Filed Vital Signs + + + + + | Vital Sign | Reading | Time Taken | Comments | + + + + + | Blood Pressure | 120/62 | 01/09/2019 9:34 AM | | | | | PDT | | + + + + + | Pulse | 72 | 01/09/2019 9:34 AM | | | | | PDT | | + + + + + | Temperature | - | - | | + + + + + | Respiratory Rate | - | - | | + + + + + | Oxygen Saturation | 96% | 01/09/2019 9:34 AM | | | | | PDT | | + + + + + | Inhaled Oxygen | - | - | | | Concentration | | | | + + + + + | Weight | 114.5 kg (252 lb 8 | 01/09/2019 9:34 AM | | | | oz) | PDT | | + + + + + | Height | 177.8 cm (5' 10") | 01/09/2019 9:34 AM | | | | | PDT | | + + + + + | Body Mass Index | 36.23 | 01/09/2019 9:34 AM | | | | | PDT | | + + + + + documented in this encounter Patient Instructions Patient Instructions Ariane Gonzalez FNP - 01/09/2019 9:30 AM PDTI have ordered you non fasting labs to be done at [facility] today Your Echo looked good, and aortic valve replacement working well I made No changes to medications , but take two furosemide pills the next day , 40 mg , if you miss a day of taking it, to help keep leg swelling controlled. See Dr. Mcdaniel in 6 months See me sooner if needed documented in this encounter Progress Notes Ariane Gonzalez FNP - 01/09/2019 9:30 AM PDTFormatting of this note might be differe nt from the original. Date of visit: 01/09/2019 Primary Care Physician: Slick Hernandez MD CHIEF COMPLAINT: Chief Complaint Patient presents with Follow-up, Office Visit Echo done, f/u stopping metoprolol HISTORY OF PRESENT ILLNESS: Mr. Dontrell Rucker is a 73-year-old man who is here today to follow up on his response to daily furosemide, and weaning off metoprolol,and Echo and lab results Today, I revie wed all previous documentation available to me in electronic medical records and from exte rnal sources. He is a patient of Dr. Mcdaniel and last seen by him August 20, 2018 when he ordered him an mike nt monitor for a dizzy spell that he had the week before with diplopia which lasted 5 minut es. He ordered a event monitor to screen him for bradycardia or atrial fib. His and w ondered if he had recurrent depression.. Dr. Mcdaniel had thought he might possibly be able to stop his metoprolol. His warfarin and aspirin had been stopped. He has a history of severe aortic stenosis with bioprosthetic aortic valve replacement on 04/26/2017, with pulmonary vein isolation, and isolation of left atrial appendage by Dr. Choi, paroxysmal atrial fibrillation, hypertension, hyperlipidemia,type II insulin depe ndent diabetes, and horseshoe kidney. His current and previous testing and procedures are detailed below. I saw him last on October 28, 2018 when I followed up with him about his event monitor, ord ered him an echo, weaned off his metoprolol over a course of 1 month for ongoing bradycardia , told him to take his furosemide 20 mg daily for pedal edema. He reports today that since he saw me last, he had only one episode of dizziness or ligh theadedness when he was helping to set up for [employer], and this was after he had been start ed on gabapentin. 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 He has been trying to wear his compression socks on a daily basis. He denies any dyspnea with or without exertion, chest pain, syncope.He denies any sig ns or symptoms of stroke or TIA, or any emergency room visits or hospitalizations since last seen. He reports he has been having increased knee pain where he had his left knee replacement . He had blood work performed which did not demonstrate any infection. He has been started on Celebrex twice daily, as well as gabapentin to help with increased pain. He also reports he followed up with Dr. Hui for sleep apnea evaluation and treatment an d had a sleep study ordered, and is waiting for it to be improved by insurance. He reports his continues to keep them on low sodium heart healthy diet His short t erm memory remains poor. 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 Started on BiPAP urgently and will follow up with Dr. Hui in 1 month Sleep study 03/03/2019: Severe obstructive sleep apnea. AHI 86.4, AHI 73.4 SPO2 urban 82%, 10.9 minutes with SPO2 <88% during diagnostic sleep study. Required to treat severe CONSTANTINE, o ptimal pressure 25/21 BiPAP with medium size ResMed. 6 beat ventricular tachycardia noted w ith apneic event, frequent PVCs and 1 trigeminal spell noted with apnea, improved with Pap t herapy, frequent PACs noted that did not improve with Pap therapy, fragmented sleep with los s of deep weight sleep and frequent awakenings REVIEW OF SYSTEMS: Negative except for pertinent items noted in HPI. Constitutional:reports mild Fatigue since surgery, denies unexplained weight loss. Den ies night sweats fevers or chills HENT: Denies nosebleeds. Denies dysphagia Reports mild hearing loss Eyes: Denies visual disturbance or double vision. Respiratory/Sleep:: reports snoring Denies cough and shortness of breath. Denies hemo ptysis or excessive sputum production. Denies snoring, orthopnea, PND. Cardiovascular:positive for varicose veins, worse on left, LE swelling, Denies chest pain, palpitations.Denies history of rheumatic fever. Denies claudication . Gastrointestinal: Hx GERD. Denies nausea, vomiting, abdominal pain and blood in stool. Genitourinary: Denies hematuria. Hx TURP, urinary incontinence. intraoperative cystoscopy with dilation of his bladder neck contracture and placement of a Al catheter. Musculoskeletal:positive for Osteoarthritis with knee, shoulder arthralgias. Denies myalgia s Skin:reports Denies color change. Denies lesions. skin cancer( basal cell) Neurological: See HPI, reports previous presyncopal episodes w/ coughing, no LOC, no resol filomena, panic attacks? Poor memory . Denies history of stroke/Transient ischemic attack.Denies history of seizures. Denies numbness. Hematological/Oncology Does not bruise/bleed easily. Denies history of cancer except for s kin cancer( basal cell) Endocrine: Type II diabetes, on insulin. Denies thyroid disease. Denies excessive thirst or hunger. Psychiatric/Behavioral: reports anxiety and possible panic attacks, denies any history other psychiatric illness. Vaccines: Current on 2019 flu vaccine. Current on pneumonia vaccine. Habits/Social : history of smoking, quit 1996, 1/ ppd x 20 years, Chewed tobacco Quit 28 04. Denies EtOH use. Drinks servings little caffeine currently . Denies recreational or illicit drug use. Exercises with walking and tolerates. . Lives in [place]. 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 celecoxib (CELEBREX) 200 mg capsule Take 200 mg by mouth 2 (two) times daily. furosemide (LASIX) 20 mg tablet Take 1 tablet by mouth daily. 30 tablet 11 gabapentin (NEURONTIN) 300 mg capsule Take 600 mg by mouth nightly. Insulin NPH Isophane & Regular (HUMULIN 70/30 KWIKPEN SC) Inject 48 Units into the skin 2 (two) times daily. 48 units in am and 30 in pm melatonin 3 mg TABS Take 10 mg by mouth nightly. metFORMIN (GLUCOPHAGE) 500 mg tablet Take 1 tablet by mouth 2 (two) times daily with me als for 30 days. 60 tablet 11 metoprolol tartrate (LOPRESSOR) 25 mg tablet Take 0.5 tablets by mouth 2 (two) times da anusha for 90 days. (Patient not taking: Reported on 01/09/2019) 30 tablet 2 pyridoxine (VITAMIN B-6) 100 mg tablet Take 50 mg by mouth 3 (three) times daily. quiNIDine gluconate 324 mg ER tablet Take 1 tablet by mouth daily as needed for up to 3 0 days. (Patient not taking: Reported on 01/09/2019) 30 tablet 11 simvastatin (ZOCOR) 80 mg tablet Take 0.5 tablets by mouth nightly for 30 days. 15 tabl et 11 tolterodine (DETROL LA) 4 MG 24 hr capsule Take 4 mg by mouth daily. No facility-administered medications prior to visit. PHYSICAL EXAM: Wt Readings from Last 3 Encounters: 01/09/19 114.5 kg (252 lb 8 oz) 04/30/17 111 kg (244 lb 11.4 oz) 04/18/17 112.5 kg (248 lb) Temp Readings from Last 3 Encounters: 04/30/17 36.8 C (98.3 F) 04/18/17 36.6 C (97.8 F) 03/16/17 36.4 C (97.6 F) BP Readings from Last 3 Encounters: 01/09/19 120/62 04/30/17 136/61 04/18/17 125/71 Pulse Readings from Last 3 Encounters: 01/09/19 72 04/30/17 77 04/18/17 78 Vital signs: 10/28/2018. WT: 249 LB. BP: 116/52. HR 70. Vital signs: 08/20/2018. WT: 240. BP: 100/54 HR 85. Vital signs: 06/17/2018 WT: 251. BP 110/62. HR 110 GENERAL: Well developed, well nourished, in no distress. Appears approximately stated age . HEENT: Normocephalic, atraumatic. EYES: PERRL, EOM normal. MOUTH: Oral mucosae moist, dentition adequate, no lesions noted NECK: No JVD, lymphadenopathy, thyromegaly, bruits. Carotid pulses are 2+ bilaterally LUNGS/CHEST: Clear bilaterally, with no rales, rhonchi or wheezing noted, respirations unl abored HEART:sternotomy incision well healed , no crepitus Nondisplaced PMI, regular rate and rh ythm, with regular extra systoles. S1, S2 normal. No murmurs, rubs or gallops noted. ABDOMEN: Soft, nontender, no organomegaly, masses or bruits. Bowel sounds are normal in a ll 4 quadrants. The abdominal aortic pulsation is not palpable. EXTREMITIES: Mild LE edema left leg, varicosities, Radial pulses 2+ bilaterally. Femora l pulses are 2+ bilaterally without bruits. DP and PT pulses are 2+ bilaterally. No clubbi ng. Well healed knee scar bilaterally SKIN: Warm and dry, capillary refill is normal, no lesions. NEUROLOGIC: Awake, alert and oriented x 3. No focal motor or sensory deficits. PSYCHIATRIC: Appropriate, affect appears normal DATA: Blood tests: Lab Results Component Value Date WBC 9.40 04/30/2017 RBC 3.84 (L) 04/30/2017 HGB 12.2 (L) 04/30/2017 HGB 8.8 (L) 04/26/2017 Lab Results Component Value Date NA 137 04/30/2017 K 4.0 04/30/2017 CL 104 04/30/2017 CO2 25 04/30/2017 ANIONGAP 13 04/30/2017 GLUF 114 (H) 04/30/2017 BUN 36 (H) 04/30/2017 BCR 33 04/30/2017 EGFR >60 04/30/2017 Lab Results Component Value Date GLUF 114 (H) 04/30/2017 No results found for: BNP, TSH, CRP No results found for: TOTEPI CARDIAC PROCEDURES/IMAGING Last angiogram : Right and left heart catheter: 2017: Severe aortic stenosis, which i s now symptomatic. No angiographically significant coronary artery disease. Normal left vent ricular systolic function, EF 60-65 percent. With minimal anterolateral LV hypokinesis. Mi tral valve was competent. 25 percent midsegment left main stenosis. 20 percent early mid L AD stenosis. Last open-heart surgery: 2017: (Dr. Choi): Sternotomy, left atrial appendage ligat ion, pulmonary vein isolation, bioprosthetic aortic valve replacement 25 Magna Ease valve Cardiac Cath (05/21/02): Normal coronary arteries, EF 65%, no evidence of aortic stenosis at that time Exercise Cardiolite stress test (03/19/02): Exercised 8:00, 9 METS, no ST changes, SPECT fa lse positive for mild lateral ischemia, EF 66% ECHO: Last echo: 11/12/2018: [facility]: Sinus rhythm with extra systolic beats. Technically difficult study. EF 60-65%. LV normal in size, minimal focal hypertrophy of basal septum, remaining wall thickness normal. No regional wall motion abnormalities. Indeterminate assessment of diastolic function. RV normal in size and function. LA normal in size previously mildly e nlarged. RA WNL. No aortic regurgitation, aortic valve area by continuity equation is 1.8c m The maximum velocity across the aortic valve is 2.16m/s Peak/mean gradient across th e valve is 18.66mmHg/11.06mmHg. Normally functioning bioprosthetic (25 mm Magna Ease) valve . Mitral valve thickened with myxomatous degeneration, trace MR, no MVP. Tricuspid valve n ormal, trace TR. No pulmonary hypertension, RVSP 23.99 mmHg. Pulmonic valve normal, trace PI. No pericardial effusion. IVC WNL, normal CVP 5-10 aortic root, ascending aorta, and ao rtic arch are normal. No mass, no clot, no ASD, no VSD Echo: 08/08/2017: ([facility]): Sinus rhythm. Technically adequate study. EF 60-65%. LV normal in size and wall thickness. No regional wall motion abnormalities. Indeterminate assessment of diastolic function. RV normal in size and function. Mild LAE. RA WNL. Aortic valve no t well visualized, no aortic regurgitation or stenosis, aortic valve area by continuity equa tion is 1.8cm maximum velocity across the aortic valve is 2.11m/s Peak/mean gradient across the valve is 17.88mmHg/10.32mmHg. Normally functioning biologic (#25 Magna Ease) pro sthetic valve. Normal-appearing mitral valve, mild MR, no evidence of MVP. Tricuspid valve normal, no regurgitation. Pulmonary pressures not assessed due to absence of adequate TR j et. IVC WNL, normal CVP. Aortic root, ascending aorta, and aortic arch are normal. No mas s, no clot, no ASD, no VSD Echo (06/07/16): EF 55-60%, but with basal septal and inferior hypokinesis, grade 2 diastolic dysfunction, mild concentric LVH, normal RV size and function, severe calcific , SEAN 0.8 cm, peak/mean gradients of 59.1/40.9 mmHg, SEAN index < 0.25 cm/M, mild TR, trace MR, P I, RVSP 25.1 mmHg Echo (07/27/15): EF >70%, rate 1 diastolic dysfunction, moderately severe , SEAN 1.0 cm , peak/mean gradient 37/20 mmHg, trace AI, MR, TR, PI, RVSP 19-24 mm Hg Echo (03/19/02): EF 65%, posterobasal hypokinesis, normal RV, mild LAE, aortic sclerosis w ithout stenosis, mild MR, TR, trace PI IVASCULAR MAGING/PROCEDURES: Carotid ultrasound: ; Right ICA: Grade 2 (<50%). Left ICA: Grade 2 (<50%). niyah tebral arteries demonstrate normal antegrade flow and velocities bilaterally. EKG/EVENT MONITORS: 30 day Event monitor . 08/29/2018: CONCLUSION: Mildly abnormal 4-week event monitor recor ding, with sinus rhythm, and 2 brief runs of nonsustained VT / AIVR, up to 5 consecutive momo ts, and 12 brief runs of PAT/PSVT.DATA: Predominately sinus rhythm, average heart rate 81 b pm, range 44-128 bpm. Sinus bradycardia present 2.16% of the recording, with heart rates <50 bpm present for <0.1% Sinus tachycardia present approximately 5% the recording. No evidence of AV block or clinically significant pauses. Overall ventricular ectopy burden < 0.1%. 2 runs of NSVT, both 5 consecutive beats in d uration, one corresponding to AIVR at 118 bpm, the other consistent with polymorphic VT with a rate of 149 bpm. Overall atrial ectopic rhythm burden < 0.1%. 12 runs PAT / PSVT durin g the monitored time period, the maximum duration of which was 12 consecutive beats. The max imum recorded heart rate during any of these runs was a 4 beat run at a rate of 150 bpm. T here was no evidence of paroxysmal atrial fibrillation or atrial flutter during the monitore d time period.A single episode of symptoms, which were not specified, was reported during th e monitored time period, corresponding to NSR at a rate of [address] segment abnormalities were noted. Holter (03/18/02): Sinus rhythm, occasional PVCs, with a single 5 beat run of PSVT EK02/06: Normal sinus rhythm, left ventricular hypertrophy. Rate 95 bpm, VA 162 ms, QRS 90 ms, QTC 449 ms, personally reviewed by me EK2017: Normal sinus rhythm. Rate 83 bpm, VA 186 ms, QRS 82 ms, QTC 460 ms, perso keshawn reviewed by me EK05/03 Sinus rhythm with first-degree AV block with PACs. Rate 85 bpm, VA 200 ms, QRS 94 ms, QTC 497 ms, personally reviewed by me and compared to previous EKG, now first-de gree AV block, PACs, and QTC has also increased EK06/07/2017: Normal sinus rhythm, first-degree AV block resolved. Rate 67 bpm, VA 170 ms , QRS 86 ms, QTC 431 ms and increasing personally reviewed by me and compared to EKG done in April 2017, VA interval is now normal EK01/09/2019 (off metoprolol) sinus rhythm with first-degree AV block with PACs in bigemi nal pattern. Rate 69 bpm, VA 222 ms, QRS 90 ms, QTC 407 ms, tracing personally reviewed by me. LABS Labs: 2017: CMP: Sodium 137, potassium 4.2, chloride 103, glucose 129, BUN 31, creati nine 1.1, GFR >60. CBC: WBC 10.71, hemoglobin 11.6, hematocrit 32.9, platelets 117. Magnes ium 2.6 Labs: 2017: CMP: Sodium 141, potassium 4.3, chloride 103, glucose 110, BUN 23, creati nine 1.22, GFR 59. AST 17 ALT 14, alk phos 53, total bilirubin 0.5, albumin 4.1. CBC: WBC 5.4, RBC 4.29, hemoglobin 12.7, hematocrit 39.9, platelets 177. INR 1.5. Labs: 2017: BMP: Sodium 140, potassium 4.2, chloride 103, glucose 109, BUN 26, GFR 68 INR:05/22: 1.6 05/29: 1.8 06/06/2017: 1.6 Labs: 10/18/2018: CK 93. Lipids: (simvastatin 40 mg) cholesterol 113, triglycerides 154, HD L 34.4, LDL 48. CMP: Sodium 140, potassium 4.5, chloride 105, glucose 129, BUN 21, creatini ne 1.06, AST 15, ALT 15, alk phos 45, total bili 0.5, GFR 69, albumin 3.9. Hemoglobin A1c 6 .6 (143). CBC: WBC 4.8, RBC 4.45, hemoglobin 13.8, hematocrit 40.7, platelets 147 Addendum:( 02/10/2019) Labs: 01/09/2019: BMP: Sodium 145, potassium 4.5, chloride 107, gluco se 124, BUN 21, creatinine 1.09, GFR 67 ASSESSMENT & PLAN: He is here today to follow up on his response to daily furosemide, and weaning off met oprolol,and Echo and lab results He has problems as detailed below. His Echo performed in November is detailed above, and reports an EF of 60-65%, LV normal in size with minimal focal hypertrophy of basal septum, no regional wall motion abnormalities, RV normal in size and function, and bioprosthetic valve is well seated and functioning norm ally, trace MR, trace TR, no pulmonary hypertension, and no pericardial or pleural effusion EKG performed in the clinic today is detailed above, and shows sinus rhythm with bigemin al PACs at 69 bpm with stable first-degree AV block. I reviewed the results of his EKG and echo in detail with him, but unfortunately he forgot to get his labs done for today's appointment, so I have reordered them, and asked him to get them done today so that I can assess if potassium and renal function on daily furosemide. He reports he has felt more energy and less fatigue since he weaned off the metoprolol, and his lower extremity edema has also improved with daily furosemide. 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 For his other cardiac medications, I have continued simvastatin 40 mg nightly for hyperl ipidemia as lipids controlled. He did follow-up on my referral for sleep apnea evaluation and treatment, and is awaitin g his sleep study to be approved by insurance. This will help his ongoing fatigue, and his bradycardia and other arrhythmias occurring predominantly at night. He will follow-up with Dr. Mcdaniel in 6 months for primary cardiology visit, and Dr. Lei swanson will direct him until follow-up with me after that. He is aware that he can follow-up wit h me sooner if needed. 1. History of atrial fibrillation without current medication 2. Paroxysmal A-fib (HCC) 3. Status post aortic valve replacement with bioprosthetic valve 4. Severe calcific aortic stenosis 5. Beta-blockers contraindicated due to bradycardia 6. Essential hypertension 7. Mixed hyperlipidemia 8. Status post ligation of left atrial appendage 9. Pedal edema 10. Type 2 diabetes mellitus with complication, with long-term current use of insulin (HCC) 11. Risk factors for obstructive sleep apnea 12. Encounter for monitoring diuretic therapy Orders Placed This Encounter Procedures Basic Metabolic Panel ECG 12 lead The following portions of the patient's history were personally reviewed by me and updated as appropriate: EKG tracings, other specialty provider and PCP notes,any Hospital admission and discharge summaries, any ER records , current and previous cardiac testing and procedure reports and d eulalia, medication bottles brought to visit today personally reviewed by me. Allergies, current medications.labs Family history, past medical history, past social history, past surgical history. Problem list. Brenna MORALES [facility] 01/09/2019 Phoebe brambila in this encounter Plan of Treatment + +------+--------+ + + | Name | Type | Priori | Associated Diagnoses | Order Schedule | | | | ty | | | + +------+--------+ + + | ECG 12 lead | ECG | Routin | History of atrial | Ordered: 01/09/2019 | | | | e | fibrillation without | | | | | | current medication | | | | | | Paroxysmal A-fib | | | | | | ([facility]) Status post | | | | | | aortic valve | | | | | | replacement with | | | | | | bioprosthetic valve | | | | | | Severe calcific | | | | | | aortic stenosis | | | | | | Beta-blockers | | | | | | contraindicated due | | | | | | to bradycardia | | | | | | Essential | | | | | | hypertension Mixed | | | | | | hyperlipidemia | | | | | | Status post ligation | | | | | | of left atrial | | | | | | appendage Pedal | | | | | | edema Type 2 | | | | | | diabetes mellitus | | | | | | with complication, | | | | | | with long-term | | | | | | current use of | | | | | | insulin (HCC) Risk | | | | | | factors for | | | | | | obstructive sleep | | | | | | apnea | | + +------+--------+ + + | Basic Metabolic | Lab | Routin | Type 2 diabetes | Expected: | | Panel | | e | mellitus with | 01/09/2019, Expires: | | | | | complication, with | 01/10/2020 | | | | | long-term current | | | | | | use of insulin ([facility]) | | | | | | Encounter for | | | | | | monitoring diuretic | | | | | | therapy | | + +------+--------+ + + documented as of this encounter Procedures + +--------+ + + + | Procedure Name | Priori | Date/Time | Associated Diagnosis | Comments | | | ty | | | | + +--------+ + + + | DIAGNOSTIC REPORT - | | 04/21/2019 | | Results for this | | EXTERNAL SCAN | | 12:00 AM | | procedure are in the | | | | PST | | results section. | + +--------+ + + + documented in this encounter Results DIAGNOSTIC REPORT - EXTERNAL SCAN (04/21/2019 12:00 AM PST) + + + | Narrative | Performed At | + + + | Ordered by an | | | unspecified provider. | | + + + documented in this encounter Visit Diagnoses + + | Diagnosis | + + | History of atrial fibrillation without current medication Personal history of other | | diseases of circulatory system | + + | Paroxysmal A-fib (HCC) Atrial fibrillation | + + | Status post aortic valve replacement with bioprosthetic valve Heart valve replaced by | | other means | + + | Severe calcific aortic stenosis Aortic valve disorders | + + | Beta-blockers contraindicated due to bradycardia | + + | Essential hypertension Unspecified essential hypertension | + + | Mixed hyperlipidemia | + + | Status post ligation of left atrial appendage | + + | Pedal edema Edema | + + | Type 2 diabetes mellitus with complication, with long-term current use of insulin | | (HCC) | + + | Risk factors for obstructive sleep apnea | + + | Encounter for monitoring diuretic therapy Encounter for therapeutic drug monitoring | + + documented in this encounter
--- OUTSIDE RECORDS SUMMARY | ~2019-11-08 | XMS | Encounter Summary ---
Demographics + + + | Address | [address] | | | [place] [address] | + + + | Home Phone | | + + + | Preferred Language | Unknown | + + + | Marital Status | | + + + | Lutheran Affiliation | [id number] | + + + | Race | Unknown | + + + | Ethnic Group | Unknown | + + + Author + + + | Author | [facility] | | | and [place] | + + + | Organization | [facility] | | [...] Team Providers + +------+ + | Care Supervisor Fishing Name | Role | Phone | + +------+ + | Slick Hernandez MD | PCP | | + +------+ + Encounter Details +--------+ + + + + | Date | Type | Department | Care Team | Description | +--------+ + + + + | 06/07/ | Orders Only | [facility] | Conversion | | | 2018 | | CONVERSION [address] | Transaction, | | | | | [address] | Provider Unknown | | | | | [place], [place] | [phone] | | | | | [address] | | | | | | [phone] | | | +--------+ + + + [...]
--- OUTSIDE RECORDS SUMMARY | ~2019-11-08 | XMS | Encounter Summary ---
Demographics + + + | Address | [address] | | | [place] [address] | + + + | Home Phone | | + + + | Preferred Language | Unknown | + + + | Marital Status | | + + + | Quaker Affiliation | [id number] | + + + | Race | Unknown | + + + | Ethnic Group | Unknown | + + + Author + + + | Author | [facility] | | | and [place] | + + + | Organization | [facility] | | [...] Team Providers + +------+ + | Care Paper Stripper Name | Role | Phone | + +------+ + PCP | Unavailable | + +------+ + Encounter Details +--------+ + + + + | Date | Type | Department | Care Team | Description | +--------+ + + + + | 03/16/ | Hospital | [facility] | Conversion | Pain | | 2017 | Encounter | [facility]ENTER | Transaction, | | | | | CLINICAL DECISION | Provider Unknown | | | | | [address] | | | | | | [place], [place] | (Fax) | | | | | [phone] | Elmer Mcdaniel MD | | | | | [phone] | [address] | | | | | | [place] | | | | | | [address] | | | | | | | [...] + + + | Blood Pressure | 134/65 | 2017 6:49 PM | | | | | PST | | + + + + + | Pulse | 86 | 2017 6:49 PM | | | | | PST | | + + + + + | Temperature | 36.4 C (97.6 F) | 2017 6:49 PM | | | | | PST | | + + + + + | Respiratory Rate | 18 | 2017 6:49 PM | | | | | PST | | + + + + + | Oxygen Saturation | - | - | | + + + + + | Inhaled Oxygen | - | - | | | Concentration | | | | + + + + + | Weight | 111.5 kg (245 lb 13 | 2017 6:49 PM | | | | oz) | PST | | + + + + + | Height | 177.8 cm (5' 10") | 2017 6:49 PM | | | | | PST | | + + + + + | Body Mass Index | 35.27 | 2017 6:49 PM | | | | | PST | | + + + + + documented in this encounter Medications at Time of Discharge + +-----+ +---------+ + + | Medication | Sig | Dispensed | Refills | Start | End Date | | | | | | Date | | + +-----+ +---------+ + + | ACCU-CHEK PATRICIO | | | 0 | 02/06/20 | | | PLUS strip | | | | 17 | | + +-----+ +---------+ + + documented as of this encounter Progress Notes Conversion Transaction, Provider Unknown - 2017 8:42 PM PSTFormatting of this note m ight be different from the original. Nurse Progress Note by Keren Hooper RN at 03/16/172041 Author: Keren Hooper RN Service: (none) Author Type: Registered Nurse Filed: 03/16/172218 Date of Service: 03/16/172041 Status: Signed Studio Potter: Keren Hooper RN (Registered Nurse) Pt stable at time of discharge. Discharge instructions given and reviewed with patient, CRUZ d/c'luis. All pt questions answered. Discharged via private vehicle with . onver sarahi Transaction, Provider Unknown - 2017 6:00 PM PST Nurse Progress Note by Ankit Wright RN at 03/16/17 1800 Author: Ankit Wright RN Service: (none) Author Type: Registered Nurse Filed: 03/16/17 1853 Date of Service: 03/16/17 1800 Status: Signed Studio Potter: Ankit Wright RN (Registered Nurse) Patient up with assistance, observed ambulation to chair in room. Dressing/site unchanged. docume nted in this encounter H&P Notes Elmer Mcdaniel MD - 2017 11:12 AM PSTFormatting of this note might be different fro m the original. H&P by Elmer Mcdaniel MD at 03/16/17 1112 Author: Elmer Mcdaniel MD Service: Cardiology Author Type: Physician Filed: 03/16/17 1116 Date of Service: 03/16/17 1112 Status: Signed Studio Potter: Elmer Mcdaniel MD (Physician) [facility] Service: Cardiology Admission History & Physical Date of Admission: 2017 Requesting Physician: KI NOEL MD [facility] Reason for Admission: Elective diagnostic right and left heart cardiac catheterization History Obtained From: patient CHIEF COMPLAINT: Fatigue HISTORY OF PRESENT ILLNESS The patient is a 72 y.o. male who presents today for an elective diagnostic right and left heart cardiac catheterization. I will have in my office for the first time on 02/06/17. H allison used to see Mayito Olson D.O., approximately 15 years ago, but more recently has seen Dr. Shafer, who recently left [place]. He has severe calcific aortic stenosis, as evidenced by his recent echocardiogram 06/07/16. The aortic valve area is 0.8 cm, with a peak/mean g radient of 59.1/40.9 mmHg. It is considered to be rapidly progressive, as the aortic valve area was 1.0 cm, with a peak/mean gradients of 37/20 mmHg on his prior echocardiogram done 07/27/15. In the last 6 months, he has noted increasing fatigue, and has had to "slow down" , which is consistent with symptoms from severe aortic stenosis. As such, he will require a ortic valve replacement surgery. He will first undergo diagnostic right and left heart cath eterization on 02/23/17. Diagnostic Cardiac Catheterization via femoral or radial artery ap proach: the procedure, with its associated alternatives, benefits, and risks, the latter in cluding but not limited to possible need for more than one vascular access site, , [place], CVA, bleeding (including the need for blood transfusion), vascular damage (including the nee d for emergent surgical repair, including PCI/stent placement or CABG), renal failure (inclu ding the possible need for short or long-term use of hemodialysis), allergic reactions/anaph ylaxis, and the risks of moderate anesthesia/sedation, were discussed in detail. No guarant ees were given. All questions were answered. The patient verbalized understanding and gave informed consent for the procedure. Moderate Sedation Presedation Assessment completed. ASA Classification: ASA 3: Patient with a severe systemic disease Mallampati Classification: II: Visibility of hard and soft palate, upper portion of tonsil s and uvula REVIEW OF SYSTEMS CONSTITUTIONAL: No recent significant weight change, denies recent fever, chills, night sw eats, but has noted increasing fatigue over the last 6 months NEUROLOGIC: No history of CVA, TIA, migraines, seizures, syncope. No numbness, tingling, paresthesias, but has had an episode of dizziness/near syncope 2016 with no recurrence, ligh theadedness. EYES: No amaurosis, diplopia, recent visual changes, has early stage cataracts, no glaucom a ENT: Mild hearing loss, tinnitus, epistaxis, dysphagia, tongue leukoplakia (ENT evaluation pending) ENDOCRINE: He has a history of Insulin-Requiring type II Diabetes mellitus diabetes. No hi story of thyroid disorders or other endocrine problems. No excessive hunger, thirst. PULMONARY/SLEEP: No significant dyspnea, orthopnea, paroxysmal nocturnal dyspnea. No hist ory of asthma, emphysema. He had Pneumonia in the past. He has been told of snoring, denies daytime somnolence. Sleep is refreshing. CARDIOVASCULAR: Denies chest pain, pressure or discomfort. No history of CAD. No history of heart failure. No history of cardiac arrhythmias. He had Palpitations in 2004, had a Burr er and stress test that were normal. He has a history of a heart Murmur, with severe calcif ic Aortic Stenosis, which is progressing rapidly. No h/o rheumatic fever. He has a history of Essential Hypertension, Hyperlipidemia. He has left-sided Pedal Edema with Varicose Vein s, no claudication symptoms. No h/o an AAA. -- Echo (06/07/16): EF 55-60%, but with basal septal and inferior hypokinesis, grade 2 diasto lic dysfunction, mild concentric LVH, normal RV size and function, severe calcific , SEAN 0 .8 cm, peak/mean gradients of 59.1/40.9 mmHg, SEAN index < 0.25 cm/M, mild TR, trace MR , PI, RVSP 25.1 mmHg -- Echo (07/27/15): EF > 70%, rate 1 diastolic dysfunction, moderately severe , SEAN 1.0 cm , peak/mean gradient 37/20 mmHg, trace AI, MR, TR, PI, RVSP 19-24 mm Hg -- Cardiac Cath (05/21/02): Normal coronary arteries, EF 65%, no evidence of aortic stenosis at that time -- Holter (03/18/02): Sinus rhythm, occasional PVCs, with a single 5 beat run of PSVT -- Exercise Cardiolite stress test (03/19/02): Exercised 8:00, 9 METS, no ST changes, SPECT false positive for mild lateral ischemia, EF 66% -- Echo (03/19/02): EF 65%, posterobasal hypokinesis, normal RV, mild LAE, aortic sclerosis without stenosis, mild MR, TR, trace PI GASTROINTESTINAL: Rare GERD symptoms. No recent abdominal pain, nausea, vomiting, or diar mike. Denies PUD, melena, hematochezia, hepatitis. RENAL/: CKD, Nephrolithiasis, Horseshoe Kidney, BPH. No dysuria, hematuria, urinary urg ency, hesitancy. HEMATOLOGY/ONCOLOGY: No h/o bleeding disorders, DVT, PE. He notes easy bruisability, on ASA, without significant bleeding. No history of anemia, transfusions. He has a history of basal cell skin cancer. MUSCULOSKELETAL: No myalgias, has Osteoarthritis with knee, shoulder arthralgias. No hist ory of rheumatologic or autoimmune diseases. CUTANEOUS: No rashes, pruritus, lesions. PSYCHIATRIC: No history of depression, anxiety or other psychiatric problems. Past Medical History Diagnosis Date Coronary artery disease Horseshoe kidney Hyperlipidemia Hypertension Kidney stones Severe calcific aortic stenosis Rapidly progressive Skin cancer Type 2 diabetes mellitus (HCC) 2005 Insulin requiring Visual disturbance Past Surgical History Procedure Laterality Date CARDIAC CATHETERIZATION CHOLECYSTECTOMY HARDWARE PRESENT NASAL SEPTUM SURGERY RECTAL SURGERY tear repaired REPLACEMENT TOTAL KNEE Right SINUS SURGERY SKIN CANCER EXCISION TONSILLECTOMY TRANSURETHRAL RESECTION OF PROSTATE 2012 UNLISTED PROCEDURE ARTHROSCOPY No Known Allergies Prescriptions Prior to Admission Medication Sig Dispense Refill Last Dose hydrochlorothiazide (HYDRODIURIL) 25 MG tablet Take 25 mg by mouth daily. 2017 a t 0715 HYDROcodone-acetaminophen (NORCO) 5-325 MG per tablet Take 1 tablet by mouth every 6 (s ix) hours as needed for Pain. 03/12/2017 insulin NPH-insulin regular (NOVOLIN 70/30) (70-30) 100 UNIT/ML injection Inject 48 Uni ts into the skin 2 (two) times daily before meals. Patient using about 48 units in the morni ng and 35 units at night 2017 at 0715 metFORMIN (GLUCOPHAGE) 500 MG tablet Take 500 mg by mouth 2 (two) times daily with meal s. 03/15/2017 at 0700 simvastatin (ZOCOR) 80 MG tablet Take 40 mg by mouth nightly. 03/15/2017 at 2000 tolterodine (DETROL LA) 4 MG 24 hr capsule Take 4 mg by mouth daily. 03/15/2017 at 200 aspirin 81 MG EC tablet Take 81 mg by mouth daily with breakfast. 03/09/2017 docusate sodium (COLACE) 100 MG capsule Take 100 mg by mouth daily. 02/22/2017 at Unk nown time quiNIDine gluconate 324 MG CR tablet Take 324 mg by mouth daily as needed. 03/02/2017 Family History Problem Relation Age of Onset Heart failure Mother Dementia Mother Stroke Father Coronary art dis Father 72 Hypertension Father Social History Social History Marital status: Spouse name: N/A Number of children: N/A Years of education: N/A Occupational History drives medical transport van Social History Main Topics Smoking status: Former Smoker Packs/day: 0.25 Years: 20.00 Quit date: 02/06/1997 Smokeless tobacco: Former User Alcohol use 1.8 oz/week 3 Shots of liquor per week Drug use: No Sexual activity: Not on file Other Topics Concern Not on file Social History Narrative No narrative on file PHYSICAL EXAM BP 134/72 (BP Location: Right upper arm) | Pulse 90 | Temp 98 F (36.7 C) (Oral) | Re sp 18 | Ht 1.778 m (5' 10") | Wt 111.5 kg (245 lb 13 oz) | SpO2 95% | BMI 35.27 kg/m GENERAL: Well developed well nourished, in no distress. Appears approximately stated age. HEENT: Normocephalic, atraumatic. EYES: PERRL, sclerae anicteric, no xanthelsasmas MOUTH: Oral mucosae moist, dentition adequate, no lesions noted NECK: No JVD, lymphadenopathy, thyromegaly, with bilateral bruits indices could be trans mitted murmurs). Carotid pulses are decreased bilaterally LUNGS: Clear bilaterally, with no rales, rhonchi or wheezing noted, respirations unlabored HEART: Nondisplaced PMI, regular rate and rhythm, S1 normal, S2 audible. Decreased. 3/6 systolic crescendo decrescendo murmur at the base, radiating to the neck bilaterally and low er left sternal border. No rubs or gallops noted. ABDOMEN: Soft, nontender, no organomegaly, masses or bruits. Bowel sounds are normal in a ll 4 quadrants. The abdominal aortic pulsation is not palpable. EXTREMITIES: Trace left ankle edema. Radial pulses 2+ bilaterally. Femoral pulses are 2+ bilaterally without bruits. DP and PT pulses are 2+ bilaterally. SKIN: Warm and dry, capillary refill is normal, no lesions. NEUROLOGIC: Awake, alert and oriented x 3. No focal motor deficits. PSYCHIATRIC: Appropriate, affect appears normal EKG (02/06/17): Normal sinus rhythm, 95, borderline voltage criteria for left ventricular h ypertrophy, but otherwise normal EKG DATA CBC: Lab Results Component Value Date WBC 6.21 2017 RBC 4.54 2017 HGB 14.4 2017 HCT 40.2 2017 MCV 88.7 2017 MCH 31.8 2017 MCHC 35.8 (H) 2017 RDW 44.2 2017 PLT 216 2017 MPV 8.5 2017 DIFFTYPE AUTOMATED 2017 BMP: Lab Results Component Value Date NA 138 02/20/2017 K 3.9 02/20/2017 CL 100 02/20/2017 CO2 30 02/20/2017 ANIONGAP 12 02/20/2017 GLUF 281 (H) 02/20/2017 BUN 20 02/20/2017 CREATININE 1.2 02/20/2017 BCR 17 02/20/2017 CA 9.0 02/20/2017 EGFR >60 02/20/2017 PT/INR: Lab Results Component Value Date INR 1.0 2017 PROBLEM LIST Active Problems: * No active hospital problems. * ASSESSMENT & PLAN 1. Severe, symptomatic calcific aortic stenosis. This will be evaluated invasively for di agnostic right and left heart catheterization. 2. Essential hypertension, controlled with medications. 3. Hyperlipidemia, on simvastatin. 4. Horseshoe kidney, with normal renal function. Disposition: Elective outpatient admission for diagnostic cardiac catheterization. Code Status: Prior Primary Care Physician: KI Mcdaniel MD 2017 documented in this e ncounter Consult Notes Lopez Choi MD - 2017 1:49 PM PSTFormatting of this note might be different fro m the original. Consult* by Lopez Choi MD at 03/16/17 6700 Author: Lopez Choi MD Service: Cardiac, Thoracic, and Vascular Surgery Author Type: Physician Filed: 03/16/17 1415 Date of Service: 03/16/17 1935 Status: Signed Studio Potter: Lopez Choi MD (Physician) [facility] Service: Cardiothoracic Surgery Initial Consult Note Date of Admission: 2017 Reason for Consultation: Consideration for surgical revascularization Requesting Physician: Dr Mcdaniel, Cardiology History Obtained From: patient CHIEF COMPLAINT: SOB HISTORY OF PRESENT ILLNESS The patient is a 72 y.o. male with significant past medical history of DM, arthritis, HTN, hyperlipidemia, who presents with exertional SOB. Work up revealed severe with a calc ulated area of 0.8 cm sq. Coronary angiogram performed today showed normal coronaries with p reserved LV function. REVIEW OF SYSTEMS Review of Systems Constitutional: Negative for activity change, chills, fatigue and fever. HENT: Negative for hearing loss, nosebleeds, sore throat, tinnitus and voice change. Eyes: Negative for pain, discharge, redness and visual disturbance. Respiratory: Positive for shortness of breath. Negative for cough, chest tightness and whee zing. Cardiovascular: Negative for chest pain, palpitations and leg swelling. Gastrointestinal: Negative for abdominal distention, abdominal pain, anal bleeding, blood i n stool, constipation, diarrhea and nausea. Genitourinary: Negative for dysuria, frequency, hematuria and urgency. Musculoskeletal: Negative for arthralgias, back pain and neck stiffness. Skin: Negative for color change, pallor and wound. Neurological: Negative for dizziness, tremors, seizures, syncope, facial asymmetry, speech difficulty, weakness and light-headedness. Hematological: Negative for adenopathy. Does not bruise/bleed easily. Psychiatric/Behavioral: Negative for agitation, behavioral problems, confusion, sleep distu rbance and suicidal ideas. Past Medical History Diagnosis Date Coronary artery disease Horseshoe kidney Hyperlipidemia Hypertension Kidney stones Severe calcific aortic stenosis Rapidly progressive Skin cancer Type 2 diabetes mellitus (HCC) 2004 Insulin requiring Visual disturbance Past Surgical History Procedure Laterality Date CARDIAC CATHETERIZATION CHOLECYSTECTOMY HARDWARE PRESENT NASAL SEPTUM SURGERY RECTAL SURGERY tear repaired REPLACEMENT TOTAL KNEE Right SINUS SURGERY SKIN CANCER EXCISION TONSILLECTOMY TRANSURETHRAL RESECTION OF PROSTATE 2012 UNLISTED PROCEDURE ARTHROSCOPY No Known Allergies Prescriptions Prior to Admission Medication Sig Dispense Refill Last Dose hydrochlorothiazide (HYDRODIURIL) 25 MG tablet Take 25 mg by mouth daily. 2017 a t 0715 HYDROcodone-acetaminophen (NORCO) 5-325 MG per tablet Take 1 tablet by mouth every 6 (s ix) hours as needed for Pain. 03/12/2017 insulin NPH-insulin regular (NOVOLIN 70/30) (70-30) 100 UNIT/ML injection Inject 48 Uni ts into the skin 2 (two) times daily before meals. Patient using about 48 units in the morni ng and 35 units at night 2017 at 0715 metFORMIN (GLUCOPHAGE) 500 MG tablet Take 500 mg by mouth 2 (two) times daily with meal s. 03/15/2017 at 0700 simvastatin (ZOCOR) 80 MG tablet Take 40 mg by mouth nightly. 03/15/2017 at 2000 tolterodine (DETROL LA) 4 MG 24 hr capsule Take 4 mg by mouth daily. 03/15/2017 at 200 aspirin 81 MG EC tablet Take 81 mg by mouth daily with breakfast. 03/09/2017 docusate sodium (COLACE) 100 MG capsule Take 100 mg by mouth daily. 02/22/2017 at Unk nown time quiNIDine gluconate 324 MG CR tablet Take 324 mg by mouth daily as needed. 03/02/2017 Scheduled Medications lidocaine buffered 1% lidocaine buffered 1% 0.5 mL Intradermal Once Continuous Infusions sodium chloride (bolus) sodium chloride (IV) 110 mL/hr at 03/16/17 1320 PRN Medications acetaminophen, atropine sulfate, fentaNYL, hydrALAZINE, nitroGLYCERIN, ondansetron, sodium chloride (bolus) Family History Problem Relation Age of Onset Heart failure Mother Dementia Mother Stroke Father Coronary art dis Father 72 Hypertension Father Social History Social History Marital status: Spouse name: N/A Number of children: N/A Years of education: N/A Occupational History [employer] Social History Main Topics Smoking status: Former Smoker Packs/day: 0.25 Years: 20.00 Quit date: 02/06/1997 Smokeless tobacco: Former User Alcohol use 1.8 oz/week 3 Shots of liquor per week Drug use: No Sexual activity: Not on file Other Topics Concern Not on file Social History Narrative No narrative on file History Smoking Status Former Smoker Packs/day: 0.25 Years: 20.00 Quit date: 02/06/1997 Smokeless Tobacco Former User History Alcohol Use 1.8 oz/week 3 Shots of liquor per week History Drug Use No PHYSICAL EXAM Vital Signs: BP 126/70 | Pulse 85 | Temp 97.6 F (36.4 C) (Oral) | Resp 18 | Ht 1.778 m (5' 10") | Wt 111.5 kg (245 lb 13 oz) | SpO2 96% | BMI 35.27 kg/m Temp: [97.6 F (36.4 C)-98 F (36.7 C)] 97.6 F (36.4 C) (03/16 1332) BP: (125-152)/(69-83) 126/70 (12/08 1332) Heart Rate: [62-90] 85 (03/16 1332) Resp: [16-22] 18 (03/16 1332) SpO2: [92 %-99 %] 96 % (03/16 1332) Height: [177.8 cm (5' 10")] 177.8 cm (5' 10") (03/16 1008) Weight: [111.5 kg (245 lb 13 oz)] 111.5 kg (245 lb 13 oz) (03/16 1008) BMI (Calculated): [35.3] 35.3 (03/16 1008) Physical Exam Constitutional: He is oriented to person, place, and time. Vital signs are normal. He appea rs well-developed and well-nourished. HENT: Head: Normocephalic and atraumatic. Eyes: Conjunctivae and lids are normal. Neck: Trachea normal and normal range of motion. Neck supple. No JVD present. Cardiovascular: Normal rate and regular rhythm. Murmur heard. ESM best heard in the aortic region, radiating to both carotid arteries. Pulmonary/Chest: Effort normal and breath sounds normal. Abdomina/Gl: Soft. Musculoskeletal: He exhibits no edema. Neurological: He is alert and oriented to person, place, and time. No cranial nerve deficit . Skin: Skin is warm. No cyanosis. DATA CBC: Lab Results Component Value Date WBC 6.21 2017 RBC 4.54 2017 HGB 14.4 2017 HCT 40.2 2017 MCV 88.7 2017 MCH 31.8 2017 MCHC 35.8 (H) 2017 RDW 44.2 2017 PLT 216 2017 MPV 8.5 2017 DIFFTYPE AUTOMATED 2017 CMP: Lab Results Component Value Date NA 141 2017 K 3.4 (L) 2017 CL 104 2017 CO2 30 2017 ANIONGAP 10 2017 GLUF 129 (H) 2017 BUN 20 2017 CREATININE 1.1 2017 BCR 18 2017 CA 8.8 2017 PROT 6.7 04/23/2012 ALB 4.3 04/23/2012 GLOB 2.4 04/23/2012 BILITOT 0.9 04/23/2012 ALP 42 04/23/2012 AST 17 04/23/2012 ALT 25 04/23/2012 EGFR >60 2017 PROBLEM LIST Active Problems: * No active hospital problems. * ASSESSMENT & PLAN 72 year old male with severe aortic stenosis. Coronary angiogram performed today did not sh ow occlusive coronary artery disease. Patient will benefit from aortic valve replacement. I had a long chat with the patient and his , explained to them the echo findings and need for AVR. I have discussed with them the procedure, risk involved, benefit, alternatives and complications. Patient would like to defer surgery until the new year. I am making arrangeme nt to see Mr Madison in office in April to schedule a date for surgery. Code Status: Prior Primary Care Physician: KI NOEL Thank you for allowing me to participate in the care of this patient. LOPEZ CHOI MD 2017 documente d in this encounter Plan of Treatment Not on filedocumented as of this encounter Procedures + +--------+ + + + | Procedure Name | Priori | Date/Time | Associated Diagnosis | Comments | | | ty | | | | + +--------+ + + + | VAS CAROTID DUPLEX | Routin | 2017 | | Results for this | | BILATERAL | e | 8:30 PM | | procedure are in the | | | | PST | | results section. | + +--------+ + + + | EXTERNAL LAB: CBC | Routin | 2017 | | Results for this | | | e | 10:26 AM | | procedure are in the | | | | PST | | results section. | + +--------+ + + + | PROTIME INR | Routin | 2017 | | Results for this | | | e | 10:26 AM | | procedure are in the | | | | PST | | results section. | + +--------+ + + + | BASIC METABOLIC | Routin | 2017 | | Results for this | | PANEL | e | 10:26 AM | | procedure are in the | | | | PST | | results section. | + +--------+ + + + | POC GLUCOSE | Routin | 2017 | | Results for this | | | e | 9:59 AM | | procedure are in the | | | | PST | | results section. | + +--------+ + + + documented in this encounter Results VAS Carotid Duplex Bilateral (2017 8:30 PM PST) + + | Specimen | + + | | + + + + + | Impressions | Performed At | + + + | 1. Right ICA: Grade 2 (<50%). 2. Left ICA: Grade 2 (<50%). 3. | | | The vertebral arteries demonstrate normal antegrade flow and | | | velocities bilaterally. | | + + + + + + | Narrative | Performed At | + + + | [facility] US CAROTID DOPPLER, BILATERAL 2017 8:30 PM | | | HISTORY: 72 years. Male. Calcific aortic stenosis. Preop CABG. | | | TECHNIQUE: Imaging was performed with a linear array transducer. | | | A duplex exam was performed including grayscale, color flow and | | | pulsed wave spectral Doppler techniques. COMPARISON: None. | | | FINDINGS: RIGHT SIDE: Subtle mixed atherosclerotic change in the mid | | | to distal right common carotid artery, carotid bulb, and origins of | | | the internal and external carotid arteries, without significant flow | | | limitation. Less than 50% diameter stenosis of the right ICA origin | | | based on flow velocities. CCA-PROX PSV: 93.8 (cm/s) | | | CCA-DIST PSV: 61.2 (cm/s) ICA-PROX PSV: 38.4 (cm/s) | | | ICA-MID PSV: 82.3 (cm/s) ICA-DIST not well seen. ECA-PROX | | | PSV: 82 (cm/s) VERTEBRAL PSV: 27 (cm/s) RATIO ICA/CCA: PSV: | | | 0.6 VERTEBRAL FLOW: antegrade flow LEFT SIDE: Subtle intimal | | | thickening of the distal left common carotid artery, carotid bulb, and | | | origins of the internal and external carotid arteries. No significant | | | flow limitation. Less than 50% diameter stenosis at the origin of the | | | left ICA based on flow velocities. CCA-PROX PSV: 163.4 | | | (cm/s) CCA-DIST PSV: 52.9 (cm/s) ICA-PROX PSV: 58.1 | | | (cm/s) ICA-MID PSV: 63.6 (cm/s) ICA-DIST PSV: 79.6 | | | (cm/s) ECA-PROX PSV: 108 (cm/s) VERTEBRAL PSV: 74 (cm/s) | | | RATIO ICA/CCA: PSV: 1.1 VERTEBRAL FLOW: antegrade flow GRADING | | | SYSTEM USED: Validated velocity measurements with angiographic | | | measurements, velocity criteria are extrapolated from diameter data as | | | defined by the Carotid Artery Stenosis: Gleason-scale and Doppler US | | | Diagnosis--Society of Radiologists in Ultrasound Consensus | | | Conference. Radiology. 2003;229(2):340-346. Grade 1: Normal. 0% | | | stenosis PSV <125 cm/s (No visible plaque or intimal thickening) | | | Grade 2: <50% stenosis PSV <125 cm/s (Visible plaque or intimal | | | thickening) Grade 3: 50-69% stenosis PSV >125 cm/s (Visible plaque) | | | Grade 4: > or =70% stenosis to near occlusion PSV >230 cm/s | | | (Visible plaque) Grade 5: Near Occlusion (Markedly narrowed lumen at | | | color Doppler US) Grade 6: Total Occlusion (No detectable patent | | | lumen at gleason-scale US and no flow at spectral, power, and color | | | Doppler US) ICA/CCA RATIO If < 2 then Grades 1 or 2. If > 2 and | | | <4 then Grade 3. If > 4 then 4 or above. Example: If PSV meets | | | criteria for Grade 3 stenosis (>125 cm/sec) but the ICA/CCA ratio is | | | <2, then this would downgrade it to Grade 2 rather than Grade 3. | | + + + + + | Procedure Note | + + | Donn, Rad Conversion - 11/20/2018 11:18 PM PDT KATARZYNA SMITH CAROTID DOPPLER, | | GKTNLKYGU25/8/2017 8:30 PM HISTORY:72 years. Male. Calcific aortic stenosis. Preop | | CABG. TECHNIQUE:Imaging was performed with a linear array transducer. A duplex exam was | | performed including grayscale, color flow and pulsed wave spectral Doppler techniques. | | COMPARISON:None. FINDINGS:RIGHT SIDE:Subtle mixed atherosclerotic change in the mid to | | distal right common carotid artery, carotid bulb, and origins of the internal and | | external carotid arteries, without significant flow limitation. Less than 50% diameter | | stenosis of the right ICA origin based on flow velocities. CCA-PROX PSV: 93.8 | | (cm/s)CCA-DIST PSV: 61.2 (cm/s)ICA-PROX PSV: 38.4 (cm/s)ICA-MID PSV: 82.3 | | (cm/s)ICA-DIST not well seen.ECA-PROX PSV: 82 (cm/s)VERTEBRAL PSV: 27 (cm/s)RATIO | | ICA/CCA: PSV: 0.6VERTEBRAL FLOW: antegrade flow LEFT SIDE:Subtle intimal thickening of | | the distal left common carotid artery, carotid bulb, and origins of the internal and | | external carotid arteries. No significant flow limitation. Less than 50% diameter | | stenosis at the origin of the left ICA based on flow velocities. CCA-PROX PSV: 163.4 | | (cm/s)CCA-DIST PSV: 52.9 (cm/s)ICA-PROX PSV: 58.1 (cm/s)ICA-MID PSV: 63.6 | | (cm/s)ICA-DIST PSV: 79.6 (cm/s)ECA-PROX PSV: 108 (cm/s)VERTEBRAL PSV: 74 | | (cm/s)RATIO ICA/CCA: PSV: 1.1VERTEBRAL FLOW: antegrade flow GRADING SYSTEM | | USED:Validated velocity measurements with angiographic measurements, velocity criteria | | are extrapolated from diameter data as defined by the Carotid Artery Stenosis: | | Gleason-scale and Doppler US Diagnosis--Society of Radiologists in Ultrasound Consensus | | Conference. Radiology. 2003;229(2):340-346. Grade 1: Normal. 0% stenosis PSV <125 cm/s | | (No visible plaque or intimal thickening)Grade 2: <50% stenosis PSV <125 cm/s (Visible | | plaque or intimal thickening)Grade 3: 50-69% stenosis PSV >125 cm/s (Visible | | plaque)Grade 4: > or =70% stenosis to near occlusion PSV >230 cm/s (Visible | | plaque)Grade 5: Near Occlusion (Markedly narrowed lumen at color Doppler US)Grade 6: | | Total Occlusion (No detectable patent lumen at gleason-scale US and no flow at spectral, | | power, and color Doppler US) ICA/CCA RATIOIf < 2 then Grades 1 or 2.If > 2 and <4 then | | Grade 3.If > 4 then 4 or above.Example: If PSV meets criteria for Grade 3 stenosis (>125 | | cm/sec) but the ICA/CCA ratio is <2, then this would downgrade it to Grade 2 rather | | than Grade 3. IMPRESSION: 1. Right ICA: Grade 2 (<50%).2. Left ICA: Grade 2 (<50%).3. | | The vertebral arteries demonstrate normal antegrade flow and velocities bilaterally. | | | |CCA-PROX PSV: 163.4 (cm/s) | |CCA-DIST PSV: 52.9 (cm/s) | |ICA-PROX PSV: 58.1 (cm/s) | |ICA-MID PSV: 63.6 (cm/s) | |ICA-DIST PSV: 79.6 (cm/s) | |ECA-PROX PSV: 108 (cm/s) | |VERTEBRAL PSV: 74 (cm/s) | |RATIO ICA/CCA: PSV: 1.1 | |VERTEBRAL FLOW: antegrade flow | | | |GRADING SYSTEM USED: | |Validated velocity measurements with angiographic measurements, velocity criteria are extra polated from diameter data as defined by the Carotid Artery Stenosis: Gleason-scale and Doppler US Diagnosis--Society of Radiologists in Ultrasound Consensus | |Conference. Radiology. 2003;229(2):340-346. | | | |Grade 1: Normal. 0% stenosis PSV <125 cm/s (No visible plaque or intimal thickening) | |Grade 2: <50% stenosis PSV <125 cm/s (Visible plaque or intimal thickening) | |Grade 3: 50-69% stenosis PSV >125 cm/s (Visible plaque) | |Grade 4: > or =70% stenosis to near occlusion PSV >230 cm/s (Visible plaque) | |Grade 5: Near Occlusion (Markedly narrowed lumen at color Doppler US) | |Grade 6: Total Occlusion (No detectable patent lumen at gleason-scale US and no flow at spectr al, power, and color Doppler US) | | | |ICA/CCA RATIO | |If < 2 then Grades 1 or 2. | |If > 2 and <4 then Grade 3. | |If > 4 then 4 or above. | |Example: If PSV meets criteria for Grade 3 stenosis (>125 cm/sec) but the ICA/CCA ratio is <2, then this would downgrade it to Grade 2 rather than Grade 3. | | | |IMPRESSION: | |1. Right ICA: Grade 2 (<50%). | |2. Left ICA: Grade 2 (<50%). | |3. The vertebral arteries demonstrate normal antegrade flow and velocities bilaterally. | | | | | + + Protime INR (2017 10:26 AM PST) + + + + + + [...] | | | | | performed at [facility];[address] | | | | | | [facility];[place], [place] | | | | | | [address] | | | | + + + [...] + +---------+ + + External Lab: CBC (2017 10:26 AM PST) + + + + + + | Component | Value | Ref Range | Performed | Pathologist | | | | | At | Signature | + + + + + + | WBC | 6.21 | 3.80 - 11.00 | EXTERNAL | | | | | K/uL | LAB | | + + + + + + | Non- | 4.54 | 4.20 - 5.70 | EXTERNAL | | | Red Blood | | M/uL | LAB | | | Cells | | | | | | Counted | | | | | + + + + + + | Hemoglobin | 14.4 | 13.2 - 17.0 | EXTERNAL | | | | | g/dL | LAB | | + + + + + + | Hematocrit, | 40.2 | 39.0 - 50.0 % | EXTERNAL | | | POC | | | LAB | | + + + + + + | MCV | 88.7 | 80.0 - 100.0 fl | EXTERNAL | | | | | | LAB | | + + + + + + | MCH | 31.8 | 27.0 - 34.0 pg | EXTERNAL | | | | | | LAB | | + + + + + + | MCHC | 35.8 (H) | 32.0 - 35.5 | EXTERNAL | | | | | g/dL | LAB | | + + + + + + | RDW-CV | 44.2 | 37 - 53 fl | EXTERNAL | | | | | | LAB | | + + + + + + | Platelet | 216 | 150 - 400 K/uL | EXTERNAL | | | Count | | | LAB | | | Plasma | | | | | + + + + + + | MPV | 8.5 | fl | EXTERNAL | | | | | | LAB | | + + + + + + | Differentia | AUTOMATED | | EXTERNAL | | | l Type | | | LAB | | + + + + + + | % Segmented | 66.59 | % | EXTERNAL | | | | | | LAB | | | Neutrophils | | | | | + + + + + + | % | 23.79 | % | EXTERNAL | | | Lymphocytes | | | LAB | | + + + + + + | % Monocytes | 7.18 | % | EXTERNAL | | | | | | LAB | | + + + + + + | % | 1.41 | % | EXTERNAL | | | Eosinophils | | | LAB | | + + + + + + | % Basophils | 1.03 | % | EXTERNAL | | | | | | LAB | | + + + + + + | Absolute | 4.14 | 1.90 - 7.40 | EXTERNAL | | | Segmented | | K/uL | LAB | | | Neutrophils | | | | | + + + + + + | Absolute | 1.48 | 1.00 - 3.90 | EXTERNAL | | | Lymphocytes | | K/uL | LAB | | + + + + + + | Absolute | 0.45 | 0.00 - 0.80 | EXTERNAL | | | Monocytes | | K/uL | LAB | | + + + + + + | Absolute | 0.09 | 0.00 - 0.50 | EXTERNAL | | | Eosinophils | | K/uL | LAB | | + + + + + + | Absolute | 0.06Comment: Testing | 0.00 - 0.10 | EXTERNAL | | | Basophils | performed at [facility];[address] | K/uL | LAB | | | | [address];[place], [place] | | | | | | [address] | | | | + + + [...] + +---------+ + + Basic Metabolic Panel (2017 10:26 AM PST) + + + + + + | Component | Value | Ref Range | Performed | Pathologist | | | | | At | Signature | + + + + + + | Na | 141 | 135 - 145 | EXTERNAL | | | | | mmol/L | LAB | | + + + + + + | K | 3.4 (L) | 3.5 - 4.9 | EXTERNAL | | | | | mmol/L | LAB | | + + + + + + | Cl | 104 | 99 - 109 mmol/L | EXTERNAL | | | | | | LAB | | + + + + + + | CO2 | 30 | 23 - 32 mmol/L | EXTERNAL | | | | | | LAB | | + + + + + + | Anion Gap | 10 | 5 - 20 mmol/L | EXTERNAL | | | | | | LAB | | + + + + + + | Glucose, | 129 (H) | 65 - 99 mg/dL | [...] + + + + | BUN/Creatin | 18 | | EXTERNAL | | | ine Ratio | | | LAB | | + + + + + + | Calcium | 8.8 | 8.5 - 10.5 | EXTERNAL | [...] | | | | | | at [facility];[address] [place] [address] | | | | | | [facility];[place] [address] | | | | + + + + + + + + | Specimen | + + | Blood specimen | | (specimen) | + + + +---------+ + + | Performing | Address | City/State/Zipcode | Phone Number | | Organization | | | | + +---------+ + + | EXTERNAL LAB | | | | + +---------+ + + POC Glucose (2017 9:59 AM PST) + + + + + + | Component | Value | Ref Range | Performed | Pathologist | | | | | At | Signature | + + + + + + | Glucose, | 138 (H)Comment: Testing | 65 - 99 mg/dL | EXTERNAL | | | Fingerstick | performed at [facility];[address] | | LAB | | | | [address];[place] | | | | | | [address] | | | | + + + [...] + | Diagnosis | + + | Pain Generalized pain | + + documented in this encounter
--- OUTSIDE RECORDS SUMMARY | ~2019-11-08 | XMS | Encounter Summary ---
Demographics + + + | Address | [address] | | | [place] [address] | + + + | Home Phone | | + + + | Preferred Language | Unknown | + + + | Marital Status | | + + + | Jehovah'S Witness Affiliation | 1041 | + + + | Race | Unknown | + + + | Ethnic Group | Unknown | + + + Author + + + | Author | [facility] | | | and [place] | + + + | Organization | [facility] | | | and [...] Team Providers + +------+ + | Care Nail Sticker Name | Role | Phone | + +------+ + | Slick Hernandez MD | PCP | | + +------+ + Encounter Details +--------+ + + + + | Date | Type | Department | Care Team | Description | +--------+ + + + + | 04/18/ | Orders Only | [facility] | Conversion | | | 2018 | | CONVERSION DEP [address] | Transaction, | | | | | [address] | Provider Unknown | | | | | [place], [place] | [phone] | | | | | [address] | | | | | | [phone] | | | +--------+ + + + [...]
--- OUTSIDE RECORDS SUMMARY | ~2019-11-08 | XMS | Encounter Summary ---
Demographics + + + | Address | [address] | | | [place] [address] | + + + | Home Phone | | + + + | Preferred Language | Unknown | + + + | Marital Status | | + + + | Congregational Affiliation | Unknown | + + + | Race | White | + + + | Ethnic Group | Not or | + + + Author + + + | Author | [facility] | + + + | Organization | [facility] | + + + | Address | Unknown | + + + | Phone | Unavailable | + + + Support + + +---------+ + | Name | Relationship | Address | Phone | + + +---------+ + | Carina Rucker | ECON | Unknown | | + + +---------+ + Care Team Providers + +------+ + | Care Butter Grader Name | Role | Phone | + +------+ + | No Pcp Per Patient | PCP | Unavailable | + +------+ + Reason for Visit + + + | Reason | Comments | + + + | New patient | | | consultation | | + + + Consultation (Routine) +--------+--------+ + + + + | Status | Reason | Specialty | Diagnoses / | Referred By | Referred To | | | | | Procedures | Contact | Contact | +--------+--------+ + + + + | Closed | | Otolaryngolog | | Jam, | Ent | | | | y | | MD John | Laryngology | | | | | | [address] | [facility] [address] | | | | [address] | [address] | | | | | | Tara | [facility] | | | | | | [place] [address] | Health and | | | | | | Phone: | Healing, | | | | | | [phone] | [address] | | | | | | Fax: | [place], [place] | | | | | | [phone] | [address] | | | | | | | Phone: | | | | | | | [phone] | | | | | | | Fax: | | | | | | | [phone] | +--------+--------+ + + + + Encounter Details +--------+---------+ + + + | Date | Type | Department | Care Team | Description | +--------+---------+ + + + | 12/01/ | Office | Otolaryngology | Dash Lafleur MD | Unilateral partial | | 2015 | Visit | Laryngology Services | [address] | paralysis of vocal | | | | at [facility] [address] | [address]eta [address] [place], | cords or larynx | | | | [address] [facility] | [place] [address] | (Primary Dx); | | | | Health and Healing, | [phone] | Laryngeal | | | | [address] | | hyperfunction; | | | | [place], [place] | | Dysphonia | | | | [address] | | | | | | [phone] | | | +--------+---------+ + + + Social History + +-------+ +--------+ + | Tobacco Use | Types | Packs/Day | Years | Date | | | | | Used | | + +-------+ +--------+ + | Former Smoker | | 0.5 | 20 | Quit: 04/09/1997 | + +-------+ +--------+ + + + +---------+ + | Alcohol Use | Drinks/Week | oz/Week | Comments | + + +---------+ + | No | 0 Standard drinks | 0.0 | | | | or equivalent | | | + + +---------+ + [...] Pressure | 144/69 | 12/01/2014 9:33 AM | | | | | PDT | | + + + + + | Pulse | 67 | 12/01/2014 9:33 AM | | | | | PDT [...] kg (253 lb) | 12/01/2014 9:33 AM | | | | | PDT | | + + + + + | Height | 177.8 cm (5' 10") | 12/01/2014 9:33 AM | | | | | PDT | | + + + + + | Body Mass Index | 36.3 | 12/01/2014 9:33 AM | | | | | PDT | | + + + + + documented in this encounter Patient Instructions Patient Instructions Alfreda Garrett MA - 12/01/2014 9:33 AM PDTThank you for choosing [facility] Department of Otolaryngology for your health care needs. If you need to speak to an ENT physician after normal business hours, please call [phone] and ask to have the ENT phys ician air cargo ground operations supervisor paged. documented in this encounter Progress Notes Dash Lafleur MD - 12/19/2014 12:15 PM PDT PATIENT: Dontrell Rucker [facility] MR#: [id number] : 1945 REQUESTING PROVIDER: John Polk MD [address] [place] [address] PRIMARY CARE PROVIDER: No Pcp Per PATIENT CLINIC: [facility] HPI: Dontrell Rucker is a 69 y.o. male referred by Dr. Polk for voice evaluation. T he patient reports gradual change in voice over the last 2 months with no precipitating even t or illness. He complains of vocal weakness and fatigue. He denies difficulty swallowing and has no respiratory complaints. He has no weight loss and his apatite is good. He was seen by Dr. Polk who identified left vocal fold weakness. A CT of the neck (RLN protocol) w as negative. PMHx: Past Medical History Diagnosis Date Type II or unspecified type diabetes mellitus without mention of complication, not stat ed as uncontrolled SURGHx: Past Surgical History Procedure Laterality Date Turp (transurethral resection of prostate) Knee replacement Sinus surgery Tonsillectomy SOCIAL Hx: History Social History Marital Status: Spouse Name: N/A Number of Children: N/A Years of Education: N/A Occupational History Not on file. Social History Main Topics Smoking status: Former Smoker -- 0.50 packs/day for 20 years Quit date: 04/09/1997 Smokeless tobacco: Not on file Alcohol Use: No Drug Use: Not on file Sexual Activity: Not on file Other Topics Concern Not on file Social History Narrative No narrative on file FAMILY HX: Family History Problem Relation Cancer Father skin Thyroid Neg Hx Tremors Neg Hx Movement Disorders Neg Hx ALLERGIES:No Known Allergies MEDICATIONS: Current Outpatient Prescriptions Medication Sig hydrochlorothiazide 25 mg oral tablet Take 25 mg by mouth once daily. metFORMIN 500 mg oral tablet Take 500 mg by mouth two times daily. simvastatin 40 mg oral tablet Take 40 mg by mouth once daily in the evening. No current facility-administered medications for this visit. ROS: Positives listed in PMH. System review was otherwise negative for: fevers, chills, productive cough, hemoptysis, murmur, angina, previous myocardial infarction, arrhythmia, st roke, liver disease, bleeding disorder, bowel problems, renal insufficiency/failure, or obst ructive sleep disorder. Examination: The patient is in no acute distress. His respiratory rate is regular and the re is no stridor with deep rapid respiration. His voice is weak and breathy. His speech is fluent. He is alert and oriented to person, place, and time. There is no facial asymmetry and motor function is intact. There is no evidence of eye, jaw, or neck spasm. The warp hauler al nose is atraumatic, the septum is midline, and the turbinates are unremarkable. The OC/O P are normal. The tongue protrudes midline and there are no fasciculations and no wasting. The palate elevates symmetrically and there is no tremor. The posterior pharyngeal wall is unremarkable and the tonsillar fossa are normal. Examination of the neck is unremarkable. There are no palpable masses and no adenopathy. The thyroid bed is normal to palpation. T he parotid and submandibular glands are normal to palpation. The SCM's are symmetric in ton e and function. Flexible fiberoptic laryngoscopy with videostroboscopy was performed today by Amanda Goddard in our Speech - Language Pathology Division and reviewed at the time of the exam with the zuri jon. The nasopharynx is symmetric. There are no masses. The base of tongue and vallecul a are clear. The AE folds are well defined. Both vocal folds are mobile. There is limitat ion of motion on the left with sulcus. The hypopharynx, piriform sinuses, post cricoid, inte rarytenoid and subglottic regions are normal. With sustained vowel phonation glottic closur e is obtained. Mucosal waves are generated bilaterally. Amplitude is reduced and an interm ittent phase shift is noted. CTM function is intact. During connected speech, there is inc reased supraglottic activity with both AP and lateral compression. CT reviewed. There is no obvious etiology for motion impairment. 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 Given the negative CT scan and partial motion impairment, I would not und ertake additional imaging. He is an excellent candidate for voice therapy and this will be scheduled in the near future. I will see him again in 6 months for follow-up. 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
--- OUTSIDE RECORDS SUMMARY | ~2019-11-08 | XMS | Encounter Summary ---
Demographics + + + | Address | [address] | | | [place] [address] | + + + | Home Phone | | + + + | Preferred Language | Unknown | + + + | Marital Status | | + + + | Sikh Affiliation | 1041 | + + + | Race | Unknown | + + + | Ethnic Group | Unknown | + + + Author + + + | Author | [facility] | | | and [place] | + + + | Organization | [facility] | | | [...] Team Providers + +------+ + | Care Nutrition Professor Name | Role | Phone | + +------+ + | Slick Hernandez MD | PCP | | + +------+ + Reason for Visit Service/Procedure (Routine) +--------+--------+ + + + + | Status | Reason | Specialty | Diagnoses / | Referred By | Referred To | | | | | Procedures | Contact | Contact | +--------+--------+ + + + + | Closed | | Cardiology | Diagnoses | Carlos | Khris | | | | | Ventricular | [place], | Cardiology | | | | | premature | [address] | [place] | | | | | depolarizati | [address] | [address] | | | | | on Atrial | [address] | | | | | premature | [place], [place] | [address] | | | | | depolarizati | [address] | [place], [place] | | | | | on Personal | Phone: | [phone] | | | | | history of | [phone] | Phone: | | | | | other | Fax: | [phone] | | | | | diseases of | [phone] | Fax: | | | | | the | | [phone] | | | | | circulatory | | | | | | | system | | | | | | | Procedures | | | | | | | GA EXT ECG > | | | | | | | 48HR TO 21 | | | | | | | DAY RCRD | | | | | | | W/CONECT | | | | | | | INTL RCRD | | | | | | | GA EXT ECG > | | | | | | | 48HR TO 21 | | | | | | | DAY REVIEW | | | | | | | AND | | | | | | | INTERPRETATN | | | | | | | 1 WEEK | | | | | | | BARDY | | | +--------+--------+ + + + + Encounter Details +--------+ + + + + | Date | Type | Department | Care Team | Description | +--------+ + + + + | 06/17/ | Procedure | [facility] | Ariane Gonzalez | PAC (premature | | 2020 | visit | CARDIOLOGY [place] | [address] | atrial contraction); | | | | [address] | [address] | History of atrial | | | | [address] | [place] [address] | fibrillation without | | | | [place], [place] | [phone] | current medication; | | | | [address] | | Frequent PVCs | | | | [phone] | Shashank Glasgow, | | | | | | MD [address] | | | | | | [address] [place], [place] | | | | | | [address] | | | | | | | [...] documented as of this encounter Progress Notes Heidi Bran Technologist - 06/18/2019 1:30 PM PDTBardy monitor placed for 7 day 0296T Instructions reviewed and patient voiced understanding about how to report symptoms while wearing device. Reviewed instructions on how to return device with patient and all question s answered. [id number] Tracking # [id number] documented in this encounter Plan of Treatment Not on filedocumented as of this encounter Visit Diagnoses + + | Diagnosis | + + | PAC (premature atrial contraction) Supraventricular premature beats | + + | History of atrial fibrillation without current medication Personal history of other | | diseases of circulatory system | + + | Frequent PVCs Other premature beats | + + documented in this encounter"
--- OUTSIDE RECORDS SUMMARY | ~2019-11-08 | XMS | Encounter Summary ---
Demographics + + + | Address | [address] [facility] [facility] | | | [place] [address] | + + + | Home Phone | | + + + | Preferred Language | Unknown | + + + | Marital Status | | + + + | Druze Affiliation | Unknown | + + + | Race | White | + + + | Ethnic Group | Not or | + + + Author + + + | Author | [facility] | + + + | Organization | [facility] | + + + | Address | Unknown | + + + | Phone | Unavailable | + + + Support + + +---------+ + | Name | Relationship | Address | Phone | + + +---------+ + | Carina Rucker | ECON | Unknown | | + + +---------+ + Care Team Providers + +------+ + | Care Patented Hogshead Assembler Name | Role | Phone | + [...] | | | | [address] | [facility] [address] | | | | | [address] | [address] | | | | | | [place] | [facility] | | | | | | [place] [address] | Health and | | | | | | Phone: | Healing, | | | | | | [phone] | [address] | | | | | | Fax: | [place], [place] | | | | | | [phone] | [address] | | | | | | | Phone: | | | | | | | [phone] | | | | | | | Fax: | | | | | | | [phone] | +--------+--------+ + + + + Encounter Details +--------+---------+ + + + | Date | Type | Department | Care Team | Description | +--------+---------+ + + + | 12/01/ | Office | Otolaryngology | Dash Lafleur MD | Unilateral partial | | 2015 | Visit | Laryngology Services | [address] | paralysis of vocal | | | | at [facility] [address] | [address]eta [address] [place], | cords or larynx | | | | Ave [facility] | [place] [address] | (Primary Dx); | | | | Health and Healing, | [phone] | Laryngeal | | | | [address] | | hyperfunction; | | | | [place], [place] | | Dysphonia | | | | [address] | | | | | | [phone] | | | +--------+---------+ + + + [...] this encounter Patient Instructions Patient Instructions Alfreda Garertt MA - 12/01/2014 9:33 AM PDTThank you for choosing [facility] Department of Otolaryngology for your health care needs. If you need to speak to an ENT physician after normal business hours, please call [phone] and ask to have the ENT phys ician space operations officer paged. documented in this encounter Progress Notes Dash Lafleur MD - 12/19/2014 12:15 PM PDT PATIENT: Dontrell Rucker [facility] MR#: [id number] : 1945 REQUESTING PROVIDER: John Polk MD [address] [place] [address] PRIMARY CARE PROVIDER: No Pcp Per PATIENT CLINIC: [facility] HPI: [...] of eye, jaw, or neck spasm. The straw hat machine operator al nose is atraumatic, the septum is [...] Professor and Chair, Otolaryngology-Head & Neck Surgery [facility] & [address] ([facility]) [place], [place] [email or web address] signed by Dash Lafleur MD at 12/19/2014 [...]
--- OUTSIDE RECORDS SUMMARY | ~2019-11-08 | XMS | Encounter Summary ---
Demographics + + + | Address | [address] [facility] [address] | | | [place] [address] | + + + | Home Phone | | + + + | Preferred Language | Unknown | + + + | Marital Status | | + + + | Islam Affiliation | 1041 | + + + | Race | Unknown | + + + | Ethnic Group | Unknown | + + + Author + + + | Author | [facility] | | | and [place] | + + + | Organization | [facility] | | | and [...] Team Providers + +------+ + | Care Apprentice Lineman Third Step Name | Role | Phone | + +------+ + | Slick Hernandez MD | PCP | | + +------+ + Reason for Visit + +--------+ + | Reason | Onset | Comments | | | Date | | + +--------+ + | Medication Question | 07/28/ | | | | 2020 | | + +--------+ + Encounter Details +--------+ + + + + | Date | Type | Department | Care Team | Description | +--------+ + + + + | 07/28/ | Telephone | [facility] | Ariane Gonzalez | Medication Question | | 2019 | | CARDIOLOGY [place] | [address] | | | | | [address] | [address] | | | | | [address] | [place] [address] | | | | | [place] | [phone] | | | | | [address] | | | | | | [phone] | | | +--------+ + + + [...] + + documented as of this encounter Miscellaneous Notes Telephone Encounter - Carina Kirk CMA - 07/29/2019 1:53 PM PDTCalled patient back to let him know that this should go through his primary care doctor. He stated that is good be cause he has an appointment with him on . He stated understanding and had no furthe r questions. Ph ----- Message from Aria Rush sent at 07/28/2019 3:06 PM PDT ----- Regarding: Question on Cpap Pt called and stated that he was having problems with his CPAP, he talked with a provider a t the [facility] who said he should have the pressure lowered. He would need Brenna or Dr Jonas whaley that request in. Please call him back at [phone] documented in this encounter Plan of Treatment Not on filedocumented as of this encounter Visit Diagnoses Not on filedocumented in this encounter"
--- OUTSIDE RECORDS SUMMARY | ~2019-11-08 | XMS | Encounter Summary ---
Demographics + + + | Address | [address] [facility] [address] | | | [place] [address] | + + + | Home Phone | | + + + | Preferred Language | Unknown | + + + | Marital Status | | + + + | Hindu Affiliation | Unknown | + + + | Race | White | + + + | Ethnic Group | Not or | + + + Author + + + | Author | [facility] | + + + | Organization | [facility] | + + + | Address | Unknown | + + + | Phone | Unavailable | + + + Support + + +---------+ + | Name | Relationship | Address | Phone | + + +---------+ + | Carina Rucker | ECON | Unknown | | + + +---------+ + Care Team Providers + +------+ + | Care Director Client Services Name | Role | Phone | + +------+ + | Slick Hernandez MD | PCP | | + +------+ + Reason for Referral [...] | | | | mass, or | [address] | [address] | | | | | lump in head | [address] | [address] Parker [facility] | | | | | and neck | [address] | [facility], | | | | | Procedures | [place], [place] | [facility] Floor | | | | | CT NECK | [address] | [facility] [place] | | | | | LARYNX FOR | Phone: | [phone] | | | | | TUMOR W | [phone] | Phone: | | | | | CONTRAST [place] | Fax: | [phone] | | | | | CT NECK | [phone] | Fax: | | | | | TISSUE | | [phone] | | | | | CONTRAST | | | +--------+--------+ + + + + Encounter Details +--------+ + + + + | Date | Type | Department | Care Team | Description | +--------+ + + + + | 11/16/ | Stake Setter | Otolaryngology | Marcel Marcos | Swelling, mass, or | | 2014 | | Laryngology Services | MD [address] | lump in head and | | | | at [facility] [address] | [address] | neck (Primary Dx) | | | | [facility] for | [place], [place] | | | | | Health and Healing, | [address] | | | | | [facility] 1 | [phone] | | | | | [facility] [place] | | | | | | [address] | | | | | | [phone] | | | +--------+ + + + [...] Not on filedocumented as of this encounter Results CT NECK LARYNX FOR TUMOR W CONTRAST (11/30/2014 10:09 AM PDT) + + + + + [...] Final/Electronically | | | | | | lauren / ROBERTH | | | | | | TATIANA 11/30/2014 | | | | | | 14:43 PM Pending final | | | | | | francine / ELIUD | | | | | [...] PM | | | | | | Preliminary / ELIUD | | | | | [...] | | + +---------+ + + | [place] DEPARTMENT OF | | | | | RADIOLOGY | | | | + +---------+ + + documented in this encounter Visit Diagnoses + + | Diagnosis | + + | Swelling, mass, or lump in head and neck - Primary | + + documented in this encounter"
--- OUTSIDE RECORDS SUMMARY | ~2019-11-08 | XMS | Encounter Summary ---
Demographics + + + | Address | [address] [facility] [address] | | | [place] [address] | + + + | Home Phone | | + + + | Preferred Language | Unknown | + + + | Marital Status | | + + + | Voodoo Affiliation | 1041 | + + + | Race | Unknown | + + + | Ethnic Group | Unknown | + + + Author + + + | Author | [facility] | | | and [place] | + + + | Organization | [facility] | | | [...] Team Providers + +------+ + | Care Fluorescent Lighting Model Maker Name | Role | Phone | + +------+ + | Slick Hernandez MD | PCP | | + +------+ + Encounter Details +--------+ + + + + | Date | Type | Department | Care Team | Description | +--------+ + + + + | 10/28/ | Orders Only | [facility] | Conversion | Encounter for | | 2019 | | CONVERSION DEP [address] | Transaction, | therapeutic drug | | | | [address] | Provider Unknown | level monitoring | | | | [place], [place] | [phone] | | | | | [address] | | | | | | [phone] | | | +--------+ + + + + Social History + +-------+ +--------+------+ | Tobacco Use | Types | Packs/Day | Years | Date | | | | | Used | | + +-------+ +--------+------+ | Former Smoker | | 0.25 | | | + +-------+ +--------+------+ + + | Comments: used chew | + + + + + | Sex Assigned at | Date Recorded | | | | + + + | Not on file | | + + + documented as of this encounter Plan of Treatment Not on filedocumented as of this encounter Visit Diagnoses + + | Diagnosis | + + | Encounter for therapeutic drug level monitoring Encounter for therapeutic drug | | monitoring | + + documented in this encounter"
--- OUTSIDE RECORDS SUMMARY | ~2019-11-08 | XMS | Encounter Summary ---
Demographics + + + | Address | [address] [facility] [address] | | | [place] [address] | + + + | Home Phone | | + + + | Preferred Language | Unknown | + + + | Marital Status | | + + + | Restorationist Affiliation | Unknown | + + + | Race | White | + + + | Ethnic Group | Not or | + + + Author + + + | Author | [facility] | + + + | Organization | [facility] | + + + | Address | Unknown | + + + | Phone | Unavailable | + + + Support + + +---------+ + | Name | Relationship | Address | Phone | + + +---------+ + | Carina Rucker | ECON | Unknown | | + + +---------+ + Care Team Providers + +------+ + | Care Dress Shoe Inspector Name | Role | Phone | + [...] head | [address] | Geeta Parker [facility] | | | | | and neck | [address] | [facility] | | | | | Procedures | [place], [place] | [facility] Floor | | | | | CT NECK | [address] | [facility] [place] | | | | | LARYNX FOR | Phone: | [phone] | | | | | TUMOR W | [phone] | Phone: | | | | | CONTRAST [place] | Fax: | [phone] | | | | | CT NECK | [phone] | Fax: | | | | | TISSUE | | [phone] | | | | | CONTRAST | | | +--------+--------+ + + + + Encounter Details +--------+ + + + + | Date | Type | Department | Care Team | Description | +--------+ + + + + | 11/16/ | Electrical Service Technician | Otolaryngology | Marcel Marcos | Swelling, mass, or | | 2014 | | Laryngology Services | MD [address]renice [address] | lump in head and | | | | at [facility] [address] | [address] | neck (Primary Dx) | | | | [facility] for | [place], [place] | | | | | Health and Healing, | [address] | | | | | [facility] 1 | [phone] | | | | | [facility] [place] | | | | | | [address] | | | | | | [phone] | | | +--------+ + + + [...]
--- OUTSIDE RECORDS SUMMARY | ~2019-11-08 | XMS | Encounter Summary ---
Demographics + + + | Address | [address] [facility] [address] [address] | | | [place] [address] | + + + | Home Phone | | + + + | Preferred Language | Unknown | + + + | Marital Status | | + + + | Zoroastrianism Affiliation | Unknown | + + + | Race | White | + + + | Ethnic Group | Not or | + + + Author + + + | Author | [facility] | + + + | Organization | [facility] | + + + | Address | Unknown | + + + | Phone | Unavailable | + + + Support + + +---------+ + | Name | Relationship | Address | Phone | + + +---------+ + | Carina Rucker | ECON | Unknown | | + + +---------+ + Care Team Providers + +------+ + | Care Bronze Chaser Name | Role | Phone | + +------+ + | No Pcp Per Patient | PCP | Unavailable | + +------+ + Reason for Visit Speech Therapy (Routine) +--------+--------+ + + + + | Status | Reason | Specialty | Diagnoses / | Referred By | Referred To | | | | | Procedures | Contact | Contact | +--------+--------+ + + + + | Closed | | Speech | | Jam, | Ent Speech | | | | Therapy | | MD John | [facility] [address] | | | | | | [address] | [address] | | | | | | [address] | [facility] for | | | | | | Drifting, | [facility] and | | | | | | [place] [address] | [facility], | | | | | | Phone: | Building 1, | | | | | | [phone] | 15th Floor | | | | | | Fax: | [place], [place] | | | | | | [phone] | [address] | | | | | | | Phone: | | | | | | | [phone] | | | | | | | Fax: | | | | | | | [phone] | +--------+--------+ + + + + Encounter Details +--------+ + + + + | Date | Type | Department | Care Team | Description | +--------+ + + + + | 12/01/ | Diagnostic | Otolaryngology NW | Amanda Goddard, DAMEON | | | 2015 | Visit | [facility] and | [address] | | | | | Swallowing at [facility] | [address] | | | | | [address] | [place] [address] | | | | | [facility] | [phone] | | | | | and Karen, | | | | | | | | | | | | [place], [place] | | | | | | [address] | | | | | | [phone] | | | +--------+ + + + [...] + documented as of this encounter Progress Amanda Ivan SLP - 12/01/2014 10:42 AM PDT VOICE EVALUATION CLINIC: [facility] CLINIC DATE: 12/01/14 REFERRING PHYSICIAN: John Polk MD PRIMARY DIAGNOSIS: 1. 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 The patient stated his name and date of to confirm identity prior to the examination and procedure. REASON FOR REFERRAL: Dontrell Rucker was referred to the [facility] for [facility] and Sw[facility]ing by Dr. John Polk for a complete evaluation. The patient has a 2 month hist ory of voice problems. He was evaluated by Dr. Polk who identified limited mobility of the r ight true vocal fold. He was unable to identify any event or illness associated with the ons et of his problems. The patient reported that his voice is hoarse, effortful, and weak, part icularly in the evening. He denied any pain with speaking. Past Medical History Diagnosis Date Type II or unspecified type diabetes mellitus without mention of complication, not stat ed as uncontrolled This evaluation was completed in cooperation with Dr. Dash Lafluer. Please refer to his repo rt for details regarding the medical diagnosis. VOCAL HYGIENE: The patient drinks 32 oz. of water, 16 oz. of caffeinated coffee per day. The patient quit smoking (pipe/cigars) in 1997. The patient's vocal demands include those fo r conversation. The patient is retired. SWALLOWING: The patient denied any difficulty with his swallowing. He denied coughing/chok ing when eating or drinking. He does not avoid any food/liquids because they are difficult t o swallow. The patient denied any recent pneumonia or unexplained weight loss. PERCEPTUAL ASSESSMENT: The patient's voice was mild to moderately dysphonic and characteri zed by a strained, rough and throat focused vocal quality. There were no audible spasms dur ing phonation. There was not a tremor noted during phonation. The patient's pitch was at th e low end of normal for his age and gender. Loudness was within normal limits for 1:1 conv ersation. Articulation was within normal limits. Speech rate was within normal limits. Res onance was throat focused with normal nasality. Breathing pattern was normal. Breath suppo rt for speech was fair. Coordination of breath and voice was poor. He was observed to hold his breath during voice production The patient's speech intelligibility was approximately 10 0%. CAPE-V results revealed overall mild-moderate dysphonia (39/100), mild-moderate roughn ess (39/100), min breathiness (14/100), moderate strain (41/100), mildly abnormal pitch (16/ 100), mildly abnormal loudness (15/100). Voice Handicap Index = 20 (VHI measures the impact of the patient's voice disorder on daily communication with 120 being the maximum score indicating severe handicap). LARYNGEAL EXAMINATION: Laryngovideostroboscopy was completed using the flexible distal chi p telescope. The patient was sprayed with Lidocaine and Phenylephrine to each nostril prior to the examination after verbal consent. The patient tolerated the procedure well. The voc al folds were well visualized. The vocal folds were white a with straight and smooth edge on the right and a slightly irregular edge on the left. Range of motion for vocal fold abduct ion was limited on the right and normal on the left. Range of motion for vocal fold adducti on was within normal limits bilaterally during phonation. There was increased supraglottic a ctivity during phonation and connected speech. Supraglottic activity was characterized by s evere anterior-posterior squeezing and lateral squeezing of the false vocal folds. The william ent was able to achieve more relaxed phonation with trial therapy. Vocal fold elongation d uring glissando was normal. During stroboscopy, vertical level of the vocal folds was equal. Glottic closure was complete. The mucosal wave was decreased on the left due to an apparent sulcus vocalis, normal on the right. Amplitude of vibration was normal bilaterally. Vibra tion was usually periodic. Phase symmetry was usually regular. Vibratory behavior was alway s present. Trial therapy was completed today. The patient benefited from coordination of breath and v oice and forward focused resonant voice production. Humming and chanting nasally loaded syll des and phrases facilitated more relaxed phonation and improved vocal quality. The carolynn green is motivated to improve and is a good candidate for improvement with voice therapy. Patient education was completed with video review and verbal information. The patient and his did appear to understand the information presented today. 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 He was stimulable for more relaxed voice production and improved v ocal quality and is a good candidate for improvement with voice therapy. Contributing factor s include history of smoking and poor vocal hygiene. RECOMMENDATIONS: 1. Voice therapy 1 time per week for 4-8 weeks then reassess. He lives in [facility] [place] and was provided with two potential resources for voice therapy. 2. Follow up with Dr. Lafleur and a session of voice therapy in 6 months. Amanda Goddard M.A., C.C.C. Neuro Urologist Speech-Language Pathologist [facility] Department of Otolaryngology/ Head and Neck Surgery Appointments:[phone] documented in this enc ounter Plan of Treatment Not on filedocumented as of this encounter Procedures + +--------+ + + + | Procedure Name | Priori | Date/Time | Associated Diagnosis | Comments | | | ty | | | | + +--------+ + + + | [facility]IORAL AND | Routin | 12/01/2014 | Laryngeal | | | QUALITATIVE ANALYSIS | e | 10:42 AM | hyperfunction | | | OF VOICE AND | | PDT | Dysphonia | | | RESONANCE | | | Unilateral partial | | | | | | paralysis of vocal | | | | | | cords or larynx | | + +--------+ + + + | HI | Routin | 12/01/2014 | Laryngeal | | | LARYNGOSCOPY,FLEX/RI | e | 10:42 AM | hyperfunction | | | GID+STROBOSCOPY | | PDT | Dysphonia | | | | | | Unilateral partial | | | | | | paralysis of vocal | | | | | | cords or larynx | | + +--------+ + + + documented in this encounter Visit Diagnoses + + | Diagnosis | + + | Dysphonia - Primary | + + | Laryngeal hyperfunction Other diseases of larynx | + + | 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
--- OUTSIDE RECORDS SUMMARY | ~2019-11-08 | XMS | Encounter Summary ---
Demographics + + + | Address | [address] | | | [place] [address] | + + + | Home Phone | | + + + | Preferred Language | Unknown | + + + | Marital Status | | + + + | Quaker Affiliation | 1041 | + + + | Race | Unknown | + + + | Ethnic Group | Unknown | + + + Author + + + | Author | [facility] | | | and [place] | + + + | Organization | [facility] | | [...] Team Providers + +------+ + | Care Space Operations Officer Name | Role | Phone | + +------+ + | Slick Hernandez MD | PCP | | + +------+ + Reason for Visit + +--------+ + | Reason | Onset | Comments | | | Date | | + +--------+ + | Lab Results | 02/10/ | | | | 2019 | | + +--------+ + Encounter Details +--------+ + + + + | Date | Type | Department | Care Team | Description | +--------+ + + + + | 02/10/ | Telephone | [facility] | Ariane Gonzalez | Lab Results | | 2019 | | CARDIOLOGY [place] | [address] | | | | | [address] | [address] | | | | | [address] | [place] [address] | | | | | [place] | [phone] | | | | | [address] | | | | | | [phone] | | | +--------+ + + + [...] Telephone Encounter - Carina Kirk CMA - 02/10/2019 3:48 PM PSTCalled patient to let him know that per [address] Jerez, his kidney function was good. No further questions. Bibiana palacios signed by Carina Kirk CMA at 02/10/2019 3:49 PM PSTdocumented in this encounter Plan of Treatment Not on filedocumented as of this encounter Visit Diagnoses Not on filedocumented in this encounter"
--- OUTSIDE RECORDS SUMMARY | ~2019-11-08 | XMS | Encounter Summary ---
Demographics + + + | Address | [address] | | | [place] [address] | + + + | Home Phone | | + + + | Preferred Language | Unknown | + + + | Marital Status | | + + + | Lutheran Affiliation | [id number] | + + + | Race | Unknown | + + + | Ethnic Group | Unknown | + + + Author + + + | Author | [facility] | | | and [place] | + + + | Organization | [facility] | | | and [place] | + + + | Address | Unknown | + + + | Phone | Unavailable | + + + Support + + +---------+ + | Name | Relationship | Address | Phone | + + +---------+ + | Carina Hagan | ECON | Unknown | | + + +---------+ + Care Team Providers + +------+ + | Care Tuckpointer Cleaner Caulker Name | Role | Phone | + +------+ + | Slick Hernandez MD | PCP | | + +------+ + Reason for Visit + + + | Reason | Comments | + + + | Follow-up | 6 months | + + + Encounter Details +--------+---------+ + + + | Date | Type | Department | Care Team | Description | +--------+---------+ + + + | 07/09/ | Office | [facility] | Jonas Elmer Ty, | PAC (premature | | 2020 | Visit | [facility] | MD [address] | atrial contraction) | | | | [address] | [place], | (Primary Dx); | | | | [place], [place] | [place] [address] | Frequent PVCs; | | | | [id number] | [phone] | History of atrial | | | | [phone] | | fibrillation without | | | | | | current medication; | | | | | | Status post aortic | | | | | | valve replacement | | | | | | with bioprosthetic | | | | | | valve; Severe | | | | | | calcific aortic | | | | | | stenosis; Essential | | | | | | hypertension; Mixed | | | | | | hyperlipidemia; | | | | | | Pedal edema | +--------+---------+ + + + Social History [...] + + + | Blood Pressure | 126/74 | 07/10/2019 11:19 AM | | | | | PDT | | + + + + + | Pulse | 95 | 07/10/2019 11:19 AM | | | | | PDT | | + + + + + | Temperature | - | - | | + + + + + | Respiratory Rate | - | - | | + + + + + | Oxygen Saturation | 96% | 07/10/2019 11:19 AM | | | | | PDT | | + + + + + | Inhaled Oxygen | - | - | | | Concentration | | | | + + + + + | Weight | 113.6 kg (250 lb 6.4 | 07/10/2019 11:19 AM | | | | oz) | PDT | | + + + + + | Height | 177.8 cm (5' 10") | 07/10/2019 11:19 AM | | | | | PDT | | + + + + + | Body Mass Index | 35.93 | 07/10/2019 11:19 AM | | | | | PDT | | + + + + + documented in this encounter Progress Notes Elmer Mcdaniel MD - 07/10/2019 11:20 AM PDTFormatting of this note might be different fro m the original. Subjective: Patient ID: Dontrell Madison is a 74 y.o. male. HPI Patient's medications, allergies, past medical, surgical, social and family histories were obtained and reviewed as appropriate. Mr. Madison came to the office today for a follow up visit for his history of previous severe calcific . He had a bioprosthetic 25 Magna Ease AVR / Pulmonary vein isolation/ isolati on of SHIVA for persistent A.fib, with an intra-op cystoscopy on 04/26/17. His echo in Nov showed normal prosthetic valve function. A 30-day event monitor in Aug, 2018 show ed no evidence of recurrent atrial fibrillation or significant bradycardia that could have c aused the symptoms. He was noted to have frequent PVCs on his sleep study in Aug, 2018, janice t improved with CPAP therapy, and frequent PACs that did not change significantly with treat ment, but had no significant arrhythmias on a 7-day event monitor starting 06/18/2019. He i s having trouble adjusting to CPAP and is now on his third mask. He is on furosemide, but s till has mild pedal edema mostly in the left ankle, even though he has been taking it is wea ring compression stockings. His BP is well controlled. I do not have a lipid panel on him, and this was ordered. He s eems stable, and at this point, can go to annual follow-up visits. He was advised to call f or an earlier appointment if he develops any new symptoms. ROS CONSTITUTIONAL: No recent significant weight change, denies recent fever, chills, night s weats, but has noted increasing fatigue over the last 6 months NEUROLOGIC: No history of CVA, TIA, migraines, seizures, syncope. No numbness, tingling , paresthesias, but has had an episode of dizziness/near syncope 2016 with no recurrence, li ghtheadedness. EYES: No amaurosis, diplopia, recent visual changes, has early stage cataracts, no glauco ma ENT: Mildhearing loss, tinnitus, recurrent Epistaxis, dysphagia, tongue leukoplakia (EN T evaluation by Dr. Spears, [place]) ENDOCRINE: He has ahistory of Insulin-Requiring type II Diabetes mellitus diabetes. No history of thyroid disorders or other endocrine problems. No excessive hunger, thirst. PULMONARY/SLEEP: No significantdyspnea, orthopnea, paroxysmal nocturnal dyspnea. No h istory of asthma, emphysema. He had Pneumonia in the past. He has been told luis mendoza eniesdaytime somnolence. Sleep is refreshing. He was found to have severe CONSTANTINE, is on CP AP, but has trouble tolerating it. -- Sleep Study (08/29/18): severe CONSTANTINE, frequent PVCs that improved with CPAP, frequent PACs that did not improved CARDIOVASCULAR: Denies chest pain, pressure or discomfort. No history of CAD. No histor y of heart failure.He has a history of Atrial Fibrillation, in NSR since his surgical pulmon francesca vein isolation. He had Palpitations in 2004, had a Holter and stress test that were norm al. He has ahistory of a heart Murmur, with severe calcific Aortic Stenosis, with rapid progression, underwent bioprosthetic 25 Magna Ease valve / Pulmonary vein isolation/ isolat ion of left atrial appendage on 04/26/17. No h/orheumatic fever. He has ahistory of Ess ential Hypertension, Hyperlipidemia. He has left-sided Pedal Edema with Varicose Veins, no claudication symptoms. No h/o an AAA. -- AVR (04/26/17): bioprosthetic # 25 Magna Ease valve / Pulmonary vein isolation/ isolation of left atrial appendage -- 7-Day Event Monitor (06/18/19): sinus rhythm, rare PVCs and PACs, and 10 brief runs of PA T. No symptoms were reported. -- Echo (11/12/18): TDS, EF 60-65%, normal RV size and function. Normal bioprosthetic AVR (( SEAN 1.8 cm, peak/mean gradients 18.7 / 11 mm Hg) -- 30 Day Event Monitor (08/29/18): Sinus rhythm, 2 brief runs of nonsustained VT/AI VR, up to 5 consecutive beats, 12 brief runs of PAT, up to 12 consecutive beats -- Echo (08/08/17 - [facility]): EF 60-65%, normal RV size, function. Mild LAE. Normal #25 Magna Ea se AVR (SEAN 1.8 cm, peak/mean gradients 17.9/10.3 mmHg, peak velocity 2.1 m/s), mild MR, t race PI -- L/R Cardiac Cath (03/16/17): CVP-8, PA-32/15, mean 21, SEAN 0.7 - 0.8 cm, EF 60-65%, LM- mid 25%, LAD-mid 20%, small, normal Ramus, large, nondominant normal LCx, large, dominant, n ormal RCA -- Carotid U/S (03/16/17): < 50% stenoses bilaterally -- Echo (06/07/16): EF 55-60%, but with basal septal and inferior hypokinesis, grade 2 diasto lic dysfunction, mild concentric LVH, normal RV size and function, severe calcific , SEAN 0 .8 cm, peak/mean gradients of 59.1/40.9 mmHg, SEAN index < 0.25 cm/M, mild TR, trace MR , PI, RVSP 25.1 mmHg -- Echo (07/27/15): EF >70%, rate 1 diastolic dysfunction, moderately severe , SEAN 1.0 c m, peak/mean gradient 37/20 mmHg, trace AI, MR, [...] without stenosis, mild MR, TR, trace PI -- Lipid Panel (07/25/2019-on simvastatin 80 mg): TC-134, LDL-62, HDL-33, TG-198, normal LFT s GASTROINTESTINAL: Rare GERD symptoms. No recent abdominal pain, nausea, vomiting, or di arrhea. Denies PUD, melena, hematochezia, hepatitis. RENAL/: CKD, Nephrolithiasis, Horseshoe Kidney, BPH. No dysuria, hematuria, urinary u rgency, hesitancy. HEMATOLOGY/ONCOLOGY: No h/o bleeding disorders, DVT, PE. He notes easy bruisability, on ASA, without significantbleeding. No history of anemia, transfusions. He has a hist ory of basal cell skincancer. MUSCULOSKELETAL: No myalgias, has Osteoarthritis with knee, shoulder arthralgias. No hi story of rheumatologic or autoimmune diseases. CUTANEOUS: No rashes, pruritus, lesions. PSYCHIATRIC: He has a history of Depression, denies anxiety or other psychiatric problems . 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 CARDIAC CATHERIZATION 03/2017 Left and Right CHOLECYSTECTOMY COLONOSCOPY CYSTOSCOPY 04/26/2017 Procedure: CYSTOSCOPY; Surgeon: Karan Mercado MD; Location: [facility] MAIN OR; Service: Ur ology;; Cysto for difficult juan placement. NASAL SEPTUM SURGERY OTHER SURGICAL HISTORY UNLISTED PROCEDURE ARTHROSCOPY OTHER SURGICAL HISTORY Right HARDWARE PRESENT - knee replacement RECTAL SURGERY tear repaired SINUS SURGERY 2004 nasoplasty SKIN CANCER EXCISION basal cell TONSILLECTOMY AND ADENOIDECTOMY TOTAL KNEE ARTHROPLASTY Right 2008 TURP 2013 Family History Problem Relation Age of Onset Heart failure Mother Dementia Mother Stroke Father Coronary artery disease Father 72 Hypertension Father Diabetes, NIDDM Sister Mal hypertherm Neg Hx Social History Socioeconomic History Marital status: Spouse name: Not on file Number of children: Not on file Years of education: Not on file Highest education level: Not on file Occupational History Not on file Social Needs Financial resource strain: Not on file Food insecurity: Worry: Not on file Inability: Not on file Transportation needs: Medical: Not on file Non-medical: Not on file Tobacco Use Smoking status: Former Smoker Packs/day: 0.25 Smokeless tobacco: Never Used Tobacco comment: used chew Substance and Sexual Activity Alcohol use: Not on file Comment: Alcoholic Drinks/day: occ Drug use: Not on file Comment: Drug use: No Sexual activity: Not on file Lifestyle Physical activity: Days per week: Not on file Minutes per session: Not on file Stress: Not on file Relationships Social connections: Talks on phone: Not on file Gets together: Not on file Attends gnosticism service: Not on file Active member of club or organization: Not on file Attends meetings of clubs or organizations: Not on file Relationship status: Not on file Intimate partner violence: Fear of current or ex partner: Not on file Emotionally abused: Not on file Physically abused: Not on file Forced sexual activity: Not on file Other Topics Concern Not on file Social History Narrative Not on file Allergies Allergen Reactions Hydrocodone Hallucination Oxycodone Hallucination Intolerance No active intolerances/contraindications Current Outpatient Medications Medication Sig Dispense Refill ACCU-CHEK PATRICIO PLUS strip celecoxib (CELEBREX) 200 mg capsule Take 200 mg by mouth 2 (two) times daily. (Patient taking differently: Take 200 mg by mouth nightly.) furosemide (LASIX) 20 mg tablet Take 1 tablet by mouth daily. 30 tablet 11 Insulin NPH Isophane & Regular (HUMULIN 70/30 KWIKPEN SC) Inject 48 Units into the skin 2 (two) times daily. 48 units in am and 30 in pm (Patient taking differently: Inject 42 Uni ts under the skin 2 times daily.) melatonin 3 mg TABS Take 10 mg by mouth nightly. Multiple Vitamin (MULTI VITAMIN MENS) TABS Take by mouth. pyridoxine (VITAMIN B-6) 100 mg tablet Take 50 mg by mouth 3 (three) times daily. (Anita ent taking differently: Take 50 mg by mouth Daily.) simvastatin (ZOCOR) 80 mg tablet Take 0.5 tablets by mouth nightly for 30 days. 15 tabl et 11 tolterodine (DETROL LA) 4 MG 24 hr capsule Take 4 mg by mouth daily. No current facility-administered medications for this visit. Objective: BP 126/74 | Pulse 95 | Ht 1.778 m (5' 10") | Wt 113.6 kg (250 lb 6.4 oz) | SpO2 96% | BMI 35.93 kg/m PHYSICAL EXAM GENERAL: Well developed well nourished, in no distress. Appears approximately stated ag e. HEENT: Normocephalic, atraumatic. EYES: PERRL, sclerae anicteric, no xanthelsasmas MOUTH: Oral mucosae moist, dentition adequate, no lesions noted NECK: No JVD, lymphadenopathy, thyromegaly, with bilateral bruitsindices could be t ransmitted murmurs). Carotid pulses are decreasedbilaterally LUNGS: Clear bilaterally, with no rales, rhonchi or wheezing noted, respirations unlabore d HEART: Sternotomy incision is well-healed. Nondisplaced PMI, regular rate and rhythm, S1 , S2 normal, 1-2/6 systolic crescendo decrescendo murmur at the base without radiation. No rubs or gallops noted. ABDOMEN: Soft, nontender, no organomegaly, masses or bruits. Bowel sounds are normal in all 4 quadrants. The abdominal aortic pulsation is not palpable. EXTREMITIES: 2+ left ankle edema, trace positive on the right. Radial pulses 2+ bilateral ly. Femoral pulses are 2+ bilaterally without bruits. DP and PT pulses are 2+ bilaterall y. SKIN: Warm and dry, capillary refill is normal, no lesions. NEUROLOGIC: Awake, alert and oriented x 3. No focal motor deficits. PSYCHIATRIC: Appropriate, affect appears normal Assessment: Dontrell was seen today for follow-up. Diagnoses and all orders for this visit: PAC (premature atrial contraction) Frequent PVCs History of atrial fibrillation without current medication Status post aortic valve replacement with bioprosthetic valve Severe calcific aortic stenosis Essential hypertension Mixed hyperlipidemia Pedal edema Plan: No change in medications, follow-up in 1 year documented in this encounter Plan of Treatment Not on filedocumented as of this encounter Visit Diagnoses + + | Diagnosis | + + | PAC (premature atrial contraction) - Primary Supraventricular premature beats | + + | Frequent PVCs Other premature beats | + + | History of atrial fibrillation without current medication Personal history of other | | diseases of circulatory system | + + | Status post aortic valve replacement with bioprosthetic valve Heart valve replaced by | | other means | + + | Severe calcific aortic stenosis Aortic valve disorders | + + | Essential hypertension Unspecified essential hypertension | + + | Mixed hyperlipidemia | + + | Pedal edema Edema | + + documented in this encounter
--- OUTSIDE RECORDS SUMMARY | ~2019-11-08 | XMS | Encounter Summary ---
Demographics + + + | Address | [address] | | | [place] [address] | + + + | Home Phone | | + + + | Preferred Language | Unknown | + + + | Marital Status | | + + + | Holiness Affiliation | 1041 | + + + | Race | Unknown | + + + | Ethnic Group | Unknown | + + + Author + + + | Author | [facility] | | | and [place] | + + + | Organization | [facility] | | | [...] Team Providers + +------+ + | Care Car Wash Attendant Name | Role | Phone | + +------+ + | Slick Hernandez MD | PCP | | + +------+ + Reason for Visit + + + | Reason | Comments | + + + | Follow-up, Office | Sleep study with frequent PAC's | | Visit | | + + + Encounter Details +--------+---------+ + + + | Date | Type | Department | Care Team | Description | +--------+---------+ + + + | 05/08/ | Office | [facility] | EmmastarrAriane | Frequent PVCs | | 2020 | Visit | [facility] [place] | [address] | (Primary Dx); PAC | | | | [address] | [address] | (premature atrial | | | | [address] | [place] [address] | contraction); Status | | | | [place], [place] | [phone] | post aortic valve | | | | [address] | | replacement with | | | | [phone] | | bioprosthetic valve; | | | | | | Severe calcific | | | | | | aortic stenosis; | | | | | | History of atrial | | | | | | fibrillation without | | | | | | current medication; | | | | | | Status post | | | | | | ligation of left | | | | | | atrial appendage; | | | | | | Essential | | | | | | hypertension; Mixed | | | | | | hyperlipidemia; | | | | | | Pedal edema; Severe | | | | | | obstructive sleep | | | | | | apnea | +--------+---------+ + + + Social History [...] + + + | Blood Pressure | 116/62 | 05/08/2019 9:26 AM | | | | | PST | | + + + + + | Pulse | 74 | 05/08/2019 9:26 AM | | | | | PST | | + + + + + | Temperature | - | - | | + + + + + | Respiratory Rate | - | - | | + + + + + | Oxygen Saturation | 97% | 05/08/2019 9:26 AM | | | | | PST | | + + + + + | Inhaled Oxygen | - | - | | | Concentration | | | | + + + + + | Weight | 112.9 kg (249 lb) | 05/08/2019 9:26 AM | | | | | PST | | + + + + + | Height | 177.8 cm (5' 10") | 05/08/2019 9:26 AM | | | | | PST | | + + + + + | Body Mass Index | 35.73 | 05/08/2019 9:26 AM | | | | | PST | | + + + + + documented in this encounter Patient Instructions Patient Instructions Carlos Carolina, FNP - 05/08/2019 9:30 AM PSTI ordered you a on week event monitor , and I will see you back one month after monitor placed Wear you CPAP as we discussed I made no changes to medications documented in this encounter Progress Notes Carlos Carolina, FNP - 05/08/2019 9:30 AM PSTFormatting of this note might be differe nt from the original. Date of visit: 05/08/2019 Primary Care Physician: Slick Hernandez MD CHIEF COMPLAINT: Chief Complaint Patient presents with Follow-up, Office Visit Sleep study with frequent PAC's HISTORY OF PRESENT ILLNESS: Mr. Dontrell Rucker is a 74-year-old man who is here today to follow up on his reported f requent PAC's and PVCs seen on his sleep study. He is accompanied today by his , who contributed to history. Today, I reviewed all previous documentation available to me in electronic medical recor ds and from external sources. He is a patient of Dr. [...] detailed below. I saw him last on January when I followed up with him on his response to daily furosemide, as well as weaning off metoprolol, and his echo and lab results. At that visit, he reported he sometimes missed taking his furosemide and had increased pe rosa edema, and I had instructed him if he missed dosing 1 day, to take 40 mg the next day to keep his lower extremity edema under control. Since I saw him last, I received a report in March from the sleep lab which noted he had very fast heart rates of 110 bpm, 6 beats of wide-complex tachycardia noted at the end o f an apneic event as well as trigeminy, frequent PVCs also noted post apnea and also frequen t PAC's. He was noted to have extremely severe sleep apnea with an AHI of 86.4 and he had a lmost 11 minutes with oxygen levels less than 88%. Split-night sleep study, and his heart r ate, and hypoxemia corrected with BiPAP treatment, did his PVCs, but not PAC's, and he was r ecommended to follow-up again with cardiology I requested he see me back for Sooner follow-up after he had been set up on BiPAP. Today he reports he has been set up with BiPAP, and just received a new mask, as he had onl y been wearing his BiPAP 2 to 3 hours per night because he was struggling with his mask. He reports his new mask seems more comfortable, and I spent some time with him and his w balta today giving them suggestions to help him acclimatized to CPAP, as I previously worked i n a pulmonary sleep practice. I reviewed his sleep study in some detail with him and his . I emphasized with hi m how severe his sleep apnea was and how much it was affecting his heart, especially with at rial arrhythmias, and how important it was that he corrected with nightly use of BiPAP. He reports he has not had any episodes of dizziness or lightheadedness for a couple of rossana hs, but he does not notice any palpitations, and that his pedal edema has remained controlle d with daily furosemide, though always worse on his left leg. He also continues to wear his compression socks on a daily basis. He denies any dyspnea with or without exertion, chest pain, syncope.He denies any s igns or symptoms of stroke or TIA, or any emergency room visits or hospitalizations since mariela st seen. He reports his continues to keep them on low sodium heart healthy diet His shor t term memory remains poor. 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 He brought his medication bottles to the clinic, and personally reviewed by me. REVIEW OF SYSTEMS: Negative except for pertinent items noted in HPI. Constitutional:reports ongoing daily fatigue since surgery, denies unexplained weight los s. Denies night sweats fevers or chills HENT: Denies nosebleeds. Denies dysphagia Reports mild hearing loss Eyes: Denies visual disturbance or double vision. Respiratory/Sleep:: Severe sleep apnea dx 02/2019, see HPI> on BiPAP . Denies cough and madi rtness of breath. Denies hemoptysis or excessive sputum production. Denies orthopnea, PND. Cardiovascular:positive for varicose veins, worse [...] Habits/Social : history of smoking, quit 1996, 1/2 ppd x 20 years, Chewed tobacco Quit 28 04. Denies EtOH use. Drinks servings little caffeine currently . Denies recreational or illicit drug use. Exercises with walking and tolerates. . Lives in [place]. Work for [employer] medical [employer], and transports patients to medical appointments 5 [...] als for 30 days. 60 tablet 11 Multiple Vitamin (MULTI VITAMIN MENS) TABS Take [...] EXAM: Wt Readings from Last 3 Encounters: 05/08/19 112.9 kg (249 lb) 01/09/19 114.5 kg (252 lb 8 oz) 04/18/17 112.5 kg (248 lb) Temp Readings from Last 3 Encounters: 04/18/17 36.6 C (97.8 F) BP Readings from Last 3 Encounters: 05/08/19 116/62 01/09/19 120/62 04/18/17 125/71 Pulse Readings from Last 3 Encounters: 05/08/19 74 01/09/19 72 04/18/17 78 Vital signs: 10/28/2018. WT: 249 [...] abdominal aortic pulsation is not palpable. EXTREMITIES: No edema to right leg. Mild LE edema left leg,wearing compression socks. va ricosities, Radial pulses 2+ bilaterally. Femoral pulses are 2+ bilaterally without bruits . DP and PT pulses are 2+ bilaterally. No clubbing. Well healed knee scar bilaterally SKIN: Warm [...] 114 (H) 04/30/2017 BUN 36 (H) 04/30/2017 EGFR >60 04/30/2017 Lab Results Component [...] ithout stenosis, mild MR, TR, trace PI VASCULAR MAGING/PROCEDURES: Carotid ultrasound: ; Right ICA: Grade 2 (<50%). Left ICA: Grade 2 (<50%). niyah tebral arteries demonstrate normal antegrade flow and velocities bilaterally. NON CARDIAC TESTING: Sleep study 03/03/2019: Severe obstructive sleep apnea. AHI 86.4, AHI 73.4 SPO2 urban 82% , 10.9 minutes with SPO2 <88% during diagnostic sleep study. Required to treat severe CONSTANTINE, optimal pressure 25/21 BiPAP with medium size ResMed. 6 beat ventricular tachycardia noted with apneic event, frequent PVCs and 1 trigeminal spell noted with apnea, improved with Pap therapy, frequent PAC's noted that did not improve with Pap therapy, fragmented sleep with l oss of deep weight sleep and frequent awakenings EKG/EVENT MONITORS: 30 day Event monitor . [...] rhythm, left ventricular hypertrophy. Rate 95 bpm, MS 162 ms, QRS 90 ms, QTC 449 ms, personally reviewed by me EK2017: Normal sinus rhythm. Rate 83 bpm, MS 186 ms, QRS 82 ms, QTC 460 ms, perso keshawn reviewed by me EK05/03 Sinus rhythm with first-degree AV block with PAC's. Rate 85 bpm, MS 200 ms , QRS 94 ms, QTC 497 ms, personally reviewed by me and compared to previous EKG, now first-d egree AV block, PAC's, and QTC has also increased EK06/07/2017: Normal sinus rhythm, first-degree AV block resolved. Rate 67 bpm, MS 170 ms , QRS 86 ms, QTC 431 ms and increasing personally reviewed by me and compared to EKG done in April 2017, MS interval is now normal EK01/09/2019 (off metoprolol) sinus rhythm with first-degree AV block with PAC's in bigem inal pattern. Rate 69 bpm, MS 222 ms, QRS 90 ms, QTC 407 ms, tracing personally reviewed by me. EK05/08/2019: Normal sinus rhythm borderline first-degree AV block. Rate 69 bpm, MS 200 ms, QRS 92 ms, QTC 407 ms, tracing personally reviewed by me, and compared to EKG performed in January, PAC's have resolved and MS interval has shortened LABS Labs: 2017: CMP: Sodium 137, potassium [...] 4.45, hemoglobin 13.8, hematocrit 40.7, platelets 147 Labs: 01/09/2019: BMP: Sodium 145, potassium 4.5, chloride 107, glucose 124, BUN 21, creat inine 1.09, GFR 67 Labs: 04/28/2019: BMP: Sodium 138, potassium 4.2, chloride 101, glucose 181, BUN 21, creati nine 1.15, GFR 63. Hemoglobin A1c 7.3 (163) ASSESSMENT & PLAN: He is here today with his to follow up on his reported frequent PAC's and PVCs see n on his sleep study. He has problems as detailed below. Discussed in HPI, he was diagnosed with extremely severe sleep apnea in February which w as corrected with BiPAP, which she is now starting to wear, though still getting acclimatize d to it. There was a concern from the sleep lab with his frequent PVCs including a 6 beat r un of V. tach and some trigeminy that occurred with apneic and hypoxic spells, and also freq uent PAC's. They were concerned as though his PVCs and ventricular arrhythmias resolved wit h Pap therapy, his PAC's did not, and they strongly suggested he follow-up again with cardio logy. He already had a fairly normal echo performed in November with well-seated bioprosthetic valv e, and normal EF, which is detailed above. His EKG performed in the clinic today shows normal sinus rhythm, and previous PAC's seen on his last EKG have resolved,and MS interval has shortened. His BMP performed on April 28 as detailed above and shows a normal BMP, and hemoglob in A1c was mildly elevated at 7.3 I reviewed the results of his EKG, labs, and sleep study in great detail with him and his , and as discussed in HPI emphasize strongly the need for him to wear his BiPAP on a nig htly basis to correct his severe sleep apnea. I discussed with him that it was likely his P AC's, PVCs, and VT were all secondary to uncorrected severe sleep apnea, but would like to make sure his ventricular and atrial ectopy have resolved with BiPAP therapy I have ordered him a one week event monitor for further evaluation. He actually reports today that he has felt much better since he saw me last, and is asympto matic for any increased palpitations,and his lower extremity edema has also improved with da anusha furosemide. For his cardiac medications, I have continued simvastatin 40 mg nightly for hyperli pidemia as lipids controlled, and furosemide 20 mg daily. Event monitor will be placed on May 29 , and he can follow up with Dr. Mcdaniel on 2019 about the event monitor, and for primary cardiology visit. Dr. Mcdaniel will direct him when to follow-up with me after that. He is aware that he can follow-up with me sooner if needed. 1. Frequent PVCs 2. PAC (premature atrial contraction) 3. Status post aortic valve replacement with bioprosthetic valve 4. Severe calcific aortic stenosis 5. History of atrial fibrillation without current medication 6. Status post ligation of left atrial appendage 7. Essential hypertension 8. Mixed hyperlipidemia 9. Pedal edema 10. Severe obstructive sleep apnea Orders Placed This Encounter Procedures ECG 12 lead Event monitor - 2 week The following portions of the patient's history [...] past surgical history. Problem list. Brenna MORALES [facility] 05/08/2019 docume nted in this encounter Plan of Treatment + +------+--------+ + + | Name | Type | Priori | Associated Diagnoses | Order Schedule | | | | ty | | | + +------+--------+ + + | Event monitor - 2 | ECG | Routin | PAC (premature | Expected: | | week | | e | atrial contraction) | 05/15/2019, Expires: | | | | | History of atrial | 05/08/2020 | | | | | fibrillation without | | | | | | current medication | | | | | | Frequent PVCs | | + +------+--------+ + + documented as of this encounter Procedures + +--------+ + + + | Procedure Name | Priori | Date/Time | Associated Diagnosis | Comments | | | ty | | | | + +--------+ + + + | ECG 12 LEAD | Routin | 05/08/2019 | PAC (premature | Results for this | | | e | 9:36 AM | atrial contraction) | procedure are in the | | | | PST | Status post aortic | results section. | | | | | valve replacement | | | | | | with bioprosthetic | | | | | | valve Severe | | | | | | calcific aortic | | | | | | stenosis History of | | | | | | atrial fibrillation | | | | | | without current | | | | | | medication Status | | | | | | post ligation of | | | | | | left atrial | | | | | | appendage Essential | | | | | | hypertension Mixed | | | | | | hyperlipidemia | | | | | | Pedal edema Severe | | | | | | obstructive sleep | | | | | | apnea | | + +--------+ + + + documented in this encounter Results ECG 12 lead (05/08/2019 9:36 AM PST) + + + + + + | Component | Value | Ref Range | Performed | Pathologist | | | | | At | Signature | + + + + + + | VENTRICULAR | 69 | BPM | [facility] | | | RATE EKG | | | | | + + + + + + | ATRIAL RATE | 69 | BPM | [facility] | | + + + + + + | P-R | 200 | ms | [facility] | | | INTERVAL | | | | | + + + + + + | QRS | 92 | ms | [facility] | | | DURATION | | | | | + + + + + + | Q-T | 380 | ms | [facility] | | | INTERVAL | | | | | + + + + + + | Q-T | 407 | ms | [facility] | | | INTERVAL | | | | | | (CORRECTED) | | | | | + + + + + + | P WAVE AXIS | 51 | degrees | [facility] | | + + + + + + | QRS AXIS | 15 | degrees | [facility] | | + + + + + + | T AXIS | 46 | degrees | [facility] | | + + + + + + | INTERPRETAT | Please refer to | | [facility] | | | ION TEXT | Providers office visit | | | | | | note for Providers | | | | | | Interpretation.Confirmed | | | | | | by [facility] Nedrow Read Only, | | | | | | [facility] Melissa ([id number]), | | | | | | managing editor Malcolm Escalante | | | | | | ([id number]) on 05/08/2019 | | | | | | 3:15:36 PM | | | | + + + + + + + + | Specimen | + + | | + + + + + | Narrative | Performed At | + + + | | | + + + + +---------+ + + | Performing | Address | City/State/Zipcode | Phone Number | | Organization | | | | + +---------+ + + | [facility] | | | | + +---------+ + + documented in this encounter Visit Diagnoses + + | Diagnosis | + + | Frequent PVCs - Primary Other premature beats | + + | PAC (premature atrial contraction) Supraventricular premature beats | + + | Status post aortic valve replacement with bioprosthetic valve Heart valve replaced by | | other means | + + | Severe calcific aortic stenosis Aortic valve disorders | + + | History of atrial fibrillation without current medication Personal history of other | | diseases of circulatory system | + + | Status post ligation of left atrial appendage | + + | Essential hypertension Unspecified essential hypertension | + + | Mixed hyperlipidemia | + + | Pedal edema Edema | + + | Severe obstructive sleep apnea | + + documented in this encounter
--- OUTSIDE RECORDS SUMMARY | ~2019-11-08 | XMS | Encounter Summary ---
Demographics + + + | Address | [address] | | | [place] [address] | + + + | Home Phone | | + + + | Preferred Language | Unknown | + + + | Marital Status | | + + + | Hindu Affiliation | Unknown | + + + | Race | White | + + + | Ethnic Group | Not or | + + + Author + + + | Author | [facility] | + + + | Organization | [facility] | + + + | Address | Unknown | + + + | Phone | Unavailable | + + + Support + + +---------+ + | Name | Relationship | Address | Phone | + + +---------+ + | Carina Rucker | ECON | Unknown | | + + +---------+ + Care Team Providers + +------+ + | Care Keycase Assembler Name | Role | Phone | [...] Therapy | | MD John | [address] | | | | | [address] | | | | | | [address] | [place] [facility] | | | | | | [place], | [facility] and | | | | | | [place] [address] | [facility], | | | | | | Phone: | [address], | | | | | | [phone] | [address] Floor | | | | | | Fax: | [place], [place] | | | | | | [phone] | [address] | | | | | | | Phone: | | | | | | | [phone] | | | | | | | Fax: | | | | | | | [phone] | +--------+--------+ + + + + Encounter Details +--------+ + + + + | Date | Type | Department | Care Team | Description | +--------+ + + + + | 12/01/ | Diagnostic | Otol[facility]ology [facility] | Amanda Goddard, DAMEON | | | 2015 | Visit | [place] [facility] | [address] | | | | | Swallowing at [facility] | [address] | | | | | [address] | [place] [address] | | | | | [facility] | [phone] | | | | | and Karen, | | | | | | | | | | | | [place], [place] | | | | | | [address] | | | | | | [phone] | | | +--------+ + + + [...] 12/01/2014 10:42 AM PDT VOICE EVALUATION CLINIC: [facility] CL[facility]IC DATE: 12/01/14 [...] REFERRAL: Dontrell Rucker was referred to the [facility] by Dr. John [...] was completed in cooperation with Dr. Dash Lafleur. Please refer to his repo rt for [...] 4-8 weeks then reassess. He lives in [facility] and was provided with two potential resources for voice therapy. 2. Follow up with Dr. Lafleur and a session of voice therapy in 6 months. Amanda Goddard M.A., C.C.C. Food And Beverage Checker Speech-Language Pathologist [facility] Department of Otolaryngology/ Head and Neck Surgery Appointments:[phone] documented in this enc ounter Plan of Treatment Not on filedocumented as of this encounter Procedures + +--------+ + + + | Procedure Name | Priori | Date/Time | Associated Diagnosis | Comments | | | ty | | | | + +--------+ + + + | [facility] | Routin | 12/01/2014 | [...] | + +--------+ + + + | [place] | Routin | 12/01/2014 | Laryngeal | [...]
--- OUTSIDE RECORDS SUMMARY | ~2019-11-08 | XMS | Clinical Summary ---
Demographics + + + | Address | [address] | | | [place] [address] | + + + | Home Phone | | + + + | Preferred Language | Unknown | + + + | Marital Status | | + + + | Mormon Affiliation | Unknown | + + + [...] Team Providers + +------+ + | Care Ophthalmic Nurse Name | Role | Phone | + +------+ + | No Pcp Per Patient | PCP | Unavailable | + +------+ + Source Comments [facility] is fully live on both [facility] and [facility] Allergies No Known Allergies Medications + + + +---------+------+------+-------+ | Medication | Sig | Dispensed | Refills | Star | End | Statu | | | | | | t | Date | s | | | | | | Date | | | + + + +---------+------+------+-------+ | metFORMIN 500 mg | Take 500 mg by mouth | | 0 | | | Activ | | oral tablet | two times daily. | | | | | e | + + + +---------+------+------+-------+ | | Take 25 mg by mouth | | 0 | | | Activ | | hydrochlorothiazide | once daily. | | | | | e | | 25 mg oral tablet | | | | | | | + + + +---------+------+------+-------+ | simvastatin 40 mg | Take 40 mg by mouth | | 0 | | | Activ | | oral tablet | once daily in the | | | | | e | | | evening. | | | | | | + + + +---------+------+------+-------+ Active Problems No known active problems Family [...] recent travel history available. | + + Last Filed Vital Signs + [...] | | + + + + + Plan of Treatment + + + + + | Health Maintenance | Due Date | Last Done | Comments | + + + + + | Pneumococcal | | | | | vaccination (1 of 2 | 2 | | | | - PCV13) | | | | + + + + + | Influenza (Flu) | | | | | vaccination (#1) | 9 | | | + + + + + Results Not on filefrom Last 3 Months Insurance + +--------+ +--------+ + +------+ | Payer | Benefi | Subscriber | Effect | Phone | Address | Type | | | t Plan | ID | maira | | | | | | / | | Dates | | | | | | Group | | | | | | + +--------+ +--------+ + +------+ | [employer] | BLUE | [phone] | Effect | [phone] | [address] | PPO | | | CROSS | | maira | [address] | [address] | | | | [place] | | for | | [place], | | | | L | | all | | [place] [address] | | | | | | dates | | | | + +--------+ +--------+ + +------+ + +--------+ +-------+ + + | Guarantor Name | Accoun | Relation to | Date | Phone | Billing Address | | | t Type | Patient | of | | | | | | | | | | + +--------+ +-------+ + + | Dontrell Madison | Person | Self | | | [address] | | [place] | shilo/Karthikeyan | | | [phone] | [place] | | | anusha | | | [address] (Home) | [phone] | + +--------+ +-------+ + +
--- OUTSIDE RECORDS SUMMARY | ~2019-11-08 | XMS | Encounter Summary ---
Demographics + + + | Address | [address] | | | [place] [address] | + + + | Home Phone | | + + + | Preferred Language | Unknown | + + + | Marital Status | | + + + | Protestant Affiliation | 1041 | + + + | Race | Unknown | + + + | Ethnic Group | Unknown | + + + Author + + + | Author | [facility] | | | and [place] | + + + | Organization | [facility] | | [...] Team Providers + +------+ + | Care Imaging Scheduler Name | Role | Phone | + +------+ + PCP | Unavailable | + +------+ + Encounter Details +--------+ + + + + | Date | Type | Department | Care Team | Description | +--------+ + + + + | 04/18/ | Hospital | [facility] | Conversion | | | 2018 | Encounter | [facility] | Transaction, | | | | | [address] | Provider Unknown | | | | | [place], [place] | | | | | | [address] | (Fax) | | | | | [phone] | | | +--------+ + + + [...] + + documented as of this encounter Medications at Time of Discharge + + + +---------+ + + | Medication | Sig | Dispensed | Refills | Start | End Date | | | | | | Date | | + + + +---------+ + + | ACCU-CHEK PATRICIO | | | 0 | // | | | PLUS strip | | | | 17 | | + + + +---------+ + + | Insulin NPH | Inject 48 Units into | | 0 | /01/26 | | | Isophane & Regular | [...]
--- OUTSIDE RECORDS SUMMARY | ~2019-11-08 | XMS | Clinical Summary ---
Demographics + + + | Address | [address] | | | [place] [address] | + + + | Home Phone | | + + + | Preferred Language | Unknown | + + + | Marital Status | | + + + | Orthodox Affiliation | 1041 | + + + | Race | Unknown | + + + | Ethnic Group | Unknown | + + + Author + + + | Author | [facility] | | | and [place] | + + + | Organization | [facility] | | | and [...] Team Providers + +------+ + | Care Core Dropper Name | Role | Phone | + +------+ + | Slick Hernandez MD | PCP | | + +------+ + Allergies + + + + + + | Active Allergy | Reactions | Severity | Noted | Comments | | | | | Date | | + + + + + + | Hydrocodone | Hallucination | Medium | 05/04/19 | | | | | | 18 | | + + + + + + | Oxycodone | Hallucination | Medium | 05/04/19 | | | | | | 18 | | + + + + + + Medications + + + +---------+------+------+-------+ | Medication | Sig | Dispensed | Refills | Star | End | Statu | | | | | | t | Date | s | | | | | | Date | | | + + + +---------+------+------+-------+ | Insulin NPH | Inject 48 Units into | | 0 | / | | Activ | | Isophane & Regular | the skin 2 (two) | | | 0/20 | | e | | (HUMULIN 70/30 | times daily. 48 | | | 18 | | | | KWIKPEN SC) | units in am and 30 | | | | | | | | in pm | | | | | | + + + +---------+------+------+-------+ | ACCU-CHEK PATRICIO | | | 0 | 10/3 | | Activ | | PLUS strip | | | | 0/20 | | e | | | | | | 17 | | | + + + +---------+------+------+-------+ | simvastatin | Take 0.5 tablets by | 15 | 11 | /2 | 03/ | Activ | | (ZOCOR) 80 mg tablet | mouth nightly for 30 | tablet | | / | 20 | e | | | days. | | | 18 | 28 | | + + + +---------+------+------+-------+ | tolterodine | Take 4 mg by mouth | | 0 | 03/0 | | Activ | | (DETROL LA) 4 MG 24 | daily. | | | 1/20 | | e | | hr capsule | | | | 18 | | | + + + +---------+------+------+-------+ | celecoxib | Take 200 mg by mouth | | 0 | 05/1 | | Activ | | (CELEBREX) 200 mg | 2 (two) times | | | /20 | | e | | capsule | daily. | | | 19 | | | + + + +---------+------+------+-------+ | pyridoxine | Take 50 mg by mouth | | 0 | 05/1 | | Activ | | (VITAMIN B-6) 100 mg | 3 (three) times | | | 4/20 | | e | | tablet | daily. | | | 19 | | | + + + +---------+------+------+-------+ | melatonin 3 mg | Take 10 mg by mouth | | 0 | 05/1 | | Activ | | TABS | nightly. | | | 4/20 | | e | | | | | | 19 | | | + + + +---------+------+------+-------+ | furosemide (LASIX) | Take 1 tablet by | 30 | 11 | 07/2 | | Activ | | 20 mg tablet | mouth daily. | tablet | | 2/20 | | e | | | | | | 19 | | | + + + +---------+------+------+-------+ | Multiple Vitamin | Take by mouth. | | 0 | | | Activ | | (MULTI VITAMIN MENS) | | | | | | e | | TABS | | | | | | | + + + +---------+------+------+-------+ Active Problems + + + | Problem | Noted Date | + + + | PAC (premature atrial contraction) | 05/08/2019 | + + + | Encounter for monitoring diuretic therapy | 01/09/2019 | + + + | Asymmetrical sensorineural hearing loss | 01/09/2019 | + + + | Bilateral tinnitus | 01/09/2019 | + + + | Combined form of senile cataract | 01/09/2019 | + + + | Dermatophytosis | 01/09/2019 | + + + | Tear film insufficiency | 01/09/2019 | + + + | Seasonal allergic conjunctivitis | 01/09/2019 | + + + | Severe obstructive sleep apnea | 10/28/2018 | + + + | Fatigue | 10/28/2018 | + + + | Pedal edema | 10/28/2018 | + + + | Status post ligation of left atrial appendage | 10/28/2018 | + + + | Type 2 diabetes mellitus, with long-term current use of insulin | 04/10/2018 | + + + | Overactive bladder | 04/10/2018 | + + + | History of atrial fibrillation without current medication | 04/28/2017 | + + + | [...] | Epistaxis | | + + + Family History + + +------+ + | Medical History | Relation | Name | Comments | + + +------+ + | Coronary artery | Father | | | | disease | | | | + + +------+ + | Hypertension | Father | | | + + +------+ + | Stroke | Father | | | + + +------+ + | Dementia | Mother | | | + + +------+ + | Heart failure | Mother | | | + + +------+ + | Diabetes, NIDDM | Sister | | | + + [...] +------+ + + | Sister | | | | + +------+ + + | Son | | Alive | | + +------+ + + Social History + +-------+ +--------+------+ [...] | 36.2 C (97.2 F) | 05/09/2017 11:15 AM | | | | | PST | | + + + + + | Respiratory Rate | 16 | 10/28/2018 9:36 AM | | | | | PDT [...] Health Maintenance | Due Date | Last | Comments | | | | Done | | + + + + + | Hepatitis C | | | | | Screening | 7 | | | + + + + + | Medication | | | | | Management | 7 | | | + + + + + | Diabetic Eye Exam | | | | | | 5 | | | + + + + + | Diabetic Foot Exam | | | | | | 5 | | | + + + + + | Vaccine: | | | | | Dtap/Tdap/Td (1 - | 6 | | | | Tdap) | | | | + + + + + | Colorectal Cancer | | | | | Screening | 7 | | | | (Colonoscopy) | | | | + + + + + | Vaccine: Zoster (1 | | | | | of 2) | 7 | | | + + + + + | AAA Screening | | | | | | 2 | | | + + + + + | Vaccine: | | | | | Pneumococcal 65+ (1 | 2 | | | | of 1 - PPSV23) | | | | + + + + + | Hemoglobin A1c | | 04/27/19 | | | Screening | 8 | 18 | | + + + + + | Med Mgmt: HBA1C | | 04/27/19 | | | | 9 | 18 | | + + + + + | Med Mgmt: BUN | | 04/30/19 | | | | 9 | 18, | | | | | 04/29/19 | | | | | 18, | | | | | 04/28/19 | | | | | 18, | | | | | Addition | | | | | al | | | | | history | | | | | exists | | + + + + + | Med Mgmt: Cr | | 04/30/19 | | | | 9 | 18, | | | | | 04/29/19 | | | | | 18, | | | | | 04/28/19 | | | | | 18, | | | | | Addition | | | | | al | | | | | history | | | | | exists | | + + + + + | Med Mgmt: K | | 04/30/19 | | | | 9 | 18, | | | | | 04/29/19 | | | | | 18, | | | | | 04/28/19 | | | | | 18, | | | | | Addition | | | | | al | | | | | history | | | | | exists | | + + + + + | Med Mgmt: Na | | 04/30/19 | | | | 9 | 18, | | | | | 04/29/19 | | | | | 18, | | | | | 04/28/19 | | | | | 18, | | | | | Addition | | | | | al | | | | | history | | | | | exists | | + + + + + | Adult Annual | | | | | Wellness Visit | 9 | | | + + + + + | Microalbumin | | | | | Screening | 9 | | | + + + + + | Vaccine: Influenza | | 01/22/20 | | | (#1) | 0 | 18, | | | | | 01/14/20 | | | | | 17, | | | | | 01/23/20 | | | | | 15, | | | | | Addition | | | | | al | | | | | history | | | | | exists | | + + + + + Implants + +------+-------+ +--------+--------+--------+ | Implanted | Type | Area | Manufacture | Device | Shelf | Model | | | | | r | | Expira | / | | | | | | Identi | tion | Serial | | | | | | fier | Date | / Lot | + +------+-------+ +--------+--------+--------+ | Valve Aort Pericard Mgnaes 25 | | Heart | ROYAL | | 11/29/ | [id number] | | - [id number]: Qty: 1 | | | LIFESCIENCE | | 2021 | [id number] | | on 04/26/2017 | | | S LLC - | | | / | | | | | EDLS | | | [id number] | | | | | | | | 06 | + +------+-------+ +--------+--------+--------+ Results Not on filefrom Last 3 Months Insurance +-------+--------+ +--------+-------+---------+------+ | Payer | Benefi | Subscriber | Effect | Phone | Address | Type | | | t Plan | ID | maira | | | | | | / | | Dates | | | | | | Group | | | | | | +-------+--------+ +--------+-------+---------+------+ | BCBS | BCBS | [id number] | 06/13/19 | | | PPO | | | FEDERA | | 05-Pre | | | | | | L FEP | | sent | | | | +-------+--------+ +--------+-------+---------+------+ + +--------+ +--------+ + + | Guarantor Name | Accoun | Relation to | Date | Phone | Billing Address | | | t Type | Patient | of | | | | | | | | | | + +--------+ +--------+ + + | Dontrell Madison | Person | Self [birth year] | [address] | | [place] | shilo/Karthikeyan | | 1945 | [phone] | [place] | | | [place] | | | [address] (Home) | [phone] | + +--------+ +--------+ + + Advance Directives + + + + + | Type | Date Recorded | Patient | Explanation | | | | Vegetable Tester | | + + + + + | Power of | | | | | Labor Relations Specialist | | | | + + + + + | Advance | | | | | Directive | | | | + + + + +
--- OUTSIDE RECORDS SUMMARY | ~2019-11-08 | XMS | Encounter Summary ---
Demographics + + + | Address | [address] | | | [place] [address] | + + + | Home Phone | | + + + | Preferred Language | Unknown | + + + | Marital Status | | + + + | Scientologist Affiliation | [id number] | + + + [...] | + + +---------+ + | Carinadarrius Gandhi | ECON | Unknown | | + + +---------+ + Care Team Providers + +------+ + | Care Promotions Intern Name | Role | Phone | + +------+ + PCP | Unavailable | + +------+ + Encounter Details +--------+ + + + + | Date | Type | Department | Care Team | Description | +--------+ + + + + | 04/26/ | Hospital | [facility] | Lopez Damian, | Bioprosthetic aortic | | 2018 - | Encounter | [facility] | MD [address] | valve replacement | | | | CARE FLOOR [address] | during current | | 04/30/ | | [address] | [place], [place] [address] | hospitalization; | | 2017 | | [place] | [phone] | Paroxysmal a-fib | | | | [address] | | ([facility]) | | | | [phone] | | | +--------+ + + + [...] + + + | Blood Pressure | 136/61 | 04/30/2017 11:52 AM | | | | | PST | | + + + + + | Pulse | 77 | 04/30/2017 11:52 AM | | | | | PST | | + + + + + | Temperature | 36.8 C (98.3 F) | 04/30/2017 11:52 AM | | | | | PST | | + + + + + | Respiratory Rate | 16 | 04/30/2017 11:52 AM | | | | | PST | | + + + + + | Oxygen Saturation | - | - | | + + + + + | Inhaled Oxygen | - | - | | | Concentration | | | | + + + + + | Weight | 111 kg (244 lb 11.4 | 04/30/2017 11:52 AM | | | | oz) | PST | | + + + + + | Height | 177.8 cm (5' 10") | 04/30/2017 11:52 AM | | | | | PST | | + + + + + | Body Mass Index | 35.11 | 04/30/2017 11:52 AM | | | | | PST | | + + + + + documented in this encounter Discharge Summaries Noreen Zarate PA-C - 04/30/2017 7:45 AM PSTFormatting of this note might be dif ferent from the original. Discharge Summaries by Noreen Zarate PA-C at 04/30/17 0745 Author: Noreen Zarate PA-C Service: Cardiac, Thoracic, and Vascular Surgery Lavinia menchaca Type: Physician Bow Maker Machine Tender - Certified Filed: 04/30/17 0935 Date of Service: 04/30/17 0745 Status: Attested Acidizer Water Well: Noreen Zarate PA-C (Physician Bow Maker Machine Tender - Certified) Cosigner: Lopez Damian MD at 05/03/172016 Attestation signed by Lopez Damian MD at 05/03/172016 I have examined Shania Gandhi, reviewed the notes, assessments, and/or procedures perform ed by Noreen Purdy PA-C, I concur with her documentation of Shania Gandhi. Service: Cardiothoracic Surgery Discharge Summary Pt: Shania Gandhi AGE/SEX: 72 y.o. male : 1945 PCP: SLICK HERNANDEZ Date of Admission: 04/26/2017 Admitting Provider: Lopez Damian MD Date of Discharge: 04/30/2017 Length of Stay: LOS: 4 days Discharge Provider: Noreen Zarate PA-C Treatment Team: Consulting Physician: Elmer Mcdaniel MD Admitting Provider: Lopez Damian MD Surgery/Procedure: 04/26/17: 1. Aortic valve replacement (25 Magna Ease valve). 2. Pulmonary vein isolation. 3. Isolation of left atrial appendage. 4 .CYSTOSCOPY Post-Op Day: 4 Days Post-Op Surgeon: Surgeon(s): MD Lopez Barakat MD Discharge Diagnoses: Active Problems: Severe calcific aortic stenosis Hypertension Hyperlipidemia Horseshoe kidney BPH (benign prostatic hyperplasia) Status post aortic valve replacement with bioprosthetic valve Status post cystoscopy Bioprosthetic aortic valve replacement during current hospitalization Paroxysmal a-fib (HCC) Resolved Problems: * No resolved hospital problems. * BRIEF HISTORY OF PRESENTATION: Shania Gandhi is a 72 y.o. male w/ significant past medical history of horseshoe k idney, hyperlipidemia, hypertension, coronary artery disease, kidney stone, diabetes mellitu s type 2, aortic stenosiswho presents with worsening shortness of breath, workup revealed nonocclusive coronary artery disease and severe aortic stenosis with a calculated aortic erika ve area of 0.8 cm. Patient denies any chest pain, orthopnea, palpitation, history of cereb rovascular accident,lower extremityswelling. HOSPITAL COURSE: The patient was taken to the operating room and underwent an Aortic Valve Replacement with a Bioprosthetic 25 Magna Ease valve / Pulmonary vein isolation/ isolation of left atrial ap pendage for persistent A.fib by Cardiothoracic Surgeon, Dr. Damian and an intra-op cystosco py by Urologist, Dr. Mercado on 04/26/17. Operation was uneventful (please refer to operative note for details of the same). The pat ient tolerated the procedure well and was transferred to the ICU intubated and in stable con dition, and was extubated per ICU protocol. Patient had post-op paroxysmal afib (hx of pers istent a.fib) and was started on a amiodarone protocol. At discharge he will be on an amioda payal taper. He spent one night in the ICU. The patient was transferred to the cardiac unit, hemodynami mahesh stable. He received electrolyte replacement per protocol and continued to make good re covery, ambulating, tolerating diabetic/cardiac diet, and passing bowel movements. Chest tub es and pacing wires were removed without complication, and the patient remained stable witho ut supplemental oxygen. The patient was fit for discharge to Home on 04/30/17. Patient remained in NSR post-operatively, but was started on warfarin therapy for clot pre vention x 90 days for the valve. Patient will be discharged on warfarin 3 mg daily, and will follow up with [facility] for INR goal of 2.0 - 3.0. Patient does have a Urologist, Dr. Corbin, in [place] and will follow up with her on 0 05/04/17 at 0930. Patient is still fluid overload, +1 pitting bilateral LE edema and will be discharged on h ome HCTZ. Past Medical History Diagnosis Date Arthralgia all joints Arthritis Bioprosthetic aortic valve replacement during current hospitalization [...] 04/26/2017 Procedure: AORTIC VALVE REPLACEMENT; Surgeon: Lopez Damian MD; Location: [facility] MA[facility] OR ; Service: Cardiac; Laterality: N/A; Sternotomy, left atrial appendage ligation, pulmonar y vein isolation. CARDIAC CATHETERIZATION 03/2017 Left and Right CHOLECYSTECTOMY COLONOSCOPY CYSTOSCOPY 04/26/2017 Procedure: CYSTOSCOPY; Surgeon: Karan Mercado MD; Location: [facility] MA[facility] OR; Service: Ur ology;; Cysto for difficult al placement. HARDWARE PRESENT Right knee replacement NASAL SEPTUM SURGERY RECTAL SURGERY tear repaired REPLACEMENT TOTAL KNEE Right 2009 SINUS SURGERY 2003 nasoplasty SKIN CANCER EXCISION basal cell TONSILLECTOMY TRANSURETHRAL RESECTION OF PROSTATE 2012 UNLISTED PROCEDURE ARTHROSCOPY No Known Allergies Prescriptions Prior to Admission Medication Sig Dispense Refill Last Dose Insulin NPH Isophane & Regular (HUMULIN 70/30 KWIKPEN SC) Inject 448 Units into the ski n 2 (two) times daily. 04/26/2017 at 0520 ACCU-CHEK PATRICIO PLUS test strip Taking aspirin 81 MG EC tablet Take 81 mg by mouth daily with breakfast. t-1 docusate sodium (COLACE) 100 MG capsule Take 100 mg by mouth nightly. t-1 hydrochlorothiazide (HYDRODIURIL) 25 MG tablet Take 25 mg by mouth daily. t-1 metFORMIN (GLUCOPHAGE) 500 MG tablet Take 500 mg by mouth 2 (two) times daily with meal s. t-1 Multiple Vitamins-Minerals (AIRBORNE PO) Take by mouth 3 (three) times daily. t-1 Multiple Vitamins-Minerals (MULTIVITAMIN WITH MINERALS) tablet Take 1 tablet by mouth d aily. t-1 Zuunyipdnjbxa-SNDA-Yjrmpeqnhvz (TYLENOL COLD & HEAD) 5-325-200 MG TABS Take by mouth. Taking at Unknown time quiNIDine gluconate 324 MG CR tablet Take 324 mg by mouth daily as needed. t-1 simvastatin (ZOCOR) 80 MG tablet Take 40 mg by mouth nightly. t-1 tolterodine (DETROL LA) 4 MG 24 hr capsule Take 4 mg by mouth daily. t-1 triamcinolone (KENALOG) 0.1 % cream t-1 DISCHARGE EXAM Vital Signs: BP 136/79 (BP Location: Right forearm) | Pulse 77 | Temp 98 F (36.7 C) (Oral) | Resp 18 | Ht 1.778 m (5' 10") | Wt 111 kg (244 lb 11.4 oz) | SpO2 92% | BMI 35.11 kg/m 24h: Temp: [98 F (36.7 C)-99 F (37.2 C)] 98 F (36.7 C) (04/30 704) BP: (108-145)/(60-79) 136/79 (04/30 704) Heart Rate: [68-83] 77 (04/30 704) Resp: [16-21] 18 (04/30 704) SpO2: [92 %-96 %] 92 % (04/30 704) Weight: [111 kg (244 lb 11.4 oz)] 111 kg (244 lb 11.4 oz) (04/30 326) Current weight: Patient Vitals for the past 96 hrs: Weight 04/30/17 0327 111 kg (244 lb 11.4 oz) 04/28/17 0538 116.5 kg (256 lb 13.4 oz) 04/27/17 0500 116.2 kg (256 lb 2.8 oz) Admission weight: Weight: 112.2 kg (247 lb 5.7 oz) PE: GENERAL: Pt sitting in chair, "Marlen" present, A&O x3, NAD NEURO: PERRLA, EOMI; no facial asymmetry, speech normal and non pressured. Normal ROM. SKIN: Sternal incision is C/D/I. Chest tube removed incision C/D/I. Pacing wires removed. HEART: RRR w/normal S1/S2. No murmur, rub, heave, or gallop noted. LUNGS: Lungs are CTA w/o wheezing, crackles, or rhonchi. Dim bases. ABDOMEN: Soft, rounded, nontender. BS active. No masses or organomegaly noted. EXTREMITIES: + 1 b/l LE edema; B/L radial, dorsalis pedis, and posterior tibialis pulses mo derate. No clubbing or cyanosis noted. DATA Recent Labs Lab 04/30/17 0754 04/29/17 0440 04/28/17 0412 WBC 9.40 10.71 12.10* RBC 3.84* 3.62* 3.76* HGB 12.2* 11.6* 11.9* HCT 35.0* 32.9* 34.2* MCV 91.3 90.9 90.9 MCH 31.8 32.0 31.7 MCHC 34.8 35.2 34.8 RDW 47.3 47.7 49.4 PLT 157 117* 89* MPV 8.7 10.1 9.7 DIFFTYPE AUTOMATED AUTOMATED AUTOMATED Recent Labs Lab 04/30/17 0638 04/29/17 0440 04/28/17 0412 NA 137 137 137 K 4.0 4.2 4.5 CL 104 103 104 CO2 25 23 27 ANIONGAP 13 15 11 GLUF 114* 129* 164* BUN 36* 31* 24 CREATININE 1.1 1.1 1.1 BCR 33 28 22 CA 7.8* 8.5 8.2* EGFR >60 >60 >60 MG 2.7* 2.6* 2.5* PT/INR: Lab Results Component Value Date INR 1.1 04/30/2017 HgBA1c: Lab Results Component Value Date HGBA1C 8.0 (H) 04/27/2017 LABGLYC 183 04/27/2017 PLAN 1. Patient is discharged to Home. 2. Patient was instructed to follow up in clinic with Cardiothoracic Surgery 05/09/17. a. Patient will be discharged on warfarin therapy for clot prevention x 90days sp AVR/ PVI/ LAAL for Persistent A.fib. b. INR goal is 2.0 - 3.0 c. Patient has follow up appointment with [facility]. 3. Patient was instructed to follow up in clinic with [place] Farmer, Dr. Mcdaniel in 2 weeks. 4. Patient was instructed to follow up in clinic with Urologist, Dr. Shirley, in [place], [place] on Sunday05/04/17 at 0930. 5. Patient was instructed to follow up in clinic with Primary Care Physician in 3-4 wks. 6. Education: Valve Replacement/A.fib:The patient is being discharged with instructions on cardiac t, sternal precautions x 12 weeks and surgical incision care are according to the Society of Thoracic Surgeon guidelines. The patient is given instructions to start cardiac rehabilitat ion in accordance with per diem physical therapist assistant recommendations. Patient is advised not to drive for 6 w eeks post discharge, or while taking narcotic medications. Cardiothoracic Surgery will manage prescriptions until patient has seen seen their Cardi ologist and/or Primary Care Physician, who will resume prescription management afterwards. Discharge Checklist: 1. Aspirin (81 mg/day) is being given at discharge: Yes 2. A beta abhijit is being given at discharge: Yes 3. A high-intensity statin (e.g., atorvastatin at 40-80 mg/day) is being given at discharge : Yes 4. A follow-up lipid panel has been ordered to be done in 4-12 weeks to assess adherence to lipid modifying therapy: To be managed by cardiology. 5. An PETER inhibitor or ARB is being given at discharge: No, because there is no recent AL, LV systolic dysfunction (LV EF </=40%), diabetes, or chr onic kidney disease. 6. Clopidogrel (75mg) is being given at discharge: N/A, clopidogrel is not being given at discharge. 7. Warfarin is being given at discharge and will be managed by: The [place], [place] anticoagulation clinic ([facility]) with a goal INR of 2.0-3.0. 8. Tobacco cessation counseling is being given at discharge: N/A, because the patient does not use tobacco. 9. A referral to phase 2 cardiac rehabilitation: To be provided by cardiology. 10. Follow-up with CT surgery has been arranged and is documented in the after visit summar y: Yes 11. Follow-up with Cardiology has been arranged and is documented in the after visit summar y: No. The patient has been instructed to contact their per diem physical therapist assistant to arrange for follow up in 2 weeks. 12. Follow-up with the PCP has been arranged and is documented in the after visit summary: No. The patient has been instructed to contact their PCP to arrange for follow up in [address] [place] [address]. Disposition: Home Condition: Stable Discharge Instructions Ambulatory referral to Anticoagulation Monitoring Referral Priority: Urgent Referral Type: Consultation Referral Reason: Specialty Services Required Requested Specialty: Anticoagulation Number of Visits Requested: 1 Follow up: Elmer Mcdaniel MD [address] [place] [facility] [address] Schedule an appointment as soon as possible for a visit As needed, Post-op, If symptoms worsen Slick Hernandez MD [address] [facility] [address] Schedule an appointment as soon as possible for a visit in 1 week As needed, Post-op, INR checks Lopez Damian MD [address] [facility] [address] Go on 05/09/2017 As needed, Post-op, If symptoms worsen, For suture removal, For wound re-check Linda Shirley MD [address] [place] [address] In 1 day for al catheter removal Medication List START taking these medications * amiodarone 200 MG tablet QTY: 14 tablet Refills: 0 Commonly known as: PACERONE Take 1 tablet by mouth 2 (two) times daily for 7 days. * amiodarone 200 MG tablet QTY: 7 tablet Refills: 0 Commonly known as: PACERONE Take 1 tablet by mouth daily for 7 days. Start taking on: 05/08/2017 metoprolol 25 MG tablet QTY: 60 tablet Refills: 0 Commonly known as: LOPRESSOR Take 1 tablet by mouth 2 (two) times daily for 30 days. oxyCODONE 5 MG immediate release tablet QTY: 30 tablet Refills: 0 Commonly known as: ROXICODONE Take 1 tablet by mouth every 6 (six) hours as needed (for pain 4 to 5). warfarin 3 MG tablet QTY: 30 tablet Refills: 2 Commonly known as: COUMADIN Take 1 tablet by mouth Once daily-Coumadin for 90 days. INR goal 2.0 - 3.0 for persistent A .fib sp PVI/ LAAL and sp AVR (tissue valve). * This list has 2 medication(s) that are the same as other medications prescribed for you. Read the directions carefully, and ask your doctor or other care provider to review them wit h you. CONTINUE taking these medications ACCU-CHEK PATRICIO PLUS test strip Refills: 0 Generic drug: glucose blood aspirin 81 MG EC tablet Refills: 0 docusate sodium 100 MG capsule Refills: 0 Commonly known as: COLACE HUMULIN 70/30 KWIKPEN SC Refills: 0 hydrochlorothiazide 25 MG tablet Refills: 0 Commonly known as: HYDRODIURIL metFORMIN 500 MG tablet Refills: 0 Commonly known as: GLUCOPHAGE * multivitamin with minerals tablet Refills: 0 * AIRBORNE PO Refills: 0 quiNIDine gluconate 324 MG CR tablet Refills: 0 simvastatin 80 MG tablet Refills: 0 Commonly known as: ZOCOR tolterodine 4 MG 24 hr capsule Refills: 0 Commonly known as: DETROL LA triamcinolone 0.1 % cream Refills: 0 Commonly known as: KENALOG TYLENOL COLD & HEAD 5-325-200 MG Tabs Refills: 0 Generic drug: Tacrrlxstosiq-FAAD-Pzqsvfyigqa * This list has 2 medication(s) that are the same as other medications prescribed for you. Read the directions carefully, and ask your doctor or other care provider to review them wit h you. You might also be taking other medications not listed above. If you have questions about an y of your other medications, talk to the person who prescribed them or your Primary Care Pro vider. STOP taking these medications HYDROcodone-acetaminophen 5-325 MG per tablet Commonly known as: NORCO Where to Get Your Medications These medications were sent to [facility] [place], [place] - [address], [address] [place] [address], [address] [address] amiodarone 200 MG tablet amiodarone 200 MG tablet metoprolol 25 MG tablet warfarin 3 MG tablet You can get these medications from any pharmacy Bring a paper prescription for each of these medications oxyCODONE 5 MG immediate release tablet Discharge took 30 minutes, to include final examination, discussion of admission, and prepa ration of prescriptions, instructions for on-going care, follow-up, and documentation of dis charge summary. Noreen Zarate PA-C 04/30/2017 9:35 AM Cardiothoracic Surgery [facility] [address], [place] [address] documented in this encounter Medications at Time [...] + + + +---------+ + + | simvastatin | Take 0.5 tablets by | 15 | 11 | 04/30/19 | | | (ZOCOR) 80 mg tablet | mouth nightly for 30 | tablet | | 18 | 8 | | | days. | | | | | + + + +---------+ + + | metFORMIN | Take 1 tablet by | 60 | 11 | 04/30/19 | | | (GLUCOPHAGE) 500 mg | mouth 2 (two) times | tablet | | 18 | 0 | | tablet | daily with meals for | | | | | | | 30 days. | | | | | + + + +---------+ + + | quiNIDine | Take 1 tablet by | 30 | 11 | 04/30/19 | | | gluconate 324 mg ER | mouth daily as | tablet | | 18 | 9 | | tablet | needed for up to 30 | | | | | | | days. | | | | | + + + +---------+ + + documented as of this encounter Progress Notes Conversion Transaction, Provider Unknown - 04/30/2017 2:35 PM PSTFormatting of this note m ight be different from the original. Nurse Progress Note by Lizz Ledezma RN at 04/30/17 1435 Author: Lizz Ledezma RN Service: (none) Author Type: Registered Nurse Filed: 04/30/17 1439 Date of Service: 04/30/17 143 Status: Signed Acidizer Water Well: Lizz Ledezma RN (Registered Nurse) Discharge instructions reviewed with pt and .All questions answered. Medications delive red by rx pharmacy. VS stable. Ivs removed. Photo taken of ms taken. Pt left with escort ser vices in wheelchair to private vehicle onver sarahi Transaction, Provider Unknown - 04/30/2017 11:20 AM PST Therapy Progress Note by LUCÍA Baird at 04/30/17 1120 Author: LUCÍA Baird Service: (none) Author Type: Occupational Therapist Filed: 04/30/171124 Date of Service: 04/30/171119 Status: Signed Acidizer Water Well: LUCÍA Baird (Occupational Therapist) OCCUPATIONAL THERAPY TREATMENT NOTE OT Received On: 04/30/17 Reason for Treatment: Cardiac Requires OT Follow Up: No Assistance Required: 1 person Home Supervisor Needed: No Family/Caregiver Present: Yes Recommendation: Return to prior living conditions, Home with daytime assist, Home with nig ttime assist Requires OT Follow Up: No Recommendation Comments: Pt completing ADL's with precautions in place with assist from sp whitney at this time. All questions regarding showering, dressing and toileting have been answ ered. Pt and spouse express comfort knowing what he can and cannot do. Plan Treatment Interventions: (Per O TPOC) Progress: Progressing toward goals Requires OT Follow Up: No Focus for next session: Pt discharging this day Follow up OT only? [] Yes [x] No Precautions Cardiac Precautions: Sternal Other Precautions: fall risk Barriers to d/c at this time include: Home environment [] Family support [] Equipment needs [] Cognitive deficits impacting functional independence [] Physical deficits impacting functional independence [] Self-care deficits impacting functional independence [] Other Pain The patient did not demonstrate any signs of symptoms of pain throughout OT session Education Completed Education Topics: ADL's with precautions, ankle pumps, elevating legs, IS Completed with: [x] Patient [x] Spouse [] Significant other [] Family [] Caregive [] Other Completed by [x] Verbal education [x] Demonstration [x] Handout [] Othe r: Response to Education: [x] Stated Understanding [] Reinforcement necessary [x] Retu rned demonstration [] Demonstrated understanding [] No evidence of learning []Refused Summary Pt seen for follow up OT session. Pt requesting with ocmplete showering prior to D/C this day. Educated pt and spouse on showering with precautions, dressing, AE and endurance. ADL/IADL UE Bathing UE Bathing Level of Assistance: Minimum assistance UE Bathing Where Assessed: Shower UE Bathing Comments: Spouse assisted, all questions answered UE Dressing UE Dressing Level of Assistance: Minimum assistance UE Dressing Where Assessed: Other (Comment) (standing) UE Dressing Comments: Spouse assisted, all quesitons naswered LE Dressing LE Dressing: No (Reviewed techniques, waiting new al bag) Toileting Toileting Comments: Reviewed techniques for shakir care with sternla precautions Safety Devices in Place: Yes Type of Devices: Call lite in place onver sarahi Transaction, Provider Unknown - 04/30/2017 9:29 AM PST Case Management by Karlee Lisa RN at 04/30/17928 Author: Karlee Lisa RN Service: (none) Author Type: Registered Nurse Filed: 04/30/17 1142 Date of Service: 04/30/17928 Status: Addendum Acidizer Water Well: Karlee Lisa RN (Registered Nurse) Related Notes: Original Note by Karlee Lisa RN (Registered Nurse) filed at 04/30/17 105 1 Pt to d/c home today on coumadin and a 4WW. Pt lives in [place], his PCP is in [place], but he wants to be followed by [facility] coumadin clinic. Pt scheduled for 05/02 at 2:20,info in AVS [facility] sent to [facility] pharmacy for 10-day fill. Pt will take other scripts to [place], also faxed them to the [facility] Pt states he will obtain his 4WW thru his employer, no script needed. Pt recommending services, referral [facility]. Pt's PCP is in , but they w ill accep pt. Need to have AVS signed by surgeon and then it will be faxed. Family to transport home JORDAN signed Eboni onver sarahi Transaction, Provider Unknown - 04/30/2017 9:15 AM PST Therapy Progress Note by Hayder Hendrix, PT at 04/30/17914 Author: Hayder Hendrix, PT Service: (none) Author Type: Physical Therapist Filed: 04/30/17 1014 Date of Service: 04/30/17914 Status: Signed Acidizer Water Well: Hayder Hendrix PT (Physical Therapist) PHYSICAL THERAPY TREATMENT NOTE PT Received On: 04/30/17 Reason for Treatment: Cardiac Requires PT Follow Up: Yes Follow up PT Only?: No Assistance Required: 1 person Home Supervisor Needed: No Recommendations: Home Assist, PT Equipment Recommended: Walker 4 wheeled PT Ready for Discharge: Yes Plan Treatment/Interventions: Continue per Primary PT POC Progress: Progressing toward goals Summary Comments: Patient in the recliner upon PT arrival; agreeable to participation. Plan is for patient to DC home this PM. Discussed DC concerns with patient/spouse, they indicate concern with the 2 steps to enter the home. Reviewed car positioning/transfers. Pt planning on audie g his lift chair for sleeping when he returns home. MD/YADI present during session. Patient pr acticing STS transfers from various heights this session, able to arise and achieve upright standing with close SBA from the recliner and even from lower surfaces out in the lobby area . Patient's gait is becoming more steady as well, needing brief standing rest breaks. Patien t practicing stair training with the 4" exercise step in the room and no UE support. Pt ruperto cating he can go in through the garage and would have a railing on the R. Reviewed use of ra ils with gentle hand hold support and a step-to stair approach. Ed to patient's spouse on ho w to don a gait belt appropriately and gait belt provided for home usage. All questions answ ered at this time. Discussed HH services to promote function and safety for returning home, pt and spouse in agreement. Vitals at rest in sitting: HR 85, BP 136/79, SpO2 96% RA. Denies pain currently, but notes history of chronic L knee pain. Precautions Cardiac Precautions: Sternal Other Precautions: Fall Risk Cognition Overall Cognitive Status: Within Functional Limits Orientation Level: Oriented FUNCTIONAL MOBILITY Bed Mobility Scooting : Standby assist, Verbal instruction - Transfers Sit to/from Stand: Verbal instruction, Standby assist Ambulation Maximal Ambulation Distance (feet): 100 ft Total Ambulation Distance (feet): 100 ft Ambulation Assistance: Standby assist, Minimal assist Distance limited by?: Therapist/staff discretion Pattern: Decreased cheli, Alternating, Right swing foot doesn't pass stance foot, Left sw ing foot doesn't pass stance foot Assistive Device: Walker 4 wheeled Stairs Number of Stairs: 7 (with 4" step in room) Stairs Assistance: Standby assist, Visual instruction, Verbal instruction Number of stairs limited by?: Therapist/staff discretion Stair Management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 REPLACEMENT (N/A) CYSTOSCOPY Post-Op Day: 1 Day Post-Op PROBLEM LIST Active Problems: Severe calcific aortic stenosis Hypertension Hyperlipidemia Horseshoe kidney BPH (benign prostatic hyperplasia) Status post aortic valve replacement with bioprosthetic valve Resolved Problems: * No resolved hospital problems. * SUBJECTIVE: Patient Summary: Per Dr. Damian H&P 04/18/17 "The patient is a 72 y.o. male with significant past medical hi story of horseshoe kidney, hyperlipidemia, hypertension, coronary artery disease, kidney st one, diabetes mellitus, aortic stenosis who presents with worsening shortness of breath, wor kup revealed nonocclusive coronary artery disease and severe aortic stenosis with a calculat ed aortic valve area of 0.8 cm. Patient denies any chest pain, orthopnea, palpitation, his tory of cerebrovascular accident, lower extremity swelling." Pt presented to OR today (04/26/17) for AVR, L atrial appendage isolation and pulmonary vein isolation. Urology presented to OR for difficult al insertion. ICU Timeline: 04/26- To OR for AVR, PVI, ILAA Events Overnight: - HD stable, off vasopressors; on amio - On nasal canula - UOP 846 overnight OBJECTIVE: Vital Signs: BP 117/66 (BP Location: Right upper arm) | Pulse 79 | Temp 99.9 F (37.7 C) (Bladder) | Resp 22 | Ht 1.778 m (5' 10") | Wt 116.2 kg (256 lb 2.8 oz) | SpO2 96% | BMI 36.76 kg /m EXAM GEN: Awake, alert, and oriented. Sitting up in chair in NAD NEURO: PERRL, EOMI, no facial asymmetry, moves all extremities with equal strength HEENT: sclerae clear, nonicteric, oral mmm, pink NECK: trachea midline CV: RRR, no murmur, rub or gallop, peripheral pulses palpable, cap refill < 3 seconds; paci ng wires intact. LUNGS: clear b/l, no wheezing, rales or rhonchi, symmetric chest expansion, even/unlabored respirations on nasal canula; chest tube intact. ABD: soft, nondistended, nontender to palpation EXTR: no edema, clubbing or cyanosis SKIN: warm, dry, no rash or mottling; Sternal dressing CDI. LINES/TUBES: RIJ introducer, L radial A line, PIV, epicardial wires, CT x1, al DATA Recent Labs Lab 04/27/17 0324 04/26/17 1152 04/26/17 1048 WBC 13.24* 10.61 -- RBC 3.80* 3.85* -- HGB 11.9* 11.8* 8.8* HCT 34.5* 34.7* 26* MCV 90.9 90.0 -- MCH 31.4 30.7 -- MCHC 34.5 34.1 -- RDW 47.3 45.5 -- PLT 108* 109* -- MPV 9.3 8.9 -- BANDSABS 2.38* -- -- NEUTROABS -- 8.15* -- LYMPHSABS -- 1.80 -- MONOSABS -- 0.49 -- BASOSABS -- 0.04 -- EOSABS -- 0.12 -- MORPH RBC AND PLT MORPHOLOGY APPEAR NORMAL -- -- Recent Labs Lab 04/27/17 0324 04/26/17 1934 04/26/17 1514 04/26/17 1152 NA 139 -- -- 140 K 4.5 4.5 4.0 4.3 CL 108 -- -- 108 CO2 22* -- -- 24 ANIONGAP 14 -- -- 12 GLUF 150* -- -- 195* BUN 18 -- -- 19 CREATININE 1.1 -- -- 1.1 BCR 16 -- -- 18 CA 7.8* -- -- 7.6* EGFR >60 -- -- >60 MG 1.8 -- -- 2.4 IMAGING X-ray Chest 1 View Result Date: 04/26/2017 1. Appropriate positioning of support tubes and lines. 2. There is patchy bibasilar atele ctasis. SSMENT & PLAN: - Aortic stenosis. S/P AVR. Off vasopressors. -Atrial Fibrillation. S/P ILAA, PVI. On amio drip. Transition to oral amio per CTS -Difficult Al insertion. Bladder neck contracture dilated and al inserted by Dr. Sofia sierra. Keep al in place until DC. - Mild leukocytosis likely reactionary. Monitor. - Post operative management per CTS (chest tubes, pacer wires, gtt management, anticoagulat ion, transfusion) - Ambulate, PT/OT, IS Disposition: Per cardiothoracic surgery Code Status: Full Code *Please bill 35 minutes of critical care time spent evaluating the patient, reviewing the d eulalia and formulating a plan exclusive of all other procedures. CARMEN Tejeda 04/27/2017 6:39 AM onversion Madi arcos, Provider Unknown - 04/26/2017 3:47 PM PST Progress Notes by Higinio Rich RRT at 04/26/17 6513 Author: Higinio Rich RRT Service: (none) Author Type: Registered Respiratory Therapis t Filed: 04/26/17 3319 Date of Service: 04/26/17 3757 Status: Signed Acidizer Water Well: Higinio Rich RRT (Registered Respiratory Therapist) Patient is able to follow all commands. ABG drawn, results shown to Dr. Weller. Verbal ord er to extubate given. Patient spontaneous RR 21, Vt 467, RSBI 45. Patient extubated to 4 l/m nasal cannula. Patient able to vocalize post extubation, no stridor present. onver sarahi Transaction, Provider Unknown - 04/26/2017 11:54 AM PST Pharmacy Note by Gunjan Britt RPH at 04/26/17 1154 Author: Gunjan Britt RPH Service: Pharmacy Author Type: Pharmacist Filed: 04/26/17 1154 Date of Service: 04/26/17 1154 Status: Signed Acidizer Water Well: Gunjan Birtt RPH (Pharmacist) Clinical Pharmacy Note: Renal Monitoring Shania Gandhi 72 y.o. male Ht Readings from Last 1 Encounters: 04/26/17 1.778 m (5' 10") Wt Readings from Last 1 Encounters: 04/26/17 112.2 kg (247 lb 5.7 oz) Serum creatinine: 1.1 mg/dL 04/18/17 1404 Estimated creatinine clearance: 78.4 mL/min Pharmacy dosing for renal function. Currently, there are no medications needing to be adjusted. Pharmacy will continue to monit or for changes in medication orders and in renal function and adjust accordingly. Gunjan Britt RPh 04/26/2017 11:54 AM Agustin Carver Chaplain - 04/26/2017 10:42 AM PST Progress Notes by Agustin Lopez at 04/26/17 1042 Author: Agustin Lopez Service: (none) Author Type: Filed: 04/26/17 1043 Date of Service: 04/26/17 1042 Status: Signed Acidizer Water Well: Agustin Hamilton) Gave family the off pump report at 10:43am Agustin Chin Chaplain - 04/26/2017 10:14 AM PSTFormatting of this note might be different from the origi nal. Progress Notes by Agustin Lopez at 04/26/17 1014 Author: Agustin Lopez Service: (none) Author Type: Filed: 04/26/17 1015 Date of Service: 04/26/17 1014 Status: Signed Acidizer Water Well: Agustin Lopez () Gave family the on pump report at 9:20am Agustin Chin Chaplain - 04/26/2017 6:19 AM PSTFormatting of this note might be different from the origi nal. Progress Notes by Agustin Lopez at 04/26/17618 Author: Agustin Lopez Service: (none) Author Type: Filed: 04/26/17619 Date of Service: 04/26/17618 Status: Signed Acidizer Water Well: Agustin Lopez () I met with shania and his Marlen before he went into surgery. I explained puja cols and support that is provided. Prayer offered and gladly accepted. documented in t his encounter H&P Notes Jason Rollins PA - 04/26/2017 6:57 AM PSTFormatting of this note might be differ ent from the original. Interval H&P Note by Jason Rollins PA-C at 04/26/17656 Author: Jason Rollins PA-C Service: Cardiac, Thoracic, and Vascular Surgery Author Ty pe: Physician Bow Maker Machine Tender - Certified Filed: 04/26/17656 Date of Service: 04/26/17656 Status: Signed Acidizer Water Well: Jason Rollins PA-C (Physician Bow Maker Machine Tender - Certified) [facility] Service: Cardiothoracic Surgery Pre-Operative History & Physical Interval Update There have been no significant clinical changes since the completion of the above H&P. Tod ays physical assessment showed HP update PE: Normal appearance, alert and oriented X3 and r espiratory effort normal Jason Rollins PA-C 04/26/2017 *CORE MEASURES REMINDER: If the patient has a known or suspected infection prior to surger y, please add diagnosis to the problem list (consider: Infection 136.9). Source Note Author: Lopez Damian MD Service: (none) Author Type: Physician Filed: 04/18/17 1153 Date of Service: 01/10/18 1100 Status: Signed Acidizer Water Well: Lopez Damian MD (Physician) [facility] Service: Cardiothoracic Surgery Pre-Operative History & Physical DIAGNOSIS: Aortic stenosis INDICATION: Symptomatic severe aortic stenosis PROCEDURE: Aortic valve replacement, isolation of left atrial appendage CHIEF COMPLAINT: Exertional shortness of breath History Obtained From: patient, chart review HISTORY OF PRESENT ILLNESS The patient is a 72 y.o. male with significant past medical history of horseshoe kidney, h yperlipidemia, hypertension, coronary artery disease, kidney stone, diabetes mellitus, aorti c stenosis who presents with worsening shortness of breath, workup revealed nonocclusive cor onary artery disease and severe aortic stenosis with a calculated aortic valve area of 0.8 c m. Patient denies any chest pain, orthopnea, palpitation, history of cerebrovascular accid ent, lower extremity swelling. REVIEW OF SYSTEMS Review of Systems Constitutional: [...] 2012 UNLISTED PROCEDURE ARTHROSCOPY No Known Allergies Current Outpatient Prescriptions on File Prior to Visit Medication Sig Dispense Refill ACCU-CHEK PATRICIO PLUS test strip aspirin 81 MG EC tablet Take 81 mg by mouth daily with breakfast. cephALEXin (KEFLEX) 500 MG capsule clotrimazole (MYCELEX) 10 MG cori docusate sodium (COLACE) 100 MG capsule Take 100 mg by mouth daily. hydrochlorothiazide (HYDRODIURIL) 25 MG tablet Take 25 mg by mouth daily. HYDROcodone-acetaminophen (NORCO) 5-325 MG per tablet Take 1 tablet by mouth every 6 (s ix) hours as needed for Pain. insulin NPH-insulin regular (NOVOLIN 70/30) (70-30) 100 UNIT/ML injection Inject 48 Uni ts into the skin 2 (two) times daily before meals. Patient using about 48 units in the morni ng and 35 units at night metFORMIN (GLUCOPHAGE) 500 MG tablet Take 500 mg by mouth 2 (two) times daily with meal s. quiNIDine gluconate 324 MG CR tablet Take 324 mg by mouth daily as needed. simvastatin (ZOCOR) 80 MG tablet Take 40 mg by mouth nightly. tolterodine (DETROL LA) 4 MG 24 hr capsule Take 4 mg by mouth daily. triamcinolone (KENALOG) 0.1 % cream No current facility-administered medications on file prior to visit. Family History Problem Relation Age of Onset Heart failure Mother Dementia Mother Stroke Father Coronary art dis Father 72 Hypertension Father Social History Social History Marital status: Spouse name: N/A Number of children: N/A Years of education: N/A Occupational History drives [employer] Social History Main Topics Smoking status: Former Smoker Packs/day: 0.25 Years: 20.00 Quit date: 02/06/1997 Smokeless tobacco: Former User Alcohol use Yes Comment: occ Drug use: No Sexual activity: Not on file Other Topics Concern Not on file Social History Narrative No narrative on file History Smoking Status Former Smoker Packs/day: 0.25 Years: 20.00 Quit date: 02/06/1997 Smokeless Tobacco Former User History Alcohol Use Yes Comment: occ History Drug Use No PHYSICAL EXAM Vital Signs: BP 125/71 (BP Location: Right upper arm, Patient Position: Sitting) | Pulse 78 | Temp 97. 8 F (36.6 C) (Temporal) | Ht 1.778 m (5' 10") | Wt 112.5 kg (248 lb) | SpO2 93% | BM I 35.58 kg/m Physical Exam Constitutional: He is oriented to person, place, and time. Vital signs are normal. He appea rs well-developed and well-nourished. HENT: Head: Normocephalic and atraumatic. Eyes: Conjunctivae and lids are normal. Neck: Trachea normal and normal range of motion. Neck supple. No JVD present. Cardiovascular: Normal rate and regular rhythm. Murmur heard. Ejection systolic murmur best heard in the aortic region radiating to both the carotid fransisca ilana. Pulmonary/Chest: Effort normal and breath sounds normal. [...] 25 04/23/2012 EGFR >60 2017 PROBLEM LIST Patient Active Problem List Diagnosis Severe calcific aortic stenosis Hypertension Hyperlipidemia Horseshoe kidney ASSESSMENT & PLAN 72-year-old diabetic gentleman with history of aortic stenosis presents with worsening shor tness of breath. Coronary angiogram showed nonocclusive coronary artery disease. Echocardiog clara showed severe aortic stenosis with calculated aortic valve area of 0.8 cm sq and preserv ed LV function. Patient will benefit from aortic valve replacement and ligation of left atri al appendage. I had a long chat with the patient and his , explained to them the echo an d angiogram finding and need for aortic valve replacement with ligation of left atrial appen dage. I have discussed with them the procedure, risk involved, benefit, alternatives, pros a nd cons of tissue versus mechanical valve, complications, and STS risk score. Risk Model and Variables - STS Adult Cardiac Surgery Database Version 2.81 RISK SCORES About the STS Risk Calculator Procedure: AV Replacement Risk of Mortality: 1.549% Morbidity or Mortality: 14.207% Long Length of Stay: 5.195% Short Length of Stay: 42.39% Permanent Stroke: 0.907% Prolonged Ventilation: 7.188% DSW Infection: 0.526% Renal Failure: 4.637% Reoperation: 6.846% 1. Patient is a 72 y.o. male with above specified procedure planned. 2. Procedure options, risks, benefits and alternatives reviewed with patient and spouse w ho express(es) understanding. Any and all questions were answered to their satisfaction. Primary Care Physician: SLICK DAMIAN MD 04/18/2017 *CORE MEASURES REMINDER: If the patient has a known or suspected infection prior to surger y, please add diagnosis to the problem list (consider: Infection 136.9). Mayra Begum MD - 04/18/2017 11:00 AM PST . H&P (View-Only) by Lopez Damian MD at 04/18/17 1100 Author: Lopez Damian MD Service: (none) Author Type: Physician Filed: 04/18/17 5217 Date of Service: 04/18/17 1100 Status: Signed Acidizer Water Well: Lopez Damian MD (Physician) [facility] Service: Cardiothoracic Surgery Pre-Operative History & Physical DIAGNOSIS: Aortic stenosis INDICATION: Symptomatic severe aortic stenosis PROCEDURE: Aortic valve replacement, isolation of left atrial appendage CHIEF COMPLAINT: Exertional shortness of breath History Obtained From: patient, chart review HISTORY OF PRESENT ILLNESS The patient is a 72 y.o. male with significant past medical history of horseshoe kidney, h yperlipidemia, hypertension, coronary artery disease, kidney stone, diabetes mellitus, aorti c stenosis who presents with worsening shortness of breath, workup revealed nonocclusive cor onary artery disease and severe aortic stenosis with a calculated aortic valve area of 0.8 c m. Patient denies any chest pain, orthopnea, palpitation, history of cerebrovascular accid ent, lower extremity swelling. REVIEW OF SYSTEMS Review of Systems Constitutional: [...] CANCER EXCISION TONSILLECTOMY TRANSURETHRAL RESECTION OF PROSTATE 2013 UNLISTED PROCEDURE ARTHROSCOPY No Known Allergies Current Outpatient Prescriptions on File Prior to Visit Medication Sig Dispense Refill ACCU-CHEK PATRICIO PLUS test strip aspirin 81 MG EC tablet Take 81 mg by mouth daily with breakfast. cephALEXin (KEFLEX) 500 MG capsule clotrimazole (MYCELEX) 10 MG cori docusate sodium (COLACE) 100 MG capsule Take 100 mg by mouth daily. hydrochlorothiazide (HYDRODIURIL) 25 MG tablet Take 25 mg by mouth daily. HYDROcodone-acetaminophen (NORCO) 5-325 MG per tablet Take 1 tablet by mouth every 6 (s ix) hours as needed for Pain. insulin NPH-insulin regular (NOVOLIN 70/30) (70-30) 100 UNIT/ML injection Inject 48 Uni ts into the skin 2 (two) times daily before meals. Patient using about 48 units in the morni ng and 35 units at night metFORMIN (GLUCOPHAGE) 500 MG tablet Take 500 mg by mouth 2 (two) times daily with meal s. quiNIDine gluconate 324 MG CR tablet Take 324 mg by mouth daily as needed. simvastatin (ZOCOR) 80 MG tablet Take 40 mg by mouth nightly. tolterodine (DETROL LA) 4 MG 24 hr capsule Take 4 mg by mouth daily. triamcinolone (KENALOG) 0.1 % cream No current facility-administered medications on file prior to visit. 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 8 F (36.6 C) (Temporal) | Ht 1.778 m (5' 10") | Wt 112.5 kg (248 lb) | SpO2 93% | BM I 35.58 kg/m Physical Exam Constitutional: He is oriented to person, place, and time. Vital signs are normal. He appea rs well-developed and well-nourished. HENT: Head: Normocephalic and atraumatic. Eyes: Conjunctivae and lids are normal. Neck: Trachea normal and normal range of motion. Neck supple. No JVD present. Cardiovascular: Normal rate and regular rhythm. Murmur heard. Ejection systolic murmur best heard in the aortic region radiating to both the carotid fransisca ilana. Pulmonary/Chest: Effort normal and breath sounds normal. [...] 25 04/23/2012 EGFR >60 2017 PROBLEM LIST Patient Active Problem List Diagnosis Severe calcific aortic stenosis Hypertension Hyperlipidemia Horseshoe kidney ASSESSMENT & PLAN 72-year-old diabetic gentleman with history of aortic stenosis presents with worsening shor tness of breath. Coronary angiogram showed nonocclusive coronary artery disease. Echocardiog clara showed severe aortic stenosis with calculated aortic valve area of 0.8 cm sq and preserv ed LV function. Patient will benefit from aortic valve replacement and ligation of left atri al appendage. I had a long chat with the patient and his , explained to them the echo an d angiogram finding and need for aortic valve replacement with ligation of left atrial appen dage. I have discussed with them the procedure, risk involved, benefit, alternatives, pros a nd cons of tissue versus mechanical valve, complications, and STS risk score. Risk Model and Variables - STS Adult Cardiac Surgery Database Version 2.81 RISK SCORES About the STS Risk Calculator Procedure: AV Replacement Risk of Mortality: 1.549% Morbidity or Mortality: 14.207% Long Length of Stay: 5.195% Short Length of Stay: 42.39% Permanent Stroke: 0.907% Prolonged Ventilation: 7.188% DSW Infection: 0.526% Renal Failure: 4.637% Reoperation: 6.846% 1. Patient is a 72 y.o. male with above specified procedure planned. 2. Procedure options, risks, benefits and alternatives reviewed with patient and spouse w ho express(es) understanding. Any and all questions were answered to their satisfaction. Primary Care Physician: SLICK DAMIAN MD 04/18/2017 *CORE MEASURES REMINDER: If the patient has a known or suspected infection prior to surger y, please add diagnosis to the problem list (consider: Infection 136.9). documente d in this encounter Consult Notes Conversion Transaction, Provider Unknown - 04/30/2017 11:38 AM PSTFormatting of this note m ight be different from the original. Consults by Cherise Butler RD, CDE at 04/30/17 1134 Author: Cherise Butler RD, CDE Service: (none) Author Type: Animal Killer Filed: 04/30/17 1147 Date of Service: 04/30/17 1138 Status: Signed Acidizer Water Well: Cherise Butler RD, CDE (Animal Killer) Consult Orders: 1. Inpatient consult to staff development educator [[id number]] ordered by LILIAM Sun at 04/27/17 0711 Met with pt and spouse. Reports he's had diabetes for "a long time". Has been on insulin for about 4 or 5 years. At home he takes: 48 units of Humulin 70/30 in the morning and 38 units at night. He has been taking the insulin right after breakfast and right after dinner . He also takes metformin at home. Reports appetite is "starting to come back". Reviewed with pt and spouse the action and ti star of Humulin 70/30 and that per engine maintenance mechanic directions should be taken 30-45 minutes bef ore meals. Also discussed if pt is not eating a "normal" amount of food at meals they shoul d be cutting back on insulin to avoid low blood sugar. Discussed the importance of consiste nt timing in quantity at meals and eating of meals. Reviewed blood sugar goals and when to test. Discussed the extreme importance of good bloo d sugar control - especially in the healing process. They report they have all supplies necessary for diabetes management at home and plan on fo llowing up with pcp. They will discharge home today. Cherise Butler RD, MPH, CDE, Animal Killer 04/30/2017 11:47 AM onas, Elmer Crawford MD - 04/27/2017 4:22 PM PSTFormatting of this note might be different from the o riginal. Consult* by Elmer Mcdaniel MD at 04/27/17 1622 Author: Elmer Mcdaniel MD Service: Cardiology Author Type: Physician Filed: 04/27/17 1651 Date of Service: 04/27/171621 Status: Signed Acidizer Water Well: Elmer Mcdaniel MD (Physician) [facility] Service: Cardiology Initial Consult Note Date of Admission: 04/26/2017 Reason for Consultation: Postoperative cardiovascular management Requesting Physician: Lopez Damian MD History Obtained From: patient CHIEF COMPLAINT: S/p AVR, pulmonary vein and SHIVA isolation with an AtriCure device for sev ere, symptomatic aortic stenosis, causing him to have to "slow down" HISTORY OF PRESENT ILLNESS The patient is a 72 y.o. male who is well known to me. He had severe, rapidly progressive calcific aortic stenosis, as evidenced by his recent echocardiogram 06/07/16. The aortic erika ve area was 0.8 cm, with a peak/mean gradient of 59.1/40.9 mmHg. It is considered to be rapidly progressive, as the aortic valve area was 1.0 cm, with a peak/mean gradients of 37 /20 mmHg on his prior echocardiogram done 07/27/15. In the last 6 months, he has noted incr easing fatigue, and has had to "slow down", which is consistent with symptoms from severe ao rtic stenosis. He underwent aortic valve replacement surgery, with a #25 Magna Ease biopros thetic valve placed, pulmonary vein isolation and isolation of the left atrial appendage on 04/26/17 by Lopez Damian MD. He also underwent intraoperative cystoscopy by Dr. Mercado wi th dilatation of a bladder neck contracture and placement of a Al catheter. His postoper ative course has been unremarkable, rapidly extubated, off pressor support, and he has been transferred to [facility]. He is in sinus rhythm. He was on IV amiodarone, now stopped, and will be on warfarin for 3 months with his artificial valve for stroke prevention for the possibi lity of postoperative atrial fibrillation. He was able to walk only a few feet before he be came very lightheaded, and had to sit down. Currently, he complains of "6 "/10 incisional p ain, denies dyspnea. REVIEW OF SYSTEMS CONSTITUTIONAL: No recent significant weight change, denies recent fever, chills, night s weats, but has noted increasing fatigue over the last 6 months NEUROLOGIC: No history of CVA, TIA, migraines, seizures, syncope. No numbness, tingling , paresthesias, but has had an episode of dizziness/near syncope 2015 with no recurrence, li ghtheadedness. EYES: No amaurosis, diplopia, recent visual changes, has early stage cataracts, no glauco ma ENT: Mildhearing loss, tinnitus, epistaxis, dysphagia, tongue leukoplakia (ENT evaluati on pending) ENDOCRINE: He has ahistory of Insulin-Requiring type II Diabetes mellitus diabetes. No history of thyroid disorders or other endocrine problems. No excessive hunger, thirst. PULMONARY/SLEEP: No significantdyspnea, orthopnea, paroxysmal nocturnal dyspnea. No h istory of asthma, emphysema. He had Pneumonia in the past. He has been told ofsnoring, d eniesdaytime somnolence. Sleep is refreshing. CARDIOVASCULAR: c/o incisional chest pain, as above. No history of CAD. No history of h eart failure. No history of cardiac arrhythmias. He had Palpitations in 2004, had a Holter a nd stress test that were normal. He has ahistory of a heart Murmur, with severe calcific Aortic Stenosis, which is progressing rapidly. No h/orheumatic fever. He has ahistory of Essential Hypertension, Hyperlipidemia. He has left-sided Pedal Edema with Varicose Ve ins, no claudication symptoms. No h/o an AAA. 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 CARDIAC CATHETERIZATION 03/2017 Left and Right CHOLECYSTECTOMY COLONOSCOPY CYSTOSCOPY 04/26/2017 Procedure: CYSTOSCOPY; Surgeon: Karan Mercado MD; Location: [facility] MA[facility] OR; Service: Ur ology;; Cysto for difficult al placement. HARDWARE PRESENT Right knee replacement NASAL SEPTUM SURGERY RECTAL SURGERY tear repaired REPLACEMENT TOTAL KNEE Right 2009 SINUS SURGERY 2004 nasoplasty SKIN CANCER EXCISION basal cell TONSILLECTOMY TRANSURETHRAL RESECTION OF PROSTATE 2012 UNLISTED PROCEDURE ARTHROSCOPY No Known Allergies Prescriptions Prior to Admission Medication Sig Dispense Refill Last Dose Insulin NPH Isophane & Regular (HUMULIN 70/30 KWIKPEN SC) Inject 448 Units into the ski n 2 (two) times daily. 04/26/2017 at 0520 ACCU-CHEK PATRICIO PLUS test strip Taking aspirin 81 MG EC tablet Take 81 mg by mouth daily with breakfast. t-1 docusate sodium (COLACE) 100 MG capsule Take 100 mg by mouth nightly. t-1 hydrochlorothiazide (HYDRODIURIL) 25 MG tablet Take 25 mg by mouth daily. t-1 HYDROcodone-acetaminophen (NORCO) 5-325 MG per tablet Take 1 tablet by mouth every 6 (s ix) hours as needed for Pain. Taking at Unknown time metFORMIN (GLUCOPHAGE) 500 MG tablet Take 500 mg by mouth 2 (two) times daily with meal s. t-1 Multiple Vitamins-Minerals (AIRBORNE PO) Take by mouth 3 (three) times daily. t-1 Multiple Vitamins-Minerals (MULTIVITAMIN WITH MINERALS) tablet Take 1 tablet by mouth d aily. t-1 Sbvwzmdoymcgt-IBKW-Mvsfsoafgtk (TYLENOL COLD & HEAD) 5-325-200 MG TABS Take by mouth. Taking at Unknown time quiNIDine gluconate 324 MG CR tablet Take 324 mg by mouth daily as needed. t-1 simvastatin (ZOCOR) 80 MG tablet Take 40 mg by mouth nightly. t-1 tolterodine (DETROL LA) 4 MG 24 hr capsule Take 4 mg by mouth daily. t-1 triamcinolone (KENALOG) 0.1 % cream t-1 Scheduled Medications amiodarone 200 mg Oral TID aspirin 81 mg Oral Daily with breakfast atorvastatin 40 mg Oral Nightly docusate sodium 100 mg Oral BID famotidine 20 mg Oral BID Or famotidine 20 mg Intravenous BID magnesium hydroxide 30 mL Oral Daily metoprolol 12.5 mg Oral BID tolterodine 4 mg Oral Daily warfarin 2 mg Oral Daily Continuous Infusions amiodarone infusion dextrose 5 % and 0.45 % NaCl insulin regular 1 unit/mL 7.5 Units/hr (04/27/17 4384) PRN Medications acetaminophen OR acetaminophen, albuterol, aluminum-magnesium hydroxide-simethicone, am iodarone IV bolus, amiodarone infusion, dextrose, diphenhydrAMINE, hydrALAZINE, HYDROmorphon e OR HYDROmorphone, insulin regular 1 unit/mL, magnesium sulfate OR magnesium sulfat e OR magnesium sulfate, ondansetron, oxyCODONE OR oxyCODONE, phosphorus OR sodiu m phosphate IVPB 20 mmol OR sodium phosphate IVPB 45 mmol, polyethylene glycol, potassiu m OR potassium OR potassium OR potassium chloride OR potassium chloride OR potassium chloride, saline lock IV - prn tolerating PO fluid AND sodium chloride, sod ium phosphate Family History Problem Relation Age of Onset Heart failure Mother Dementia Mother Stroke Father Coronary art dis Father 72 Hypertension Father Mallatrice hypertherm Neg Hx History Smoking Status Former Smoker Packs/day: 0.25 Years: 20.00 Quit date: 02/06/1997 Smokeless Tobacco Former User Quit date: 2000 Comment: used chew History Alcohol Use Yes Comment: occ History Drug Use No PHYSICAL EXAM Vital Signs: BP 132/59 (BP Location: Left upper arm) | Pulse 69 | Temp 97.5 F (36.4 C) (Axillary) | Resp 18 | Ht 1.778 m (5' 10") | Wt 116.2 kg (256 lb 2.8 oz) | SpO2 97% | BMI 36.76 kg /m Temp: [97.5 F (36.4 C)-99.9 F (37.7 C)] 97.5 F (36.4 C) (04/27 1453) BP: (86-132)/(48-66) 132/59 (04/27 1453) Heart Rate: [63-84] 69 (04/27 145) Resp: [16-24] 18 (04/27 145) SpO2: [92 %-98 %] 97 % (04/27 145) Weight: [116.2 kg (256 lb 2.8 oz)] 116.2 kg (256 lb 2.8 oz) (04/27 0500) TELEMETRY: NSR I/O: 8724 / 3294, CT 290, net [phone] since admission GENERAL: Well developed well nourished, in no distress. Appears approximately stated ag e. HEENT: Normocephalic, atraumatic. EYES: PERRL, sclerae anicteric, no xanthelsasmas MOUTH: Oral mucosae moist, dentition adequate, no lesions noted NECK: No JVD, lymphadenopathy, thyromegaly, with bilateral bruitsindices could be t ransmitted murmurs). Carotid pulses are decreasedbilaterally LUNGS: Clear bilaterally, with no rales, rhonchi or wheezing noted, respirations unlabore d HEART: sternotomy incision is bandaged. Nondisplaced PMI, regular rate and rhythm, S1, S 2normal, no murmurs, rubs or gallops noted. ABDOMEN: Soft, nontender, no organomegaly, masses or bruits. Bowel sounds are normal in all 4 quadrants. The abdominal aortic pulsation is not palpable. EXTREMITIES: bilateral ankleedema, left 1-2+, right 1+. Radial pulses 2+ bilaterally. Femoral pulses are 2+ bilaterally without bruits. DP and PT pulses are 2+ bilaterally. SKIN: Warm and dry, capillary refill is normal, no lesions. NEUROLOGIC: Awake, alert and oriented x 3. No focal motor deficits. PSYCHIATRIC: Appropriate, affect appears normal DATA CBC: Lab Results Component Value Date WBC 13.24 (H) 04/27/2017 RBC 3.80 (L) 04/27/2017 HGB 11.9 (L) 04/27/2017 HCT 34.5 (L) 04/27/2017 MCV 90.9 04/27/2017 MCH 31.4 04/27/2017 MCHC 34.5 04/27/2017 RDW 47.3 04/27/2017 PLT 108 (L) 04/27/2017 MPV 9.3 04/27/2017 DIFFTYPE MANUAL 04/27/2017 BMP: Lab Results Component Value Date NA 139 04/27/2017 K 4.5 04/27/2017 K 4.9 04/26/2017 CL 108 04/27/2017 CO2 22 (L) 04/27/2017 ANIONGAP 14 04/27/2017 GLUF 150 (H) 04/27/2017 BUN 18 04/27/2017 CREATININE 1.1 04/27/2017 BCR 16 04/27/2017 CA 7.8 (L) 04/27/2017 EGFR >60 04/27/2017 Magnesium: Lab Results Component Value Date MG 2.4 04/27/2017 GLUCOSE Monitoring 145, 140, 150, 140, 142 EKG 04/26/2017 NSR, 83, normal EKG X-ray Chest 1 View Result Date: 04/27/2017 1. Removal ET tube and NG tube, with otherwise unchanged tubes and. 2. No pneumothorax. 3 . Bilateral atelectasis, without pneumothorax. Electronically signed by Gallito Samano MD o n 04/27/2017 6:57 AM X-ray Chest 1 View Result Date: 04/26/2017 1. Appropriate positioning of support tubes and lines. 2. There is patchy bibasilar atele ctasis. LEM LIST Active Problems: Severe calcific aortic stenosis Hypertension Hyperlipidemia Horseshoe kidney BPH (benign prostatic hyperplasia) Status post aortic valve replacement with bioprosthetic valve Status post cystoscopy ASSESSMENT & PLAN 1. Severe, symptomatic , now s/p #25 Magna Ease bioprosthetic AVR, doing well, POD #1, of f pressors, out of ICU. 2. Paroxysmal AFib, s/p PVI and SHIVA isolation 3. S/p dilatation of bladder neck contracture, BPH, Al in place 4. Type II Diabetes mellitus, BS controlled 5. Essential HTN, controlled 6. Hyperlipidemia, on atorvastatin 7. Horseshoe kidney, with normal renal function 8. Mild postoperative blood loss anemia Code Status: Full Code Primary Care Physician: SLICK HERNANDEZ Thank you for allowing me to participate in the care of this patient. Elmer Mcdaniel MD 04/27/2017 4:22 PM hloe Santo ARNP - 04/26/2017 11:37 AM PST Consult* by CARMEN De León at 04/26/17 1137 Author: CARMEN De León Service: (none) Author Type: Nurse Practitioner Filed: 04/26/17 1153 Date of Service: 04/26/17 1137 Status: Addendum Acidizer Water Well: CARMEN De León (Nurse Practitioner) Related Notes: Original Note by CARMEN De León (Nurse Practitioner) filed at 04/26/17 1150 [facility] Service: Uniform Cap Operator Cardiothoracic Surgery Consult and Follow Up Date/Time:04/26/2017 11:37 AM Provider: CARMEN De León Hospital Day: LOS: 0 days Surgery/Procedure: Procedure(s) (LRB): AORTIC VALVE REPLACEMENT (N/A) CYSTOSCOPY Post-Op Day: Day of Surgery PROBLEM LIST Active Problems: Severe calcific aortic stenosis Hypertension Hyperlipidemia Horseshoe kidney BPH (benign prostatic hyperplasia) Resolved Problems: * No resolved hospital problems. * SUBJECTIVE: Patient Summary: Per Dr. Damian H&P 04/18/17 "The patient is a 72 y.o. male with significant past medical hi story of horseshoe kidney, hyperlipidemia, hypertension, coronary artery disease, kidney st one, diabetes mellitus, aortic stenosis who presents with worsening shortness of breath, wor kup revealed nonocclusive coronary artery disease and severe aortic stenosis with a calculat ed aortic valve area of 0.8 cm. Patient denies any chest pain, orthopnea, palpitation, his tory of cerebrovascular accident, lower extremity swelling." Pt presented to OR today (04/26/17) for AVR, L atrial appendage isolation and pulmonary vein isolation. Urology presented to OR for difficult al insertion. ICU Timeline: 04/26- To OR for AVR, PVI, ILAA Events Overnight: - HD stable, NSR, on Te and epi drip - intubated on 50% FiO2 - UOP 1L intra-op OBJECTIVE: Vital Signs: BP 135/71 (BP Location: Right upper arm) | Pulse 89 | Temp 97 F (36.1 C) (Temporal) | Resp 17 | Ht 1.778 m (5' 10") | Wt 112.2 kg (247 lb 5.7 oz) | SpO2 96% | BMI 35.49 kg/ m EXAM GEN:intubated, sedated NEURO: PERRLA, EOMI, no facial asymmetry, moves all extremities GCS: 8T HEENT: sclerae clear, nonicteric, oral mmm, pink, no exudates NECK: supple, trachea midline CV: RRR, S1/S2, no murmur, rub or gallop, peripheral pulses palpable, cap refill brisk LUNGS: clear b/l, no wheezing, rales or rhonchi, symmetric chest expansion, even/unlabored respirations on MV ABD: soft, nondistended, nontender to palpation EXTR: 1+ edema to LE, no clubbing or cyanosis SKIN: warm, dry, no rash or mottling; no e/o skin breakdown over the occiput, scapulae, elb ows, sacrum or heels. Dsg to chest CDI. LINES/TUBES: RIJ introducer, L radial A line, PIV, epicardial wires, CT x1. DATA Recent Labs Lab 04/26/17 1048 04/26/17 1000 04/26/17 0931 HGB 8.8* 9.2* 10.5* HCT 26* 27* 31* Recent Labs Lab 04/26/17 1048 04/26/17 1000 04/26/17 0931 K 4.9 6.1* 5.1* IMAGING No results found. ASSESSMENT & PLAN: - Aortic stenosis. S/p AVR. -Atrial Fibrillation. S/P ILAA, PVI. Started on amio drip and will transition to oral ami o tomorrow per CTS. -Difficult Al insertion. Bladder neck contracture dilated and al inserted by Dr. Glenna vallecillo. Keep al in place until DC. - Post operative management per CTS (chest tubes, pacer wires, gtt management, anticoagulat ion, transfusion) - Ambulate, PT/OT, IS Disposition: Per cardiothoracic surgery Code Status: Full Code *Please bill 35 minutes of critical care time spent evaluating the patient, reviewing the d eulalia and formulating a plan exclusive of all other procedures. CARMEN De León 04/26/2017 11:37 AM Karan Cabezas MD - 04/26/2017 8:15 AM PST Consult* by Karan Mercado MD at 04/26/17 0815 Author: Karan Mercado MD Service: Urology Author Type: Physician Filed: 05/02/17 1722 Date of Service: 04/26/1715 Status: Signed Acidizer Water Well: Karan Mercado MD (Physician) Related Notes: Original Note by Karan Mercado MD (Physician) filed at 04/26/17 0821 [facility] Service: Urology Initial Consult Note Reason for Consultation: preop failure to Catheterize Requesting Physician: Cardiothoracic Surgery History Obtained From: spouse, chart review HISTORY OF PRESENT ILLNESS The patient is a 72 y.o. male with significant past medical history of Chronic arthritis, colonic polyps, coronary artery disease, history of horseshoe kidney, hypertension, hyperlip idemia, also has known history of kidney stone disease. The patient has history of aortic st enosis, as well as prior history of skin cancer, and is a type 2 diabetic, with history of v aricose veins. The patient was scheduled for cardiac surgery this morning and several attemp ts at catheterization failed. I obtained history from the patient's and learned that th e patient had TURP approximately 3 to 4 years ago in [place] by Dr. Pickard. He has been no t having significant urinary symptoms at this time. He reported his history of TURP in his c miller at the time of preoperative consultation. This consultation was asked emergently nadege cooper the patient was asleep and I had to johnson down to the OR almost immediately. The patient wa s unable to provide any additional history. The reports no recent episodes of hematuria , UTI, and no episodes of flank pain, ureteral colic, or stone episode. REVIEW OF SYSTEMS Reviewed Past Medical History Diagnosis Date Arthralgia all joints Arthritis BPH (benign prostatic hyperplasia) Colon polyps Coronary artery disease Horseshoe kidney Hyperlipidemia Hypertension Kidney stones Pain in both feet PONV (postoperative nausea and vomiting) Severe calcific aortic stenosis Rapidly progressive Skin cancer basal cell Type 2 diabetes mellitus (HCC) 2004 Insulin requiring Varicose vein of leg Visual disturbance Past Surgical History Procedure Laterality Date CARDIAC CATHETERIZATION 03/2017 Left and Right CHOLECYSTECTOMY COLONOSCOPY HARDWARE PRESENT Right knee replacement NASAL SEPTUM SURGERY RECTAL SURGERY tear repaired REPLACEMENT TOTAL KNEE Right 2009 SINUS SURGERY 2004 nasoplasty SKIN CANCER EXCISION basal cell TONSILLECTOMY TRANSURETHRAL RESECTION OF PROSTATE 2013 UNLISTED PROCEDURE ARTHROSCOPY No Known Allergies Prescriptions Prior to Admission Medication Sig Dispense Refill Last Dose Insulin NPH Isophane & Regular (HUMULIN 70/30 KWIKPEN SC) Inject 448 Units into the ski n 2 (two) times daily. 04/26/2017 at 0520 ACCU-CHEK PATRICIO PLUS test strip Taking aspirin 81 MG EC tablet Take 81 mg by mouth daily with breakfast. t-1 docusate sodium (COLACE) 100 MG capsule Take 100 mg by mouth nightly. t-1 hydrochlorothiazide (HYDRODIURIL) 25 MG tablet Take 25 mg by mouth daily. t-1 HYDROcodone-acetaminophen (NORCO) 5-325 MG per tablet Take 1 tablet by mouth every 6 (s ix) hours as needed for Pain. Taking at Unknown time metFORMIN (GLUCOPHAGE) 500 MG tablet Take 500 mg by mouth 2 (two) times daily with meal s. t-1 Multiple Vitamins-Minerals (AIRBORNE PO) Take by mouth 3 (three) times daily. t-1 Multiple Vitamins-Minerals (MULTIVITAMIN WITH MINERALS) tablet Take 1 tablet by mouth d aily. t-1 Ebhaxuaygdjid-CNIX-Xtzvesqszht (TYLENOL COLD & HEAD) 5-325-200 MG TABS Take by mouth. Taking at Unknown time quiNIDine gluconate 324 MG CR tablet Take 324 mg by mouth daily as needed. t-1 simvastatin (ZOCOR) 80 MG tablet Take 40 mg by mouth nightly. t-1 tolterodine (DETROL LA) 4 MG 24 hr capsule Take 4 mg by mouth daily. t-1 triamcinolone (KENALOG) 0.1 % cream t-1 Scheduled Medications ceFAZolin 2 g Intravenous Once ceFAZolin 2 g Intravenous Once vein preservation solution Irrigation Once Continuous Infusions dexmedetomidine in NS electrolyte-A 100 mL/hr at 04/26/17 0638 EPINEPHrine insulin regular 1 unit/mL phenylephrine PRN Medications dexmedetomidine in NS, mupirocin, nitroGLYCERIN Family History Problem Relation Age of Onset Heart failure Mother Dementia Mother Stroke Father Coronary art dis Father 72 Hypertension Father Malig hypertherm Neg Hx SOCIAL HISTORY: Reviewed PHYSICAL EXAM Vital Signs: BP 135/71 (BP Location: Right upper arm) | Pulse 89 | Temp 97 F (36.1 C) (Temporal) | Resp 17 | Ht 1.778 m (5' 10") | Wt 112.2 kg (247 lb 5.7 oz) | SpO2 96% | BMI 35.49 kg/ m General Appearance: Alert, cooperative, no distress, appears stated age Head: Normocephalic, without obvious abnormality, atraumatic Eyes: PERRL, conjunctiva/corneas clear, EOM's intact, fundi benign, both eyes Back: Symmetric, no curvature, ROM normal, no CVA tenderness Lungs: Clear to auscultation bilaterally, respirations unlabored Chest Wall: No tenderness or deformity Heart: Regular rate and rhythm, S1 and S2 normal, no murmur, rub or gallop Abdomen: Soft, non-tender, bowel sounds active all four quadrants, no masses, no organomegaly, Phallus with a few drops of blood and normal descended testicles Extremities: Extremities normal, atraumatic, no cyanosis or edema Pulses: 2+ and symmetric all extremities Skin: Skin color, texture, turgor normal, no rashes or lesions Neurologic: CNII-XII intact, normal strength, sensation and reflexes Throughout DATA CBC: Lab Results Component Value Date WBC 6.23 04/18/2017 RBC 4.67 04/18/2017 HGB 14.8 04/18/2017 HCT 41.8 04/18/2017 MCV 89.6 04/18/2017 MCH 31.7 04/18/2017 MCHC 35.4 04/18/2017 RDW 45.9 04/18/2017 PLT 173 04/18/2017 MPV 9.7 04/18/2017 DIFFTYPE AUTOMATED 04/18/2017 CMP: Lab Results Component Value Date NA 139 04/18/2017 K 3.7 04/18/2017 CL 101 04/18/2017 CO2 29 04/18/2017 ANIONGAP 13 04/18/2017 GLUF 158 (H) 04/18/2017 BUN 18 04/18/2017 CREATININE 1.1 04/18/2017 BCR 16 04/18/2017 CA 8.7 04/18/2017 PROT 6.7 04/23/2012 ALB 4.3 04/23/2012 GLOB 2.4 04/23/2012 BILITOT 0.9 04/23/2012 ALP 42 04/23/2012 AST 17 04/23/2012 ALT 25 04/23/2012 EGFR >60 04/18/2017 No results found. PROBLEM LIST Patient Active Problem List Diagnosis Severe calcific aortic stenosis Hypertension Hyperlipidemia Horseshoe kidney BPH (benign prostatic hyperplasia) ASSESSMENT & PLAN In summary, this is a 72-year-old gentleman who has known history of severe aortic stenosis , coronary artery disease, hypertension, hyperlipidemia, and diabetes, with horseshoe kidney . The patient has undergone previously a TURP by Dr. Pickard in [place] in 2012. He is here for cardiac surgery and after placing the patient to sleep, catheterization attempts failed . I was called emergently to attend to this patient. I interviewed the patient's and ob tained necessary urological history details. Please refer to my procedure note regarding the patient's procedure of catheterization with dilatation of the bladder neck stricture area a nd placement of catheter. At this time, after successful placement of a catheter, my recomme ndations were to leave the Al catheter in and I would like to follow up on the patient du ring his hospital admission as well as postoperatively in the office. I appreciate Dr. Amita valencia giving me the opportunity to come down and see this gentleman. Code Status: Full Code Primary Care Physician: SLICK HERNANDEZ Thank you for allowing me to participate in the care of this patient. KARAN MERCADO MD 04/26/2017 documented in this e ncounter Miscellaneous Notes Plan of Care - Conversion Transaction, Provider Unknown - 04/30/2017 1:40 AM PST Plan of Care by Rio Smyth RN at 04/30/17139 Author: Rio Smyth RN Service: (none) Author Type: Registered Nurse Filed: 04/30/17139 Date of Service: 04/30/17139 Status: Signed Acidizer Water Well: Rio Smyth RN (Registered Nurse) Problem: Pain Goal: Patient's pain/discomfort is manageable Outcome: Progressing PRN medication available, pt states pain is managed by medication Problem: Safety Goal: Patient will be injury free during hospitalization Outcome: Progressing Pt has remained free of injuries and falls so far this admission Problem: Daily Care Goal: Daily care needs are met Assess and monitor ability to perform self care and identify potential discharge needs. Outcome: Progressing Hourly rounding provided, assistance provided prn lan o f Care - Conversion Transaction, Provider Unknown - 04/29/2017 2:40 AM PSTFormatting of thi s note might be different from the original. Plan of Care by Rio Smyth RN at 04/29/17239 Author: Rio Smyth RN Service: (none) Author Type: Registered Nurse Filed: 04/29/17239 Date of Service: 04/29/17239 Status: Signed Acidizer Water Well: Rio Smyth RN (Registered Nurse) Problem: Pain Goal: Patient's pain/discomfort is manageable Outcome: Progressing PRN medication available, pt states pain is managed by medication Problem: Safety Goal: Patient will be injury free during hospitalization Outcome: Progressing Pt has remained free of injuries and falls so far this admission Problem: Daily Care Goal: Daily care needs are met Assess and monitor ability to perform self care and identify potential discharge needs. Outcome: Progressing Hourly rounding provided, assistance provided prn lan o f Care - Conversion Transaction, Provider Unknown - 04/28/2017 11:18 AM PSTFormatting of thi s note might be different from the original. Plan of Care by Lizz Ledezma RN at 04/28/171117 Author: Lizz Ledezma RN Service: (none) Author Type: Registered Nurse Filed: 04/28/171117 Date of Service: 04/28/171117 Status: Signed Acidizer Water Well: Lizz Ledezma RN (Registered Nurse) Problem: Disturbed energy field Goal: State of well-being Intervention: Spend quiet time listening to patient's concerns Hourly rounding in place, nursing provides therapeutic listening for pt lan o f Care - Conversion Transaction, Provider Unknown - 04/28/2017 4:37 AM PSTFormatting of thi s note might be different from the original. Plan of Care by Ana M Christie RN at 04/28/17436 Author: Ana M Christie RN Service: (none) Author Type: Registered Nurse Filed: 04/28/178 Date of Service: 04/28/17436 Status: Signed Acidizer Water Well: Ana M Christie RN (Registered Nurse) Daily care needs are met Progressing Patient's pain/discomfort is manageable Progressing Pt's pain is being managed at a tolerable level with oral pain medication, 5-10mg of oxycod one and repositioning. lan o f Care - Conversion Transaction, Provider Unknown - 04/27/2017 2:56 PM PSTFormatting of thi s note might be different from the original. Plan of Care by Stefan Osei RN at 04/27/17 1452 Author: Stefan Osei RN Service: (none) Author Type: Registered Nurse Filed: 04/27/17 1456 Date of Service: 04/27/17 145 Status: Signed Acidizer Water Well: Stefan Osei RN (Registered Nurse) Daily Care Daily care needs are met Progressing Pain Patient's pain/discomfort is manageable Progressing STEFAN OSEI isckiki trevino - Conversion Transaction, Provider Unknown - 04/27/2017 2:55 PM PSTFormatting of th is note might be different from the original. Treatment Plan by LUCÍA [place] at 04/27/17 8382 Author: LUCÍA [place] Service: (none) Author Type: Occupational Therapist Filed: 04/27/17 0484 Date of Service: 04/27/17 3006 Status: Signed Acidizer Water Well: LUCÍA [place] (Occupational Therapist) OCCUPATIONAL THERAPY EVALUATION OT Received On: 04/27/17 Reason for Treatment: Cardiac (AVR) Requires OT Follow Up: Yes OT Eval/Reassessment Date: 04/27/17 Assistance Required: 1 person Home Supervisor Needed: No Family/Caregiver Present: No Recommendation: Home with daytime assist, Home with nighttime assist Equipment Recommended: Prover, Sock aid, Shower chair with back, Sponge long handled Requires OT Follow Up: Yes OT Ready for Discharge: Yes Recommendation Comments Pt presents with decreased endurance, safety awareness, balance , UB/LB strength and ROM li mitation due to sternal precautions. These deficits may impair pt performance with ADL/funct ional mobility in home environment. recommend ongoing acute OT tx to address deficits as lis myrna, provide AE/safety education and maximize ADL independence. Anticipate with participatio n with therapies, obtaining recommended DME and spouse assist pt will be safe to d/c home on ce medically stable Plan Treatment Interventions: ADL retraining, IADL retraining, Functional transfer training, Fun ctional dynamic activities, UE strengthening, Therapeutic exercises, Endurance training, Cog nitive reorientation, Patient/Family training, Equipment eval/education, Neuro muscular roxanna ucation, Compensatory technique education, Manual therapy OT Frequency: 3-5 x/wk Care Duration (Days): 10 Days Requires OT Follow Up: Yes Focus for next session: ADL with sternal precautions, AE training Follow up OT only? [] Yes [x] No Precautions Cardiac Precautions: Sternal Other Precautions: Fall risk Barriers to d/c at this time include: [] Home environment [] Family support [x] Equipment needs [] Cognitive deficits impacting functional independence [x] Physical deficits impacting functional independence [x] Self-care deficits impacting functional independence [] Other Pain The patient reported pain rated at a 3/10. RN was notified Other measures provided to relie ve pts pain included: position of comfort Education Completed Education Topics: OT role/POC, ADL modifications, sternal precautions Completed with: [x] Patient [] Spouse [] Significant other [] Family [ ] Caregiver [] Other Completed by [x] Verbal education [x] Demonstration [x] Handout [] Othe r: Response to Education: [] Stated Understanding [x] Reinforcement necessary [] Returned demonstration [] Demonstrated understanding [] No evidence of learning [] Refused Summary Orders received/ verified, chart reviewed, and OT eval completed. Per chart notes: 72 y.o. male with significant past medical history of horseshoe kidney, hyperlipidemia, hypertensio n, coronary artery disease, kidney stone, diabetes mellitus, aortic stenosis who presents wi th worsening shortness of breath, workup revealed nonocclusive coronary artery disease and s evere aortic stenosis. Pt is now s/p from 04/26/17 for AVR, L atrial appendage isolation and pulmonary vein isolation. provided pt with verbal education, demonstration, and handout for sternal precautions, ADL modifications, and AE/DME recommendations. Home Environment Type of Home: Home one story Home Exterior Layout: 1-3 steps (2 NELSON ) Home Interior Layout: Lives on main level with bedroom/bathroom Bathroom Shower/Tub: Walk-in shower Bathroom Toilet: Standard Home Equipment: None Prior Function Level of [place]: Independent with functional mobility, Independent with ADLs, Indepe ndent with IADLs, Driving in community Falls in Past Year: No Lives With: Spouse Receives Help From: Family ADL Assistance: Independent Home ADL's: Independent ADL LE Dressing Assistance: Moderate assist, Visual instruction, Verbal instruction Lower body dressing impacted by: Safety concerns, Precautions, Endurance, Pain, Shortness o f breath (SOB) Toileting Assistance with Device: Moderate assist, Verbal instruction Toileting impacted by: Precautions, Safety concerns, Endurance, Shortness of breath (SOB), Pain Functional Assistance: Minimal assist, Verbal instruction Toileting transfer impacted by: Safety concerns, Endurance, Pain, Precautions Additional Comments: sit<>stand with CARLOZ and 4WW, VC for sternal precautions. MODA and inc reased VC for clothing management and cleansing to maintain sternal precautions. CARLOZ and VC for 4WW management during ambulation to bathroom Vision-Basic Assessment Current Vision: Wears glasses Acuity: Able to read clock/calendar on wall without difficulty, Able to read normal print w ithout difficulty Cognition Overall Cognitive Status: Within Functional Limits Orientation Level: Oriented Sensation Light Touch: No apparent deficits Perception Inattention/Neglect: Appears intact Initiation: Appears intact Motor Planning: Appears intact Perseveration: Not present Hand Function Gross Grasp: Functional Functional Gross Grasp: Able to grasp objects without difficulty Coordination: Functional Assessment Assessment: Decreased ADL status, Decreased UE strength, Decreased Safe judgement during AD L, Decreased endurance, Decreased self-care trans, Decreased high-level ADLs Prognosis: Good Goal Formulation: Patient Activity Tolerance: Patient tolerated treatment well, Patient limited by fatigue Safety Devices in Place: Yes Type of Devices: Call lite in place Occupational Therapy Goals ADL Goals Pt Will Perform Grooming: Standing at sink, With supervision, With adaptive devices, Mainta ining sternal precautions Pt Will Perform UE Dressing: With min assist, In chair, At edge of bed, Maintaining sternal precautions Pt Will Perform LE Dressing: In chair, Standing/seating at edge of bed, With min assist, W ith adaptive equipment, With adaptive devices, Maintaining sternal precautions LE Dressing Adaptive Equipment: Prover, Sock aid Pt Will Perform Toileting: With mod assist, With walker, Maintaining sternal precautions Functional Transfer Goals Pt Will Perform All Functional Transfers: Mod independently, With assistive device, Maintai sailaja sternal precautions Assistive Devices Functional Transfer: Walker front wheeled, Walker four wheeled Low - 52829 Moderate - 34023 High - 19336 History [] Brief history including review of medical record [x] Expanded review of medica l records; additional review of physical, cognitive, or psychosocial skills [] Review of [place] records; extensive additional review of physical, cognitive, or psychosocial skills Examination [] Identification of 1-3 performance deficits [x]Identification of 3-5 perfo rmance deficits [] Identification of 5 or more performance deficits Decision Making [] No comorbidities that affect occupational performance; modification of tasks or assistance is not needed to complete eval [x] May present with comorbidities; mini mal to moderate modification of tasks or assistance is needed to complete eval [] Presents with comorbidities; significant modification of tasks or assistance is needed to complete e erika Clinical Decision Making Complexity: [] Low 89782 [x] Moderate 21387 [] High 54680 isckiki trevino - Conversion Transaction, Provider Unknown - 04/27/2017 9:01 AM PSTFormatting of th is note might be different from the original. Treatment Plan by Charles Ferreira PT at 04/27/17 0901 Author: Charles Ferreira PT Service: (none) Author Type: Physical Therapist Filed: 04/27/17 1023 Date of Service: 04/27/17 0901 Status: Signed Acidizer Water Well: Charles Ferreira PT (Physical Therapist) PHYSICAL THERAPY EVALUATION PT Received On: 04/27/17 Reason for Treatment: Cardiac Requires PT Follow Up: Yes Follow up PT Only?: No PT Eval/Reassessment Date: 04/27/17 Assistance Required: 1 person, 2 person Recommendations: Home Assist, Prior Setting Equipment Recommended: (anticipate none) Plan Treatment/Interventions: Cardiac protocol PT Frequency: Twice a day Care Duration (# of days): 7 # of days Summary Comments: Pt. is s/p AVR. The pt. reports 4/10 pain. He is AOx4 and exhibits excellent st rength. He was educated in PT POC, and sternal precautions. His BP was 120/61 pre activity however during gait training he reported onset of dizziness which did not subside. BP was found to be 88/52. He physically demonstrated good strength however activity was limited by hypotensive response. Pt. demonstrated good awareness of precautions. He was left in the chair. Call light in reach. Precautions Cardiac Precautions: Sternal Cognition Overall Cognitive Status: Within Functional Limits Orientation Level: Oriented Assessment of Patient Status: Decreased functional mobility, Decreased ADL status, Precaut ions Prognosis: Should progress with skilled therapy intervention Home Environment Type of Home: Home one story Home Exterior Layout: 1-3 steps (2) Home Interior Layout: Lives on main level with bedroom/bathroom Home Equipment: None Prior Function Level of [place]: Independent with functional mobility, Independent with ADLs, Indepe ndent with IADLs Falls in Past Year: No Lives With: Spouse ADL Assistance: Independent Home ADL's: Independent RUE Assessment: Within Functional Limits LUE Assessment: Within Functional Limits RLE Assessment: Within Functional Limits Within Functional Limits LLE Assessment: Within Functional Limits Sensation Light Touch: No apparent deficits FUNCTIONAL MOBILITY Bed Mobility Supine to Sit: Mod assist (BLEs OOB or trunk to upright) Scooting : Minimal assist - Transfers Sit to/from Stand: Minimal assist (steadying/contact guard) Ambulation Maximal Ambulation Distance (feet): 25 Total Ambulation Distance (feet): 50 Ambulation Assistance: Minimal assist, X1, X2 (2nd person for lines) Distance limited by?: Patient's ability, Therapist/staff discretion Pattern: Decreased cheli, Right swing foot doesn't pass stance foot, Left swing foot does n't pass stance foot, Left step height adequate, Right step height adequate Assistive Device: (REHABILITATION AIDE/SCHEDULER on w/c) The patient demonstrated no indication of pain during therapy session. The patient reported pain rated at a 4/10. Education Completed: Education Topics: [x] Rationale for PT [] Precautions [] Exercises [] Bed m obility [] Transfer training with hand placement [x] Gait training [] Stair training [x] Use of gait belt [] Other Completed with: [x] Patient [] Spouse [] Significant other [] Family [ ] Caregiver [] Other Completed by :[x] Verbal education [x] Demonstration [] Handout [] Other : Response to Education: [x] Stated Understanding [] Reinforcement necessary [] Returned demonstration [x] Demonstrated understanding [] No evidence of learning [] Refused Physical Therapy Goals PT Goals Goal Formulation: With patient, With patient/family Pt Will Go Supine To Sit: With standby assistance, With minimal assist Pt Will Transfer Sit to Stand: With modified independence, With supervision Pt Will Ambulate: greater than 200 feet, greater than 500 feet Ambulate Level Assist: With modified independence, With supervision Ambulate with Assistive Device: Least restricitve device Pt Will Go Up / Down Stairs: 1-2 stairs Stairs Level of Assist: With modified independence, With supervision Low - 33216 Moderate - 55222 High - 14502 History [] no personal factors &/or comorbidities [x] 1-2 personal factors &/or comorbidit ies [] 3 or more personal factors &/or comorbidities Examination [] 1-2 elements [x] 3 elements [] 4 or more elements Clinical Presentation [] stable [x] evolving [] unstable Clinical Decision Making Complexity: [] Low 28691 [x] Moderate 00747 [] High 9 7151 p Not e - Lopez Damian MD - 04/26/2017 11:12 AM PST Op Note signed by Lopez Damian MD at 04/27/17 6785 Author: Lopez Damian MD Service: Cardiac, Thoracic, and Vascular Surgery Author Type: Physician Filed: 04/27/17 1449 Date of Service: 04/26/17 1112 Status: Signed Acidizer Water Well: Lopez Damian MD (Physician) SHANIA GANDHI Date of : 1945 DATE OF SERVICE April 26, 2017 PREOPERATIVE DIAGNOSES 1. Aortic stenosis. 2. Paroxysmal atrial fibrillation. POSTOPERATIVE DIAGNOSES 1. Aortic stenosis. 2. Paroxysmal atrial fibrillation. PROCEDURES 1. Aortic valve replacement (25 Magna Ease valve). 2. Pulmonary vein isolation. 3. Isolation of left atrial appendage. SURGEON Lopez Damian MD KILN LOADER BILL Carrera ANESTHESIOLOGIST Brynn Gutierrez MD ANESTHESIA General endotracheal anesthesia. ESTIMATED BLOOD LOSS 200 mL. INDICATIONS Mr. Gandhi is a 72-year-old gentleman with severe aortic stenosis and atrial fibrillation. C oronary angiogram did not show any evidence of occlusive coronary artery disease. After due preoperative counseling, he was brought to the operating room today for aortic valve replace ment, pulmonary vein isolation, and isolation of left atrial appendage. FINDINGS 1. Normal sternum. 2. Normal pericardium without any intrapericardial adhesions and minimal intrapericardial f luid. 3. Heavily calcified tricuspid aortic valve with calcification extending onto aortic annulu s. 4. The annulus was sized to a 25 Magna Ease valve. 5. ZEFERINO at the end of the case did not show any evidence of perivalvular leak. 6. A box lesions were created around the right superior inferior pulmonary vein and left pitt perior inferior pulmonary vein using AtriCure device. 7. The patient was in sinus rhythm at the end of the case. DESCRIPTION OF PROCEDURE Mr. Gandhi was identified in the preoperative holding area and brought to the operating room and was placed supine on the operating table. After induction of general endotracheal anest hesia, a Al catheter, a radial arterial line, a [place]-Aguilar catheter, and antibiotics were placed. The patient anterior sternum and both lower extremities were prepped and draped in s tandard surgical fashion. A median sternotomy was performed. The patient was heparinized. The pericardium was opened longitudinally and pericardial well was created. Dissection was performed on the right super ior inferior pulmonary vein. A red rubber catheter was then passed around it which was used to guide the AtriCure device and the lesion set x2 was created were created around the right superior inferior pulmonary vein. Next cardiopulmonary bypass was instituted using ascending aorta and a three stage cannula at the right atrium. The patient was cooled to 34 degrees centigrade. A cross-clamp was appl ied, and the heart was arrested with 1.5 L antegrade and retrograde cold-blood cardioplegia. Cardioplegia was repeated at intervals of 10 minutes all throughout the duration of the croze cutter ss-clamp. Next dissection was performed on the left superior inferior pulmonary vein. A red rubber ca theter was passed which was used to guide the AtriCure device and the lesion set was created around the left superior inferior pulmonary vein using the AtriCure device. Next 4-0 Prolene suture was placed at the base of the left atrial appendage and tied. This was reinforced with #1 silk suture. Attention was then shifted to the aortic valve. A transverse aortotomy was performed a fing erbreadth distal to the sinotubular junction. This was extended in a hockey-stick fashion on to the noncoronary sinus. Three pledgeted 4-0 Prolene sutures were placed on the superior in ferior lip of the aortotomy to assist with the exposure of the aortic valve. The valve was i nspected with the above-mentioned findings. The aortic cusp was excised. Careful decalcifica tion of the aortic annulus was performed. The LV was irrigated with cold saline. The annulus was sized to a 25 Magna Ease valve. Circumferential 3-0 Ethibond sutures were placed in the aortic annulus. A size 25 Magna Ease valve, having been prepared on the back table, was bro ught onto the surgical field. The sutures were then sequentially passed through the sewing r ing. The valve was lowered down onto the annulus. After confirming proper seating, the sutur es were tied. Rewarming was commenced at this stage. The aortotomy was close in 2 layers usi ng running 4-0 Prolene sutures. Careful deaeration was performed and the cross-clamp was released. Two atrial and 1 active ventricular wire were placed. A 28-Occitan chest tube was placed in the mediastinum. When the patient was at temperature, deaeration maneuvers were repeated. The patient was weaned off cardiopulmonary bypass without any inotropic support. Heparin was reversed with protamine. D ecannulation was uneventful. After confirming hemostasis, the chest was closed in layers usi ng stainless steel wires for the sternum, #1 Vicryl for the fascia, 2-0 Vicryl for the subcu taneous tissue, and 4-0 Vicryl for the skin. The patient was transferred to the intensive care unit intubated in stable condition. A/ A//[id number] LOPEZ DAMIAN MD p Note - Lopez Damian MD - 04/26/2017 11:10 AM PSTFormatting of this note might be different fro m the original. Brief Op Note by Lopez Damian MD at 04/26/17 1110 Author: Lopez Damian MD Service: Cardiac, Thoracic, and Vascular Surgery Author Type: Physician Filed: 04/26/17 1111 Date of Service: 04/26/17 1110 Status: Signed Acidizer Water Well: Lopez Damian MD (Physician) [facility] Service: Cardiothoracic Surgery Brief Op Note Pre-operative Diagnosis: PAF Post-operative Diagnosis: Same Procedure(s): AVR (25 Magna Ease) Pulmonary vein isolation ILAA Surgeon: LOPEZ DAMIAN MD Bow Maker Machine Tender(s): Tessy Adams RN FA Anesthesia: General endotrachial anesthesia Estimated Blood Loss: 200 ml Other: Not applicable Indications: See pre-operative history and physical. Findings: See dictated notes Complications: none Condition: Stable See dictated operative report for full details. LOPEZ DAMIAN MD 04/26/2017 p Note - Karan Mercado MD - 04/26/2017 8:21 AM PSTFormatting of this note might be different fro m the original. Op Note by Karan Mercado MD at 04/26/17820 Author: Karan Mercado MD Service: Urology Author Type: Physician Filed: 05/02/17 172 Date of Service: 04/26/17820 Status: Signed Acidizer Water Well: Karan Mercado MD (Physician) Related Notes: Original Note by Karan Mercado MD (Physician) filed at 04/26/17824 [facility] Service: Urology Operative Note Pre-operative Diagnosis: multiple failed attempts to place al caheter Post-operative Diagnosis: Same Procedure(s): Cystoscopy Dilatation of bladder neck contracture Placement of al cahteter Surgeon: KARAN MERCADO MD Bow Maker Machine Tender(s): None Anesthesia: General endotrachial anesthesia Estimated Blood Loss: Minimal Other: Al catheter Indications: See pre-operative history and physical. Findings: See dictated note. Complications: None Description of Procedure: The patient was already under general anesthesia and was in supi ne position. I made sure that the patient received IV antibiotics. A flexible cystoscope was brought in after sterilely prepping and draping his external genitalia and this was introdu clemente through the external urinary meatus without problem. The penile and bulbar urethra were normal. As I reached the prostatic urethra, I noted several false passages, mostly posterior ly located. The bladder neck was quite a bit anterior and there were TURP-related changes in the bladder neck area. 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 I decided to not use a f lexible guidewire and use a Super Stiff guidewire to pass through the strictured area. This was followed by dilatation of the bladder neck and placement of a Al catheter. The Al catheter with temperature Sensor what is required by the cardiac surgery team. I was able to place that by converting it into a [place] tip and making a hole at the tip of the catheter . Once the catheter went in, the balloon was inflated. The catheter started draining light p ink colored urine without any clots. At this time, the case was handed over to the cardiac t eam. Condition: Stable KARAN MERCADO MD 04/26/2017 lan of Care - Jason Rollins PA - 04/26/2017 6:40 AM PSTFormatting of this note might be different fr om the original. Plan of Care by Jason Rollins PA-C at 04/26/17639 Author: Jason Rollins PA-C Service: Cardiac, Thoracic, and Vascular Surgery Author Ty pe: Physician Bow Maker Machine Tender - Certified Filed: 04/26/17644 Date of Service: 04/26/17639 Status: Signed Acidizer Water Well: Jason Rollins PA-C (Physician Bow Maker Machine Tender - Certified) SURGICAL RISK ASSESSMENT Procedure: AV Replacement Hemo Data-EF Done: Yes, LVEF = 55 Heart Failure within 2 weeks: No RF-Renal Fail-Dialysis: No Last Creat Level: 1 Cardiac Symptoms - At Time of This Admission: Other Cardiac Symptoms - At Time of Surgery: Other Prior AL: No Cardiac Arrhythmia: No RF-Chronic Lung Disease: No RF-Cerebrovascular Disease: No RF-Peripheral Arterial Disease: Yes RF-Diabetes: Yes - Control: Insulin RF-Hypertension: Yes RF-Immunocompromise: No RF-Endocarditis: No Coronary Anatomy/Disease Known: No Status: Elective Resuscitation: No Cardiogenic Shock: No IABP: No Meds-Inotropes: No Prev Cardiac Intervent: No VD-Mitral: No VD-Aortic: Yes - ES-Mufdaqep-Mxmiue: Yes ZF-Sfuaov-Ubkeuq: Trivial/Trace NQ-Irdaob-Xqhvxqtrz: Mild EK-Nwfrct-Ydvpus: None Incidence: First cardiovascular surgery Prev CAB: No Prev Valve Replacement/Repair: No documented in this encounter Plan of Treatment Not on filedocumented as of this encounter Procedures + +--------+ + + + | Procedure Name | Priori | Date/Time | Associated Diagnosis | Comments | | | ty | | | | + +--------+ + + + | POC GLUCOSE | Routin | 04/30/2017 | | Results for this | | | e | 11:51 AM | | procedure are in the | | | | PST | | results section. | + +--------+ + + + | EXTERNAL LAB: CBC | Routin | 04/30/2017 | | Results for this | | | e | 7:54 AM | | procedure are in the | | | | PST | | results section. | + +--------+ + + + | PROTIME INR | Routin | 04/30/2017 | | Results for this | | | e | 6:38 AM | | procedure are in the | | | | PST | | results section. | + +--------+ + + + | MAGNESIUM | Routin | 04/30/2017 | | Results for this | | | e | 6:38 AM | | procedure are in the | | | | PST | | results section. | + +--------+ + + + | BASIC METABOLIC | Routin | 04/30/2017 | | Results for this | | PANEL | e | 6:38 AM | | procedure are in the | | | | PST | | results section. | + +--------+ + + + | POC GLUCOSE | Routin | 04/30/2017 | | Results for this | | | e | 5:31 AM | | procedure are in the | | | | PST | | results section. | + +--------+ + + + | POC GLUCOSE | Routin | 04/29/2017 | | Results for this | | | e | 9:49 PM | | procedure are in the | | | | PST | | results section. | + +--------+ + + + | POC GLUCOSE | Routin | 04/29/2017 | | Results for this | | | e | 4:44 PM | | procedure are in the | | | | PST | | results section. | + +--------+ + + + | POC GLUCOSE | Routin | 04/29/2017 | | Results for this | | | e | 12:15 PM | | procedure are in the | | | | PST | | results section. | + +--------+ + + + | XR CHEST 2 VIEWS | Routin | 04/29/2017 | | Results for this | | | e | 7:31 AM | | procedure are in the | | | | PST | | results section. | + +--------+ + + + | POC GLUCOSE | Routin | 04/29/2017 | | Results for this | | | e | 5:59 AM | | procedure are in the | | | | PST | | results section. | + +--------+ + + + | EXTERNAL LAB: CBC | Routin | 04/29/2017 | | Results for this | | | e | 4:40 AM | | procedure are in the | | | | PST | | results section. | + +--------+ + + + | PROTIME INR | Routin | 04/29/2017 | | Results for this | | | e | 4:40 AM | | procedure are in the | | | | PST | | results section. | + +--------+ + + + | MAGNESIUM | Routin | 04/29/2017 | | Results for this | | | e | 4:40 AM | | procedure are in the | | | | PST | | results section. | + +--------+ + + + | BASIC METABOLIC | Routin | 04/29/2017 | | Results for this | | PANEL | e | 4:40 AM | | procedure are in the | | | | PST | | results section. | + +--------+ + + + | POC GLUCOSE | Routin | 04/28/2017 | | Results for this | | | e | 9:52 PM | | procedure are in the | | | | PST | | results section. | + +--------+ + + + | POC GLUCOSE | Routin | 04/28/2017 | | Results for this | | | e | 4:25 PM | | procedure are in the | | | | PST | | results section. | + +--------+ + + + | POC GLUCOSE | Routin | 04/28/2017 | | Results for this | | | e | 11:31 AM | | procedure are in the | | | | PST | | results section. | + +--------+ + + + | PROTIME INR | Routin | 04/28/2017 | | Results for this | | | e | 7:31 AM | | procedure are in the | | | | PST | | results section. | + +--------+ + + + | POC GLUCOSE | Routin | 04/28/2017 | | Results for this | | | e | 5:09 AM | | procedure are in the | | | | PST | | results section. | + +--------+ + + + | EXTERNAL LAB: CBC | Routin | 04/28/2017 | | Results for this | | | e | 4:12 AM | | procedure are in the | | | | PST | | results section. | + +--------+ + + + | MAGNESIUM | Routin | 04/28/2017 | | Results for this | | | e | 4:12 AM | | procedure are in the | | | | PST | | results section. | + +--------+ + + + | BASIC METABOLIC | Routin | 04/28/2017 | | Results for this | | PANEL | e | 4:12 AM | | procedure are in the | | | | PST | | results section. | + +--------+ + + + | POC GLUCOSE | Routin | 04/27/2017 | | Results for this | | | e | 9:04 PM | | procedure are in the | | | | PST | | results section. | + +--------+ + + + | POC GLUCOSE | Routin | 04/27/2017 | | Results for this | | | e | 6:08 PM | | procedure are in the | | | | PST | | results section. | + +--------+ + + + | POC GLUCOSE | Routin | 04/27/2017 | | Results for this | | | e | 4:58 PM | | procedure are in the | | | | PST | | results section. | + +--------+ + + + | POC GLUCOSE | Routin | 04/27/2017 | | Results for this | | | e | 3:42 PM | | procedure are in the | | | | PST | | results section. | + +--------+ + + + | POC GLUCOSE | Routin | 04/27/2017 | | Results for this | | | e | 2:36 PM | | procedure are in the | | | | PST | | results section. | + +--------+ + + + | POC GLUCOSE | Routin | 04/27/2017 | | Results for this | | | e | 1:31 PM | | procedure are in the | | | | PST | | results section. | + +--------+ + + + | POC GLUCOSE | Routin | 04/27/2017 | | Results for this | | | e | 12:29 PM | | procedure are in the | | | | PST | | results section. | + +--------+ + + + | POC GLUCOSE | Routin | 04/27/2017 | | Results for this | | | e | 10:24 AM | | procedure are in the | | | | PST | | results section. | + +--------+ + + + | POTASSIUM | Routin | 04/27/2017 | | Results for this | | | e | 8:46 AM | | procedure are in the | | | | PST | | results section. | + +--------+ + + + | MAGNESIUM | Routin | 04/27/2017 | | Results for this | | | e | 8:46 AM | | procedure are in the | | | | PST | | results section. | + +--------+ + + + | POC GLUCOSE | Routin | 04/27/2017 | | Results for this | | | e | 7:55 AM | | procedure are in the | | | | PST | | results section. | + +--------+ + + + | POC GLUCOSE | Routin | 04/27/2017 | | Results for this | | | e | 6:44 AM | | procedure are in the | | | | PST | | results section. | + +--------+ + + + | XR CHEST 1 VIEW | Routin | 04/27/2017 | | Results for this | | | e | 5:48 AM | | procedure are in the | | | | PST | | results section. | + +--------+ + + + | POC GLUCOSE | Routin | 04/27/2017 | | Results for this | | | e | 5:40 AM | | procedure are in the | | | | PST | | results section. | + +--------+ + + + | POC GLUCOSE | Routin | 04/27/2017 | | Results for this | | | e | 4:34 AM | | procedure are in the | | | | PST | | results section. | + +--------+ + + + | POC GLUCOSE | Routin | 04/27/2017 | | Results for this | | | e | 3:27 AM | | procedure are in the | | | | PST | | results section. | + +--------+ + + + | EXTERNAL LAB: CBC | Routin | 04/27/2017 | | Results for this | | | e | 3:24 AM | | procedure are in the | | | | PST | | results section. | + +--------+ + + + | MAGNESIUM | Routin | 04/27/2017 | | Results for this | | | e | 3:24 AM | | procedure are in the | | | | PST | | results section. | + +--------+ + + + | HEMOGLOBIN A1C | Routin | 04/27/2017 | | Results for this | | | e | 3:24 AM | | procedure are in the | | | | PST | | results section. | + +--------+ + + + | BASIC METABOLIC | Routin | 04/27/2017 | | Results for this | | PANEL | e | 3:24 AM | | procedure are in the | | | | PST | | results section. | + +--------+ + + + | POC GLUCOSE | Routin | 04/27/2017 | | Results for this | | | e | 2:18 AM | | procedure are in the | | | | PST | | results section. | + +--------+ + + + | POC GLUCOSE | Routin | 04/27/2017 | | Results for this | | | e | 1:06 AM | | procedure are in the | | | | PST | | results section. | + +--------+ + + + | TISSUE REQUEST FOR | Routin | 04/27/2017 | | Results for this | | PATHOLOGY (NON-ORD) | e | 12:00 AM | | procedure are in the | | | | PST | | results section. | + +--------+ + + + | POC GLUCOSE | Routin | 04/26/2017 | | Results for this | | | e | 11:59 PM | | procedure are in the | | | | PST | | results section. | + +--------+ + + + | POC GLUCOSE | Routin | 04/26/2017 | | Results for this | | | e | 11:14 PM | | procedure are in the | | | | PST | | results section. | + +--------+ + + + | POC GLUCOSE | Routin | 04/26/2017 | | Results for this | | | e | 10:06 PM | | procedure are in the | | | | PST | | results section. | + +--------+ + + + | POC GLUCOSE | Routin | 04/26/2017 | | Results for this | | | e | 8:41 PM | | procedure are in the | | | | PST | | results section. | + +--------+ + + + | POC GLUCOSE | Routin | 04/26/2017 | | Results for this | | | e | 7:34 PM | | procedure are in the | | | | PST | | results section. | + +--------+ + + + | POTASSIUM | Routin | 04/26/2017 | | Results for this | | | e | 7:34 PM | | procedure are in the | | | | PST | | results section. | + +--------+ + + + | POC GLUCOSE | Routin | 04/26/2017 | | Results for this | | | e | 6:28 PM | | procedure are in the | | | | PST | | results section. | + +--------+ + + + | POC GLUCOSE | Routin | 04/26/2017 | | Results for this | | | e | 5:22 PM | | procedure are in the | | | | PST | | results section. | + +--------+ + + + | POC GLUCOSE | Routin | 04/26/2017 | | Results for this | | | e | 4:17 PM | | procedure are in the | | | | PST | | results section. | + +--------+ + + + | POTASSIUM | Routin | 04/26/2017 | | Results for this | | | e | 3:14 PM | | procedure are in the | | | | PST | | results section. | + +--------+ + + + | POC GLUCOSE | Routin | 04/26/2017 | | Results for this | | | e | 3:13 PM | | procedure are in the | | | | PST | | results section. | + +--------+ + + + | POC GLUCOSE | Routin | 04/26/2017 | | Results for this | | | e | 2:12 PM | | procedure are in the | | | | PST | | results section. | + +--------+ + + + | POC GLUCOSE | Routin | 04/26/2017 | | Results for this | | | e | 1:08 PM | | procedure are in the | | | | PST | | results section. | + +--------+ + + + | EXTERNAL LAB: CBC | Routin | 04/26/2017 | | Results for this | | | e | 11:52 AM | | procedure are in the | | | | PST | | results section. | + +--------+ + + + | PTT | Routin | 04/26/2017 | | Results for this | | | e | 11:52 AM | | procedure are in the | | | | PST | | results section. | + +--------+ + + + | PROTIME INR | Routin | 04/26/2017 | | Results for this | | | e | 11:52 AM | | procedure are in the | | | | PST | | results section. | + +--------+ + + + | FIBRINOGEN | Routin | 04/26/2017 | | Results for this | | | e | 11:52 AM | | procedure are in the | | | | PST | | results section. | + +--------+ + + + | MAGNESIUM | Routin | 04/26/2017 | | Results for this | | | e | 11:52 AM | | procedure are in the | | | | PST | | results section. | + +--------+ + + + | CALCIUM, IONIZED | Routin | 04/26/2017 | | Results for this | | | e | 11:52 AM | | procedure are in the | | | | PST | | results section. | + +--------+ + + + | BASIC METABOLIC | Routin | 04/26/2017 | | Results for this | | PANEL | e | 11:52 AM | | procedure are in the | | | | PST | | results section. | + +--------+ + + + | POC GLUCOSE | Routin | 04/26/2017 | | Results for this | | | e | 11:43 AM | | procedure are in the | | | | PST | | results section. | + +--------+ + + + | XR CHEST 1 VIEW | Routin | 04/26/2017 | | Results for this | | | e | 11:40 AM | | procedure are in the | | | | PST | | results section. | + +--------+ + + + | ECG 12 LEAD | Routin | 04/26/2017 | | Results for this | | | e | 11:36 AM | | procedure are in the | | | | PST | | results section. | + +--------+ + + + | POC CG 4, ISTAT | Routin | 04/26/2017 | | Results for this | | ARTERIAL | e | 10:52 AM | | procedure are in the | | | | PST | | results section. | + +--------+ + + + | IVONE GARCIA, | Routin | 04/26/2017 | | Results for this | | ARTERIAL | e | 10:48 AM | | procedure are in the | | | | PST | | results section. | + +--------+ + + + | IVONE GARCIA, | Routin | 04/26/2017 | | Results for this | | ARTERIAL | e | 10:00 AM | | procedure are in the | | | | PST | | results section. | + +--------+ + + + | POC HERNAN 4, ISKASSIDYT | Routin | 04/26/2017 | | Results for this | | ARTERIAL | e | 9:34 AM | | procedure are in the | | | | PST | | results section. | + +--------+ + + + | POC IVONE SULLIVAN, | Routin | 04/26/2017 | | Results for this | | ARTERIAL | e | 9:31 AM | | procedure are in the | | | | PST | | results section. | + +--------+ + + + | POC MILEIVONE SAAB, | Routin | 04/26/2017 | | Results for this | | ARTERIAL | e | 9:13 AM | | procedure are in the | | | | PST | | results section. | + +--------+ + + + | POC HERNAN DinhMILEKAISER | Routin | 04/26/2017 | | Results for this | | ARTERIAL | e | 7:27 AM | | procedure are in the | | | | PST | | results section. | + +--------+ + + + | POC MILEKASSIDYDulce IVONE, | Routin | 04/26/2017 | | Results for this | | ARTERIAL | e | 7:23 AM | | procedure are in the | | | | PST | | results section. | + +--------+ + + + | POC GLUCOSE | Routin | 04/26/2017 | | Results for this | | | e | 6:21 AM | | procedure are in the | | | | PST | | results section. | + +--------+ + + + | POTASSIUM | Routin | 04/26/2017 | | Results for this | | | e | 12:00 AM | | procedure are in the | | | | PST | | results section. | + +--------+ + + + documented in this encounter Results POC Glucose (04/30/2017 11:51 AM PST) + + + + + + | Component | Value | Ref Range | Performed | Pathologist | | | | | At | Signature | + + + + + + | Glucose, | 147 (H)Comment: Testing | 65 - 99 mg/dL | EXTERNAL | | | Fingerstick | performed at [facility];[address] | | LAB | | | | [address];[place], [place] | | | | | | [address] | | | | + + + + + + + + | Specimen | + + | | + + + +---------+ + + | Performing | Address | City/State/Zipcode | Phone Number | | Organization | | | | + +---------+ + + | EXTERNAL LAB | | | | + +---------+ + + External Lab: CBC (04/30/2017 7:54 AM PST) + + + + + + | Component | Value | Ref Range | Performed | Pathologist | | | | | At | Signature | + + + + + + | WBC | 9.40 | 3.80 - 11.00 | EXTERNAL | | | | | K/uL | LAB | | + + + + + + | Non- | 3.84 (L) | 4.20 - 5.70 | EXTERNAL | | | Red Blood | | M/uL | LAB | | | Cells | | | | | | Counted | | | | | + + + + + + | Hemoglobin | 12.2 (L) | 13.2 - 17.0 | EXTERNAL | | | | | g/dL | LAB | | + + + + + + | Hematocrit, | 35.0 (L) | 39.0 - 50.0 % | EXTERNAL | | | POC | | | LAB | | + + + + + + | MCV | 91.3 | 80.0 - 100.0 fl | EXTERNAL | | | | | | LAB | | + + + + + + | MCH | 31.8 | 27.0 - 34.0 pg | EXTERNAL | | | | | | LAB | | + + + + + + | MCHC | 34.8 | 32.0 - 35.5 | EXTERNAL | | | | | g/dL | LAB | | + + + + + + | RDW-CV | 47.3 | 37 - 53 fl | EXTERNAL | | | | | | LAB | | + + + + + + | Platelet | 157 | 150 - 400 K/uL | EXTERNAL | | | Count | | | LAB | | | Plasma | | | | | + + + + + + | MPV | 8.7 | fl | EXTERNAL | | | | | | LAB | | + + + + + + | Differentia | AUTOMATED | | EXTERNAL | | | l Type | | | LAB | | + + + + + + | % Segmented | 73.92 | % | EXTERNAL | | | | | | LAB | | | Neutrophils | | | | | + + + + + + | % | 13.30 | % | EXTERNAL | | | Lymphocytes | | | LAB | | + + + + + + | % Monocytes | 9.42 | % | EXTERNAL | | | | | | LAB | | + + + + + + | % | 3.04 | % | EXTERNAL | | | Eosinophils | | | LAB | | + + + + + + | % Basophils | 0.32 | % | EXTERNAL | | | | | | LAB | | + + + + + + | Absolute | 6.95 | 1.90 - 7.40 | EXTERNAL | | | Segmented | | K/uL | LAB | | | Neutrophils | | | | | + + + + + + | Absolute | 1.25 | 1.00 - 3.90 | EXTERNAL | | | Lymphocytes | | K/uL | LAB | | + + + + + + | Absolute | 0.89 () | 0.00 - 0.80 | EXTERNAL | | | Monocytes | | K/uL | LAB | | + + + + + + | Absolute | 0.29 | 0.00 - 0.50 | EXTERNAL | | | Eosinophils | | K/uL | LAB | | + + + + + + | Absolute | 0.03Comment: Testing | 0.00 - 0.10 | EXTERNAL | | | Basophils | performed at [facility];[address] | [address] | LAB | | | | [address];[place] | | | | | | [address] | | | | + + + + + + + + | Specimen | + + | | + + + +---------+ + + | Performing | Address | City/State/Zipcode | Phone Number | | Organization | | | | + +---------+ + + | EXTERNAL LAB | | | | + +---------+ + + Noemí MENDIOLA (04/30/2017 6:38 AM PST) + + + + + + | Component | Value | Ref Range | Performed | Pathologist | | | | | At | Signature | + + + + + + | INR | 1.1Comment: REFERENCE | | EXTERNAL | | | [...] | | | | | performed at [facility] | | | | | | [facility];[place], [place] | | | | | | [address] | | | | + + + + + + + + | Specimen | + + | Blood specimen | | (specimen) | + + + +---------+ + + | Performing | Address | City/State/Zipcode | Phone Number | | Organization | | | | + +---------+ + + | EXTERNAL LAB | | | | + +---------+ + + Magnesium (04/30/2017 6:38 AM PST) + + + + + + | Component | Value | Ref Range | Performed | Pathologist | | | | | At | Signature | + + + + + + | Magnesium | 2.7 (H)Comment: SLT | 1.7 - 2.4 mg/dL | EXTERNAL | | | | HEMOLYSISTesting | | LAB | | | | performed at [facility];[address] | | | | | | [address];[place], [place] | | | | | | [address] | | | | + + + [...] + +---------+ + + Basic Metabolic Panel (04/30/2017 6:38 AM PST) + + + + + + | Component | Value | Ref Range | Performed | Pathologist | | | | | At | Signature | + + + + + + | Na | 137 | 135 - 145 | EXTERNAL | | | | | mmol/L | LAB | | + + + + + + | K | 4.0Comment: SLT | 3.5 - 4.9 | EXTERNAL | | | | HEMOLYSIS | mmol/L | LAB | | + + + + + + | Cl | 104 | 99 - 109 mmol/L | EXTERNAL | | | | | | LAB | | + + + + + + | CO2 | 25 | 23 - 32 mmol/L | EXTERNAL | | | | | | LAB | | + + + + + + | Anion Gap | 13 | 5 - 20 mmol/L | EXTERNAL | | | | | | LAB | | + + + + + + | Glucose, | 114 (H) | 65 - 99 mg/dL | EXTERNAL | | | Fasting | | | LAB | | + + + + + + | BUN | 36 (H) | 8 - 25 mg/dL | EXTERNAL | | | | | | LAB | | + + + + + + | Creatinine | 1.1 | 0.70 - 1.30 | EXTERNAL | | | | | mg/dL | LAB | | + + + + + + | BUN/Creatin | 33 | | EXTERNAL | | | ine Ratio | | | LAB | | + + + + + + | Calcium | 7.8 (L) | 8.5 - 10.5 | EXTERNAL | [...] | | | | | | at [facility];[address] [place] [address] | | | | | | [facility];[place] [address] | | | | + + + + + + + + | Specimen | + + | Blood specimen | | (specimen) | + + + +---------+ + + | Performing | Address | City/State/Zipcode | Phone Number | | Organization | | | | + +---------+ + + | EXTERNAL LAB | | | | + +---------+ + + POC Glucose (04/30/2017 5:31 AM PST) + + + + + + | Component | Value | Ref Range | Performed | Pathologist | | | | | At | Signature | + + + + + + | Glucose, | 110 (H)Comment: Testing | 65 - 99 mg/dL | EXTERNAL | | | Fingerstick | performed at [facility];[address] | | LAB | | | | [address];[place], [place] | | | | | | [address] | | | | + + + + + + + + | Specimen | + + | | + + + +---------+ + + | Performing | Address | City/State/Zipcode | Phone Number | | Organization | | | | + +---------+ + + | EXTERNAL LAB | | | | + +---------+ + + POC Glucose (04/29/2017 9:49 PM PST) + + + + + + | Component | Value | Ref Range | Performed | Pathologist | | | | | At | Signature | + + + + + + | Glucose, | 129 (H)Comment: Testing | 65 - 99 mg/dL | EXTERNAL | | | Fingerstick | performed at [facility];[address] | | LAB | | | | [address];[place], [place] | | | | | | [address] | | | | + + + + + + + + | Specimen | + + | | + + + +---------+ + + | Performing | Address | City/State/Zipcode | Phone Number | | Organization | | | | + +---------+ + + | EXTERNAL LAB | | | | + +---------+ + + POC Glucose (04/29/2017 4:44 PM PST) + + + + + + | Component | Value | Ref Range | Performed | Pathologist | | | | | At | Signature | + + + + + + | Glucose, | 97Comment: Testing | 65 - 99 mg/dL | EXTERNAL | | | Fingerstick | performed at [facility];[address] | | LAB | | | | [address];[place], [place] | | | | | | [address] | | | | + + + + + + + + | Specimen | + + | | + + + +---------+ + + | Performing | Address | City/State/Zipcode | Phone Number | | Organization | | | | + +---------+ + + | EXTERNAL LAB | | | | + +---------+ + + POC Glucose (04/29/2017 12:15 PM PST) + + + + + + | Component | Value | Ref Range | Performed | Pathologist | | | | | At | Signature | + + + + + + | Glucose, | 157 (H)Comment: Testing | 65 - 99 mg/dL | EXTERNAL | | | Fingerstick | performed at [facility];[address] | | LAB | | | | [address];[place] | | | | | | [address] | | | | + + + + + + + + | Specimen | + + | | + + + +---------+ + + | Performing | Address | City/State/Zipcode | Phone Number | | Organization | | | | + +---------+ + + | EXTERNAL LAB | | | | + +---------+ + + XR Chest 2 Vws (04/29/2017 7:31 AM PST) + + | Specimen | + + | | + + + + + | Impressions | Performed At | + + + | 1. Low lung volumes with bibasilar subsegmental atelectasis. 2. | | | Small bilateral pleural effusions. | | + + + + + + | Narrative | Performed At | + + + | SHANIA GANDHI 1945 72 years Male XR CHEST 2 VIEW FRONTAL | | | AND LATERAL 04/29/2017 7:31 AM INDICATION: Tube/line position, | | | status post cardiac surgery COMPARISON: 04/27/2017 TECHNIQUE: | | | Two view chest, PA and lateral views FINDINGS: Stable | | | cardiomegaly. Patient is post aortic valve replacement and median | | | sternotomy. The lung volumes bilaterally with bibasilar subsegmental | | | atelectasis.. Right internal jugular central venous catheter sheath | | | and mediastinal drainage catheter have been removed. Small bilateral | | | pleural effusions, unchanged. | | + + + + + | Procedure Note | + + | Donn, Jameson Conversion - 11/20/2018 3:41 AM PDT SHANIA [id number] years MaleXR | | CHEST 2 VIEW FRONTAL AND LATERAL04/29/2017 7:31 AM INDICATION: Tube/line position, | | status post cardiac surgery COMPARISON: 04/27/2017 TECHNIQUE: Two view chest, PA and | | lateral views FINDINGS: Stable cardiomegaly. Patient is post aortic valve replacement | | and median sternotomy. The lung volumes bilaterally with bibasilar subsegmental | | atelectasis.. Right internal jugular central venous catheter sheath and mediastinal | | drainage catheter have been removed. Small bilateral pleural effusions, unchanged. | | IMPRESSION: 1. Low lung volumes with bibasilar subsegmental atelectasis.2. Small | | bilateral pleural effusions. | | | |TECHNIQUE: Two view chest, PA and lateral views | | | |FINDINGS: Stable cardiomegaly. Patient is post aortic valve replacement and median sternoto my. The lung volumes bilaterally with bibasilar subsegmental atelectasis.. Right internal ju gular central venous catheter | |sheath and mediastinal drainage catheter | |have been removed. Small bilateral pleural effusions, unchanged. | | | |IMPRESSION: | |1. Low lung volumes with bibasilar subsegmental atelectasis. | |2. Small bilateral pleural effusions. | | | | | + + POC Glucose (04/29/2017 5:59 AM PST) + + + + + + | Component | Value | Ref Range | Performed | Pathologist | | | | | At | Signature | + + + + + + | Glucose, | 147 (H)Comment: Testing | 65 - 99 mg/dL | EXTERNAL | | | Fingerstick | performed at [facility];[address] | | LAB | | | [address];[place] | | | | | | [address] | | | | + + + + + + + + | Specimen | + + | | + + + +---------+ + + | Performing | Address | City/State/Zipcode | Phone Number | | Organization | | | | + +---------+ + + | EXTERNAL LAB | | | | + +---------+ + + Protime INR (04/29/2017 4:40 AM PST) + + + + + + | Component | Value | Ref Range | Performed | Pathologist | | | | | At | Signature | + + + + + + | INR | 1.1Comment: REFERENCE | | EXTERNAL | | | [...] | | | | | performed at [facility];[address] | | | | | | [address];[place], [place] | | | | | | [address] | | | | + + + [...] + +---------+ + + External Lab: CBC (04/29/2017 4:40 AM PST) + + + + + + | Component | Value | Ref Range | Performed | Pathologist | | | | | At | Signature | + + + + + + | WBC | 10.71 | 3.80 - 11.00 | EXTERNAL | | | | | K/uL | LAB | | + + + + + + | Non- | 3.62 (L) | 4.20 - 5.70 | EXTERNAL | | | Red Blood | | M/uL | LAB | | | Cells | | | | | | Counted | | | | | + + + + + + | Hemoglobin | 11.6 (L) | 13.2 - 17.0 | EXTERNAL | | | | | g/dL | LAB | | + + + + + + | Hematocrit, | 32.9 (L) | 39.0 - 50.0 % | EXTERNAL | | | POC | | | LAB | | + + + + + + | MCV | 90.9 | 80.0 - 100.0 fl | EXTERNAL | | | | | | LAB | | + + + + + + | MCH | 32.0 | 27.0 - 34.0 pg | EXTERNAL | | | | | | LAB | | + + + + + + | MCHC | 35.2 | 32.0 - 35.5 | EXTERNAL | | | | | g/dL | LAB | | + + + + + + | RDW-CV | 47.7 | 37 - 53 fl | EXTERNAL | | | | | | LAB | | + + + + + + | Platelet | 117 (L) | 150 - 400 K/uL | EXTERNAL | | | Count | | | LAB | | | Plasma | | | | | + + + + + + | MPV | 10.1 | fl | EXTERNAL | | | | | | LAB | | + + + + + + | Differentia | AUTOMATED | | EXTERNAL | | | l Type | | | LAB | | + + + + + + | % Segmented | 79.56 | % | EXTERNAL | | | | | | LAB | | | Neutrophils | | | | | + + + + + + | % | 10.69 | % | EXTERNAL | | | Lymphocytes | | | LAB | | + + + + + + | % Monocytes | 8.29 | % | EXTERNAL | | | | | | LAB | | + + + + + + | % | 1.26 | % | EXTERNAL | | | Eosinophils | | | LAB | | + + + + + + | % Basophils | 0.20 | % | EXTERNAL | | | | | | LAB | | + + + + + + | Absolute | 8.52 (H) | 1.90 - 7.40 | EXTERNAL | | | Segmented | | K/uL | LAB | | | Neutrophils | | | | | + + + + + + | Absolute | 1.15 | 1.00 - 3.90 | EXTERNAL | | | Lymphocytes | | K/uL | LAB | | + + + + + + | Absolute | 0.89 (H) | 0.00 - 0.80 | EXTERNAL | | | Monocytes | | K/uL | LAB | | + + + + + + | Absolute | 0.14 | 0.00 - 0.50 | EXTERNAL | | | Eosinophils | | K/uL | LAB | | + + + + + + | Absolute | 0.02Comment: Testing | 0.00 - 0.10 | EXTERNAL | | | Basophils | performed at [facility], [address] | [address] | LAB | | | | [address], | | | | | | [place] [address] | | | | + + + + + + + + | Specimen | + + | Blood specimen | | (specimen) | + + + +---------+ + + | Performing | Address | City/State/Zipcode | Phone Number | | Organization | | | | + +---------+ + + | EXTERNAL LAB | | | | + +---------+ + + Magnesium (04/29/2017 4:40 AM PST) + + + + + + | Component | Value | Ref Range | Performed | Pathologist | | | | | At | Signature | + + + + + + | Magnesium | 2.6 (H)Comment: Testing | 1.7 - 2.4 mg/dL | EXTERNAL | | | | performed at [facility], [address] | | LAB | | | | [address], | | | | | | [place] [address] | | | | + + + [...] + +---------+ + + Basic Metabolic Panel (04/29/2017 4:40 AM PST) + + + + + + | Component | Value | Ref Range | Performed | Pathologist | | | | | At | Signature | + + + + + + | Na | 137 | 135 - 145 | EXTERNAL | | | | | mmol/L | LAB | | + + + + + + | K | 4.2 | 3.5 - 4.9 | EXTERNAL | | | | | mmol/L | LAB | | + + + + + + | Cl | 103 | 99 - 109 mmol/L | EXTERNAL | | | | | | LAB | | + + + + + + | CO2 | 23 | 23 - 32 mmol/L | EXTERNAL | | | | | | LAB | | + + + + + + | Anion Gap | 15 | 5 - 20 mmol/L | EXTERNAL | | | | | | LAB | | + + + + + + | Glucose, | 129 (H) | 65 - 99 mg/dL | EXTERNAL | | | Fasting | | | LAB | | + + + + + + | BUN | 31 (H) | 8 - 25 mg/dL | EXTERNAL | | | | | | LAB | | + + + + + + | Creatinine | 1.1 | 0.70 - 1.30 | EXTERNAL | | | | | mg/dL | LAB | | + + + + + + | BUN/Creatin | 28 | | EXTERNAL | | | ine Ratio | | | LAB | | + + + + + + | Calcium | 8.5 | 8.5 - 10.5 | EXTERNAL | [...] | | | | | | at [facility], [address] | | | | | [facility], | | | | | | [place] [address] | | | | + + + + + + + + | Specimen | + + | Blood specimen | | (specimen) | + + + +---------+ + + | Performing | Address | City/State/Zipcode | Phone Number | | Organization | | | | + +---------+ + + | EXTERNAL LAB | | | | + +---------+ + + POC Glucose (04/28/2017 9:52 PM PST) + + + + + + | Component | Value | Ref Range | Performed | Pathologist | | | | | At | Signature | + + + + + + | Glucose, | 178 (H)Comment: Testing | 65 - 99 mg/dL | EXTERNAL | | | Fingerstick | performed at [facility] [place];[address] | | LAB | | | | [address];[place] | | | | | | [address] | | | | + + + + + + + + | Specimen | + + | | + + + +---------+ + + | Performing | Address | City/State/Zipcode | Phone Number | | Organization | | | | + +---------+ + + | EXTERNAL LAB | | | | + +---------+ + + POC Glucose (04/28/2017 4:25 PM PST) + + + + + + | Component | Value | Ref Range | Performed | Pathologist | | | | | At | Signature | + + + + + + | Glucose, | 157 (H)Comment: Testing | 65 - 99 mg/dL | EXTERNAL | | | Fingerstick | performed at [facility] [place];[address] | | LAB | | | | [address];[place] | | | | | | [id number] | | | | + + + + + + + + | Specimen | + + | | + + + +---------+ + + | Performing | Address | City/State/Zipcode | Phone Number | | Organization | | | | + +---------+ + + | EXTERNAL LAB | | | | + +---------+ + + POC Glucose (04/28/2017 11:31 AM PST) + + + + + + | Component | Value | Ref Range | Performed | Pathologist | | | | | At | Signature | + + + + + + | Glucose, | 181 (H)Comment: Testing | 65 - 99 mg/dL | EXTERNAL | | | Fingerstick | performed at [facility];[address] | | LAB | | | [address];[place], [place] | | | | | | [address] | | | | + + + + + + + + | Specimen | + + | | + + + +---------+ + + | Performing | Address | City/State/Zipcode | Phone Number | | Organization | | | | + +---------+ + + | EXTERNAL LAB | | | | + +---------+ + + Noemí MENDIOLA (04/28/2017 7:31 AM PST) + + + + + + | Component | Value | Ref Range | Performed | Pathologist | | | | | At | Signature | + + + + + + | INR | 1.1Comment: REFERENCE | | EXTERNAL | | | [...] | | | | | performed at [facility] | | | | | | [address];[place], [place] | | | | | | [address] | | | | + + + + + + + + | Specimen | + + | Blood specimen | | (specimen) | + + + +---------+ + + | Performing | Address | City/State/Zipcode | Phone Number | | Organization | | | | + +---------+ + + | EXTERNAL LAB | | | | + +---------+ + + POC Glucose (04/28/2017 5:09 AM PST) + + + + + + | Component | Value | Ref Range | Performed | Pathologist | | | | | At | Signature | + + + + + + | Glucose, | 177 (H)Comment: Testing | 65 - 99 mg/dL | EXTERNAL | | | Fingerstick | performed at [facility];[address] | | LAB | | | | [address];[place] | | | | | | [address] | | | | + + + + + + + + | Specimen | + + | | + + + +---------+ + + | Performing | Address | City/State/Zipcode | Phone Number | | Organization | | | | + +---------+ + + | EXTERNAL LAB | | | | + +---------+ + + External Lab: CBC (04/28/2017 4:12 AM PST) + + + + + + | Component | Value | Ref Range | Performed | Pathologist | | | | | At | Signature | + + + + + + | WBC | 12.10 (H) | 3.80 - 11.00 | EXTERNAL | | | | | K/uL | LAB | | + + + + + + | Non- | 3.76 (L) | 4.20 - 5.70 | EXTERNAL | | | Red Blood | | M/uL | LAB | | | Cells | | | | | | Counted | | | | | + + + + + + | Hemoglobin | 11.9 (L) | 13.2 - 17.0 | EXTERNAL | | | | | g/dL | LAB | | + + + + + + | Hematocrit, | 34.2 (L) | 39.0 - 50.0 % | EXTERNAL | | | POC | | | LAB | | + + + + + + | MCV | 90.9 | 80.0 - 100.0 fl | EXTERNAL | | | | | | LAB | | + + + + + + | MCH | 31.7 | 27.0 - 34.0 pg | EXTERNAL | | | | | | LAB | | + + + + + + | MCHC | 34.8 | 32.0 - 35.5 | EXTERNAL | | | | | g/dL | LAB | | + + + + + + | RDW-CV | 49.4 | 37 - 53 fl | EXTERNAL | | | | | | LAB | | + + + + + + | Platelet | 89 (L) | 150 - 400 K/uL | EXTERNAL [...] + + + | % Segmented | 83.29 | % | EXTERNAL | | | | | | LAB | | | Neutrophils | | | | | + + + + + + | % | 6.62 | % | EXTERNAL | | | Lymphocytes | | | LAB | | + + + + + + | % Monocytes | 9.43 | % | EXTERNAL | | | | | | LAB | | + + + + + + | % | 0.55 | % | EXTERNAL | | | Eosinophils | | | LAB | | + + + + + + | % Basophils | 0.11 | % | EXTERNAL | | | | | | LAB | | + + + + + + | Absolute | 10.07 (H) | 1.90 - 7.40 | EXTERNAL | | | Segmented | | K/uL | LAB | | | Neutrophils | | | | | + + + + + + | Absolute | 0.80 (L) | 1.00 - 3.90 | EXTERNAL | | | Lymphocytes | | K/uL | LAB | | + + + + + + | Absolute | 1.14 (H) | 0.00 - 0.80 | EXTERNAL | | | Monocytes | | K/uL | LAB | | + + + + + + | Absolute | 0.07 | 0.00 - 0.50 | EXTERNAL | | | Eosinophils | | K/uL | LAB | | + + + + + + | Absolute | 0.01Comment: Testing | 0.00 - 0.10 | EXTERNAL | | | Basophils | performed at [facility], [address] | K/uL | LAB | | | | [address], | | | | | | [place] [address] | | | | + + + + + + + + | Specimen | + + | Blood specimen | | (specimen) | + + + +---------+ + + | Performing | Address | City/State/Zipcode | Phone Number | | Organization | | | | + +---------+ + + | EXTERNAL LAB | | | | + +---------+ + + Magnesium (04/28/2017 4:12 AM PST) + + + + + + | Component | Value | Ref Range | Performed | Pathologist | | | | | At | Signature | + + + + + + | Magnesium | 2.5 (H)Comment: Testing | 1.7 - 2.4 mg/dL | EXTERNAL | | | | performed at [facility], [address] | | LAB | | | | [address], | | | | | | [place] [address] | | | | + + + [...] + +---------+ + + Basic Metabolic Panel (04/28/2017 4:12 AM PST) + + + + + + | Component | Value | Ref Range | Performed | Pathologist | | | | | At | Signature | + + + + + + | Na | 137 | 135 - 145 | EXTERNAL | | | | | mmol/L | LAB | | + + + + + + | K | 4.5 | 3.5 - 4.9 | EXTERNAL | | | | | mmol/L | LAB | | + + + + + + | Cl | 104 | 99 - 109 mmol/L | EXTERNAL | | | | | | LAB | | + + + + + + | CO2 | 27 | 23 - 32 mmol/L | EXTERNAL | | | | | | LAB | | + + + + + + | Anion Gap | 11 | 5 - 20 mmol/L | EXTERNAL | | | | | | LAB | | + + + + + + | Glucose, | 164 (H) | 65 - 99 mg/dL | EXTERNAL | | | Fasting | | | LAB | | + + + + + + | BUN | 24 | 8 - 25 mg/dL | EXTERNAL | | | | | | LAB | | + + + + + + | Creatinine | 1.1 | 0.70 - 1.30 | EXTERNAL | | | | | mg/dL | LAB | | + + + + + + | BUN/Creatin | 22 | | EXTERNAL | | | ine Ratio | | | LAB | | + + + + + + | Calcium | 8.2 (L) | 8.5 - 10.5 | EXTERNAL | [...] | | | | | | at [facility], [address] | | | | | | [address], | | | | | | [place] [address] | | | | + + + + + + + + | Specimen | + + | Blood specimen | | (specimen) | + + + +---------+ + + | Performing | Address | City/State/Zipcode | Phone Number | | Organization | | | | + +---------+ + + | EXTERNAL LAB | | | | + +---------+ + + POC Glucose (04/27/2017 9:04 PM PST) + + + + + + | Component | Value | Ref Range | Performed | Pathologist | | | | | At | Signature | + + + + + + | Glucose, | 196 (H)Comment: Testing | 65 - 99 mg/dL | EXTERNAL | | | Fingerstick | performed at [facility];[address] | | LAB | | | | [address];[place], [place] | | | | | | [address] | | | | + + + + + + + + | Specimen | + + | | + + + +---------+ + + | Performing | Address | City/State/Zipcode | Phone Number | | Organization | | | | + +---------+ + + | EXTERNAL LAB | | | | + +---------+ + + POC Glucose (04/27/2017 6:08 PM PST) + + + + + + | Component | Value | Ref Range | Performed | Pathologist | | | | | At | Signature | + + + + + + | Glucose, | 174 (H)Comment: Testing | 65 - 99 mg/dL | EXTERNAL | | | Fingerstick | performed at [facility];[address] | | LAB | | | | [address];[place] | | | | | | [address] | | | | + + + + + + + + | Specimen | + + | | + + + +---------+ + + | Performing | Address | City/State/Zipcode | Phone Number | | Organization | | | | + +---------+ + + | EXTERNAL LAB | | | | + +---------+ + + POC Glucose (04/27/2017 4:58 PM PST) + + + + + + | Component | Value | Ref Range | Performed | Pathologist | | | | | At | Signature | + + + + + + | Glucose, | 120 (H)Comment: Testing | 65 - 99 mg/dL | EXTERNAL | | | Fingerstick | performed at [facility];[address] | | LAB | | | | [address];[place] | | | | | | [address] | | | | + + + + + + + + | Specimen | + + | | + + + +---------+ + + | Performing | Address | City/State/Zipcode | Phone Number | | Organization | | | | + +---------+ + + | EXTERNAL LAB | | | | + +---------+ + + POC Glucose (04/27/2017 3:42 PM PST) + + + + + + | Component | Value | Ref Range | Performed | Pathologist | | | | | At | Signature | + + + + + + | Glucose, | 139 (H)Comment: Testing | 65 - 99 mg/dL | EXTERNAL | | | Fingerstick | performed at [facility];[address] | | LAB | | | | [address];[place] | | | | | | [address] | | | | + + + + + + + + | Specimen | + + | | + + + +---------+ + + | Performing | Address | City/State/Zipcode | Phone Number | | Organization | | | | + +---------+ + + | EXTERNAL LAB | | | | + +---------+ + + POC Glucose (04/27/2017 2:36 PM PST) + + + + + + | Component | Value | Ref Range | Performed | Pathologist | | | | | At | Signature | + + + + + + | Glucose, | 145 (H)Comment: Testing | 65 - 99 mg/dL | EXTERNAL | | | Fingerstick | performed at [facility];[address] | | LAB | | | | [address];[place], [place] | | | | | | [address] | | | | + + + + + + + + | Specimen | + + | | + + + +---------+ + + | Performing | Address | City/State/Zipcode | Phone Number | | Organization | | | | + +---------+ + + | EXTERNAL LAB | | | | + +---------+ + + POC Glucose (04/27/2017 1:31 PM PST) + + + + + + | Component | Value | Ref Range | Performed | Pathologist | | | | | At | Signature | + + + + + + | Glucose, | 179 (H)Comment: Testing | 65 - 99 mg/dL | EXTERNAL | | | Fingerstick | performed at [facility];[address] | | LAB | | | | [address];[place] | | | | | | [address] | | | | + + + + + + + + | Specimen | + + | | + + + +---------+ + + | Performing | Address | City/State/Zipcode | Phone Number | | Organization | | | | + +---------+ + + | EXTERNAL LAB | | | | + +---------+ + + POC Glucose (04/27/2017 12:29 PM PST) + + + + + + | Component | Value | Ref Range | Performed | Pathologist | | | | | At | Signature | + + + + + + | Glucose, | 153 (H)Comment: Testing | 65 - 99 mg/dL | EXTERNAL | | | Fingerstick | performed at [facility];[address] | | LAB | | | | [address];[place], [place] | | | | | | [address] | | | | + + + + + + + + | Specimen | + + | | + + + +---------+ + + | Performing | Address | City/State/Zipcode | Phone Number | | Organization | | | | + +---------+ + + | EXTERNAL LAB | | | | + +---------+ + + POC Glucose (04/27/2017 10:24 AM PST) + + + + + + | Component | Value | Ref Range | Performed | Pathologist | | | | | At | Signature | + + + + + + | Glucose, | 117 (H)Comment: Testing | 65 - 99 mg/dL | EXTERNAL | | | Fingerstick | performed at [facility];[address] | | LAB | | | | [address];[place] | | | | | | [address] | | | | + + + + + + + + | Specimen | + + | | + + + +---------+ + + | Performing | Address | City/State/Zipcode | Phone Number | | Organization | | | | + +---------+ + + | EXTERNAL LAB | | | | + +---------+ + + Potassium (04/27/2017 8:46 AM PST) + + + + + + | Component | Value | Ref Range | Performed | Pathologist | | | | | At | Signature | + + + + + + | K | 4.5Comment: Testing | 3.5 - 4.9 | EXTERNAL | | | | performed at [facility];[address] | mmol/L | LAB | | | | [address];[place] | | | | | | [address] | | | | + + + + + + + + | Specimen | + + | Blood specimen | | (specimen) | + + + +---------+ + + | Performing | Address | City/State/Zipcode | Phone Number | | Organization | | | | + +---------+ + + | EXTERNAL LAB | | | | + +---------+ + + Magnesium (04/27/2017 8:46 AM PST) + + + + + + | Component | Value | Ref Range | Performed | Pathologist | | | | | At | Signature | + + + + + + | Magnesium | 2.4Comment: Testing | 1.7 - 2.4 mg/dL | EXTERNAL | | | | performed at [facility];[address] | | LAB | | | | [address] [facility];[place], [place] | | | | | | [address] | | | | + + + + + + + + | Specimen | + + | Blood specimen | | (specimen) | + + + +---------+ + + | Performing | Address | City/State/Zipcode | Phone Number | | Organization | | | | + +---------+ + + | EXTERNAL LAB | | | | + +---------+ + + POC Glucose (04/27/2017 7:55 AM PST) + + + + + + | Component | Value | Ref Range | Performed | Pathologist | | | | | At | Signature | + + + + + + | Glucose, | 133 (H)Comment: Testing | 65 - 99 mg/dL | EXTERNAL | | | Fingerstick | performed at [facility];[address] | | LAB | | | | [address];[place] | | | | | | [address] | | | | + + + + + + + + | Specimen | + + | | + + + +---------+ + + | Performing | Address | City/State/Zipcode | Phone Number | | Organization | | | | + +---------+ + + | EXTERNAL LAB | | | | + +---------+ + + POC Glucose (04/27/2017 6:44 AM PST) + + + + + + | Component | Value | Ref Range | Performed | Pathologist | | | | | At | Signature | + + + + + + | Glucose, | 140 (H)Comment: Testing | 65 - 99 mg/dL | EXTERNAL | | | Fingerstick | performed at [facility];[address] | | LAB | | | | [address];[place], [place] | | | | | | [address] | | | | + + + + + + + + | Specimen | + + | | + + + +---------+ + + | Performing | Address | City/State/Zipcode | Phone Number | | Organization | | | | + +---------+ + + | EXTERNAL LAB | | | | + +---------+ + + XR Chest 1 Vw (04/27/2017 5:48 AM PST) + + | Specimen | + + | | + + + + + | Impressions | Performed At | + + + | 1. Removal ET tube and NG tube, with otherwise unchanged tubes | | | and. 2. No pneumothorax. 3. Bilateral atelectasis, without | | | pneumothorax. Electronically signed by Gallito Samano MD on | | | 04/27/2017 6:57 AM | | + + + + + + | Narrative | Performed At | + + + | HISTORY: Evaluate tubes and lines. COMPARISON: 04/26/17. | | | TECHNIQUE: AP portable film of the chest at 0506 hours FINDINGS: | | | Heart size upper normal post median sternotomy with aortic valve | | | replacement. Removal ET tube and NG tube with unchanged right IJ | | | sheath and midline mediastinal drain. No pneumothorax. Mild bilateral | | | perihilar and left basilar atelectasis. | | + + + + + | Procedure Note | + + | Jamseon Pop - 11/20/2018 3:41 AM PDT HISTORY:Evaluate tubes and lines. | | COMPARISON:04/26/17. TECHNIQUE:AP portable film of the chest at 0506 hours | | FINDINGS:Heart size upper normal post median sternotomy with aortic valve replacement. | | Removal ET tube and NG tube with unchanged right IJ sheath and midline mediastinal | | drain. No pneumothorax. Mild bilateral perihilar and left basilar atelectasis. | | IMPRESSION: 1. Removal ET tube and NG tube, with otherwise unchanged tubes and.2. No | | pneumothorax.3. Bilateral atelectasis, without pneumothorax. | | | |FINDINGS: | |Heart size upper normal post median sternotomy with aortic valve replacement. Removal ET tu be and NG tube with unchanged right IJ sheath and midline mediastinal drain. No pneumothorax . Mild bilateral perihilar and left basilar atelectasis. | | | |IMPRESSION: | |1. Removal ET tube and NG tube, with otherwise unchanged tubes and. | |2. No pneumothorax. | |3. Bilateral atelectasis, without pneumothorax. | | | | | + + POC Glucose (04/27/2017 5:40 AM PST) + + + + + + | Component | Value | Ref Range | Performed | Pathologist | | | | | At | Signature | + + + + + + | Glucose, | 136 (H)Comment: Testing | 65 - 99 mg/dL | EXTERNAL | | | Fingerstick | performed at [facility];[address] | | LAB | | | | [address];[place] | | | | | | [address] | | | | + + + + + + + + | Specimen | + + | | + + + +---------+ + + | Performing | Address | City/State/Zipcode | Phone Number | | Organization | | | | + +---------+ + + | EXTERNAL LAB | | | | + +---------+ + + POC Glucose (04/27/2017 4:34 AM PST) + + + + + + | Component | Value | Ref Range | Performed | Pathologist | | | | | At | Signature | + + + + + + | Glucose, | 141 (H)Comment: Testing | 65 - 99 mg/dL | EXTERNAL | | | Fingerstick | performed at [facility];[address] | | LAB | | | | [address];[place], [place] | | | | | | [address] | | | | + + + + + + + + | Specimen | + + | | + + + +---------+ + + | Performing | Address | City/State/Zipcode | Phone Number | | Organization | | | | + +---------+ + + | EXTERNAL LAB | | | | + +---------+ + + POC Glucose (04/27/2017 3:27 AM PST) + + + + + + | Component | Value | Ref Range | Performed | Pathologist | | | | | At | Signature | + + + + + + | Glucose, | 153 (H)Comment: Testing | 65 - 99 mg/dL | EXTERNAL | | | Fingerstick | performed at [facility];[address] | | LAB | | | | [address];[place], [place] | | | | | | [address] | | | | + + + + + + + + | Specimen | + + | | + + + +---------+ + + | Performing | Address | City/State/Zipcode | Phone Number | | Organization | | | | + +---------+ + + | EXTERNAL LAB | | | | + +---------+ + + External Lab: CBC (04/27/2017 3:24 AM PST) + + + + + + | Component | Value | Ref Range | Performed | Pathologist | | | | | At | Signature | + + + + + + | WBC | 13.24 (H) | 3.80 - 11.00 | EXTERNAL | | | | | K/uL | LAB | | + + + + + + | Non- | 3.80 (L) | 4.20 - 5.70 | EXTERNAL | | | Red Blood | | M/uL | LAB | | | Cells | | | | | | Counted | | | | | + + + + + + | Hemoglobin | 11.9 (L) | 13.2 - 17.0 | EXTERNAL | | | | | g/dL | LAB | | + + + + + + | Hematocrit, | 34.5 (L) | 39.0 - 50.0 % | EXTERNAL | | | POC | | | LAB | | + + + + + + | MCV | 90.9 | 80.0 - 100.0 fl | EXTERNAL | | | | | | LAB | | + + + + + + | MCH | 31.4 | 27.0 - 34.0 pg | EXTERNAL | | | | | | LAB | | + + + + + + | MCHC | 34.5 | 32.0 - 35.5 | EXTERNAL | | | | | g/dL | LAB | | + + + + + + | RDW-CV | 47.3 | 37 - 53 fl | EXTERNAL | | | | | | LAB | | + + + + + + | Platelet | 108 (L) | 150 - 400 K/uL | EXTERNAL | | | Count | | | LAB | | | Plasma | | | | | + + + + + + | MPV | 9.3 | fl | EXTERNAL | | | | | | LAB | | + + + + + + | Differentia | MANUAL | | EXTERNAL | | | l Type | | | LAB | | + + + + + + | Segmented | 69 | % | EXTERNAL | | | Neutrophils | | | LAB | | | Manual | | | | | + + + + + + | % Bands | 18 | % | EXTERNAL | | | | | | LAB | | + + + + + + | Lymphocytes | 8 | % | EXTERNAL | | | Manual | | | LAB | | + + + + + + | Monocytes | 5 | % | EXTERNAL | | | Manual | | | LAB | | + + + + + + | Absolute | 9.14 (H) | 1.90 - 7.40 | EXTERNAL | | | Neutrophils | | K/uL | LAB | | + + + + + + | Bands | 2.38 (H) | 0.00 - 0.20 | EXTERNAL | | | Manual | | K/uL | LAB | | + + + + + + | Absolute | 1.06 | 1.00 - 3.90 | EXTERNAL | | | Lymphocytes | | K/uL | LAB | | + + + + + + | Absolute | 0.66 | 0.00 - 0.80 | EXTERNAL | | | Monocytes | | K/uL | LAB | | + + + + + + | RBC | RBC AND PLT MORPHOLOGY | | EXTERNAL | | | Morphology | APPEAR NORMALComment: | | LAB | | | | Testing performed at | | | | | | [facility], [address] [facility] | | | | | | [place] | | | | | | [address] | | | | + + + + + + + + | Specimen | + + | Blood specimen | | (specimen) | + + + +---------+ + + | Performing | Address | City/State/Zipcode | Phone Number | | Organization | | | | + +---------+ + + | EXTERNAL LAB | | | | + +---------+ + + Magnesium (04/27/2017 3:24 AM PST) + + + + + + | Component | Value | Ref Range | Performed | Pathologist | | | | | At | Signature | + + + + + + | Magnesium | 1.8Comment: Testing | 1.7 - 2.4 mg/dL | EXTERNAL | | | | performed at [facility], [address] | | LAB | | | | [address], | | | | | | [place] [address] | | | | + + + + + + + + | Specimen | + + | Blood specimen | | (specimen) | + + + +---------+ + + | Performing | Address | City/State/Zipcode | Phone Number | | Organization | | | | + +---------+ + + | EXTERNAL LAB | | | | + +---------+ + + Hemoglobin A1C (04/27/2017 3:24 AM PST) + + + + + + | Component | Value | Ref Range | Performed | Pathologist | | | | | At | Signature | + + + + + + | Hemoglobin | 8.0 (H)Comment: The | 4.0 - 6.0 % | EXTERNAL | | | A1c | [employer] | | LAB | | | | Association considers a | | | | | | hemoglobin A1c result of | | | | | | <7.0% to be the goal of | | | | | | diabetic therapy. | | | | | | When results are | | | | | | consistently >8.0%, the | | | | | | ADA suggests | | | | | | reevaluation of the | | | | | | treatment regimen. The | | | | | | testing method used is | | | | | | certified traceable to | | | | | | the Diabetes Control and | | | | | | Complications Trial | | | | | | reference method. | | | | + + + + + + | Glycohemogl | 183Comment: The ADA | mg/dL | EXTERNAL | | | obin | considers an eAG result | | LAB | | | (GHb),Total | of LT 154 mg/dL to be | | | | | | the goal of diabetic | | | | | | therapy. Estimated | | | | | | Average Glucose | | | | | | calculated from | | | | | | hemoglobin A1c by use of | | | | | | the ADA recommended | | | | | | formula.Testing | | | | | | performed at [facility], [address] | | | | | | [facility], | | | | | | [place] [address] | | | | + + + [...] + +---------+ + + Basic Metabolic Panel (04/27/2017 3:24 AM PST) + + + + + + | Component | Value | Ref Range | Performed | Pathologist | | | | | At | Signature | + + + + + + | Na | 139 | 135 - 145 | EXTERNAL | | | | | mmol/L | LAB | | + + + + + + | K | 4.5 | 3.5 - 4.9 | EXTERNAL | | | | | mmol/L | LAB | | + + + + + + | Cl | 108 | 99 - 109 mmol/L | EXTERNAL | | | | | | LAB | | + + + + + + | CO2 | 22 (L) | 23 - 32 mmol/L | EXTERNAL | | | | | | LAB | | + + + + + + | Anion Gap | 14 | 5 - 20 mmol/L | EXTERNAL | | | | | | LAB | | + + + + + + | Glucose, | 150 (H) | 65 - 99 mg/dL | [...] + + + + | Calcium | 7.8 (L) | 8.5 - 10.5 | EXTERNAL | [...] | | | | | | at [facility], [address] | | | | | | [facility], | | | | | | [place] [address] | | | | + + + + + + + + | Specimen | + + | Blood specimen | | (specimen) | + + + +---------+ + + | Performing | Address | City/State/Zipcode | Phone Number | | Organization | | | | + +---------+ + + | EXTERNAL LAB | | | | + +---------+ + + POC Glucose (04/27/2017 2:18 AM PST) + + + + + + | Component | Value | Ref Range | Performed | Pathologist | | | | | At | Signature | + + + + + + | Glucose, | 157 (H)Comment: Testing | 65 - 99 mg/dL | EXTERNAL | | | Fingerstick | performed at [facility];[address] | | LAB | | | | [address];[place], [place] | | | | | | [address] | | | | + + + + + + + + | Specimen | + + | | + + + +---------+ + + | Performing | Address | City/State/Zipcode | Phone Number | | Organization | | | | + +---------+ + + | EXTERNAL LAB | | | | + +---------+ + + POC Glucose (04/27/2017 1:06 AM PST) + + + + + + | Component | Value | Ref Range | Performed | Pathologist | | | | | At | Signature | + + + + + + | Glucose, | 152 (H)Comment: Testing | 65 - 99 mg/dL | EXTERNAL | | | Fingerstick | performed at [facility];[address] | | LAB | | | [address];[place], [place] | | | | | | [address] | | | | + + + + + + + + | Specimen | + + | | + + + +---------+ + + | Performing | Address | City/State/Zipcode | Phone Number | | Organization | | | | + +---------+ + + | EXTERNAL LAB | | | | + +---------+ + + Tissue Request For Pathology (04/27/2017 12:00 AM PST) + + | Specimen | + + | Soft tissue sample | | (specimen) | + + + + + | Narrative | Performed At | + + + | SPECIMEN(S): A AORTIC VALVE SPECIMEN SOURCE: A. AORTIC VALVE | EXTERNAL LAB | | CLINICAL HISTORY: 04/26/2017 at 0933 H. Aortic valve stenosis. FINAL | | | PATHOLOGIC DIAGNOSIS: Aortic valve tissue: - Benign valvular | | | tissue with dystrophic calcification, consistent with provided | | | clinical history of aortic valve stenosis. AMB:emb:C2NR GROSS | | | DESCRIPTION: One specimen is received in one container, labeled with | | | the patient's name: A. Received in formalin designated "aortic | | | valve tissue", consists three valve leaflets that have a free edge | | | length of 2.3 cm, 2.7 cm, 2.2 cm, and a free edge to resection margin | | | distance of 1.0 cm, 1.5 cm, and 1.4 cm respectively. These cusps | | | are yellow-maldonado and rubbery with areas of calcification. No vegetations | | | are grossly identified. Separate within the container is 2.6 x 1.1 x | | | 0.7 cm aggregate of yellow-maldonado rubbery and focally calcified tissue | | | fragments. Health Care Attorney sections are submitted in cassette A1. | | | (Cassette A1 is placed into decal prior to processing.) FM The | | | gross description section of this report has been prepared using a | | | voice recognition system. The report was reviewed for accuracy, | | | however, sound-alike word errors, addition and/or deletions may | | | occur. If there is any question about this report please contact the | | | originating pathologist. MICROSCOPIC EXAMINATION: Histologic | | | sections of all submitted blocks are examined by light microscopy. | | | These findings, together with the gross examination, support the | | | pathologic diagnosis. PERFORMING LABORATORY: Professional | | | interpretation and technical preparation was performed by [facility] | | | [facility], [address], | | | [place] [id number] (Membership Secretary: Phil Tena M.D.; CLIA#: | | | [id number]). Diagnostician: Cherise Arce MD Pathologist | | | Electronically Signed 04/30/2017 | | + + + + +---------+ + + | Performing | Address | City/State/Zipcode | Phone Number | | Organization | | | | + +---------+ + + | EXTERNAL LAB | | | | + +---------+ + + POC Glucose (04/26/2017 11:59 PM PST) + + + + + + | Component | Value | Ref Range | Performed | Pathologist | | | | | At | Signature | + + + + + + | Glucose, | 147 (H)Comment: Testing | 65 - 99 mg/dL | EXTERNAL | | | Fingerstick | performed at [facility];[address] | | LAB | | | [address];[place], [place] | | | | | | [address] | | | | + + + + + + + + | Specimen | + + | | + + + +---------+ + + | Performing | Address | City/State/Zipcode | Phone Number | | Organization | | | | + +---------+ + + | EXTERNAL LAB | | | | + +---------+ + + POC Glucose (04/26/2017 11:14 PM PST) + + + + + + | Component | Value | Ref Range | Performed | Pathologist | | | | | At | Signature | + + + + + + | Glucose, | 150 (H)Comment: Testing | 65 - 99 mg/dL | EXTERNAL | | | Fingerstick | performed at [facility];[address] | | LAB | | | | [address];[place] | | | | | | [address] | | | | + + + + + + + + | Specimen | + + | | + + + +---------+ + + | Performing | Address | City/State/Zipcode | Phone Number | | Organization | | | | + +---------+ + + | EXTERNAL LAB | | | | + +---------+ + + POC Glucose (04/26/2017 10:06 PM PST) + + + + + + | Component | Value | Ref Range | Performed | Pathologist | | | | | At | Signature | + + + + + + | Glucose, | 150 (H)Comment: Testing | 65 - 99 mg/dL | EXTERNAL | | | Fingerstick | performed at [facility];[address] | | LAB | | | | [address];[place] | | | | | | [address] | | | | + + + + + + + + | Specimen | + + | | + + + +---------+ + + | Performing | Address | City/State/Zipcode | Phone Number | | Organization | | | | + +---------+ + + | EXTERNAL LAB | | | | + +---------+ + + POC Glucose (04/26/2017 8:41 PM PST) + + + + + + | Component | Value | Ref Range | Performed | Pathologist | | | | | At | Signature | + + + + + + | Glucose, | 161 (H)Comment: Testing | 65 - 99 mg/dL | EXTERNAL | | | Fingerstick | performed at [facility];[address] | | LAB | | | [address];[place], [place] | | | | | | [address] | | | | + + + + + + + + | Specimen | + + | | + + + +---------+ + + | Performing | Address | City/State/Zipcode | Phone Number | | Organization | | | | + +---------+ + + | EXTERNAL LAB | | | | + +---------+ + + POC Glucose (04/26/2017 7:34 PM PST) + + + + + + | Component | Value | Ref Range | Performed | Pathologist | | | | | At | Signature | + + + + + + | Glucose, | 158 (H)Comment: Testing | 65 - 99 mg/dL | EXTERNAL | | | Fingerstick | performed at [facility];[address] | | LAB | | | | [address];[place] | | | | | | [address] | | | | + + + + + + + + | Specimen | + + | | + + + +---------+ + + | Performing | Address | City/State/Zipcode | Phone Number | | Organization | | | | + +---------+ + + | EXTERNAL LAB | | | | + +---------+ + + Potassium (04/26/2017 7:34 PM PST) + + + + + + | Component | Value | Ref Range | Performed | Pathologist | | | | | At | Signature | + + + + + + | K | 4.5Comment: Testing | 3.5 - 4.9 | EXTERNAL | | | | performed at [facility];[address] | mmol/L | LAB | | | | [address];[place], [place] | | | | | | [address] | | | | + + + + + + + + | Specimen | + + | Blood specimen | | (specimen) | + + + +---------+ + + | Performing | Address | City/State/Zipcode | Phone Number | | Organization | | | | + +---------+ + + | EXTERNAL LAB | | | | + +---------+ + + POC Glucose (04/26/2017 6:28 PM PST) + + + + + + | Component | Value | Ref Range | Performed | Pathologist | | | | | At | Signature | + + + + + + | Glucose, | 153 (H)Comment: Testing | 65 - 99 mg/dL | EXTERNAL | | | Fingerstick | performed at [facility];[address] | | LAB | | | | [address];[place] | | | | | | [address] | | | | + + + + + + + + | Specimen | + + | | + + + +---------+ + + | Performing | Address | City/State/Zipcode | Phone Number | | Organization | | | | + +---------+ + + | EXTERNAL LAB | | | | + +---------+ + + POC Glucose (04/26/2017 5:22 PM PST) + + + + + + | Component | Value | Ref Range | Performed | Pathologist | | | | | At | Signature | + + + + + + | Glucose, | 141 (H)Comment: Testing | 65 - 99 mg/dL | EXTERNAL | | | Fingerstick | performed at [facility];[address] | | LAB | | | [address];[place], [place] | | | | | | [address] | | | | + + + + + + + + | Specimen | + + | | + + + +---------+ + + | Performing | Address | City/State/Zipcode | Phone Number | | Organization | | | | + +---------+ + + | EXTERNAL LAB | | | | + +---------+ + + POC Glucose (04/26/2017 4:17 PM PST) + + + + + + | Component | Value | Ref Range | Performed | Pathologist | | | | | At | Signature | + + + + + + | Glucose, | 158 (H)Comment: Testing | 65 - 99 mg/dL | EXTERNAL | | | Fingerstick | performed at [facility];[address] | | LAB | | | | [address];[place] | | | | | | [address] | | | | + + + + + + + + | Specimen | + + | | + + + +---------+ + + | Performing | Address | City/State/Zipcode | Phone Number | | Organization | | | | + +---------+ + + | EXTERNAL LAB | | | | + +---------+ + + Potassium (04/26/2017 3:14 PM PST) + + + + + + | Component | Value | Ref Range | Performed | Pathologist | | | | | At | Signature | + + + + + + | K | 4.0Comment: Testing | 3.5 - 4.9 | EXTERNAL | | | | performed at [facility];[address] | mmol/L | LAB | | | | [address];[place], [place] | | | | | | [address] | | | | + + + + + + + + | Specimen | + + | Blood specimen | | (specimen) | + + + +---------+ + + | Performing | Address | City/State/Zipcode | Phone Number | | Organization | | | | + +---------+ + + | EXTERNAL LAB | | | | + +---------+ + + POC Glucose (04/26/2017 3:13 PM PST) + + + + + + | Component | Value | Ref Range | Performed | Pathologist | | | | | At | Signature | + + + + + + | Glucose, | 140 (H)Comment: Testing | 65 - 99 mg/dL | EXTERNAL | | | Fingerstick | performed at [facility] | | LAB | | | | [address];[place] | | | | | | [address] | | | | + + + + + + + + | Specimen | + + | | + + + +---------+ + + | Performing | Address | City/State/Zipcode | Phone Number | | Organization | | | | + +---------+ + + | EXTERNAL LAB | | | | + +---------+ + + POC Glucose (04/26/2017 2:12 PM PST) + + + + + + | Component | Value | Ref Range | Performed | Pathologist | | | | | At | Signature | + + + + + + | Glucose, | 140 (H)Comment: Testing | 65 - 99 mg/dL | EXTERNAL | | | Fingerstick | performed at [facility];[address] | | LAB | | | | [address];[place], [place] | | | | | | [address] | | | | + + + + + + + + | Specimen | + + | | + + + +---------+ + + | Performing | Address | City/State/Zipcode | Phone Number | | Organization | | | | + +---------+ + + | EXTERNAL LAB | | | | + +---------+ + + POC Glucose (04/26/2017 1:08 PM PST) + + + + + + | Component | Value | Ref Range | Performed | Pathologist | | | | | At | Signature | + + + + + + | Glucose, | 170 (H)Comment: Testing | 65 - 99 mg/dL | EXTERNAL | | | Fingerstick | performed at [facility];[address] | | LAB | | | | [address];[place] | | | | | | [address] | | | | + + + + + + + + | Specimen | + + | | + + + +---------+ + + | Performing | Address | City/State/Zipcode | Phone Number | | Organization | | | | + +---------+ + + | EXTERNAL LAB | | | | + +---------+ + + PTT (04/26/2017 11:52 AM PST) + + + + + + | Component | Value | Ref Range | Performed | Pathologist | | | | | At | Signature | + + + + + + | aPTT, | 27Comment: Testing | 23 - 32 seconds | EXTERNAL | | | Patient | performed at [facility];[address] | | LAB | | | | [address];[place] | | | | | | [address] | | | | + + + + + + + + | Specimen | + + | Blood specimen | | (specimen) | + + + +---------+ + + | Performing | Address | City/State/Zipcode | Phone Number | | Organization | | | | + +---------+ + + | EXTERNAL LAB | | | | + +---------+ + + Protime INR (04/26/2017 11:52 AM PST) + + + + + + | Component | Value | Ref Range | Performed | Pathologist | | | | | At | Signature | + + + + + + | INR | 1.2Comment: REFERENCE | | EXTERNAL | | | [...] | | | | | performed at [facility] | | | | | | [facility];[place] | | | | | | [address] | | | | + + + + + + + + | Specimen | + + | Blood specimen | | (specimen) | + + + +---------+ + + | Performing | Address | City/State/Zipcode | Phone Number | | Organization | | | | + +---------+ + + | EXTERNAL LAB | | | | + +---------+ + + Fibrinogen (04/26/2017 11:52 AM PST) + + + + + + | Component | Value | Ref Range | Performed | Pathologist | | | | | At | Signature | + + + + + + | Fibrinogen | 213Comment: Testing | 200 - 450 mg/dL | EXTERNAL | | | | performed at [facility];[address] | | LAB | | | [address];[place], [place] | | | | | | [address] | | | | + + + [...] + +---------+ + + External Lab: CBC (04/26/2017 11:52 AM PST) + + + + + + | Component | Value | Ref Range | Performed | Pathologist | | | | | At | Signature | + + + + + + | WBC | 10.61 | 3.80 - 11.00 | EXTERNAL | | | | | K/uL | LAB | | + + + + + + | Non- | 3.85 (L) | 4.20 - 5.70 | EXTERNAL | | | Red Blood | | M/uL | LAB | | | Cells | | | | | | Counted | | | | | + + + + + + | Hemoglobin | 11.8 (L) | 13.2 - 17.0 | EXTERNAL | | | | | g/dL | LAB | | + + + + + + | Hematocrit, | 34.7 (L) | 39.0 - 50.0 % | EXTERNAL | | | POC | | | LAB | | + + + + + + | MCV | 90.0 | 80.0 - 100.0 fl | EXTERNAL | | | | | | LAB | | + + + + + + | MCH | 30.7 | 27.0 - 34.0 pg | EXTERNAL | | | | | | LAB | | + + + + + + | MCHC | 34.1 | 32.0 - 35.5 | EXTERNAL | | | | | g/dL | LAB | | + + + + + + | RDW-CV | 45.5 | 37 - 53 fl | EXTERNAL | | | | | | LAB | | + + + + + + | Platelet | 109 (L) | 150 - 400 K/uL | EXTERNAL | | | Count | | | LAB | | | Plasma | | | | | + + + + + + | MPV | 8.9 | fl | EXTERNAL | | | | | | LAB | | + + + + + + | Differentia | AUTOMATED | | EXTERNAL | | | l Type | | | LAB | | + + + + + + | % Segmented | 76.89 | % | EXTERNAL | | | | | | LAB | | | Neutrophils | | | | | + + + + + + | % | 16.97 | % | EXTERNAL | | | Lymphocytes | | | LAB | | + + + + + + | % Monocytes | 4.61 | % | EXTERNAL | | | | | | LAB | | + + + + + + | % | 1.15 | % | EXTERNAL | | | Eosinophils | | | LAB | | + + + + + + | % Basophils | 0.38 | % | EXTERNAL | | | | | | LAB | | + + + + + + | Absolute | 8.15 (H) | 1.90 - 7.40 | EXTERNAL | | | Segmented | | K/uL | LAB | | | Neutrophils | | | | | + + + + + + | Absolute | 1.80 | 1.00 - 3.90 | EXTERNAL | | | Lymphocytes | | K/uL | LAB | | + + + + + + | Absolute | 0.49 | 0.00 - 0.80 | EXTERNAL | | | Monocytes | | K/uL | LAB | | + + + + + + | Absolute | 0.12 | 0.00 - 0.50 | EXTERNAL | | | Eosinophils | | K/uL | LAB | | + + + + + + | Absolute | 0.04Comment: Testing | 0.00 - 0.10 | EXTERNAL | | | Basophils | performed at [facility];[address] | K/uL | LAB | | | | [address];[place], [place] | | | | | | [address] | | | | + + + + + + + + | Specimen | + + | Blood specimen | | (specimen) | + + + +---------+ + + | Performing | Address | City/State/Zipcode | Phone Number | | Organization | | | | + +---------+ + + | EXTERNAL LAB | | | | + +---------+ + + Magnesium (04/26/2017 11:52 AM PST) + + + + + + | Component | Value | Ref Range | Performed | Pathologist | | | | | At | Signature | + + + + + + | Magnesium | 2.4Comment: SLT | 1.7 - 2.4 mg/dL | EXTERNAL | | | | HEMOLYSISTesting | | LAB | | | | performed at [facility] | | | | | | [address];[place] | | | | | | [address] | | | | + + + + + + + + | Specimen | + + | Blood specimen | | (specimen) | + + + +---------+ + + | Performing | Address | City/State/Zipcode | Phone Number | | Organization | | | | + +---------+ + + | EXTERNAL LAB | | | | + +---------+ + + Calcium, Ionized (04/26/2017 11:52 AM PST) + + + + + + | Component | Value | Ref Range | Performed | Pathologist | | | | | At | Signature | + + + + + + | Calcium | 1.08 | 1.08 - 1.25 | EXTERNAL | | | (Calc) | | mmol/L | LAB | | + + + + + + | pH, Bld | 7.372Comment: Testing | 7.300 - 7.450 | EXTERNAL | | | | performed at [facility];[address] | | LAB | | | | [address];[place] | | | | | | [address] | | | | + + + [...] + +---------+ + + Basic Metabolic Panel (04/26/2017 11:52 AM PST) + + + + + + | Component | Value | Ref Range | Performed | Pathologist | | | | | At | Signature | + + + + + + | Na | 140 | 135 - 145 | EXTERNAL | | | | | mmol/L | LAB | | + + + + + + | K | 4.3Comment: SLT | 3.5 - 4.9 | EXTERNAL | | | | HEMOLYSIS | mmol/L | LAB | | + + + + + + | Cl | 108 | 99 - 109 mmol/L | EXTERNAL | | | | | | LAB | | + + + + + + | CO2 | 24 | 23 - 32 mmol/L | EXTERNAL | | | | | | LAB | | + + + + + + | Anion Gap | 12 | 5 - 20 mmol/L | EXTERNAL | | | | | | LAB | | + + + + + + | Glucose, | 195 (H) | 65 - 99 mg/dL | EXTERNAL | | | Fasting | | | LAB | | + + + + + + | BUN | 19 | 8 - 25 mg/dL | EXTERNAL [...] + + + + | Calcium | 7.6 (L) | 8.5 - 10.5 | EXTERNAL | [...] | | | | | | at [facility];[address] [place] [address] | | | | | | [facility];[place] [address] | | | | + + + + + + + + | Specimen | + + | Blood specimen | | (specimen) | + + + +---------+ + + | Performing | Address | City/State/Zipcode | Phone Number | | Organization | | | | + +---------+ + + | EXTERNAL LAB | | | | + +---------+ + + POC Glucose (04/26/2017 11:43 AM PST) + + + + + + | Component | Value | Ref Range | Performed | Pathologist | | | | | At | Signature | + + + + + + | Glucose, | 209 (H)Comment: Testing | 65 - 99 mg/dL | EXTERNAL | | | Fingerstick | performed at [facility];[address] | | LAB | | | | [address];[place], [place] | | | | | | [address] | | | | + + + + + + + + | Specimen | + + | | + + + +---------+ + + | Performing | Address | City/State/Zipcode | Phone Number | | Organization | | | | + +---------+ + + | EXTERNAL LAB | | | | + +---------+ + + XR Chest 1 Blaze (04/26/2017 11:40 AM PST) + + | Specimen | + + | | + + + + + | Impressions | Performed At | + + + | 1. Appropriate positioning of support tubes and lines. 2. There | | | is patchy bibasilar atelectasis. | | + + + + + + | Narrative | Performed At | + + + | SHANIA GANDHI 1945 72 years XR CHEST 1 VIEW 04/26/2017 | | | 11:40 AM INDICATION: Tube and line placement COMPARISON: | | | 04/18/2017 TECHNIQUE: Chest 1 view, AP view of the chest | | | FINDINGS: Median sternotomy wires are present. The patient is | | | intubated with endotracheal tube terminating 4.2 cm from the jeanette. | | | Right IJ introducer is in place. There is a nasogastric tube | | | terminating in the stomach. Mediastinal drain is present. There is | | | moderate cardiomegaly. Patchy atelectasis of the lower lung is noted. | | | | | + + + + + | Procedure Note | + + | Donn, Rad Conversion - 11/20/2018 3:41 AM PDT SHANIA Mccall [id number] yearsXR | | CHEST 1 VIEW04/26/2017 11:40 AM INDICATION: Tube and line placement COMPARISON: 04/18/2017 | | TECHNIQUE: Chest 1 view, AP view of the chest FINDINGS: Median sternotomy wires are | | present. The patient is intubated with endotracheal tube terminating 4.2 cm from the | | jeanette. Right IJ introducer is in place. There is a nasogastric tube terminating in the | | stomach. Mediastinal drain is present. There is moderate cardiomegaly. Patchy | | atelectasis of the lower lung is noted. IMPRESSION: 1. Appropriate positioning of | | support tubes and lines.2. There is patchy bibasilar atelectasis. | | | |TECHNIQUE: Chest 1 view, AP view of the chest | | | |FINDINGS: Median sternotomy wires are present. The patient is intubated with endotracheal tube terminating 4.2 cm from the jeanette. Right IJ introducer is in place. There is a nasogas tric tube terminating in the stomach. Mediastinal drain is present. | |There is moderate cardiomegaly. Patchy atelectasis of the lower lung is noted. | | | |IMPRESSION: | |1. Appropriate positioning of support tubes and lines. | |2. There is patchy bibasilar atelectasis. | | | | | + + ECG 12 lead (04/26/2017 11:36 AM PST) + + + + + + | Component | Value | Ref Range | Performed | Pathologist | | | | | At | Signature | + + + + + + | DIAGNOSIS: | Normal sinus | | EXTERNAL | | | | rhythmNormal ECGWhen | | LAB | | | | compared with ECG of | | | | | | 06-FEB-2017 11:20,No | | | | | | significant change was | | | | | | foundConfirmed by LENORE | | | | | | MEGHA ROGEL ([id number]) on | | | | | | 04/26/2017 6:24:36 PM | | | | + + + + + + + + | Specimen | + + | | + + + + + | Narrative | Performed At | + + + | [facility] | EXTERNAL LAB | + + + + +---------+ + + | Performing | Address | City/State/Zipcode | Phone Number | | Organization | | | | + +---------+ + + | EXTERNAL LAB | | | | + +---------+ + + POC CG 4, ISTAT Arterial (04/26/2017 10:52 AM PST) + + + + + + | Component | Value | Ref Range | Performed | Pathologist | | | | | At | Signature | + + + + + + | PH ART | 7.383 | 7.350 - 7.450 | EXTERNAL | | | | | | LAB | | + + + + + + | PCO2 ART | 43 | 35 - 45 mmHg | EXTERNAL | | | | | | LAB | | + + + + + + | PO2 ART | 311 (H) | 80 - 105 mmHg | EXTERNAL | | | | | | LAB | | + + + + + + | Lactate, | 2.43 (H) | 0.36 - 1.25 | EXTERNAL | | | Arterial | | mmol/L | LAB | | + + + + + + | HCO3 ART | 26 | 22 - 26 mmol/L | EXTERNAL | | | | | | LAB | | + + + + + + | POC | 27 | 23 - 27 mEq/L | EXTERNAL | | | APPEARANCE | | | LAB | | | UA | | | | | + + + + + + | Base | 1 | 0 - 3 mEq/L | EXTERNAL | | | Excess, | | | LAB | | | Arterial | | | | | + + + + + + | O2 SAT ART | 100 (H)Comment: Testing | 95 - 98 % | EXTERNAL | | | | performed at [facility];[address] | | LAB | | | | [address];[place] | | | | | | [address] | | | | + + + + + + + + | Specimen | + + | | + + + +---------+ + + | Performing | Address | City/State/Zipcode | Phone Number | | Organization | | | | + +---------+ + + | EXTERNAL LAB | | | | + +---------+ + + POC ISTAT, CG8, Arterial (04/26/2017 10:48 AM PST) + + + + + + | Component | Value | Ref Range | Performed | Pathologist | | | | | At | Signature | + + + + + + | PH ART | 7.369 | 7.350 - 7.450 | EXTERNAL | | | | | | LAB | | + + + + + + | PCO2 ART | 45 | 35 - 45 mmHg | EXTERNAL | | | | | | LAB | | + + + + + + | PO2 ART | 303 (H) | 80 - 105 mmHg | EXTERNAL | | | | | | LAB | | + + + + + + | HCO3 ART | 26 | 22 - 26 mmol/L | EXTERNAL | | | | | | LAB | | + + + + + + | POC | 27 | 23 - 27 mEq/L | EXTERNAL | | | APPEARANCE | | | LAB | | | UA | | | | | + + + + + + | Base | 1 | 0 - 3 mEq/L | EXTERNAL | | | Excess, | | | LAB | | | Arterial | | | | | + + + + + + | O2 SAT ART | 100 (H) | 95 - 98 % | EXTERNAL | | | | | | LAB | | + + + + + + | Sodium, POC | 137 | 135 - 145 mEq/L | EXTERNAL | | | | | | LAB | | + + + + + + | Potassium, | 4.9 | 3.5 - 5.0 mEq/L | EXTERNAL | | | POC | | | LAB | | + + + + + + | Ionized | 1.04 (L) | 1.12 - 1.32 | EXTERNAL | | | Calcium, | | mmol/L | LAB | | | POC | | | | | + + + + + + | Glucose, | 251 (H) | 65 - 99 mg/dL | EXTERNAL | | | POC | | | LAB | | + + + + + + | Hematocrit, | 26 (L) | 40.0 - 50.0 % | EXTERNAL | | | POC | | | LAB | | + + + + + + | Hemoglobin, | 8.8 (L)Comment: Testing | 13.7 - 16.7 | EXTERNAL | | | POC | performed at [facility];[address] | g/dL | LAB | | | | [address];[place], [place] | | | | | | [address] | | | | + + + + + + + + | Specimen | + + | | + + + +---------+ + + | Performing | Address | City/State/Zipcode | Phone Number | | Organization | | | | + +---------+ + + | EXTERNAL LAB | | | | + +---------+ + + POC ISTAT, CG8, Arterial (04/26/2017 10:00 AM PST) + + + + + + | Component | Value | Ref Range | Performed | Pathologist | | | | | At | Signature | + + + + + + | PH ART | 7.410 | 7.350 - 7.450 | EXTERNAL | | | | | | LAB | | + + + + + + | PCO2 ART | 45 | 35 - 45 mmHg | EXTERNAL | | | | | | LAB | | + + + + + + | PO2 ART | 235 (H) | 80 - 105 mmHg | EXTERNAL | | | | | | LAB | | + + + + + + | HCO3 ART | 29 (H) | 22 - 26 mmol/L | EXTERNAL | | | | | | LAB | | + + + + + + | POC | 30 (H) | 23 - 27 mEq/L | EXTERNAL | | | APPEARANCE | | | LAB | | | UA | | | | | + + + + + + | Base | 4 (H) | 0 - 3 mEq/L | EXTERNAL | | | Excess, | | | LAB | | | Arterial | | | | | + + + + + + | O2 SAT ART | 100 (H) | 95 - 98 % | EXTERNAL | | | | | | LAB | | + + + + + + | Sodium, POC | 135 | 135 - 145 mEq/L | EXTERNAL | | | | | | LAB | | + + + + + + | Potassium, | 6.1 (H) | 3.5 - 5.0 mEq/L | EXTERNAL | | | POC | | | LAB | | + + + + + + | Ionized | 1.01 (L) | 1.12 - 1.32 | EXTERNAL | | | Calcium, | | mmol/L | LAB | | | POC | | | | | + + + + + + | Glucose, | 159 (H) | 65 - 99 mg/dL | EXTERNAL | | | POC | | | LAB | | + + + + + + | Hematocrit, | 27 (L) | 40.0 - 50.0 % | EXTERNAL | | | POC | | | LAB | | + + + + + + | Hemoglobin, | 9.2 (L)Comment: Testing | 13.7 - 16.7 | EXTERNAL | | | POC | performed at [facility];[address] | g/dL | LAB | | | | [address];[place], [place] | | | | | | [address] | | | | + + + + + + + + | Specimen | + + | | + + + +---------+ + + | Performing | Address | City/State/Zipcode | Phone Number | | Organization | | | | + +---------+ + + | EXTERNAL LAB | | | | + +---------+ + + POC CG 4, ISTAT Arterial (04/26/2017 9:34 AM PST) + + + + + + | Component | Value | Ref Range | Performed | Pathologist | | | | | At | Signature | + + + + + + | PH ART | 7.422 | 7.350 - 7.450 | EXTERNAL | | | | | | LAB | | + + + + + + | PCO2 ART | 44 | 35 - 45 mmHg | EXTERNAL | | | | | | LAB | | + + + + + + | PO2 ART | 264 (H) | 80 - 105 mmHg | EXTERNAL | | | | | | LAB | | + + + + + + | Lactate, | 1.87 (H) | 0.36 - 1.25 | EXTERNAL | | | Arterial | | mmol/L | LAB | | + + + + + + | HCO3 ART | 28 (H) | 22 - 26 mmol/L | EXTERNAL | | | | | | LAB | | + + + + + + | POC | 30 (H) | 23 - 27 mEq/L | EXTERNAL | | | APPEARANCE | | | LAB | | | UA | | | | | + + + + + + | Base | 4 (H) | 0 - 3 mEq/L | EXTERNAL | | | Excess, | | | LAB | | | Arterial | | | | | + + + + + + | O2 SAT ART | 100 (H)Comment: Testing | 95 - 98 % | EXTERNAL | | | | performed at [facility] [place];[facility] | | LAB | | | | [address];[place] | | | | | | [id number] | | | | + + + + + + + + | Specimen | + + | | + + + +---------+ + + | Performing | Address | City/State/Zipcode | Phone Number | | Organization | | | | + +---------+ + + | EXTERNAL LAB | | | | + +---------+ + + POC NATE, CG8, Arterial (04/26/2017 9:31 AM PST) + + + + + + | Component | Value | Ref Range | Performed | Pathologist | | | | | At | Signature | + + + + + + | PH ART | 7.406 | 7.350 - 7.450 | EXTERNAL | | | | | | LAB | | + + + + + + | PCO2 ART | 45 | 35 - 45 mmHg | EXTERNAL | | | | | | LAB | | + + + + + + | PO2 ART | 267 (H) | 80 - 105 mmHg | EXTERNAL | | | | | | LAB | | + + + + + + | HCO3 ART | 28 (H) | 22 - 26 mmol/L | EXTERNAL | | | | | | LAB | | + + + + + + | POC | 30 (H) | 23 - 27 mEq/L | EXTERNAL | | | APPEARANCE | | | LAB | | | UA | | | | | + + + + + + | Base | 4 (H) | 0 - 3 mEq/L | EXTERNAL | | | Excess, | | | LAB | | | Arterial | | | | | + + + + + + | O2 SAT ART | 100 (H) | 95 - 98 % | EXTERNAL | | | | | | LAB | | + + + + + + | Sodium, POC | 137 | 135 - 145 mEq/L | EXTERNAL | | | | | | LAB | | + + + + + + | Potassium, | 5.1 (H) | 3.5 - 5.0 mEq/L | EXTERNAL | | | POC | | | LAB | | + + + + + + | Ionized | 1.03 (L) | 1.12 - 1.32 | EXTERNAL | | | Calcium, | | mmol/L | LAB | | | POC | | | | | + + + + + + | Glucose, | 132 (H) | 65 - 99 mg/dL | EXTERNAL | | | POC | | | LAB | | + + + + + + | Hematocrit, | 31 (L) | 40.0 - 50.0 % | EXTERNAL | | | POC | | | LAB | | + + + + + + | Hemoglobin, | 10.5 (L)Comment: Testing | 13.7 - 16.7 | EXTERNAL | | | POC | performed at [facility];888 | g/dL | LAB | | | | [address];[place], [place] | | | | | | [address] | | | | + + + + + + + + | Specimen | + + | | + + + +---------+ + + | Performing | Address | City/State/Zipcode | Phone Number | | Organization | | | | + +---------+ + + | EXTERNAL LAB | | | | + +---------+ + + POC ISTAT, CG8, Arterial (04/26/2017 9:13 AM PST) + + + + + + | Component | Value | Ref Range | Performed | Pathologist | | | | | At | Signature | + + + + + + | PH ART | 7.375 | 7.350 - 7.450 | EXTERNAL | | | | | | LAB | | + + + + + + | PCO2 ART | 51 (H) | 35 - 45 mmHg | EXTERNAL | | | | | | LAB | | + + + + + + | PO2 ART | 383 (H) | 80 - 105 mmHg | EXTERNAL | | | | | | LAB | | + + + + + + | HCO3 ART | 30 (H) | 22 - 26 mmol/L | EXTERNAL | | | | | | LAB | | + + + + + + | POC | 31 (H) | 23 - 27 mEq/L | EXTERNAL | | | APPEARANCE | | | LAB | | | UA | | | | | + + + + + + | Base | 4 (H) | 0 - 3 mEq/L | EXTERNAL | | | Excess, | | | LAB | | | Arterial | | | | | + + + + + + | O2 SAT ART | 100 (H) | 95 - 98 % | EXTERNAL | | | | | | LAB | | + + + + + + | Sodium, POC | 135 | 135 - 145 mEq/L | EXTERNAL | | | | | | LAB | | + + + + + + | Potassium, | 4.9 | 3.5 - 5.0 mEq/L | EXTERNAL | | | POC | | | LAB | | + + + + + + | Ionized | 1.00 (L) | 1.12 - 1.32 | EXTERNAL | | | Calcium, | | mmol/L | LAB | | | POC | | | | | + + + + + + | Glucose, | 131 (H) | 65 - 99 mg/dL | EXTERNAL | | | POC | | | LAB | | + + + + + + | Hematocrit, | 29 (L) | 40.0 - 50.0 % | EXTERNAL | | | POC | | | LAB | | + + + + + + | Hemoglobin, | 9.9 (L)Comment: Testing | 13.7 - 16.7 | EXTERNAL | | | POC | performed at [facility];888 | g/dL | LAB | | | | [address];[place] | | | | | | [address] | | | | + + + + + + + + | Specimen | + + | | + + + +---------+ + + | Performing | Address | City/State/Zipcode | Phone Number | | Organization | | | | + +---------+ + + | EXTERNAL LAB | | | | + +---------+ + + POC CG 4, ISTAT Arterial (04/26/2017 7:27 AM PST) + + + + + + | Component | Value | Ref Range | Performed | Pathologist | | | | | At | Signature | + + + + + + | PH ART | 7.393 | 7.350 - 7.450 | EXTERNAL | | | | | | LAB | | + + + + + + | PCO2 ART | 45 | 35 - 45 mmHg | EXTERNAL | | | | | | LAB | | + + + + + + | PO2 ART | 244 (H) | 80 - 105 mmHg | EXTERNAL | | | | | | LAB | | + + + + + + | Lactate, | 1.95 (H) | 0.36 - 1.25 | EXTERNAL | | | Arterial | | mmol/L | LAB | | + + + + + + | HCO3 ART | 28 (H) | 22 - 26 mmol/L | EXTERNAL | | | | | | LAB | | + + + + + + | POC | 29 (H) | 23 - 27 mEq/L | EXTERNAL | | | APPEARANCE | | | LAB | | | UA | | | | | + + + + + + | Base | 3 | 0 - 3 mEq/L | EXTERNAL | | | Excess, | | | LAB | | | Arterial | | | | | + + + + + + | O2 SAT ART | 100 (H)Comment: Testing | 95 - 98 % | EXTERNAL | | | | performed at [facility] | | LAB | | | | [address];[place] | | | | | | [address] | | | | + + + + + + + + | Specimen | + + | | + + + +---------+ + + | Performing | Address | City/State/Zipcode | Phone Number | | Organization | | | | + +---------+ + + | EXTERNAL LAB | | | | + +---------+ + + POC ISTAT, CG8, Arterial (04/26/2017 7:23 AM PST) + + + + + + | Component | Value | Ref Range | Performed | Pathologist | | | | | At | Signature | + + + + + + | PH ART | 7.374 | 7.350 - 7.450 | EXTERNAL | | | | | | LAB | | + + + + + + | PCO2 ART | 49 (H) | 35 - 45 mmHg | EXTERNAL | | | | | | LAB | | + + + + + + | PO2 ART | 256 (H) | 80 - 105 mmHg | EXTERNAL | | | | | | LAB | | + + + + + + | HCO3 ART | 28 (H) | 22 - 26 mmol/L | EXTERNAL | | | | | | LAB | | + + + + + + | POC | 30 (H) | 23 - 27 mEq/L | EXTERNAL | | | APPEARANCE | | | LAB | | | UA | | | | | + + + + + + | Base | 3 | 0 - 3 mEq/L | EXTERNAL | | | Excess, | | | LAB | | | Arterial | | | | | + + + + + + | O2 SAT ART | 100 (H) | 95 - 98 % | EXTERNAL | | | | | | LAB | | + + + + + + | Sodium, POC | 141 | 135 - 145 mEq/L | EXTERNAL | | | | | | LAB | | + + + + + + | Potassium, | 3.5 | 3.5 - 5.0 mEq/L | EXTERNAL | | | POC | | | LAB | | + + + + + + | Ionized | 1.23 | 1.12 - 1.32 | EXTERNAL | | | Calcium, | | mmol/L | LAB | | | POC | | | | | + + + + + + | Glucose, | 122 (H) | 65 - 99 mg/dL | EXTERNAL | | | POC | | | LAB | | + + + + + + | Hematocrit, | 40 | 40.0 - 50.0 % | EXTERNAL | | | POC | | | LAB | | + + + + + + | Hemoglobin, | 13.6 (L)Comment: Testing | 13.7 - 16.7 | EXTERNAL | | | POC | performed at [facility];888 | g/dL | LAB | | | | [address];[place], [place] | | | | | | [address] | | | | + + + + + + + + | Specimen | + + | | + + + +---------+ + + | Performing | Address | City/State/Zipcode | Phone Number | | Organization | | | | + +---------+ + + | EXTERNAL LAB | | | | + +---------+ + + POC Glucose (04/26/2017 6:21 AM PST) + + + + + + | Component | Value | Ref Range | Performed | Pathologist | | | | | At | Signature | + + + + + + | Glucose, | 142 (H)Comment: Testing | 65 - 99 mg/dL | EXTERNAL | | | Fingerstick | performed at [facility];888 | | LAB | | | | [address];[place] | | | | | | [address] | | | | + + + + + + + + | Specimen | + + | | + + + +---------+ + + | Performing | Address | City/State/Zipcode | Phone Number | | Organization | | | | + +---------+ + + | EXTERNAL LAB | | | | + +---------+ + + Potassium (04/26/2017 12:00 AM PST) + + + + + + | Component | Value | Ref Range | Performed | Pathologist | | | | | At | Signature | + + + + + + | K | 4.4Comment: Testing | 3.5 - 4.9 | EXTERNAL | | | | performed at [facility];888 | mmol/L | LAB | | | | [address];[place], [place] | | | | | | [address] | | | | + + + [...] + | Diagnosis | + + | Bioprosthetic aortic valve replacement during current hospitalization Heart valve | | replaced by other means | + + | Paroxysmal A-fib (HCC) Atrial fibrillation | + + documented in this encounter
--- OUTSIDE RECORDS SUMMARY | ~2019-11-08 | XMS | Encounter Summary ---
Demographics + + + | Address | [address] | | | [place] [address] | + + + | Home Phone | | + + + | Preferred Language | Unknown | + + + | Marital Status | | + + + | Jehovah'S Witness Affiliation | 1041 | + + + | Race | Unknown | + + + | Ethnic Group | Unknown | + + + Author + + + | Author | [facility] | | | and [place] | + + + | Organization | [facility] | | | [...] Team Providers + +------+ + | Care Pharmacy Retail Support Specialist Name | Role | Phone | + +------+ + | Slick Hernandez MD | PCP | | + +------+ + Encounter Details +--------+ + + + + | Date | Type | Department | Care Team | Description | +--------+ + + + + | 02/10/ | Orders Only | [facility] | Malcolm Escalante, | Status post aortic | | 2019 | | CARDIOLOGY [facility] | Millinery Department Manager | valve replacement | | | | [address] | | with bioprosthetic | | | | [place] [facility] | | valve (Primary Dx); | | | | [id number] | | Severe calcific | | | | [phone] | | aortic stenosis; | | | | | | History of atrial | | | | | | fibrillation without | | | | | | current medication | +--------+ + + + + Social [...] | ECG 12 LEAD | Routin | 02/10/2019 | Status post aortic | Results for this | | | e | 8:15 AM | valve replacement | procedure are in the | | | | PST | with bioprosthetic | results section. | | | | | valve Severe | | | | | | calcific aortic | | | | | | stenosis History of | | | | | | atrial fibrillation | | | | | | without current | | | | | | medication | | + +--------+ + + + documented in this encounter Results ECG 12 lead (02/10/2019 8:15 AM PST) + + + + + [...] + + + + | P-R | 222 | ms | [facility] | | | INTERVAL | | | | | + + + + + + | QRS | 90 | ms | [facility] | | [...] + + | P WAVE AXIS | 49 | degrees | [facility] | | + + + + + + | QRS AXIS | 21 | degrees | [facility] | | + + + + + + | T AXIS | 52 | degrees | [facility] | | + + + + + + | INTERPRETAT | Please refer to | | [facility] | | | ION TEXT | Providers office visit | | | | | | note for Providers | | | | | | Interpretation.Confirmed | | | | | | by [facility] Read Only, | | | | | | [facility] ([id number]), | | | | | | video editor Malcolm Escalante | | | | | | ([id number]) on 02/10/2019 | | | | | | 8:15:05 AM | | | | + + + [...] + | Diagnosis | + + | Status post aortic valve replacement with bioprosthetic valve - Primary Heart valve | | replaced by other means | + + | Severe calcific aortic stenosis Aortic valve disorders | + + | History of atrial fibrillation without current medication Personal history of other | | diseases of circulatory system | + + documented in this encounter"
--- OUTSIDE RECORDS SUMMARY | ~2019-11-08 | XMS | Encounter Summary ---
Demographics + + + | Address | [address] | | | [place] [address] | + + + | Home Phone | | + + + | Preferred Language | Unknown | + + + | Marital Status | | + + + | Uatsdin Affiliation | 1041 | + + + [...] Team Providers + +------+ + | Care Pumper Gager Name | Role | Phone | + +------+ + | Slick Hernandez MD | PCP | | + +------+ + Encounter Details +--------+ + + + + | Date | Type | Department | Care Team | Description | +--------+ + + + + | 04/12/ | Orders Only | [facility] | Moise Tang MD | | | 2018 | | VASCULAR SURGERY | [address] | | | | | ULTRASOUND [address] | [place], [place] | | | | | [address] | [address] | | | | | [place] | [phone] | | | | | [address] | | | | | | [phone] | | | +--------+ + + + [...] + +--------+ + + + | VAS VENOUS REFLUX | Routin | 04/12/2017 | | Results for this | | BILATERAL | e | 11:43 AM | | procedure are in the | | | | PST | | results section. | + +--------+ + + + documented in this encounter Results VAS Venous Reflux Bilateral (04/12/2017 11:43 AM PST) + + | Specimen | + + | | + + + + + | Impressions | Performed At | + + + | 1. No deep venous thrombosis bilaterally. 2. Venous reflux as | | | described. | | | 1:00 PM | | + + + + + + | Narrative | Performed At | + + + | [facility] L[facility] EXTREMITY REFLUX/INSUFFICIENCY BILAT | | | 04/12/2017 11:43 AM History: 72 years Male. Venous stasis. | | | Left greater than right. Technique: A high-resolution grayscale | | | duplex transducer with color and pulsed Doppler capability was | | | utilized for imaging. RIGHT GREATER SAPHENOUS VEIN Diameter (mm) | | | / Reflux SFJ: 10.5 / greater than one second Thigh-Mid: 4.5 | | | / greater than one second Knee: 4.2 / greater than one | | | second Calf-Mid: 3.1 / greater than one second Calf-Low: 3.1 | | | / greater than one second RIGHT DEEP VENOUS SYSTEM | | | Thrombosis / Reflux Common Femoral : None/ greater than one | | | second Superficial Femoral: None/ greater than one second | | | Popliteal: None/ None LEFT GREATER SAPHENOUS VEIN | | | Diameter (mm) / Reflux SFJ: 9.1 / greater than one second | | | Thigh-Mid: 8 / greater than one second Knee: 8.2 / | | | greater than one second Calf-Mid: 5.8 / greater than one | | | second Calf-Low: 4.3 / greater than one second LEFT DEEP | | | VENOUS SYSTEM Thrombosis / Reflux Common Femoral : None/ | | | greater than one second Superficial Femoral: None/ greater than | | | one second Popliteal: None/ greater than one second | | + + + + + | Procedure Note | + + | Donn, Rad Conversion - 11/28/2018:06 PM PDT [facility]TREMITY | | REFLUX/INSUFFICIENCY BIL04/12/2017 11:43 AM History: 72 years Male. Venous stasis. | | Left greater than right. Technique: A high-resolution grayscale duplex transducer with | | color and pulsed Doppler capability was utilized for imaging. RIGHT GREATER SAPHENOUS | | VEIN Diameter (mm) / RefluxSFJ: 10.5 / greater than one secondThigh-Mid: 4.5 / | | greater than one secondKnee: 4.2 / greater than one secondCalf-Mid: 3.1 / greater | | than one secondCalf-Low: 3.1 / greater than one second RIGHT DEEP VENOUS SYSTEM | | Thrombosis / RefluxCommon Femoral : None/ greater than one secondSuperficial Femoral: | | None/ greater than one secondPopliteal: None/ None LEFT GREATER SAPHENOUS VEIN | | Diameter (mm) / RefluxSFJ: 9.1 / greater than one secondThigh-Mid: 8 / greater | | than one secondKnee: 8.2 / greater than one secondCalf-Mid: 5.8 / greater than one | | secondCalf-Low: 4.3 / greater than one second LEFT DEEP VENOUS SYSTEM Thrombosis | | / RefluxCommon Femoral : None/ greater than one secondSuperficial Femoral: None/ | | greater than one secondPopliteal: None/ greater than one second IMPRESSION: 1. No | | deep venous thrombosis bilaterally.2. Venous reflux as described. | |Common Femoral : None/ greater than one second | |Superficial Femoral: None/ greater than one second | |Popliteal: None/ None | | | | | |LEFT GREATER SAPHENOUS VEIN Diameter (mm) / Reflux | |SFJ: 9.1 / greater than one second | |Thigh-Mid: 8 / greater than one second | |Knee: 8.2 / greater than one second | |Calf-Mid: 5.8 / greater than one second | |Calf-Low: 4.3 / greater than one second | | | |LEFT DEEP VENOUS SYSTEM Thrombosis / Reflux | |Common Femoral : None/ greater than one second | |Superficial Femoral: None/ greater than one second | |Popliteal: None/ greater than one second | | | |IMPRESSION: | | | |1. No deep venous thrombosis bilaterally. | |2. Venous reflux as described. | | | | | + + documented in this encounter Visit Diagnoses Not on filedocumented in this encounter"
--- OUTSIDE RECORDS SUMMARY | ~2019-11-08 | XMS | Encounter Summary ---
Demographics + + + | Address | [address] | | | [place] [address] | + + + | Home Phone | | + + + | Preferred Language | Unknown | + + + | Marital Status | | + + + | Episcopal Affiliation | Unknown | + + + | Race | White | + + + | Ethnic Group | Not or | + + + Author + + + | Author | [facility] | + + + | Organization | [facility] | + + + | Address | Unknown | + + + | Phone | Unavailable | + + + Support + + +---------+ + | Name | Relationship | Address | Phone | + + +---------+ + | Carina Rukcer | ECON | Unknown | | + + +---------+ + Care Team Providers + +------+ + | Care Art Education Professor Name | Role | Phone | [...] head | Reece You | [facility] | | | | | and neck | [facility] | Hospital, | | | | | Procedures | [place], [place] | [facility] Floor | | | | | CT NECK | [address] | [place], [place] | | | | | [place] FOR | Phone: | [phone] | | | | | TUMOR W | [phone] | Phone: | | | | | CONTRAST [place] | Fax: | [phone] | | | | | CT NECK | [phone] | Fax: | | | | | TISSUE | | [phone] | | | | | CONTRAST | [...] head | Reece You | [facility] | | | | | and neck | [facility], | | | | | Procedures | [place], [place] | [address] Floor | | | | | CT NECK | [address] | [place], [place] | | | | | [place]ARY[place] FOR | Phone: | [phone] | | | | | TUMOR W | [phone] | Phone: | | | | | CONTRAST [place] | Fax: | [phone] | | | | | CT NECK | [phone] | Fax: | | | | | TISSUE | | [phone] | | | | | CONTRAST | | | +--------+--------+ + + + + Encounter Details +--------+ + + + + | Date | Type | Department | Care Team | Description | +--------+ + + + + | 11/30/ | Hospital | Diagnostic Imaging | | | | 2014 | Encounter | [facility] | | | | | | [address] | | | | | | [facility] | | | | | | [address] | | | | | | [place], [place] | | | | | | [address] | | | | | | [phone] | | | +--------+ + + + [...] | | + +---------+ + + | [facility] DEPARTMENT OF | | | | [...] [place] | [address] | [place], [place] | | | [facility]ARE | [address] | [address] | | | TESTS | | | | + + + + + documented in this encounter Visit Diagnoses + + | Diagnosis | + + | Swelling, mass, or lump in head and neck | + + documented in this encounter"
--- OUTSIDE RECORDS SUMMARY | ~2019-11-08 | XMS | Encounter Summary ---
Demographics + + + | Address | [address] | | | [place] [address] | + + + | Home Phone | | + + + | Preferred Language | Unknown | + + + | Marital Status | | + + + | Jewish Affiliation | 1041 | + + + | Race | Unknown | + + + | Ethnic Group | Unknown | + + + Author + + + | Author | [facility] | | | and [place] | + + + | Organization | [facility] | | | [...] Team Providers + +------+ + | Care Histopathology Technician Name | Role | Phone | + +------+ + | Slick Hernandez MD | PCP | | + +------+ + Encounter Details +--------+ + + + + | Date | Type | Department | Care Team | Description | +--------+ + + + + | 11/12/ | Orders Only | [facility] | Ariane Gonzalez | | | 2019 | | CONVERSION [address] | [address] | | | | | [address] | [address] | | | | | [place], [place] | [place] [address] | | | | | [address] | [phone] | | | | | [phone] | | | +--------+ + + + [...] + | ECHO INTERPRETATION | Routin | 11/12/2018 | | Results for this | | OF OUTSIDE FILMS | e | 5:10 PM | | procedure are in the | | | | PDT | | results section. | + +--------+ + + + documented in this encounter Results ECHO Interpretation of Outside Films (11/12/2018 5:10 PM PDT) + + | Specimen | + + | | + + + + + | Impressions | Performed At | + + + | 1. This was a technically difficult study with suboptimal views. 2. | | | Overall left ventricular systolic function is normal with an EF | | | between 60 - 65%. 3. The right ventricle is normal in size and | | | function. 4. Normally functioning bioprosthetic (25 mm Magna Ease) | | | aortic valve. 5. In comparison to the previous echocardiographic | | | study, done 08/08/17, no significant changes are noted. | | + + + + + + | Narrative | Performed At | + + + | Patient Name: Dontrell Madison Date of : 1945 | | | Performing Physician: KELBY APONTE MD | | | | | | INDICATIONS HTN, FATIGUE, HX AVR CONCLUSIONS | | | 1. This was a technically difficult study with suboptimal | | | views. 2. Overall left ventricular systolic function is normal with | | | an EF between 60 - 65%. 3. The right ventricle is normal in size and | | | function. 4. Normally functioning bioprosthetic (25 mm Magna Ease) | | | aortic valve. 5. In comparison to the previous echocardiographic | | | study, done 08/08/17, no significant changes are noted. FINDINGS | | | -------- ECG rhythm: Sinus rhythm with extra systolic beats. Study: | | | A 2-dimensional transthoracic echocardiogram with m-mode, spectral and | | | color flow Doppler was perfomed at [facility]. Study: This was a | | | technically difficult study with suboptimal views. Left Ventricle: | | | Overall left ventricular systolic function is normal with, an EF | | | between 60 - 65 %. Left Ventricle: The left ventricle cavity size is | | | normal. Left Ventricle: No regional wall motion abnormalities. Left | | | Ventricle: There is minimal focal hypertrophy of the basal septum. The | | | remaining wall thickness is normal. Left Ventricle: Assessment of | | | diastolic function is indeterminate. Right Ventricle: The right | | | ventricle is normal in size and function. Left Atrium: The left | | | atrium is normal in size. It was reported to be mildly enlarged on | | | the previous study. Right Atrium: The right atrium is normal in size. | | | Aortic Valve: There is no evidence of aortic regurgitation. Aortic | | | Valve: The aortic valve area by continuity equation is 1.8cm | | | Aortic Valve: The maximum velocity across the aortic valve is 2.16m/s | | | Aortic Valve: Peak/mean gradient across the valve is | | | 18.66mmHg/11.06mmHg. Aortic Valve: Normally functioning bioprosthetic | | | (25 mm Magna Ease) valve. 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 Mitral Valve: There is trace mitral | | | regurgitation. Mitral Valve: No evidence of MVP Tricuspid Valve: The | | | tricuspid valve appears structurally normal. Tricuspid Valve: Trace | | | tricuspid regurgitation is present. Tricuspid Valve: There is no | | | evidence of pulmonary hypertension. Tricuspid Valve: The right | | | ventricular systolic pressure (pulmonary artery systolic pressure), as | | | measured by Doppler, is 23.99mmHg. Pulmonic Valve: Pulmonic valve | | | appears structurally normal. Pulmonic Valve: Trace pulmonic | | | regurgitation. Pericardium: There is no pericardial effusion. | | | IVC/Hepatic Veins: The IVC is normal size (1.5-2.5cm) and collapses | | | >50% with sniff, consistent with central venous pressures of 5-10mmHg. | | | Aorta: The aortic root, ascending aorta and aortic arch are normal. | | | Mass: No mass visualized Thrombus: No clot visualized Thrombus: No | | | vegetation visualized. Septum: No ASD observed. Septum: No VSD | | | observed. MEASUREMENTS Ao asc: 2.72 cm IVC: | | | 2.10 cm EDV(Teich): 59.05 ml IVSd: 1.23 cm LVIDd: 3.72 cm | | | LVPWd: 0.88 cm LVOT Diam: 2.04 cm %FS: 31.42 % | | | EF(Teich): 60.13 % ESV(Teich): 23.54 ml LVIDs: 2.55 cm | | | SV(Teich): 35.51 ml RV Major: 6.82 cm RVIDd: 2.73 cm LVEF | | | MOD A2C: 58.38 % SV MOD A2C: 41.12 ml LVEF MOD A4C: 57.44 % | | | SV MOD A4C: 33.82 ml EF Biplane: 55.62 % LVEDV MOD BP: | | | 64.17 ml LVESV MOD BP: 28.47 ml LVEDV MOD A2C: 70.43 ml LVLd | | | A2C: 7.21 cm LVEDV MOD A4C: 58.87 ml LVLd A4C: 7.23 cm | | | LVESV MOD A2C: 29.31 ml LVLs A2C: 6.11 cm LVESV MOD A4C: | | | 25.05 ml LVLs A4C: 5.50 cm LAESV(A-L): 45.22 ml LAESV Index | | | (A-L): 20.01 ml/m2 LAAs A2C: 16.83 cm2 LAESV A-L A2C: 49.95 | | | ml LAESV MOD A2C: 47.79 ml LALs A2C: 4.81 cm LAAs A4C: | | | 15.24 cm2 LAESV A-L A4C: 39.96 ml LAESV MOD A4C: 37.92 ml | | | LALs A4C: 4.93 cm RAAs: 15.66 cm2 RAESV A-L: 39.19 ml | | | RAESV MOD: 36.19 ml RALs: 5.31 cm Ao Diam: 3.89 cm LA | | | Diam: 4.01 cm LA/Ao: 1.03 TAPSE: 1.14 cm AV Env.Ti: | | | 288.28 ms AV maxP.66 mmHg AV meanP.06 mmHg AV Vmax: | | | 2.15 m/s AV Vmean: 1.56 m/s AV VTI: 45.07 cm SEAN Vmax: | | | 1.79 cm2 SEAN (VTI): 1.79 cm2 AVAI Vmax: 0.00 cm2/m2 AVAI | | | (VTI): 0.00 cm2/m2 LVOT Env.Ti: 293.90 ms LVOT maxP.52 | | | mmHg LVOT meanP.24 mmHg LVSI Dopp: 35.80 ml/m2 LVSV Dopp: | | | 80.91 ml LVOT Vmax: 1.17 m/s LVOT Vmean: 0.83 m/s LVOT | | | VTI: 24.53 cm MV E Tommy: 0.84 m/s MV A Tommy: 0.38 m/s MV Dec | | | [place]: 3.77 m/s2 MV DecT: 171.25 ms MV E Tommy: 0.64 m/s MV | | | E/A Ratio: 1.66 E/E' Sept: 18.63 E' Lat: 0.06 m/s E' | | | Sept: 0.04 m/s PV maxP.14 mmHg PV Vmax: 0.53 m/s RAP: | | | 10 mmHg RV S': 0.09 m/s RVSP: 23.98 mmHg TR maxPG: | | | 13.98 mmHg TR Vmax: 1.86 m/s Resource Agent: Authenticated by: | | | KELBY APONTE MD Report Date/Time: 11-14-2018 18:0:10 | | + + + + + | Procedure Note | + + | Donn, Rad Conversion - 12/13/2018 9:03 AM PDT Patient Name: Imelda Madison of | | : 1945 Performing Physician: KELBY APONTE, | | INDICATIONS | | HTN, FATIGUE, HX AVR CONCLUSIONS 1. This was a technically difficult study | | with suboptimal views.2. Overall left ventricular systolic function is normal with an EF | | between 60 - 65%.3. The right ventricle is normal in size and function.4. Normally | | functioning bioprosthetic (25 mm Magna Ease) aortic valve. 5. In comparison to the | | previous echocardiographic study, done 08/08/17, no significant changes are noted. | | FINDINGS--------ECG rhythm: Sinus rhythm with extra systolic beats.Study: A | | 2-dimensional transthoracic echocardiogram with m-mode, spectral and color flow Doppler | | was perfomed at [facility].Study: This was a technically difficult study with suboptimal | | views.Left Ventricle: Overall left ventricular systolic function is normal with, an EF | | between 60 - 65 %.Left Ventricle: The left ventricle cavity size is normal.Left | | Ventricle: No regional wall motion abnormalities.Left Ventricle: There is minimal focal | | hypertrophy of the basal septum. The remaining wall thickness is normal.Left Ventricle: | | Assessment of diastolic function is indeterminate.Right Ventricle: The right ventricle | | is normal in size and function.Left Atrium: The left atrium is normal in size. It was | | reported to be mildly enlarged on the previous study.Right Atrium: The right atrium is | | normal in size.Aortic Valve: There is no evidence of aortic regurgitation.Aortic Valve: | | The aortic valve area by continuity equation is 1.8cm Aortic Valve: The maximum | | velocity across the aortic valve is 2.16m/sAortic Valve: Peak/mean gradient across the | | valve is 18.66mmHg/11.06mmHg.Aortic Valve: Normally functioning bioprosthetic (25 mm | | Magna Ease) valve.Mitral Valve: Mitral valve is thickened with myxomatous | | degeneration.Mitral Valve: There is trace mitral regurgitation.Mitral Valve: No evidence | | of MVPTricuspid Valve: The tricuspid valve appears structurally normal.Tricuspid Valve: | | Trace tricuspid regurgitation is present.Tricuspid Valve: There is no evidence of | | pulmonary hypertension.Tricuspid Valve: The right ventricular systolic pressure | | (pulmonary artery systolic pressure), as measured by Doppler, is 23.99mmHg.Pulmonic | | Valve: Pulmonic valve appears structurally normal.Pulmonic Valve: Trace pulmonic | | regurgitation.Pericardium: There is no pericardial effusion.IVC/Hepatic Veins: The IVC | | is normal size (1.5-2.5cm) and collapses >50% with sniff, consistent with central venous | | pressures of 5-10mmHg.Aorta: The aortic root, ascending aorta and aortic arch are | | normal.Mass: No mass visualizedThrombus: No clot visualizedThrombus: No vegetation | | visualized.Septum: No ASD observed.Septum: No VSD observed. MEASUREMENTS Ao | | asc: 2.72 cmIVC: 2.10 cmEDV(Teich): 59.05 mlIVSd: 1.23 cmLVIDd: 3.72 cmLVPWd: | | 0.88 cmLVOT Diam: 2.04 cm%FS: 31.42 %EF(Teich): 60.13 %ESV(Teich): 23.54 | | mlLVIDs: 2.55 cmSV(Teich): 35.51 mlRV Major: 6.82 cmRVIDd: 2.73 cmLVEF MOD A2C: | | 58.38 %SV MOD A2C: 41.12 mlLVEF MOD A4C: 57.44 %SV MOD A4C: 33.82 mlEF Biplane: | | 55.62 %LVEDV MOD BP: 64.17 mlLVESV MOD BP: 28.47 mlLVEDV MOD A2C: 70.43 mlLVLd | | A2C: 7.21 cmLVEDV MOD A4C: 58.87 mlLVLd A4C: 7.23 cmLVESV MOD A2C: 29.31 mlLVLs | | A2C: 6.11 cmLVESV MOD A4C: 25.05 mlLVLs A4C: 5.50 cmLAESV(A-L): 45.22 mlLAESV | | Index (A-L): 20.01 ml/m2LAAs A2C: 16.83 fo2PUZPP A-L A2C: 49.95 mlLAESV MOD A2C: | | 47.79 mlLALs A2C: 4.81 cmLAAs A4C: 15.24 [id number] A-L A4C: 39.96 mlLAESV MOD A4C: | | 37.92 mlLALs A4C: 4.93 cmRAAs: 15.66 gr2HAAIQ A-L: 39.19 mlRAESV MOD: 36.19 | | mlRALs: 5.31 cmAo Diam: 3.89 cmLA Diam: 4.01 cmLA/Ao: 1.03TAPSE: 1.14 cmAV | | Env.Ti: 288.28 msAV maxP.66 mmHgAV meanP.06 mmHgAV Vmax: 2.15 m/Malachi | | Vmean: 1.56 m/Malachi VTI: 45.07 cmAVA Vmax: 1.79 cm2AVA (VTI): 1.79 kt1LXTE Vmax: | | 0.00 cm2/m2AVAI (VTI): 0.00 cm2/m2LVOT Env.Ti: 293.90 msLVOT maxP.52 mmHgLVOT | | meanP.24 mmHgLVSI Dopp: 35.80 ml/m2LVSV Dopp: 80.91 mlLVOT Vmax: 1.17 | | m/sLVOT Vmean: 0.83 m/sLVOT VTI: 24.53 cmMV E Tommy: 0.84 m/sMV A Tommy: 0.38 m/sMV | | Dec [place]: 3.77 m/s2MV DecT: 171.25 msMV E Tommy: 0.64 m/sMV E/A Ratio: 1.66E/E' | | Sept: 18.63E' Lat: 0.06 m/sE' Sept: 0.04 m/sPV maxP.14 mmHgPV Vmax: 0.53 | | m/sRAP: 10 mmHgRV S': 0.09 m/sRVSP: 23.98 mmHgTR maxP.98 mmHgTR Vmax: | | 1.86 m/s Resource Agent:Authenticated by: Otis WHIPPLE Date/Time: 11-14-2018 | | 18:0:10 IMPRESSION: 1. This was a technically difficult study with suboptimal views.2. | | Overall left ventricular systolic function is normal with an EF between 60 - 65%.3. The | | right ventricle is normal in size and function.4. Normally functioning bioprosthetic (25 | | mm Magna Ease) aortic valve. 5. In comparison to the previous echocardiographic study, | | done 08/08/17, no significant changes are noted. | |EDV(Teich): 59.05 ml | |IVSd: 1.23 cm | |LVIDd: 3.72 cm | |LVPWd: 0.88 cm | |LVOT Diam: 2.04 cm | |%FS: 31.42 % | |EF(Teich): 60.13 % | |ESV(Teich): 23.54 ml | |LVIDs: 2.55 cm | |SV(Teich): 35.51 ml | |RV Major: 6.82 cm | |RVIDd: 2.73 cm | |LVEF MOD A2C: 58.38 % | |SV MOD A2C: 41.12 ml | |LVEF MOD A4C: 57.44 % | |SV MOD A4C: 33.82 ml | |EF Biplane: 55.62 % | |LVEDV MOD BP: 64.17 ml | |LVESV MOD BP: 28.47 ml | |LVEDV MOD A2C: 70.43 ml | |LVLd A2C: 7.21 cm | |LVEDV MOD A4C: 58.87 ml | |LVLd A4C: 7.23 cm | |LVESV MOD A2C: 29.31 ml | |LVLs A2C: 6.11 cm | |LVESV MOD A4C: 25.05 ml | |LVLs A4C: 5.50 cm | |LAESV(A-L): 45.22 ml | |LAESV Index (A-L): 20.01 ml/m2 | |LAAs A2C: 16.83 cm2 | |LAESV A-L A2C: 49.95 ml | |LAESV MOD A2C: 47.79 ml | |LALs A2C: 4.81 cm | |LAAs A4C: 15.24 cm2 | |LAESV A-L A4C: 39.96 ml | |LAESV MOD A4C: 37.92 ml | |LALs A4C: 4.93 cm | |RAAs: 15.66 cm2 | |RAESV A-L: 39.19 ml | |RAESV MOD: 36.19 ml | |RALs: 5.31 cm | |Ao Diam: 3.89 cm | |LA Diam: 4.01 cm | |LA/Ao: 1.03 | |TAPSE: 1.14 cm | |AV Env.Ti: 288.28 ms | |AV maxP.66 mmHg | |AV meanP.06 mmHg | |AV Vmax: 2.15 m/s | |AV Vmean: 1.56 m/s | |AV VTI: 45.07 cm | |SEAN Vmax: 1.79 cm2 | |SEAN (VTI): 1.79 cm2 | |AVAI Vmax: 0.00 cm2/m2 | |AVAI (VTI): 0.00 cm2/m2 | |LVOT Env.Ti: 293.90 ms | |LVOT maxP.52 mmHg | |LVOT meanP.24 mmHg | |LVSI Dopp: 35.80 ml/m2 | |LVSV Dopp: 80.91 ml | |LVOT Vmax: 1.17 m/s | |LVOT Vmean: 0.83 m/s | |LVOT VTI: 24.53 cm | |MV E Tommy: 0.84 m/s | |MV A Tommy: 0.38 m/s | |MV Dec [place]: 3.77 m/s2 | |MV DecT: 171.25 ms | |MV E Tommy: 0.64 m/s | |MV E/A Ratio: 1.66 | |E/E' Sept: 18.63 | |E' Lat: 0.06 m/s | |E' Sept: 0.04 m/s | |PV maxP.14 mmHg | |PV Vmax: 0.53 m/s | |RAP: 10 mmHg | |RV S': 0.09 m/s | |RVSP: 23.98 mmHg | |TR maxP.98 mmHg | |TR Vmax: 1.86 m/s | | | |Resource Agent: | |Authenticated by: KELBY APONTE MD | |Report Date/Time: 11-14-2018 18:0:10 | | | |IMPRESSION: | |1. This was a technically difficult study with suboptimal views. | |2. Overall left ventricular systolic function is normal with an EF between 60 - 65%. | |3. The right ventricle is normal in size and function. | |4. Normally functioning bioprosthetic (25 mm Magna Ease) aortic valve. 5. In comparison to the previous echocardiographic study, done 08/08/17, no significant changes are noted. | + + documented in this encounter Visit Diagnoses Not on filedocumented in this encounter"
--- OUTSIDE RECORDS SUMMARY | ~2019-11-08 | XMS | Encounter Summary ---
Demographics + + + | Address | [address] | | | [place] [address] | + + + | Home Phone | | + + + | Preferred Language | Unknown | + + + | Marital Status | | + + + | Pentecostalism Affiliation | 1041 | + + + | Race | Unknown | + + + | Ethnic Group | Unknown | + + + Author + + + | Author | [facility] | | | and [place] | + + + | Organization | [facility] | | | [...] Team Providers + +------+ + | Care Health Promotion Specialist Name | Role | Phone | + +------+ + PCP | Unavailable | + +------+ + Encounter Details +--------+ + + + + | Date | Type | Department | Care Team | Description | +--------+ + + + + | 04/09/ | Orders Only | [facility] | Conversion | | | 2018 | | [facility] [place] | Transaction, | | | | | [address] | Provider Unknown | | | | | [place], [place] | [phone] | | | | | [address] | | | | | | [phone] | | | +--------+ + + + [...] +--------+ + + + | EXTERNAL LAB: [facility] | Routin | 04/09/2017 | | Results for this | | | e | 12:00 AM | | procedure are in the | | | | PST | | results section. | + +--------+ + + + | BASIC METABOLIC | Routin | 04/09/2017 | | Results for this | | PANEL | e | 12:00 AM | | procedure are in the | | | | PST | | results section. | + +--------+ + + + documented in this encounter Results External Lab: [facility] (04/09/2017 12:00 AM PST) + + + + + + | Component | Value | Ref Range | Performed | Pathologist | | | | | At | Signature | + + + + + + | WBC | 11.5 (A) | 4.5 - 11.0 10 | EXTERNAL | | | | | | LAB | | + + + + + + | Non- | 5.12 | 4.3 - 5.7 10 | EXTERNAL | | | Red Blood | | | LAB | | | Cells | | | | | | Counted | | | | | + + + + + + | Hemoglobin | 16.1 | 13.5 - 18.0 | EXTERNAL | | | | | g/dL | LAB | | + + + + + + | Hematocrit, | 47.3 | 41 - 50 % | EXTERNAL | | | POC | | | LAB | | + + + + + + | MCV | 92.3 | 81 - 99 fL | EXTERNAL | | | | | | LAB | | + + + + + + | MCH | 31 | 27 - 33 pg | EXTERNAL | | | | | | LAB | | + + + + + + | MCHC | 34 | 30 - 36 g/dL | EXTERNAL | | | | | | LAB | | + + + + + + | Platelet | 175 | 140 - 440 K/ L | EXTERNAL | | | Count | | | LAB | | | Plasma | | | | | + + + + + + | RDW-CV | 13.4 | % | EXTERNAL | | | | | | LAB | | + + + + + + | MPV | | fL | EXTERNAL | | | | | | LAB | | + + + + + + | Differentia | | | EXTERNAL | | | l Type | | | LAB | | + + + + + + | % Segmented | 83.4 (A) | 39 - 80 % | EXTERNAL | | | | | | LAB | | | Neutrophils | | | | | + + + + + + | % | 9.0 (A) | 24 - 44 % | EXTERNAL | | | Lymphocytes | | | LAB | | + + + + + + | % Monocytes | 6.9 | 0 - 12 % | EXTERNAL | | | | | | LAB | | + + + + + + | % | 0.7 | 0 - 6 % | EXTERNAL | | | Eosinophils | | | LAB | | + + + + + + | % Basophils | 0.0 | 0 - 2 % | EXTERNAL | | | | | | LAB | | + + + + + + | Absolute | | / L | EXTERNAL | | | Segmented | | | LAB | | | Neutrophils | | | | | + + + + + + | Absolute | | / L | EXTERNAL | | | Lymphocytes | | | LAB | | + + + + + + | Absolute | | / L | EXTERNAL | | | Monocytes | | | LAB | | + + + + + + | Absolute | | / L | EXTERNAL | | | Eosinophils | | | LAB | | + + + + + + | Absolute | | / L | EXTERNAL | | | Basophils | | | LAB | | + [...] + +---------+ + + Basic Metabolic Panel (04/09/2017 12:00 AM PST) + +---------+ + + + | Component | Value | Ref Range | Performed | Pathologist | | | | | At | Signature | + +---------+ + + + | Glucose, | 183 (A) | 70 - 100 mg/dL | EXTERNAL | | | Fasting | | | LAB | | + +---------+ + + + | BUN | 15 | 6 - 23 mg/dL | EXTERNAL | | | | | | LAB | | + +---------+ + + + | Creatinine | 0.96 | 0.70 - 1.25 | EXTERNAL | | | | | mg/dL | LAB | | + +---------+ + + + | BUN/Creatin | 15.6 | 6.0 - 28.6 | EXTERNAL | | | ine Ratio | | | LAB | | + +---------+ + + + | Calcium | 9.2 | 8.4 - 10.2 | EXTERNAL | | | | | mg/dL | LAB | | + +---------+ + + + | Na | 133 | 132 - 143 | EXTERNAL | | | | | mmol/L | LAB | | + +---------+ + + + | K | 3.7 | 3.6 - 5.1 | EXTERNAL | | | | | mmol/L | LAB | | + +---------+ + + + | Cl | 98 | 95 - 112 mmol/L | EXTERNAL | | | | | | LAB | | + +---------+ + + + | CO2 | 26 | 19 - 31 mmol/L | EXTERNAL | | | | | | LAB | | + +---------+ + + + | Anion Gap | 12.7 | 7 - 21 mmol/L | EXTERNAL | | | | | | LAB | | + +---------+ + + + | Estimated | 78 | mg/dL | EXTERNAL | | | GFR | | | LAB | | + +---------+ + + + + + | Specimen [...]
--- OUTSIDE RECORDS SUMMARY | ~2019-11-08 | XMS | Encounter Summary ---
Demographics + + + | Address | [address] | | | [place] [address] | + + + | Home Phone | | + + + | Preferred Language | Unknown | + + + | Marital Status | | + + + | Voodoo Affiliation | 1041 | + + + | Race | Unknown | + + + | Ethnic Group | Unknown | + + + Author + + + | Author | [facility] | | | and [place] | + + + | Organization | [facility] | | | [...] Team Providers + +------+ + | Care Outside Sales Account Executive Name | Role | Phone | + +------+ + | Slick Hernandez MD | PCP | | + +------+ + Reason for Visit +--------+ + | Reason | Comments | +--------+ + | Other | end of study (7 day isha) | +--------+ + Encounter Details +--------+ + + + + | Date | Type | Department | Care Team | Description | +--------+ + + + + | 06/17/ | Documentati | [facility] | Heidi Bran, | Other (end of study | | 2019 | on | [facility] | Technologist | (7 day isha)) | | | | [address] | | | | | | [place] | | | | | | [address] | | | | | | [phone] | | | +--------+ + + + [...] as of this encounter Progress Notes Heidi Bran, Technologist - 06/18/2019 11:59 PM PDT 7 Day [facility] Cardiac Event Monitor Date of Event Monitor: 06/18/19 Referring Physician: [place]: Dontrell Madison : 1945 Age: 74 y.o. male INDICATIONS: Atrial premature depolarization, Ventricular premature depolarization FINDINGS: CONCLUSIONS: Associated attestation - Elmer Mcdaniel MD - 07/04/2019 2:21 PM PDTA cardiac rhythm anal ysis was performed on a single lead for 7 days, which showed the following: The predominant rhythm was sinus, with an average heart rate of 88 bpm, ranging from 51-138 bpm. A normal circadian rhythm was seen. Sinus bradycardia was present for part of the rec ording, with no significant bradycardia (no heart rates less than 40 bpm noted). Sinus tachy cardia was present for 17% the recording. There was a mild first-degree atrioventricular block present throughout the recording. No clinically significant pauses were noted. The overall ventricular ectopy burden was 2%. There were an average of 2541 (multifocal) PV Cs per day. There were also rare ventricular couplets, with no evidence of ventricular tach ycardia. The overall atrial ectopic rhythm burden was 1%. There were rare isolated PACs. There were 10 runs of paroxysmal atrial tachycardia during the monitored time period, the maximum dura tion of which was 5.8 minutes, at a rate of 142 bpm, with abrupt onset and offset. The maxim um recorded heart rate during any of these runs was a 6 beat run, at 150 bpm. There was no evidence runs of paroxysmal atrial fibrillation or atrial flutter during the m onitored time period. No symptoms were reported during the monitored time period,. CONCLUSION: This is a mildly abnormal 7-day event monitor recording, with sinus rhythm, ra re PVCs and PACs, and 10 brief runs of PAT. No symptoms were reported. documented in this encounter Plan of Treatment Not on filedocumented as of this encounter Visit Diagnoses + + | Diagnosis | + + | PAC (premature atrial contraction) Supraventricular premature beats | + + | Ventricular premature depolarization Other premature beats | + + documented in this encounter"
--- OUTSIDE RECORDS SUMMARY | ~2019-11-08 | XMS | Clinical Summary ---
Demographics + + + | Address | [address] | | | [place] [address] | + + + | Home Phone | | + + + | Preferred Language | Unknown | + + + | Marital Status | | + + + | Temple Affiliation | Unknown | + + + [...] Team Providers + +------+ + | Care Cooler Servicer Name | Role | Phone | + +------+ + | No Pcp Per Patient | PCP | Unavailable | + +------+ + Source Comments [facility] is fully live on both [facility] and [facility] In[facility] Allergies No Known Allergies Medications + + [...] | BLUE | xxxxxxxxx | Effect | [phone] | [address] | P[address] | | | CROSS | | maira | 8 | [address] | | | | [place] | | for | | [place], | | | | L | | all | | [place] [address] | | | | | | dates [...] | Jayden | shilo/Karthikeyan | | | [phone] | [place] | | | anusha | | | [address] (Home) | [id number] | + +--------+ +-------+ + +
--- OUTSIDE RECORDS SUMMARY | ~2019-11-08 | XMS | Encounter Summary ---
Demographics + + + | Address | [address] | | | [place] [address] | + + + | Home Phone | | + + + | Preferred Language | Unknown | + + + | Marital Status | | + + + | Baptism Affiliation | 1041 | + + + | Race | Unknown | + + + | Ethnic Group | Unknown | + + + Author + + + | Author | [facility] | | | and [place] | + + + | Organization | [facility] | | | [...] Team Providers + +------+ + | Care Spray Drier Operator Name | Role | Phone | + +------+ + PCP | Unavailable | + +------+ + Encounter Details +--------+ + + + + | Date | Type | Department | Care Team | Description | +--------+ + + + + | 02/23/ | Hospital | [facility] | Conversion | Severe calcific | | 2016 | Encounter | CENTER CV INTRA OP | Transaction, | aortic stenosis | | | | [address] | Provider Unknown | | | | | [place], [place] | [phone] | | | | | [address] | | | | | | [phone] | Kelby Mcdaniel MD | | | | | | [address] | | | | | | [place] | | | | | | [address] | | | | | | | [...] + + + | Blood Pressure | 135/71 | 02/23/2017 9:49 AM | | | | | PST | | + + + + + | Pulse | 72 | 02/23/2017 9:49 AM | | | | | PST | | + + + + + | Temperature | 36.6 C (97.9 F) | 02/23/2017 9:49 AM | | | | | PST | | + + + + + | Respiratory Rate | 18 | 02/23/2017 9:49 AM | | | | | PST | | + + + + + | Oxygen Saturation | - | - | | + + + + + | Inhaled Oxygen | - | - | | | Concentration | | | | + + + + + | Weight | 113.9 kg (251 lb 1.6 | 02/23/2017 9:49 AM | | | | oz) | PST | | + + + + + | Height | 177.8 cm (5' 10") | 02/23/2017 9:49 AM | | | | | PST | | + + + + + | Body Mass Index | 36.03 | 02/23/2017 9:49 AM | | | | | PST [...] + + documented as of this encounter H&P Notes Kelby Mcdaniel MD - 02/23/2017 9:18 AM PSTFormatting of this note might be different fro m the original. H&P by Kelby Mcdaniel MD at 02/23/17917 Author: Kelby Mcdaniel MD Service: Cardiology Author Type: Physician Filed: 02/23/17925 Date of Service: 02/23/17917 Status: Signed Oven Dauber: Kelby Mcdaniel MD (Physician) [facility] Service: Cardiology Admission History & Physical Date of Admission: 02/23/2017 Requesting Physician: Slick Hernandez MD, [facility] Reason for Admission: Elective diagnostic cardiac catheterization for evidence of severe A S on echo History Obtained From: patient CHIEF COMPLAINT: In the last 6 months, he has noted increasing fatigue, and has had to "s low down", which is consistent with symptoms from severe aortic stenosis. HISTORY OF PRESENT ILLNESS The patient is a 71 y.o. male who presents for an elective right/left cardiac catheterizati on for evidence of severe on echo. I saw him in my office 02/06/17. He used to see Yo Olson D.O., approximately 15 years ago, but more recently has seen Dr. Shafer, who recent ly left [place]. He has severe calcific aortic stenosis, as evidenced by his recent ech ocardiogram 06/07/16. The aortic valve area is 0.8 cm, with a peak/mean gradient of 59.1/40 .9 mmHg. It is considered to be rapidly progressive, as the aortic valve area was 1.0 cm, with a peak/mean gradients of 37/20 mmHg on his prior echocardiogram done 07/27/15. In the last 6 months, he has noted increasing fatigue, and has had to "slow down", which is consist ent with symptoms from severe aortic stenosis. As such, he will require aortic valve replac ement surgery. He will first undergo diagnostic right and left heart catheterization on . Diagnostic Cardiac Catheterization via femoral or radial artery approach: the proce dure, with its associated alternatives, benefits, and risks, the latter including but not li mited to possible need for more than one vascular access site, , NE, CVA, bleeding (inc luding the need for blood transfusion), vascular damage (including the need for emergent lakeisha gical repair, including PCI/stent placement or CABG), renal failure (including the possible need for short or long-term use of hemodialysis), allergic reactions/anaphylaxis, and the ri sks of moderate anesthesia/sedation, were discussed in detail. No guarantees were given. A ll questions were answered. The patient verbalized understanding [...] psychiatric problems. Past Medical History Diagnosis Date Horseshoe kidney Hyperlipidemia Hypertension Kidney stones Severe calcific aortic stenosis Rapidly progressive Skin cancer Type 2 diabetes mellitus (HCC) 2004 Insulin requiring Past Surgical History Procedure Laterality Date CHOLECYSTECTOMY NASAL SEPTUM SURGERY RECTAL SURGERY tear repaired REPLACEMENT TOTAL KNEE Right SINUS SURGERY SKIN CANCER EXCISION TONSILLECTOMY TRANSURETHRAL RESECTION OF PROSTATE 2012 No Known Allergies Prescriptions Prior to Admission Medication Sig Dispense Refill Last Dose aspirin 81 MG EC tablet Take 81 mg by mouth daily with breakfast. Taking docusate sodium (COLACE) 100 MG capsule Take 100 mg by mouth daily. Taking hydrochlorothiazide (HYDRODIURIL) 25 MG tablet Take 25 mg by mouth daily. Taking insulin NPH-insulin regular (NOVOLIN 70/30) (70-30) 100 UNIT/ML injection Inject 48 Uni ts into the skin 2 (two) times daily before meals. Patient using about 48 units in the morni ng and 35 units at night Taking metFORMIN (GLUCOPHAGE) 500 MG tablet Take 500 mg by mouth 2 (two) times daily with meal s. Taking quiNIDine gluconate 324 MG CR tablet Take 324 mg by mouth daily as needed. Taking simvastatin (ZOCOR) 80 MG tablet Take 40 mg by mouth nightly. Taking tolterodine (DETROL LA) 4 MG 24 hr capsule Take 4 mg by mouth daily. Taking Family History Problem Relation Age of Onset Heart failure Mother Dementia Mother Stroke Father Coronary art dis Father 72 Hypertension Father Social History Social History Marital status: Spouse name: N/A Number of children: N/A Years of education: N/A Occupational History drives [employer] Social History Main Topics Smoking status: Former Smoker Packs/day: 0.25 Years: 20.00 Quit date: 02/06/1997 Smokeless tobacco: Former User Alcohol use 1.8 oz/week 3 Shots of liquor per week Drug use: No Sexual activity: Not on file Other Topics Concern Not on file Social History Narrative No narrative on file PHYSICAL EXAM There were no vitals taken for this visit. To be reviewed prior to the procedure GENERAL: Well developed well nourished, in no [...] CBC: Lab Results Component Value Date WBC 6.17 02/20/2017 RBC 4.80 02/20/2017 HGB 14.8 02/20/2017 HCT 44.0 02/20/2017 MCV 91.5 02/20/2017 MCH 30.8 02/20/2017 MCHC 33.7 02/20/2017 RDW 46.4 02/20/2017 PLT 169 02/20/2017 MPV 9.6 02/20/2017 DIFFTYPE AUTOMATED 02/20/2017 BMP: Lab Results Component Value Date NA 138 02/20/2017 K 3.9 02/20/2017 CL 100 02/20/2017 CO2 30 02/20/2017 ANIONGAP 12 02/20/2017 GLUF 281 (H) 02/20/2017 BUN 20 02/20/2017 CREATININE 1.2 02/20/2017 BCR 17 02/20/2017 CA 9.0 02/20/2017 EGFR >60 02/20/2017 PT/INR: Lab Results Component Value Date INR 1.0 02/20/2017 PROBLEM LIST Active Problems: * No active hospital problems. * ASSESSMENT & PLAN 1. Severe by echo, with mild symptoms of "slowing down" over the last 6 months. For milton gnostic right left cardiac cath for further evaluation. He had no CAD on prior cardiac cath in 2002, but this will be reassessed. 2. Essential HTN, has been controlled 3. Hyperlipidemia 4. Horseshoe kidney, with normal renal function 5. IR type 2 DM, poorly controlled per labs, as above. Disposition: Elective outpatient admission for diagnostic R/LHC. Code Status: No Order Primary Care Physician: SLICK Mcdaniel MD 02/23/2017 documented in this e ncounter Plan of Treatment Not on filedocumented as of this encounter Procedures + +--------+ + + + | Procedure Name | Priori | Date/Time | Associated Diagnosis | Comments | | | ty | | | | + +--------+ + + + | CV CARDIAC PROCEDURE | Routin | 2017 | | Results for this | | | e | 1:05 PM | | procedure are in the | | | | PST | | results section. | + +--------+ + + + | POC GLUCOSE | Routin | 02/23/2017 | | Results for this | | | e | 9:25 AM | | procedure are in the | | | | PST | | results section. | + +--------+ + + + documented in this encounter Results CV CARDIAC PROCEDURE (2017 1:05 PM PST) + + | Specimen | + + | | + + + + + | Narrative | Performed At | + + + | | | | | | | DATE OF SERVICE 2017 REFERRING PHYSICIAN Slick | | | MD David INDICATIONS Severe aortic stenosis by | | | echocardiography, which is now symptomatic. PROCEDURES 1. Right | | | and left heart catheterizations. 2. Selective bilateral coronary | | | angiography. 3. Left ventricular cineangiography. DESCRIPTION OF | | | PROCEDURE After informed consent was obtained, he was brought to the | | | cardiac catheterization laboratory and prepped and draped in a | | | sterile fashion. He was given Versed 2 mg IV and fentanyl 50 mcg IV | | | for moderate anesthesia/sedation. The right femoral area was | | | infiltrated with 1% xylocaine for local anesthesia. Using modified | | | Seldinger technique, a 7-Algerian introducer sheath was inserted into | | | the right common femoral vein with a clean anterior entry. By a | | | similar technique, a 6-Algerian introducer sheath was inserted into the | | | right common femoral artery, with a clean anterior entry. A 7-Algerian | | | Arthur-Aguilar catheter was then advanced through the right heart | | | chambers, with typical pressure waveforms viewed and recorded. Cardiac | | | output was determined both by Griselda and thermodilution techniques. | | | The Arthur-Aguilar catheter was then removed. With the use of | | | 0.035-inch J-tipped guidewire for catheter advancement under direct | | | fluoroscopic visualization, a 5-Algerian FL4 catheter was advanced to | | | the aortic root and used to perform selective angiography of the | | | [place] left coronary circulation in multiple views in standard | | | fashion. It was then exchanged over the guidewire for a 5-Algerian FR4 | | | catheter, which was used to perform selective angiography of the | | | [place] right coronary artery in multiple views in standard fashion. | | | Via guidewire exchange, a 6-Algerian Salinas catheter was advanced | | | to the aortic root but could not cross the aortic valve. It was | | | exchanged over the guidewire for a 5-Algerian AL1 catheter. With the | | | use of a 265 cm Wholey wire, the aortic valve was crossed. The | | | Salinas catheter was advanced across the aortic valve, into the left | | | ventricle. Simultaneous pressures were recorded in the left | | | ventricle and aortic root. A single left ventricular cineangiogram | | | was then performed in the FAROOQ view. The catheter was then pulled back | | | across the aortic valve, with pressures measured, and removed over | | | the guidewire. A nonselective angiogram through the right common | | | femoral arterial introducer sheath side port revealed entry above the | | | bifurcation of this vessel, with no significant vascular disease at | | | this level. The arterial sheath was removed and hemostasis was | | | achieved with application of a 6-Algerian Mynx closure device. The | | | venous introducer sheath was removed and hemostasis was achieved with | | | manual pressure. There were no complications, and he tolerated the | | | procedure well. ESTIMATED BLOOD LOSS Less than 25 mL. | | | CONTRAST 95 mL of Isovue. RESULTS HEMODYNAMICS Right atrial | | | pressure measured 8 (mean), A wave 12, V wave 9. Right ventricular | | | pressure measured 30/11. Pulmonary artery pressure measured 32/15, | | | mean 21. Pulmonary capillary wedge pressure measured 11 (mean), A | | | wave 13, V wave 13. Femoral artery oxygen saturation was measured at | | | 89.6%, pulmonary artery oxygen saturation 64.1%. Cardiac output | | | measured 5.39 L/min by Griselda technique and 6.32 L/min by | | | thermodilution. Cardiac index measured 2.36 L/min per meter squared | | | by Griselda, 2.77 L/min per meter squared by thermodilution. The aortic | | | valve area is calculated at 0.8 cm squared by thermodilution and 0.7 | | | cm squared by Griselda technique. Left ventricular systolic pressure | | | measured 185 mmHg, end-diastolic pressure 22 mmHg, central aortic | | | pressure simultaneously recorded measured 124/67, with a mean central | | | aortic pressure of 93 mmHg. CORONARY ARTERIES 1. Left main: This | | | is a large vessel, arising from the left coronary cusp. The mid | | | segment contains an eccentric 25% stenosis, with no other evidence of | | | disease. It trifurcates at its distal end. 2. Left anterior | | | descending: This is a large, type 2 vessel which reached the apex. | | | The proximal segment is free of disease. The early mid segment | | | contains an eccentric 20% stenosis. The remainder of the vessel is | | | free of disease. The septal rehab director branches are normal. The first | | | diagonal branch is small caliber and normal. The second diagonal | | | branch is medium-sized and normal. 3. Ramus intermedius: This is a | | | small vessel, without evidence of disease. 4. Left circumflex: | | | This is a large, nondominant vessel with no evidence of disease. The | | | first obtuse marginal branch is large and free of disease. The second | | | obtuse marginal branch is large and normal. The third obtuse | | | marginal branch is medium-sized and normal. 5. Right coronary artery: | | | This is a large, dominant vessel arising from the right coronary | | | cusp. It is free of disease throughout its course. The posterior | | | descending artery is a medium- to large-size vessel which is normal. | | | The posterolateral ventricular branch is medium in size and normal. | | | LEFT VENTRICLE This is normal in size and shape. There is minimal | | | anterolateral hypokinesis. All other segments contract well. The | | | visually estimated ejection fraction is 60% to 65%. The mitral valve | | | is competent. CONCLUSIONS 1. Severe aortic stenosis, which is now | | | symptomatic. 2. No angiographically significant coronary artery | | | disease. 3. Normal left ventricular systolic function. | | | RECOMMENDATIONS Surgical consultation has been requested of Lopez | | | MD Jimbo, for aortic valve replacement. Read by KELBY Crawford | | | MD FADI 2017 01:01 P | | + + + + + | Procedure Note | + + | Jameson Pop Conversion - 11/27/2018 3:15 PM PDT | | | | | | DATE OF SERVICE | | 2017 | | | | REFERRING PHYSICIAN | | Slick Hernandez MD | | | | INDICATIONS | | Severe aortic stenosis by echocardiography, which is now symptomatic. | | | | PROCEDURES | | 1. Right and left heart catheterizations. | | 2. Selective bilateral coronary angiography. | | 3. Left ventricular cineangiography. | | | | DESCRIPTION OF PROCEDURE | | After informed consent was obtained, he was brought to the cardiac | | catheterization laboratory and prepped and draped in a sterile fashion. He | | was given Versed 2 mg IV and fentanyl 50 mcg IV for moderate | | anesthesia/sedation. | | | | The right femoral area was infiltrated with 1% xylocaine for local | | anesthesia. Using modified Seldinger technique, a 7-Algerian introducer | | sheath was inserted into the right common femoral vein with a clean | | anterior entry. By a similar technique, a 6-Algerian introducer sheath was | | inserted into the right common femoral artery, with a clean anterior entry. | | A 7-Algerian Arthur-Aguilar catheter was then advanced through the right heart | | chambers, with typical pressure waveforms viewed and recorded. Cardiac | | output was determined both by Griselda and thermodilution techniques. The | | Arthur-Aguilar catheter was then removed. | | | | With the use of 0.035-inch J-tipped guidewire for catheter advancement | | under direct fluoroscopic visualization, a 5-Algerian FL4 catheter was | | advanced to the aortic root and used to perform selective angiography of | | the [place] left coronary circulation in multiple views in standard fashion. | | It was then exchanged over the guidewire for a 5-Algerian FR4 catheter, which | | was used to perform selective angiography of the [place] right coronary | | artery in multiple views in standard fashion. | | | | Via guidewire exchange, a 6-Algerian Salinas catheter was advanced to the | | aortic root but could not cross the aortic valve. It was exchanged over the | | guidewire for a 5-Algerian AL1 catheter. With the use of a 265 cm Wholey | | wire, the aortic valve was crossed. The Salinas catheter was advanced | | across the aortic valve, into the left ventricle. Simultaneous pressures | | were recorded in the left ventricle and aortic root. A single left | | ventricular cineangiogram was then performed in the FAROOQ view. The catheter | | was then pulled back across the aortic valve, with pressures measured, and | | removed over the guidewire. | | | | A nonselective angiogram through the right common femoral arterial | | introducer sheath side port revealed entry above the bifurcation of this | | vessel, with no significant vascular disease at this level. The arterial | | sheath was removed and hemostasis was achieved with application of a | | 6-Algerian Mynx closure device. The venous introducer sheath was removed and | | hemostasis was achieved with manual pressure. There were no complications, | | and he tolerated the procedure well. | | | | ESTIMATED BLOOD LOSS | | Less than 25 mL. | | | | CONTRAST | | 95 mL of Isovue. | | | | RESULTS | | | | HEMODYNAMICS | | Right atrial pressure measured 8 (mean), A wave 12, V wave 9. | | Right ventricular pressure measured 30/11. | | Pulmonary artery pressure measured 32/15, mean 21. | | Pulmonary capillary wedge pressure measured 11 (mean), A wave 13, V wave | | 13. | | Femoral artery oxygen saturation was measured at 89.6%, pulmonary artery | | oxygen saturation 64.1%. | | Cardiac output measured 5.39 L/min by Griselda technique and 6.32 L/min by | | thermodilution. | | Cardiac index measured 2.36 L/min per meter squared by Griselda, 2.77 L/min per | | meter squared by thermodilution. | | The aortic valve area is calculated at 0.8 cm squared by thermodilution and | | 0.7 cm squared by Griselda technique. | | Left ventricular systolic pressure measured 185 mmHg, end-diastolic | | pressure 22 mmHg, central aortic pressure simultaneously recorded measured | | 124/67, with a mean central aortic pressure of 93 mmHg. | | | | CORONARY ARTERIES | | 1. Left main: This is a large vessel, arising from the left coronary cusp. | | The mid segment contains an eccentric 25% stenosis, with no other | | evidence of disease. It trifurcates at its distal end. | | 2. Left anterior descending: This is a large, type 2 vessel which reached | | the apex. The proximal segment is free of disease. The early mid segment | | contains an eccentric 20% stenosis. The remainder of the vessel is free | | of disease. The septal rehab director branches are normal. The first | | diagonal branch is small caliber and normal. The second diagonal branch | | is medium-sized and normal. | | 3. Ramus intermedius: This is a small vessel, without evidence of disease. | | | | 4. Left circumflex: This is a large, nondominant vessel with no evidence of | | disease. The first obtuse marginal branch is large and free of disease. | | The second obtuse marginal branch is large and normal. The third obtuse | | marginal branch is medium-sized and normal. | | 5. Right coronary artery: This is a large, dominant vessel arising from the | | right coronary cusp. It is free of disease throughout its course. The | | posterior descending artery is a medium- to large-size vessel which is | | normal. The posterolateral ventricular branch is medium in size and | | normal. | | | | LEFT VENTRICLE | | This is normal in size and shape. There is minimal anterolateral | | hypokinesis. All other segments contract well. The visually estimated | | ejection fraction is 60% to 65%. The mitral valve is competent. | | | | CONCLUSIONS | | 1. Severe aortic stenosis, which is now symptomatic. | | 2. No angiographically significant coronary artery disease. | | 3. Normal left ventricular systolic function. | | | | RECOMMENDATIONS | | Surgical consultation has been requested of Lopez Cohi MD, for aortic | | valve replacement. | | | | Read by KELBY MCDANIEL MD 2017 01:01 P | | | | | + + POC Glucose (02/23/2017 9:25 AM PST) + + + + + + | Component | Value | Ref Range | Performed | Pathologist | | | | | At | Signature | + + + + + + | Glucose, | 175 (H)Comment: Testing | 65 - 99 mg/dL | EXTERNAL | | | Fingerstick | performed at [facility];[address] | | LAB | | | | [address];[place] | | | | | | [id number] | | | | + + + [...] + | Diagnosis | + + | Severe calcific aortic stenosis Aortic valve disorders | + + documented in this encounter
--- OUTSIDE RECORDS SUMMARY | ~2019-11-08 | XMS | Encounter Summary ---
Demographics + + + | Address | [address] | | | [place] [address] | + + + | Home Phone | | + + + | Preferred Language | Unknown | + + + | Marital Status | | + + + | Mandaen Affiliation | 1041 | + + + | Race | Unknown | + + + | Ethnic Group | Unknown | + + + Author + + + | Author | [facility] | | | and [place] | + + + | Organization | [facility] | | | [...] Team Providers + +------+ + | Care Public Transportation Inspector Name | Role | Phone | + +------+ + PCP | Unavailable | + +------+ + Encounter Details +--------+ + + + + | Date | Type | Department | Care Team | Description | +--------+ + + + + | 05/21/ | Hospital | [facility] | Ronak Cid | CHEST PAIN NOS | | 2002 | Encounter | [facility] | MD [address] | | | | | CLINICAL DECISION | [address], | | | | | [address] [facility] | [place] [address] | | | | | [place], [place] | [phone] | | | | | [address] | | | | | | [phone] | | | +--------+ + + + [...] + | Diagnosis | + + | Chest pain, unspecified | + + documented in this encounter"
--- OUTSIDE RECORDS SUMMARY | ~2019-11-08 | XMS | Encounter Summary ---
Demographics + + + | Address | [address] [facility] | | | [place] [address] | + + + | Home Phone [...] Team Providers + +------+ + | Care Design Assistant Name | Role | Phone | + +------+ + | Slick Hernandez MD | PCP | | + +------+ + Encounter Details +--------+ + + + + | Date | Type | Department | Care Team | Description | +--------+ + + + + | 06/07/ | Orders Only | [facility] | Derrikc Shafer | | | 2017 | | CONVERSION 888 | MD Keshav [address] | | | | [address] | [facility] [address] | | | | | [place], [place] | [place] [address] | | | | | [address] | [phone] | | | | | [phone] | | | +--------+ + + + [...] + | ECHO INTERPRETATION | Routin | 06/07/2016 | | Results for this | | OF OUTSIDE FILMS | e | 12:35 PM | | procedure are in the | | | | PST | | results section. | + +--------+ + + + documented in this encounter Results ECHO Interpretation of Outside Films (06/07/2016 12:35 PM PST) + + | Specimen | + + | | + + + + + | Impressions | Performed At | + + + | 1. The left ventricle is normal in size, mild increase in wall | | | thickness and normal systolic function EF 55-60%. 2. Pseudonormal LV | | | diastolic filling pattern, consistent with elevated LA pressure and | | | moderate dysfunction (Grade II). 3. The right ventricle is normal in | | | size and function. 4. The aortic valve is severely calcified, and | | | severe stenosis with mean gradient of 41 mmHg and dimensional index of | | | < 0.25. 5. Mild tricuspid regurgitation with no pulmonary | | | hypertension. 6. There is no pericardial effusion. | | + + + + + + | Narrative | Performed At | + + + | Patient Name: Dontrell Madison Date of : 1945 | | | Performing Physician: Shashank Glasgow | | | | | | INDICATIONS Aortic stenosis CONCLUSIONS | | | 1. The left ventricle is normal in size, mild increase in wall | | | thickness and normal systolic function EF 55-60%. 2. Pseudonormal LV | | | diastolic filling pattern, consistent with elevated LA pressure and | | | moderate dysfunction (Grade II). 3. The right ventricle is normal in | | | size and function. 4. The aortic valve is severely calcified, and | | | severe stenosis with mean gradient of 41 mmHg and dimensional index of | | | < 0.25. 5. Mild tricuspid regurgitation with no pulmonary | | | hypertension. 6. There is no pericardial effusion. FINDINGS | | | -------- ECG rhythm: Sinus rhythm. Study: A 2-dimensional | | | transthoracic echocardiogram with m-mode, spectral and color flow | | | Doppler was perfomed. Study: This was a technically adequate study. | | | Left Ventricle: Overall left ventricular systolic function is normal | | | with, an EF between 55 - 60 %. Left Ventricle: The left ventricle | | | cavity size is normal. Left Ventricle: There is mild concentric left | | | ventricular hypertrophy. Left Ventricle: Pseudonormal LV diastolic | | | filling pattern, consistent with elevated LA pressure and moderate | | | dysfunction (Grade II). Left Ventricle: Basal septal and basal | | | inferior hypokinesis. Right Ventricle: The right ventricle is normal | | | in size and function. Left Atrium: The left atrium is normal in size. | | | Right Atrium: The right atrial size is normal. Aortic Valve: The | | | aortic valve is severely calcified. Aortic Valve: There is no | | | evidence of aortic regurgitation. Aortic Valve: Severe aortic | | | stenosis with peak/mean pressure gradient of 59.09mmHg / 40.90mmHg, | | | the aortic valve area by continuity equation is 0.8cm . Mitral | | | Valve: There is trace mitral regurgitation. Mitral Valve: Mild mitral | | | annular calcification present. Tricuspid Valve: The tricuspid valve | | | appears structurally normal. Tricuspid Valve: Mild tricuspid | | | regurgitation present. Tricuspid Valve: There is no evidence of | | | pulmonary hypertension. Tricuspid Valve: The right ventricular | | | systolic pressure (pulmonary artery systolic pressure), as measured by | | | Doppler, is 25.13mmHg. Pulmonic Valve: The pulmonic valve is normal. | | | Pulmonic Valve: Trace pulmonic regurgitation. Pericardium: There | | | is no pericardial effusion. IVC/Hepatic Veins: The IVC is normal size | | | (1.5-2.5cm) and collapses >50% with sniff, consistent with central | | | venous pressures of 5-10mmHg. Aorta: The aortic root, ascending aorta | | | are within normal dimensions. Septum: Mobile interatrial septum. | | | MEASUREMENTS Ao asc: 3.28 cm Ao Diam: 3.51 cm | | | Ao sinus: 3.[address] junct: 2.99 cm IVC: 1.99 cm LA | | | Diam: 3.16 cm LA Major: 4.02 cm EDV(Teich): 115.12 ml | | | IVSd: 1.32 cm LVIDd: 4.94 cm LVPWd: 1.15 cm LVOT Area: | | | 4.26 cm2 LVOT Diam: 2.33 cm %FS: 19.27 % EF(Teich): 39.54 | | | % ESV(Teich): 69.59 ml LVIDs: 3.99 cm SV(Teich): 45.52 ml | | | RA Major: 4.55 cm RV Major: 6.26 cm RVIDd: 3.17 cm LVEF | | | MOD A2C: 63.03 % SV MOD A2C: 63.51 ml LVEF MOD A4C: 55.41 % | | | SV MOD A4C: 40.63 ml EF Biplane: 59.39 % LVEDV MOD BP: | | | 87.13 ml LVESV MOD BP: 35.38 ml LVEDV MOD A2C: 100.74 ml LVLd | | | A2C: 8.07 cm LVEDV MOD A4C: 73.32 ml LVLd A4C: 8.32 cm | | | LVESV MOD A2C: 37.23 ml LVLs A2C: 7.24 cm LVESV MOD A4C: | | | 32.69 ml LVLs A4C: 7.48 cm LAESV(A-L): 49.17 ml LAESV Index | | | (A-L): 21.56 ml/m2 LAAs A2C: 16.81 cm2 LAESV A-L A2C: 53.91 | | | ml LALs A2C: 4.45 cm LAAs A4C: 14.38 cm2 LAESV A-L A4C: | | | 42.07 ml LALs A4C: 4.17 cm RAAs: 12.76 cm2 RAESV A-L: | | | 33.17 ml RAESV MOD: 30.89 ml RALs: 4.17 cm Ao Diam: 3.59 | | | cm LA Diam: 3.72 cm LA/Ao: 1.03 TAPSE: 2.73 cm AV maxPG: | | | 59.09 mmHg AV meanP.89 mmHg AV Vmax: 3.79 m/s AV | | | Vmean: 3.05 m/s AV VTI: 82.28 cm SEAN Vmax: 0.87 cm2 SEAN | | | (VTI): 0.83 cm2 AVAI Vmax: 0.00 cm2/m2 AVAI (VTI): 0.00 | | | cm2/m2 LVOT maxP.42 mmHg LVOT meanP.29 mmHg LVSI | | | Dopp: 30.00 ml/m2 LVSV Dopp: 68.41 ml LVOT Vmax: 0.77 m/s | | | LVOT Vmean: 0.53 m/s LVOT VTI: 16.03 cm MV A Tommy: 0.63 m/s | | | MV DecT: 149.14 ms MV E Tommy: 0.67 m/s MV E/A Ratio: 1.05 | | | MV PHT: 43.25 ms MVA By PHT: 5.08 cm2 Septal e': 0.05 m/s | | | Septal E/e': 11.43 Lateral e': 0.06 m/s Lateral E/e': 10.65 | | | RAP: 5 mmHg RVSP: 25.13 mmHg TR maxP.13 mmHg TR | | | Vmax: 2.24 m/s Sausage Grinder: MIKE Authenticated by: Pee | | | Shashank Report Date/Time: 06-08-2016 08:45:53 | | + + + + + | Procedure Note | + + | Jameson Pop - 11/28/2018 6:40 PM PDT Patient Name: Imelda Madison of | | : 1945 Performing Physician: Pee | | Shashank INDICATIONS------- | | ----Aortic stenosis CONCLUSIONS 1. The left ventricle is normal in size, mild | | increase in wall thickness and normal systolic function EF 55-60%.2. Pseudonormal LV | | diastolic filling pattern, consistent with elevated LA pressure and moderate dysfunction | | (Grade II).3. The right ventricle is normal in size and function.4. The aortic valve is | | severely calcified, and severe stenosis with mean gradient of 41 mmHg and dimensional | | index of < 0.25.5. Mild tricuspid regurgitation with no pulmonary hypertension.6. There | | is no pericardial effusion. FINDINGS--------ECG rhythm: Sinus rhythm.Study: A | | 2-dimensional transthoracic echocardiogram with m-mode, spectral and color flow Doppler | | was perfomed.Study: This was a technically adequate study.Left Ventricle: Overall left | | ventricular systolic function is normal with, an EF between 55 - 60 %.Left Ventricle: | | The left ventricle cavity size is normal.Left Ventricle: There is mild concentric left | | ventricular hypertrophy.Left Ventricle: Pseudonormal LV diastolic filling pattern, | | consistent with elevated LA pressure and moderate dysfunction (Grade II).Left Ventricle: | | Basal septal and basal inferior hypokinesis.Right Ventricle: The right ventricle is | | normal in size and function.Left Atrium: The left atrium is normal in size.Right Atrium: | | The right atrial size is normal.Aortic Valve: The aortic valve is severely | | calcified.Aortic Valve: There is no evidence of aortic regurgitation.Aortic Valve: | | Severe aortic stenosis with peak/mean pressure gradient of 59.09mmHg / 40.90mmHg, the | | aortic valve area by continuity equation is 0.8cm .Mitral Valve: There is trace | | mitral regurgitation.Mitral Valve: Mild mitral annular calcification present.Tricuspid | | Valve: The tricuspid valve appears structurally normal.Tricuspid Valve: Mild tricuspid | | regurgitation present.Tricuspid Valve: There is no evidence of pulmonary | | hypertension.Tricuspid Valve: The right ventricular systolic pressure (pulmonary artery | | systolic pressure), as measured by Doppler, is 25.13mmHg.Pulmonic Valve: The pulmonic | | valve is normal.Pulmonic Valve: Trace pulmonic regurgitation.Pericardium: There is no | | pericardial effusion.IVC/Hepatic Veins: The IVC is normal size (1.5-2.5cm) and collapses | | >50% with sniff, consistent with central venous pressures of 5-10mmHg.Aorta: The aortic | | root, ascending aorta are within normal dimensions.Septum: Mobile interatrial septum. | | MEASUREMENTS Ao asc: 3.28 cmAo Diam: 3.51 cmAo sinus: 3.[address] | | junct: 2.99 cmIVC: 1.99 cmLA Diam: 3.16 cmLA Major: 4.02 cmEDV(Teich): 115.12 | | mlIVSd: 1.32 cmLVIDd: 4.94 cmLVPWd: 1.15 cmLVOT Area: 4.26 bx2OMLY Diam: 2.33 | | cm%FS: 19.27 %EF(Teich): 39.54 %ESV(Teich): 69.59 mlLVIDs: 3.99 cmSV(Teich): | | 45.52 mlRA Major: 4.55 cmRV Major: 6.26 cmRVIDd: 3.17 cmLVEF MOD A2C: 63.03 %SV | | MOD A2C: 63.51 mlLVEF MOD A4C: 55.41 %SV MOD A4C: 40.63 mlEF Biplane: 59.39 | | %LVEDV MOD BP: 87.13 mlLVESV MOD BP: 35.38 mlLVEDV MOD A2C: 100.74 mlLVLd A2C: | | 8.07 cmLVEDV MOD A4C: 73.32 mlLVLd A4C: 8.32 cmLVESV MOD A2C: 37.23 mlLVLs A2C: | | 7.24 cmLVESV MOD A4C: 32.69 mlLVLs A4C: 7.48 cmLAESV(A-L): 49.17 mlLAESV Index | | (A-L): 21.56 ml/m2LAAs A2C: 16.81 mw4OPYPX A-L A2C: 53.91 mlLALs A2C: 4.45 | | cmLAAs A4C: 14.38 [id number] A-L A4C: 42.07 mlLALs A4C: 4.17 cmRAAs: 12.76 | | [id number] A-L: 33.17 mlRAESV MOD: 30.89 mlRALs: 4.17 cmAo Diam: 3.59 cmLA Diam: | | 3.72 cmLA/Ao: 1.03TAPSE: 2.73 cmAV maxP.09 mmHgAV meanP.89 mmHgAV | | Vmax: 3.79 m/Malachi Vmean: 3.05 m/Malachi VTI: 82.28 cmAVA Vmax: 0.87 cm2AVA (VTI): | | 0.83 [id number] Vmax: 0.00 cm2/m2AVAI (VTI): 0.00 cm2/m2LVOT maxP.42 mmHgLVOT | | meanP.29 mmHgLVSI Dopp: 30.00 ml/m2LVSV Dopp: 68.41 mlLVOT Vmax: 0.77 | | m/sLVOT Vmean: 0.53 m/sLVOT VTI: 16.03 cmMV A Tommy: 0.63 m/sMV DecT: 149.14 msMV | | E Tommy: 0.67 m/sMV E/A Ratio: 1.05MV PHT: 43.25 msMVA By PHT: 5.08 cm3Botyof e': | | 0.05 m/sSeptal E/e': 11.43Lateral e': 0.06 m/sLateral E/e': 10.65RAP: 5 | | mmHgRVSP: 25.13 mmHgTR maxP.13 mmHgTR Vmax: 2.24 m/s Sausage Grinder: | | DHAuthenticated by: Kodi Glasgow Date/Time: 06-08-2016 08:45:53 IMPRESSION: | | 1. The left ventricle is normal in size, mild increase in wall thickness and normal | | systolic function EF 55-60%.2. Pseudonormal LV diastolic filling pattern, consistent | | with elevated LA pressure and moderate dysfunction (Grade II).3. The right ventricle is | | normal in size and function.4. The aortic valve is severely calcified, and severe | | stenosis with mean gradient of 41 mmHg and dimensional index of < 0.25.5. Mild tricuspid | | regurgitation with no pulmonary hypertension.6. There is no pericardial effusion. | |LA Major: 4.02 cm | |EDV(Teich): 115.12 ml | |IVSd: 1.32 cm | |LVIDd: 4.94 cm | |LVPWd: 1.15 cm | |LVOT Area: 4.26 cm2 | |LVOT Diam: 2.33 cm | |%FS: 19.27 % | |EF(Teich): 39.54 % | |ESV(Teich): 69.59 ml | |LVIDs: 3.99 cm | |SV(Teich): 45.52 ml | |RA Major: 4.55 cm | |RV Major: 6.26 cm | |RVIDd: 3.17 cm | |LVEF MOD A2C: 63.03 % | |SV MOD A2C: 63.51 ml | |LVEF MOD A4C: 55.41 % | |SV MOD A4C: 40.63 ml | |EF Biplane: 59.39 % | |LVEDV MOD BP: 87.13 ml | |LVESV MOD BP: 35.38 ml | |LVEDV MOD A2C: 100.74 ml | |LVLd A2C: 8.07 cm | |LVEDV MOD A4C: 73.32 ml | |LVLd A4C: 8.32 cm | |LVESV MOD A2C: 37.23 ml | |LVLs A2C: 7.24 cm | |LVESV MOD A4C: 32.69 ml | |LVLs A4C: 7.48 cm | |LAESV(A-L): 49.17 ml | |LAESV Index (A-L): 21.56 ml/m2 | |LAAs A2C: 16.81 cm2 | |LAESV A-L A2C: 53.91 ml | |LALs A2C: 4.45 cm | |LAAs A4C: 14.38 cm2 | |LAESV A-L A4C: 42.07 ml | |LALs A4C: 4.17 cm | |RAAs: 12.76 cm2 | |RAESV A-L: 33.17 ml | |RAESV MOD: 30.89 ml | |RALs: 4.17 cm | |Ao Diam: 3.59 cm | |LA Diam: 3.72 cm | |LA/Ao: 1.03 | |TAPSE: 2.73 cm | |AV maxP.09 mmHg | |AV meanP.89 mmHg | |AV Vmax: 3.79 m/s | |AV Vmean: 3.05 m/s | |AV VTI: 82.28 cm | |SEAN Vmax: 0.87 cm2 | |SEAN (VTI): 0.83 cm2 | |AVAI Vmax: 0.00 cm2/m2 | |AVAI (VTI): 0.00 cm2/m2 | |LVOT maxP.42 mmHg | |LVOT meanP.29 mmHg | |LVSI Dopp: 30.00 ml/m2 | |LVSV Dopp: 68.41 ml | |LVOT Vmax: 0.77 m/s | |LVOT Vmean: 0.53 m/s | |LVOT VTI: 16.03 cm | |MV A Tommy: 0.63 m/s | |MV DecT: 149.14 ms | |MV E Tommy: 0.67 m/s | |MV E/A Ratio: 1.05 | |MV PHT: 43.25 ms | |MVA By PHT: 5.08 cm2 | |Septal e': 0.05 m/s | |Septal E/e': 11.43 | |Lateral e': 0.06 m/s | |Lateral E/e': 10.65 | |RAP: 5 mmHg | |RVSP: 25.13 mmHg | |TR maxP.13 mmHg | |TR Vmax: 2.24 m/s | | | |Sausage Grinder: MIKE | |Authenticated by: Shashank Glasgow | |Report Date/Time: 06-08-2016 08:45:53 | | | |IMPRESSION: | |1. The left ventricle is normal in size, mild increase in wall thickness and normal systoli c function EF 55-60%. | |2. Pseudonormal LV diastolic filling pattern, consistent with elevated LA pressure and mode rate dysfunction (Grade II). | |3. The right ventricle is normal in size and function. | |4. The aortic valve is severely calcified, and severe stenosis with mean gradient of 41 mmH g and dimensional index of < 0.25. | |5. Mild tricuspid regurgitation with no pulmonary hypertension. | |6. There is no pericardial effusion. | + + documented in this encounter Visit Diagnoses Not on filedocumented in this encounter"
[~2019-11-08 16:59] MED LIST changes: +ASPIRIN EC325 MG PO; +CELECOXIB200 MG PO; +GABAPENTIN300 MG PO; +HEALTHY HEART1 EACH PO; +HUMULIN 70100 UNIT/1 SUB-Q; +HYDROMORPHONE HC4 MG PO; +MULTIVITAMINS1 EAC8 PO; +SENNA LAX8.6 MG PO; +TYLENOL EXTRA500 MG PO
[2019-11-08] MEDS ORDERED: METRONIDAZOLE45 GM TOP (17:16)
[2019-11-08] MEDS ORDERED: JARDIANCE10 MG PO (17:16)
--- NOTE | 2019-11-09 14:14 | EKG ---
[facility] [address] [facility] [place], [place] [address] Signed Normal sinus rhythm Normal ECG When compared with ECG of 09-MAR-2017 14:49, premature ventricular complexes are no longer present Confirmed by MARILU MCCARTNEY DO ([id number]) on 11/09/2019 2:13:53 PM Electronically Signed By: MARILU MCCARTNEY DO 11/09/19 1414 PATIENT NAME: KATARZYNA GANDHI Electrocardiogram DATE OF : 49 PHYSICIAN: MARILU MCCARTNEY DO REPORT #: [id number] REPORT IS CONFIDENTIAL AND NOT TO BE RELEASED WITHOUT AUTHORIZATION
== END 2019-11-08 21:02 | disposition home or self-care (01) ==
LOC: ED 16:59
DX: R41.0 Disorientation, unspecified (principal); E11.9 Type 2 diabetes mellitus without complications; Z87.442 Personal history of urinary calculi; Z87.891 Personal history of nicotine dependence; Z79.899 Other long term (current) drug therapy; Z79.4 Long term (current) use of insulin
CPT/HCPCS: 70450; 71045; 80053; 81001; 84484; 85025; 93005; 93010; 99285-25; G0480

== ENCOUNTER 2022-01-02 06:00 | Day surgery (SDC) | payer BC ==
[~2022-01-02] VITALS: Ht 177.8 cm; Wt 111.4 kg
[~2022-01-02 06:00] MED LIST changes: +CLARITIN10 MG PO; +COLESTIPOL HCL1 GM PO; +FLOMAX0.4 MG PO; +JARDIANCE25 MG PO; +METRONIDAZOLE45 GM TOP; +OXYCODONE HCL5 MG PO; +QUININE SULFAT324 MG PO
[2022-01-02] MEDS ORDERED: TYLENOL PM EXS1 EACH PO (06:36)
--- NOTE | 2022-01-02 08:03 | NUR ---
PT ALERT, ORIENTED AND SUPPORTED BY HIS LUIS ENRIQUE. PT HAS HAD THIS SURGERY BEFORE, HOPES HE DOESN'T HAVE TO AGAIN. ALL QUESTIONS ASKED ANSWERED. PT REQUESTED PRAYER, PAT WILL REMAIN THRU SURGERY. WILL FOLLOW NEEDED
--- NOTE | 2022-01-02 12:05 | NUR ---
Patient arrives to med surg via stretcher from PACU. Able to transfer self to bed. CBI flowing, urine light yellow in color with no clots. IVF infusing WNL. Pt home CPAP in room. Pt on RA, CPOX, 94%. Pt reports no pain or needs. CBG checked and 1unit SS insulin provided per order.
--- NOTE | 2022-01-02 12:17 | NUR ---
01/02/22 1217 Lina Waterman 1126 PT ARRIVED IN PACU SLEEPY WITH NO C/O'S. PEÑA WITH CBI RUNNING WITH CLEAR URINE PRESENT. 1130 BLOOD SUGAR 134. ANESTHESIA AWARE WITH NO NEW ORDERS. 1145 RESTING. REU. 1205 TO ROOM 115. REPORT GIVEN TO RN. AT BEDSIDE.
--- NOTE | 2022-01-02 13:15 | NUR ---
Rounded on patient who is resting in bed with eyes closed, awakens to voice and this RN entry. CBI slowed, urine light yellow in color with no clots or pink color noted. Pt denies pain or needs. Call light in reach.
--- NOTE | 2022-01-02 14:20 | NUR ---
Pt resting in bed with eyes closed, CPOX in place, CBI infusing, IVF WNL. Pt has no apparent needs at this time. Call light in reach.
--- NOTE | 2022-01-02 14:52 | NUR ---
CHECKING ON PT FOLLOWING SURGERY-HE IS ASLEEP. DID NOT DISTURB. WILL FOLLOW
--- NOTE | 2022-01-02 15:24 | NUR ---
ASSUMED CARE, REPORT RECEIVED FROM RN. PT RESTING IN BED AGREES HE IS COMFORTABLE AND WITHOUT PAIN. CBI CLAMPED CLEAR YELLOW URINE IN FOEY BAG. PT HAD LUNCH EALIER DENIES NAUSEA OR DISCOMFORTS. CALL LIGHT AND NEEDED ITEMS IN REACH
[2022-01-02] MEDS ORDERED: OXYCODONE HCL5 MG PO (16:25)
[2022-01-02] MEDS ORDERED: LEVOFLOXACIN250 MG PO (16:25)
[2022-01-02] MEDS ORDERED: CLOTRIMAZOLE-BE15 GM TOP (16:33)
--- NOTE | 2022-01-02 16:33 | NUR ---
MED REC COMPLETE
--- NOTE | 2022-01-02 17:43 | OR ---
[facility] [address] [facility] [place], [place] [address] Signed DATE OF OPERATION: 01/02/2022 SURGEON: Jennifer Tompkins MD PREOPERATIVE DIAGNOSES: 1. Benign prostatic hyperplasia with lower urinary tract symptoms. 2. Reactive overactive bladder, secondary to #1. 3. Significant regrowth of prostatic adenoma, status post previous transurethral resection of the prostate. POSTOPERATIVE DIAGNOSES: 1. Benign prostatic hyperplasia with lower urinary tract symptoms. 2. Reactive overactive bladder, secondary to #1. 3. Significant regrowth of prostatic adenoma, status post previous transurethral resection of the prostate. NAMES OF PROCEDURES: 1. Urethral dilation using [place] sounds from 18-South [place]ese to 28-[place]ese. 2. Diagnostic cystoscopy. 3. Transurethral resection of the prostate. ANESTHESIA: General. ESTIMATED BLOOD LOSS: Minimal. COMPLICATIONS: None. SPECIMENS: Prostate chips sent to pathology for evaluation. DRAINS: A 22-[place]ese three-way Al catheter, connected to continuous bladder irrigation. INDICATIONS FOR PROCEDURE: Mr. Madison is a very pleasant 76-year-old gentleman with a long-standing history of BPH with LUTS, who recently presented to my clinic with some worsening force of stream and urgency and frequency symptoms. He already takes Detrol LA 4 mg daily for previous Electronically Signed By: JENNIFER TOMPKINS MD 01/02/22 1743 PATIENT NAME: KATARZYNA MADISON OPERATIVE REPORT DATE OF : 49 REPORT #: [id number] PHYSICIAN: JENNIFER TOMPKINS MD PCP: KI NOEL MD REPORT IS CONFIDENTIAL AND NOT TO BE RELEASED WITHOUT AUTHORIZATION [facility] [address] [place], [place] [address] Signed existing reactive overactive bladder that developed secondary to long-standing bladder outlet obstruction. He underwent a transurethral resection of prostate approximately a decade ago and enjoyed an excellent force of stream for a solid 7-8 years. Since that time, he was placed back on Flomax for prostatic obstruction. He recently underwent a diagnostic cystoscopy, which revealed significant regrowth of his prostatic adenoma, primarily in the median and left lateral lobes of the prostate. He presents today to undergo transurethral resection of the prostate for excision of his prostatic regrowth. OPERATIVE FINDINGS: 1. Digital rectal examination reveals a 60 g prostate that is soft, smooth and symmetric with no focal nodules. 2. The patient's urethra was dilated from 18-South [place]ese to 28-[place]ese using Miami sounds without issue. 3. Diagnostic cystoscopy reveals no evidence of any suspicious masses, lesions, or stones. Bilateral ureteral orifices are in their normal anatomic location and are a good distance away from the bladder neck, reducing risk of any iatrogenic injury. 4. The patient's bladder neck and entire prostatic urethra was resected yet again using a 24-[place]ese loop and bipolar cautery. A good deal of resection was performed in the median lobe and left lateral lobe area. However, the entire prostate was resected circumferentially down to the level of the verumontanum. I re-evaluated the ureteral orifices at the end of the resection and there was no evidence of any injury to the ureteral orifices. The patient's bladder was intermittently irrigated using a Mey syringe and the prostate chips were successfully extracted from the bladder and placed in a specimen cup to be sent to Pathology for evaluation. The majority of resection was performed with the 24-[place]ese loop and then towards the end of the procedure, this was switched out for the bipolar button, at which point the majority of the hemostasis was achieved with bipolar button. Once I was satisfied that a new channel had been created and all the chips were out of the bladder, I passed a Sensor wire through the sheath and into the patient's bladder. The sheath was removed fully intact. Over the 0.035 Sensor wire, I passed a 22-[place]ese three-way Al catheter into the patient's bladder. I pulled the wire, leaving the catheter behind. The balloon was filled with 30 mL of sterile water. I then manually irrigated the catheter to ensure adequate placement. The catheter irrigated without any issue and there was no obvious gross blood in the urine at the end of the procedure. The catheter was connected to continuous bladder irrigation and a digital rectal examination was performed. Please see above findings. The procedure was then terminated. The patient tolerated the procedure well without any complication. He will now be transferred to the Postanesthesia Care Unit in stable condition. DISPOSITION: I discussed the details of today's procedure with the patient's and answered all of her questions. He will remain in the hospital this evening on CBI, which will be weaned Electronically Signed By: JENNIFER TOMPKINS MD 01/02/22 6729 PATIENT NAME: KATARZYNA MADISON OPERATIVE REPORT DATE OF : 49 REPORT #: [id number] PHYSICIAN: JENNIFER TOMPKINS MD PCP: KI NOEL MD REPORT IS CONFIDENTIAL AND NOT TO BE RELEASED WITHOUT AUTHORIZATION [address] [address] Signed slowly to off as per routine. His diabetic diet will be restarted and he will be given pain control as needed. He will be given IV Rocephin tomorrow prior to his discharge. He will be discharged to home with a Al catheter to gravity drainage. He will be sent home with oxycodone 5 mg one tablet p.o. q.6 hours p.r.n. pain along with Levaquin 250 mg daily x7 days. He has been scheduled to return to clinic this , January 05 to undergo voiding trial. MD MIKE Jaeger/CEDRICKL /[id number] Copies: ~ Electronically Signed By: JENNIFER TOMPKINS MD 01/02/22 1743 PATIENT NAME: KATARZYNA MADISON OPERATIVE REPORT DATE OF : 49 REPORT #: [id number] PHYSICIAN: JENNIFER TOMPKINS MD PCP: KI NOEL MD REPORT IS CONFIDENTIAL AND NOT TO BE RELEASED WITHOUT AUTHORIZATION
--- NOTE | 2022-01-02 19:10 | NUR ---
bedside report from Wendy RN, Dr. shepherd in room with pt, clarify bedrest and juan to gravity - cbi - complete - yellow clear urine draining at this time. diabetic pt tollerating reg diet, ns@75 via pump and home cpap - marylu RT aware of. white board updated.
--- NOTE | 2022-01-02 20:42 | NUR ---
yessica wnl, pt declines pain med, assessment complete, call light in reach.
--- NOTE | 2022-01-03 00:55 | NUR ---
pt resting in bed, cpap on, resp even, call light in reach.
--- NOTE | 2022-01-03 05:04 | NUR ---
pulse ox alarming sats ra are 85% - cpap placed and sats to 94%, hr low at 49, i/o complete, juan to gravity wnl denies needs.
--- NOTE | 2022-01-03 07:32 | NUR ---
PT SITTING UP IN BED WATCHING TV AT TIME OF SHIFT REPORT. DENIES DISCOMFORTS OR CONCERNS, ANTICIPATES DC. NEEDED ITEMS IN REACH
--- NOTE | 2022-01-03 08:06 | NUR ---
PT CBG TAKEN. GIVEN WARM WASH CLOTH FOR FACE/HANDS. PT STILL LAYING IN BED WATITING FOR BREAKFAST. STATED WILL BE IN AFTER HER DR APPOINTMENT THIS AM. NO OTHER REQUESTS AT THIS TIME. CALL LIGHT IN REACH.
[2022-01-03] MEDS ORDERED: OXYBUTYNIN CHLO10 MG PO (08:21)
--- NOTE | 2022-01-03 08:57 | NUR ---
PT IN BED RESTING. VITALS AND IS AND OS COMPLETE. PEÑA EMPTIED. NO NEEDS. CALL LIGHT WITHIN REACH.
--- NOTE | 2022-01-03 09:15 | NUR ---
PT TOLERATES 100% OF MORNING MEAL DENIES WANT OF OTHER ITEMS. ANTICIPATES DC AFTER RETURNS TO DRIVE HIM HOME. PT HAS HAD HOME CATH PRIOR TO THIS EVENT AND VERBALIZES UNDERSTANDING OF HOME MANAGEMENT AND CATH CARE. DENIES QUESTIONS OR NEED OF FURTHER INSTRUCTION
--- NOTE | 2022-01-03 10:44 | NUR ---
Upon entering the room I find Lazarus awake, alert and oriented to person, place and time. He is watching T.V. and he answers questions appropriately. Lazarus denies questons or any concerns regarding his procedure and current admission to the hospital. He feels that his pre-op teaching prepared him for the procedure and subsequent short stay in the hospital. He feels that his care has been "really good" and he has no concerns about discharging to home with his . He also shares that they are able to meet all of their home care needs including, food, utilities, medications, and transportation.
--- NOTE | 2022-01-03 11:12 | NUR ---
PT WAITING ON FOR RIDE HOME. REVIEWED DC INSTRUCTIONS AGAIN, Q&A, DEMONSTRATES CATH BAG CHANGE AND VERBALIZES TECHNIQUE FOR PROPER CLEANSING. DENIES FURTHER NEEDS OR QUESTIONS
--- NOTE | 2022-01-03 12:16 | NUR ---
MET WITH PT AND HIS TO REVIEW CATH CARE AND EMPTYING OF PEÑA BAG. ALL QUESTIONS ANSWERED
--- NOTE | 2022-01-03 13:42 | NUR ---
PT ALERT, ORIENTED AND WAITING FOR HIS LUIS ENRIQUE TO COME FOR DC. PT HAS GONE OVER DC INS, THANKED ME FOR COMING BY. GAVE ENCOURAGEMENT AND PT REQUESTED PRAYER. WILL FOLLOW
== END 2022-01-03 12:20 | disposition home or self-care (01) ==
LOC: MS 06:00 → DS 06:00 → MS 12:00 → DS 01-03 12:20
PROVIDERS: ATTEND Urology
PROC: 0VB08ZZ Excision of Prostate, Via Natural or Artificial Opening Endoscopic (ICD-10-PCS; principal; 2022-01-02 09:00)
DX: N40.1 Benign prostatic hyperplasia with lower urinary tract symptoms (principal); E11.9 Type 2 diabetes mellitus without complications; N41.1 Chronic prostatitis; N32.81 Overactive bladder; N39.41 Urge incontinence; N20.0 Calculus of kidney; Z79.4 Long term (current) use of insulin; Z96.651 Presence of right artificial knee joint
CPT/HCPCS: 00840; 87502; A9270; C1769; J0690; J0696; J1100; J1160; J1720; J1815; J1885; J2250; J2405; J2704; J2765; J3010; J7030; J7121; U0003